=== PATIENT | female | born 1945 | race African-American/Black ===

== ENCOUNTER 2016-11-08 22:11 | Inpatient (IN) | payer MEDICARE, OTHER ==
[~2016-11-08] VITALS: Ht 162.6 cm; Wt 97.5 kg
[~2016-11-08 22:11] MED LIST: ALBUTEROL SULF8.5 GM INH; AMLODIPINE BESYL5 MG ORAL; ASPIR 8181 MG ORAL; BENADRYL50 MG ORAL; CATAPRES0.1 MG ORAL; CLONIDINE HCL0.1 MG ORAL; COLACE100 MG ORAL; DEPAKENE250 MG ORAL; DESYREL100 MG; DILAUDID2 MG ORAL; DIVALPROEX SOD500 MG ORAL; DUONEB 0.5-3(2.53 ML; ENALAPRIL MALEAT5 MG ORAL; FUROSEMIDE40 MG ORAL; GEODON40 MG ORAL; HEPARIN1000 UNIT/ SUBQ; HYDROCHLOROTHIA25 MG ORAL; HYDROCODON-ACE1 EA13; HYDROMORPHONE HC2 M1; IMODIUM2 MG ORAL; IPRAT-ALBUT 0.5-3 ML HHN; LASIX20 M1 ORAL; LIDODERM700 M1 TD; LIDODERM700 M1 TOPIC; LIPITOR20 MG ORAL; LOPERAMIDE2 MG PO; LORAZEPAM2 MG ORAL; METOCLOPRAMIDE H5 M1 ORAL; METOPROLOL TART25 MG ORAL; MULTIVITAMINS1 EAC2 ORAL; MYLANTA II30 ML ORAL; NICODERM 21MG/241 EA TD; NORCO 10/3251 EA ORAL; OMEPRAZOLE40 M1 ORAL; PAROXETINE HCL10 MG ORAL; PAROXETINE HCL20 MG; PAROXETINE HCL30 MG ORAL; POTASSIUM CHLO20 ME3 PO; PROTONIX40 MG ORAL; ROBITUSSIN DM5 ML ORAL; SYNTHROID75 MCG ORAL; TRAZODONE HCL100 MG ORAL; TRAZODONE HCL150 MG ORAL; TYLENOL650 MG/20. ORAL; VITAMIN B-12500 MCG ORAL; VITAMIN C500 M1 ORAL; WELLBUTRIN SR100 MG ORAL; ZOLPIDEM TARTRA10 MG; ambien; benadryl; clonidine; dilaudid; lasix; lidoderm; nicotine patch; norco; robaxin
[2016-11-08 22:20] VITALS: BP 130/80
[2016-11-08] MEDS ORDERED: Morphine Sulfate 4mg/ml Inj IVP ONE (22:30)
[2016-11-08] MEDS ORDERED: GUAIFENESIN-CO118 M1 ORAL (22:32)
[2016-11-08] MEDS ORDERED: VITAMIN B-1100 MG ORAL (22:32)
[2016-11-08] MEDS ORDERED: IPRATROPIU0.2 MG/1 M HHN (22:32)
[2016-11-08] MEDS ORDERED: AMLODIPINE BESY10 MG ORAL (22:32)
[2016-11-08] MEDS ORDERED: PRO-STAT LIQUID30 ML ORAL (22:32)
[2016-11-08] MEDS ORDERED: DEPAKOTE ER500 MG ORAL (22:32)
[2016-11-08] MEDS ORDERED: ZOLPIDEM TARTRA10 MG ORAL (22:32)
[2016-11-08] MEDS ORDERED: LORAZEPAM1 MG ORAL (22:32)
[2016-11-08] MEDS ORDERED: NITROGLYCERIN0.4 MG SL (22:32)
[2016-11-08] MEDS ORDERED: MILK OF MA400 MG/51 ORAL (22:32)
[2016-11-08] MEDS ORDERED: VITAMIN C500 M1 ORAL (22:32)
[2016-11-08] MEDS ORDERED: PAROXETINE HC12.5 MG ORAL (22:32)
[2016-11-08] MEDS ORDERED: ABILIFY2 MG ORAL (22:32)
[2016-11-08] MEDS ORDERED: VENTOLIN HFA18 GM INH (22:32)
[2016-11-08] MEDS ORDERED: FAMOTIDINE20 MG ORAL (22:32)
[2016-11-08] MEDS ORDERED: HYDRALAZINE HCL25 M1 ORAL (22:32)
[2016-11-08 23:00] VITALS: BP 133/76
[2016-11-09] VITALS (8 sets, daily range): BP systolic 94–160; BP diastolic 47–82
[2016-11-09 00:33] LABS: MEAN CORPUSCULAR HEMOGLOBIN 32.4 PG (27.0-31.0); MEAN CORPUSCULAR HGB CONC 33.1 G/DL (32.0-36.0); MEAN CORPUSCULAR VOLUME 98 FL (80-99); MEAN PLATELET VOLUME 10.7 FL (6.5-10.1); PLATELET COUNT 188 K/UL (150-450); RED BLOOD COUNT 4.58 M/UL (4.20-5.40); RED CELL DISTRIBUTION WIDTH 12.5 % (11.6-14.8); WHITE BLOOD COUNT 14.5 K/UL (4.8-10.8)
[2016-11-09 00:47] LABS: PROTHROMBIN TIME 10.2 SEC (9.30-11.50)
[2016-11-09 01:24] LABS: APPEARANCE,URINE SLIGHTLY CLOUDY; KETONES,URINE NEGATIVE (NEGATIVE); LEUKOCYTE ESTERASE ,URINE 3+ (NEGATIVE); NITRITE,URINE NEGATIVE (NEGATIVE); PH,URINE 7 (4.5-8.0); PROTEIN,URINE 3+ (NEGATIVE); UROBILINOGEN,URINE NORMAL MG/DL (0.0-1.0)
[2016-11-09 01:25] LABS: BACTERIA,URINE FEW /HPF; SQUAMOUS EPITHELIAL CELL,UR MODERATE /LPF (NONE/OCC); WBC,URINE TNTC /HPF (0 - 2)
[2016-11-09 01:30] LABS: ALANINE AMINOTRANSFERASE 6 U/L (3-33); ANION GAP 16 (5-15); ASPARTATE AMINO TRANSFERASE 14 U/L (5-40); CALCIUM 8.3 mg/dL (8.6-10.2); CARBON DIOXIDE 25 mEQ/L (20-30); CHLORIDE 100 mEQ/L (98-107); CREATININE 0.8 mg/dL (0.5-0.9); GLOMERULAR FILTRATION RATE > 60 mL/min (>60); POTASSIUM 3.3 mEQ/L (3.4-4.9); SODIUM 141 mEQ/L (135-145); TOTAL PROTEIN 6.4 g/dL (6.6-8.7); TROPONIN I < 0.30 ng/mL (<=0.30)
[2016-11-09 01:31] LABS: ALBUMIN/GLOBULIN RATIO 1.1 (1.0-2.7); HEMOLYSIS 53; LIPASE 10 U/L (< 60)
[2016-11-09] MEDS ORDERED: cefTRIAXone 1 GM in NS 55 ML IVPB ONE (01:45)
[2016-11-09] MEDS ORDERED: NS 1000ml 3,400 ML IVLG ONE (03:00)
--- NOTE | 2016-11-09 03:00 | Emergency Room Report ---
History of Present Illness General Chief Complaint: Abdominal Pain Source: Patient, Medical Record, EMS Present Illness HPI This is a 71-year-old female with multiple medical problem. She has a history of gastric bypass. She presents with chief complaint of abdominal pain. Onset today. No fever chills but no nausea no vomiting. Pain was 10 out of 10. Nothing made it better and nothing worse. Allergies: Coded Allergies: AMITRIPTYLINE (Verified Allergy, Unknown, 10/19/13) recorded from detention. pt does not remember the reation. CHLORPROMAZINE (Verified Allergy, Unknown, 10/19/13) recorded from detention. pt does not remember reaction. ERYTHROMYCIN BASE (Verified Allergy, Unknown, 10/19/13) recorded from detention. pt does not remember reaction. HALOPERIDOL (Verified Allergy, Unknown, 10/19/13) recorded from detention. pt does not remember reaction. QUETIAPINE (Verified Allergy, Unknown, 10/19/13) recorded from detention. pt does not remember reaction. Uncoded Allergies: PENICILIN (Allergy, Unknown, 11/08/16) Patient History Past Medical History: see triage record, old chart reviewed Past Surgical History: other Pertinent Family History: none Social History: Denies: smoking Now: No Immunizations: other Reviewed Nursing Documentation: PMH: Agreed, PSxH: Agreed Nursing Documentation-PMH Hx Cardiac Problems: Yes - HF, Osteoarthritism Hypothyroidusn Hx Hypertension: Yes - Angioneurotic edema, hyperlipidemia Hx Pacemaker: No Hx Asthma: Yes Hx COPD: Yes Hx Diabetes: No Hx Cancer: No Hx Gastrointestinal Problems: Yes - Gout, GERD History Of Psychiatric Problem: Yes - Schizophrenia, Bipolar, anxiety, insomnia Hx Cerebrovascular Accident: No Hx Encephalitis: Yes - encephalopathy Hx Seizures: No - ANEMIA, ENCEPHALOPATHY, OBESITY Review of Systems Eye: Denies: blurred vision, eye pain ENT: Denies: ear pain, nose congestion, throat swelling Respiratory: Denies: cough, shortness of breath Cardiovascular: Denies: chest pain, palpitations Gastrointestinal: Reports: abdominal pain, Denies: diarrhea, nausea, vomiting Musculoskeletal: Denies: back pain, joint pain Skin: Denies: rash Neurological: Denies: headache, numbness Endocrine: Denies: increased thirst, increased urine Hematologic/Lymphatic: Denies: easy bruising All Other Systems: negative except mentioned in HPI Physical Exam Vital Signs Date Time Temp Pulse Resp B/P Pulse Ox O2 Delivery O2 Flow Rate FiO2 11/08/16 22:11 102.9 130 16 126/82 98 Nasal Cannula 4.0 vitals with fever and tachycardia Sp02 EP Interpretation: reviewed, normal General Appearance: well appearing, no apparent distress, alert Head: normocephalic, atraumatic Eyes: bilateral eye EOMI, bilateral eye PERRL ENT: hearing grossly normal, normal pharynx Neck: full range of motion, supple, no meningismus Respiratory: chest non-tender, lungs clear, normal breath sounds Cardiovascular #1: regular rate, rhythm, no murmur Gastrointestinal: normal bowel sounds, non tender, no mass, no organomegaly, no bruit, non-distended Musculoskeletal: back normal, normal range of motion Neurologic: alert, oriented x3 Psychiatric: mood/affect normal Skin: warm/dry Medical Decision Making Diagnostic Impression: Primary Impression: Sepsis Qualified Codes: A41.9 - Sepsis, unspecified organism Additional Impressions: Pyelonephritis Abdominal pain of unknown etiology Morbid obesity with BMI of 40.0-44.9, adult ER Course Patient presents with fever and has UTI/pyelonephritis. Abdominal pain she'll no evidence of obstructive process. Patient given antibiotics. Blood pressure is stable and heart rate better after temperature broke. Admit for further workup. Laboratory Tests Test 11/08/16 22:50 11/09/16 01:05 White Blood Count 14.5 K/UL (4.8-10.8) H Red Blood Count 4.58 M/UL (4.20-5.40) Hemoglobin 14.8 G/DL (12.0-16.0) Hematocrit 44.8 % (37.0-47.0) Mean Corpuscular Volume 98 FL (80-99) Mean Corpuscular Hemoglobin 32.4 PG (27.0-31.0) H Mean Corpuscular Hemoglobin Concent 33.1 G/DL (32.0-36.0) Red Cell Distribution Width 12.5 % (11.6-14.8) Platelet Count 188 K/UL (150-450) Mean Platelet Volume 10.7 FL (6.5-10.1) H Neutrophils (%) (Auto) % (45.0-75.0) Lymphocytes (%) (Auto) % (20.0-45.0) Monocytes (%) (Auto) % (1.0-10.0) Eosinophils (%) (Auto) % (0.0-3.0) Basophils (%) (Auto) % (0.0-2.0) Prothrombin Time 10.2 SEC (9.30-11.50) Prothromb Time International Ratio 1.0 (0.9-1.1) Activated Partial Thromboplast Time 20 SEC (23-33) L Urine Color Yellow Urine Appearance Slightly cloudy Urine pH 7 (4.5-8.0) Urine Specific [place] 1.010 (1.005-1.035) Urine Protein 3+ (NEGATIVE) H Urine Glucose (UA) Negative (NEGATIVE) Urine Ketones Negative (NEGATIVE) Urine Occult Blood 4+ (NEGATIVE) H Urine Nitrite Negative (NEGATIVE) Urine Bilirubin Negative (NEGATIVE) Urine Urobilinogen Normal MG/DL (0.0-1.0) Urine Leukocyte Esterase 3+ (NEGATIVE) H Urine RBC 5-10 /HPF (0 - 2) H Urine WBC Tntc /HPF (0 - 2) H Urine Squamous Epithelial Cells Moderate /LPF (NONE/OCC) H Urine Bacteria Few /HPF (NONE) Sodium Level 141 mEQ/L (135-145) Potassium Level 3.3 mEQ/L (3.4-4.9) L Chloride Level 100 mEQ/L (98-107) Carbon Dioxide Level 25 mEQ/L (20-30) Anion Gap 16 (5-15) H Blood Urea Nitrogen 13 mg/dL (7-23) Creatinine 0.8 mg/dL (0.5-0.9) Estimat Glomerular Filtration Rate > 60 mL/min (>60) Glucose Level 110 mg/dL (74-106) H Calcium Level 8.3 mg/dL (8.6-10.2) L Total Bilirubin 0.3 mg/dL (0.0-1.2) Aspartate Amino Transf (AST/SGOT) 14 U/L (5-40) Alanine Aminotransferase (ALT/SGPT) 6 U/L (3-33) Alkaline Phosphatase 76 U/L (35-104) Troponin I < 0.30 ng/mL (<=0.30) Total Protein 6.4 g/dL (6.6-8.7) L Albumin 3.4 g/dL (3.5-5.2) L Globulin 3.0 g/dL Albumin/Globulin Ratio 1.1 (1.0-2.7) Lipase 10 U/L (< 60) Lab Results Impression labs unremarkable. EKG Diagnostic Results Rate: normal Rhythm: NSR ST Segments: no acute changes Rhythm Strip Diag. Results Rhythm Strip Time: 02:59 EP Interpretation: yes Rate: 71 Rhythm: NSR, no PVC's CT/MRI/US Diagnostic Results CT/MRI/US Diagnostic Results : Imaging Test Ordered: CT abdomen and pelvis Impression read by radiologist. Questionable pyelonephritis. No obstruction. Last Vital Signs Date Time Temp Pulse Resp B/P Pulse Ox O2 Delivery O2 Flow Rate FiO2 11/08/16 22:11 102.9 130 16 126/82 98 Nasal Cannula 4.0 Status: improved Disposition: ADMITTED INPATIENT Condition: Serious Referrals: PADMINI AMBROSIO (PCP) ALBERTO BRUCE M.D. Nov 09, 2016 03:00
[2016-11-09] MEDS ORDERED: IPRATROPIU0.2 MG/1 M HHN (06:21)
[2016-11-09] MEDS ORDERED: PHENAZOPYRIDIN200 MG ORAL (06:21)
[2016-11-09] MEDS ORDERED: NORCO 5-325 TA1 EACH ORAL (06:21)
--- NOTE | 2016-11-09 09:33 | Diagnostic Imaging Report ---
Indications: Abdominal pain Technique: Continuous helical CT imaging of the abdomen and pelvis was performed with automatic exposure control on a Siemens sensation [address] scanner. Axial, coronal, sagittal images reconstructed at 3 mm slice thickness. No oral or IV contrast was administered per requesting physician's order, despite no contraindications listed. CTDI volume(s): 20 mGy Total DLP: 886 mGy-cm Findings: Comparison: None Lack of oral and IV contrast limits evaluation. Mild stranding and haziness surrounds the left kidney. There is suggestion of mild fullness of the left renal collecting system and proximal ureter. There is suggestion of a 3 mm nodular focus of mildly increased attenuation within the distal aspect of the left ureter just proximal to the ureterovesical junction disease (3-105). No additional stone is demonstrated in either kidney or ureter, nor within the urinary bladder. Right renal collecting system and ureter are nondilated. No right perinephric or periureteral stranding. Gastrointestinal tract nondilated. Surgical clips adjacent stomach. No obvious mural thickening, adjacent stranding, associated extraluminal gas or fluid collections. Gallbladder mildly distended. Prominent arterial mural calcifications. Vascular patency indeterminate. Coarse nodular calcifications in the uterine myometrium. Remainder visualized abdominopelvic anatomy demonstrates no other obvious acute abnormality. Small irregular pleural-based linear densities in both lung bases. 2 older space narrowing with marginal osteophyte formation, vacuum phenomenon, discogenic sclerosis lumbar, lower thoracic spine. Facet sclerosis and hypertrophy lower lumbar spine. Impression: Left renal vein ureteral findings as described may represent small obstructing distal ureteral stone, sequelae of recently passed stone, and/or pyelonephritis. Not all of these findings were described in [facility] preliminary report, minor discrepancy Mild gallbladder distention, nonspecific. Correlate clinically. No other evidence of acute abdominopelvic disease, with limitation as described. Subtle but potentially significant abnormalities may be missed. Repeat CT scan with full oral and IV contrast preparation recommended for more complete evaluation, as clinically indicated Previous gastric bypass/reduction surgery Arteriosclerosis Degenerated uterine fibroids Minimal pulmonary bibasal subsegmental atelectasis Degenerative spondylosis
[2016-11-09] MEDS ORDERED: Norco 5mg/325mg tab ORAL PRN (10:15)
[2016-11-09] MEDS ORDERED: Milk of Magnesia 30ml Ud ORAL PRN (10:15)
[2016-11-09] MEDS ORDERED: Albuterol 90mcg Inhaler 8gm INH PRN (10:15)
[2016-11-09] MEDS ORDERED: Zolpidem 5mg tab ORAL PRN (10:15)
[2016-11-09] MEDS ORDERED: Ipratropium 0.02% Inh Soln 2.5ml UD HHN PRN (10:15)
[2016-11-09] MEDS ORDERED: HydrALAZINE 25mg tab ORAL PRN ×2 (10:15→17:00)
[2016-11-09] MEDS: Ipratropium 0.02% Inh Soln 2.5ml UD HHN SCH ×4 (11:00→23:29)
[2016-11-09] MEDS: Depakote ER 500mg tab ORAL SCH ×2 (11:09→20:59)
[2016-11-09] MEDS: Norco 5mg/325mg tab ORAL PRN (11:09)
--- NOTE | 2016-11-09 11:57 | General Progress Note ---
Assessment/Plan Problem List: (1) Osteoarthritis of multiple joints ICD Codes: M15.9 - Osteoarthritis of multiple joints SNOMED: 12137247 (2) chronic pain (3) Lumbar radiculopathy ICD Codes: M54.16 - Radiculopathy, lumbar region SNOMED: 023137817 (4) UTI (lower urinary tract infection) ICD Codes: N39.0 - UTI (lower urinary tract infection) SNOMED: 9235601 Status: progressing Assessment/Plan uti abx per id afebrile no wheezing reviewed chart and labs Subjective ROS Limited/Unobtainable: Yes Allergies: Coded Allergies: PENICILLINS (Unverified Allergy, Severe, 11/09/16) AMITRIPTYLINE (Verified Allergy, Unknown, 10/19/13) recorded from long term. pt does not remember the reation. CHLORPROMAZINE (Verified Allergy, Unknown, 10/19/13) recorded from long term. pt does not remember reaction. ERYTHROMYCIN BASE (Verified Allergy, Unknown, 10/19/13) recorded from long term. pt does not remember reaction. HALOPERIDOL (Verified Allergy, Unknown, 10/19/13) recorded from long term. pt does not remember reaction. QUETIAPINE (Verified Allergy, Unknown, 10/19/13) recorded from long term. pt does not remember reaction. Objective Last 24 Hour Vital Signs Date Time Temp Pulse Resp B/P Pulse Ox O2 Delivery O2 Flow Rate FiO2 11/09/16 11:45 98.1 93 18 160/82 97 Nasal Cannula 2.0 11/09/16 08:12 98.6 83 19 124/71 97 Nasal Cannula 2.0 83 11/09/16 04:20 85 19 94/54 96 Nasal Cannula 2.0 11/09/16 03:59 98.9 81 26 94/54 97 Room Air 11/09/16 03:01 98.6 11/09/16 03:00 81 26 96/63 97 Nasal Cannula 2.0 11/09/16 02:45 98.6 81 17 97/59 96 Nasal Cannula 2.0 11/09/16 02:00 87 19 95/63 96 Nasal Cannula 2.0 11/09/16 01:00 104 20 107/63 96 Nasal Cannula 2.0 11/08/16 23:00 129 25 133/76 98 Nasal Cannula 2.0 11/08/16 22:20 100.2 146 32 130/80 97 Nasal Cannula 2.0 11/08/16 22:11 102.9 130 16 126/82 98 Nasal Cannula 4.0 Intake and Output 11/08/16 11/09/16 19:00 07:00 Intake Total 0 ml Balance 0 ml Intake Oral 0 ml Laboratory Tests 11/08/16 22:50: White Blood Count 14.5H, Red Blood Count 4.58, Hemoglobin 14.8, Hematocrit 44.8 , Mean Corpuscular Volume 98, Mean Corpuscular Hemoglobin 32.4H, Mean Corpuscular Hemoglobin Concent 33.1, Red Cell Distribution Width 12.5, Platelet Count 188, Mean Platelet Volume 10.7H, Neutrophils (%) (Auto) , Lymphocytes (%) (Auto) , Monocytes (%) (Auto) , Eosinophils (%) (Auto) , Basophils (%) (Auto) , Prothrombin Time 10.2, Prothromb Time International Ratio 1.0, Activated Partial Thromboplast Time 20L, Lactic Acid Level 1.80 11/09/16 01:05: Urine Color Yellow, Urine Appearance Slightly cloudy, Urine pH 7, Urine Specific [place] 1.010, Urine Protein 3+H, Urine Glucose (UA) Negative, Urine Ketones Negative, Urine Occult Blood 4+H, Urine Nitrite Negative, Urine Bilirubin Negative, Urine Urobilinogen Normal, Urine Leukocyte Esterase 3+H, Urine RBC 5-10H, Urine WBC TntcH, Urine Squamous Epithelial Cells ModerateH, Urine Bacteria Few, Sodium Level 141, Potassium Level 3.3L, Chloride Level 100, Carbon Dioxide Level 25, Anion Gap 16H, Blood Urea Nitrogen 13, Creatinine 0.8, Estimat Glomerular Filtration Rate > 60, Glucose Level 110H, Calcium Level 8.3L , Total Bilirubin 0.3, Aspartate Amino Transf (AST/SGOT) 14, Alanine Aminotransferase (ALT/SGPT) 6, Alkaline Phosphatase 76, Troponin I < 0.30, Total Protein 6.4L, Albumin 3.4L, Globulin 3.0, Albumin/Globulin Ratio 1.1, Lipase 10 Height (Feet): 5 Height (Inches): 4.00 Weight (Pounds): 215 General Appearance: confused Neck: supple Cardiovascular: normal rate Leela Diaz MD Nov 09, 2016 11:57
--- NOTE | 2016-11-09 12:50 | Infectious Diseases Prog Note ---
Assessment/Plan Problems: (1) Pyelonephritis Assessment & Plan: due to left ureter obstruction, will start cefepime empirically pending urine and blood culture (2) Sepsis Assessment & Plan: due to the above, will send blood culture, and start cefepime empirically (3) Abdominal pain of unknown etiology Assessment & Plan: suspect due to passing stone and ureter obstruction, will order renal US Subjective Allergies: Coded Allergies: PENICILLINS (Unverified Allergy, Severe, 11/09/16) AMITRIPTYLINE (Verified Allergy, Unknown, 10/19/13) recorded from alf. pt does not remember the reation. CHLORPROMAZINE (Verified Allergy, Unknown, 10/19/13) recorded from alf. pt does not remember reaction. ERYTHROMYCIN BASE (Verified Allergy, Unknown, 10/19/13) recorded from alf. pt does not remember reaction. HALOPERIDOL (Verified Allergy, Unknown, 10/19/13) recorded from alf. pt does not remember reaction. QUETIAPINE (Verified Allergy, Unknown, 10/19/13) recorded from alf. pt does not remember reaction. Objective Vital Signs Last 24 Hour Vital Signs Date Time Temp Pulse Resp B/P Pulse Ox O2 Delivery O2 Flow Rate FiO2 11/09/16 11:45 98.1 93 18 160/82 97 Nasal Cannula 2.0 11/09/16 08:12 98.6 83 19 124/71 97 Nasal Cannula 2.0 83 11/09/16 04:20 85 19 94/54 96 Nasal Cannula 2.0 11/09/16 03:59 98.9 81 26 94/54 97 Room Air 11/09/16 03:01 98.6 11/09/16 03:00 81 26 96/63 97 Nasal Cannula 2.0 11/09/16 02:45 98.6 81 17 97/59 96 Nasal Cannula 2.0 11/09/16 02:00 87 19 95/63 96 Nasal Cannula 2.0 11/09/16 01:00 104 20 107/63 96 Nasal Cannula 2.0 11/08/16 23:00 129 25 133/76 98 Nasal Cannula 2.0 11/08/16 22:20 100.2 146 32 130/80 97 Nasal Cannula 2.0 11/08/16 22:11 102.9 130 16 126/82 98 Nasal Cannula 4.0 Height (Feet): 5 Height (Inches): 4.00 Weight (Pounds): 215 Laboratory Tests Test 11/08/16 22:50 11/09/16 01:05 White Blood Count 14.5 K/UL (4.8-10.8) H Red Blood Count 4.58 M/UL (4.20-5.40) Hemoglobin 14.8 G/DL (12.0-16.0) Hematocrit 44.8 % (37.0-47.0) Mean Corpuscular Volume 98 FL (80-99) Mean Corpuscular Hemoglobin 32.4 PG (27.0-31.0) H Mean Corpuscular Hemoglobin Concent 33.1 G/DL (32.0-36.0) Red Cell Distribution Width 12.5 % (11.6-14.8) Platelet Count 188 K/UL (150-450) Mean Platelet Volume 10.7 FL (6.5-10.1) H Neutrophils (%) (Auto) % (45.0-75.0) Lymphocytes (%) (Auto) % (20.0-45.0) Monocytes (%) (Auto) % (1.0-10.0) Eosinophils (%) (Auto) % (0.0-3.0) Basophils (%) (Auto) % (0.0-2.0) Prothrombin Time 10.2 SEC (9.30-11.50) Prothromb Time International Ratio 1.0 (0.9-1.1) Activated Partial Thromboplast Time 20 SEC (23-33) L Lactic Acid Level 1.80 mmol/L (0.66-2.22) Urine Color Yellow Urine Appearance Slightly cloudy Urine pH 7 (4.5-8.0) Urine Specific [place] 1.010 (1.005-1.035) Urine Protein 3+ (NEGATIVE) H Urine Glucose (UA) Negative (NEGATIVE) Urine Ketones Negative (NEGATIVE) Urine Occult Blood 4+ (NEGATIVE) H Urine Nitrite Negative (NEGATIVE) Urine Bilirubin Negative (NEGATIVE) Urine Urobilinogen Normal MG/DL (0.0-1.0) Urine Leukocyte Esterase 3+ (NEGATIVE) H Urine RBC 5-10 /HPF (0 - 2) H Urine WBC Tntc /HPF (0 - 2) H Urine Squamous Epithelial Cells Moderate /LPF (NONE/OCC) H Urine Bacteria Few /HPF (NONE) Sodium Level 141 mEQ/L (135-145) Potassium Level 3.3 mEQ/L (3.4-4.9) L Chloride Level 100 mEQ/L (98-107) Carbon Dioxide Level 25 mEQ/L (20-30) Anion Gap 16 (5-15) H Blood Urea Nitrogen 13 mg/dL (7-23) Creatinine 0.8 mg/dL (0.5-0.9) Estimat Glomerular Filtration Rate > 60 mL/min (>60) Glucose Level 110 mg/dL (74-106) H Calcium Level 8.3 mg/dL (8.6-10.2) L Total Bilirubin 0.3 mg/dL (0.0-1.2) Aspartate Amino Transf (AST/SGOT) 14 U/L (5-40) Alanine Aminotransferase (ALT/SGPT) 6 U/L (3-33) Alkaline Phosphatase 76 U/L (35-104) Troponin I < 0.30 ng/mL (<=0.30) Total Protein 6.4 g/dL (6.6-8.7) L Albumin 3.4 g/dL (3.5-5.2) L Globulin 3.0 g/dL Albumin/Globulin Ratio 1.1 (1.0-2.7) Lipase 10 U/L (< 60) Current Medications Medications (Trade) Dose Ordered Sig/Kushal Route PRN Reason Start Time Stop Time Status Last Admin Dose Admin Acetaminophen (Tylenol) 650 mg Q4H PRN ORAL Mild Pain/Temp > 100.5 11/09/16 10:15 12/09/16 10:14 Acetaminophen/ Hydrocodone Bitart ([place] 5/325) 1 tab Q6H PRN ORAL Moderate Pain (Pain Scale 4-6) 11/09/16 10:59 11/16/16 10:14 11/09/16 11:09 Albuterol Sulfate (Proventil MDI) 2 puff Q4H PRN INH Shortness of Breath 11/09/16 10:15 12/09/16 10:14 Amlodipine Besylate (Norvasc) 10 mg DAILY ORAL 11/09/16 12:00 12/09/16 11:59 Aripiprazole (Abilify) 2.5 mg DAILY ORAL 11/09/16 12:00 12/09/16 11:59 Ascorbic Acid (Vitamin C) 500 mg TWICE A DAY ORAL 11/09/16 18:00 12/09/16 17:59 Diphenhydramine HCl (Benadryl) 50 mg HSPRN PRN ORAL Itching/Pruritis 11/09/16 10:15 12/09/16 10:14 Divalproex Sodium (Depakote ER) 500 mg EVERY 12 HOURS ORAL 11/09/16 12:00 12/09/16 11:59 11/09/16 11:09 Furosemide (Lasix) 20 mg EVERY 12 HOURS ORAL 11/09/16 12:00 12/09/16 11:59 Guaifenesin/ Codeine Phosphate (Robitussin with codeine) 10 ml Q4HR PRN ORAL For Cough 11/09/16 10:15 12/09/16 10:14 Hydralazine HCl (Apresoline) 25 mg Q6HR PRN ORAL SBP>160 11/09/16 10:15 12/09/16 10:14 Ipratropium [place] (Atrovent) 500 mcg Q4H PRN HHN Shortness of Breath 11/09/16 10:15 11/14/16 10:14 Ipratropium [place] (Atrovent) 500 mcg Q4HRT HHN 11/09/16 11:00 11/14/16 10:59 Lorazepam (Ativan) 1 mg Q4HR PRN ORAL For Anxiety 11/09/16 10:15 11/16/16 10:14 Magnesium Hydroxide (Mom) 30 ml DAILYPRN PRN ORAL Constipation 11/09/16 10:15 12/09/16 10:14 Multivitamins (Multivitamins) 1 tab DAILY ORAL 11/10/16 09:00 12/10/16 08:59 Paroxetine HCl (Paxil CR) 12.5 mg DAILY ORAL 11/09/16 12:00 12/09/16 11:59 Phenazopyridine HCl (Pyridium) 200 mg THREE TIMES A DAY ORAL 11/09/16 13:00 12/09/16 12:59 Thiamine HCl (Vitamin B1) 100 mg TID ORAL 11/09/16 13:00 12/09/16 12:59 Zolpidem Tartrate (Ambien) 5 mg HSPRN PRN ORAL Insomnia 11/09/16 10:15 12/09/16 10:14 Angy Crane M.D. Nov 09, 2016 12:49
[2016-11-09] MEDS ORDERED: Thiamine 100mg tab ORAL SCH (13:00)
[2016-11-09] MEDS ORDERED: Phenazopyridine 200mg tab ORAL SCH (13:00)
[2016-11-09] MEDS: PAROXETINE 12.5 MG ORAL SCH (13:36)
--- NOTE | 2016-11-09 13:46 | Consultation ---
Consult Note Consult Note asked to eval at the request of Dr De Guzman Chief Complaint: Abdominal Pain This is a 71-year-old female with multiple medical problem. She has a history of gastric bypass. She presents with chief complaint of abdominal pain. Onset today. No fever chills but no nausea no vomiting. Pain was 10 out of 10. Nothing made it better and nothing worse. Coded Allergies: AMITRIPTYLINE (Verified Allergy, Unknown, 10/19/13) recorded from detention. pt does not remember the reation. CHLORPROMAZINE (Verified Allergy, Unknown, 10/19/13) recorded from detention. pt does not remember reaction. ERYTHROMYCIN BASE (Verified Allergy, Unknown, 10/19/13) recorded from detention. pt does not remember reaction. HALOPERIDOL (Verified Allergy, Unknown, 10/19/13) recorded from detention. pt does not remember reaction. QUETIAPINE (Verified Allergy, Unknown, 10/19/13) recorded from detention. pt does not remember reaction. Uncoded Allergies: PENICILIN (Allergy, Unknown, 11/08/16) Hx Cardiac Problems: Yes - HF, Osteoarthritism Hypothyroidusn Hx Hypertension: Yes - Angioneurotic edema, hyperlipidemia Hx Asthma: Yes Hx COPD: Yes Hx Gastrointestinal Problems: Yes - Gout, GERD History Of Psychiatric Problem: Yes - Schizophrenia, Bipolar, anxiety, insomnia Hx Encephalitis: Yes - encephalopathy Hx Seizures: No - ANEMIA, ENCEPHALOPATHY, OBESITY . Assessment/Plan status; HTN- HypoKalemia Obesity- UTI / Pyelo Psych Plan: Adjust BP meds- Stop Lasix- K supplements Monitor BP and renal parameters MICHAEL DE LA ROSA Nov 09, 2016 13:46
--- NOTE | 2016-11-09 14:19 | General Progress Note ---
Assessment/Plan Assessment/Plan (1) Degenerative cervical disc (2) Lumbar radiculopathy (3) Lumbar degenerative disc disease (4) chronic pain (5) Osteoarthritis of multiple joints Pt will be continued on [place] for moderate pain and will be started on Percocet 10/325mg PO 1 tab Q6H PRN severe pain Pt was d/w Dr. Caldwell and he concurred. Thank you for the courtesy of this consultation. Subjective Date patient seen: Nov 09, 2016 Time patient seen: 02:00 - pm Allergies: Coded Allergies: PENICILLINS (Unverified Allergy, Severe, 11/09/16) AMITRIPTYLINE (Verified Allergy, Unknown, 10/19/13) [facility]. pt does not remember the reation. CHLORPROMAZINE (Verified Allergy, Unknown, 10/19/13) recorded from [facility]iary. pt does not remember reaction. ERYTHROMYCIN BASE (Verified Allergy, Unknown, 10/19/13) recorded from [facility]iary. pt does not remember reaction. HALOPERIDOL (Verified Allergy, Unknown, 10/19/13) recorded from [facility]iary. pt does not remember reaction. QUETIAPINE (Verified Allergy, Unknown, 10/19/13) recorded from [facility]. pt does not remember reaction. Subjective Constitutional: Denies: no symptoms, chills, diaphoresis, fever, malaise, weakness, other HEENT: Denies: no symptoms, eye pain, blurred vision, tearing, double vision, ear pain, ear discharge, nose pain, nose congestion, throat pain, throat swelling, mouth pain, mouth swelling, other Cardiovascular: Denies: no symptoms, chest pain, edema, irregular heart rate, lightheadedness, palpitations, syncope, other Respiratory: Denies: no symptoms, cough, orthopnea, shortness of breath, SOB with excertion, SOB at rest, sputum, stridor, wheezing, other Gastrointestinal/Abdominal: Denies: no symptoms, abdomen distended, abdominal pain, black stools, tarry stools, blood in stool, constipated, diarrhea, difficulty swallowing, nausea, poor appetite, poor fluid intake, rectal bleeding , vomiting, other Genitourinary: Denies: no symptoms, burning, discharge, frequency, flank pain, hematuria, incontinence, pain, urgency, other Neurologic/Psychiatric: Reports: depressed, emotional problems Endocrine: Denies: no symptoms, excessive sweating, flushing, intolerance to cold, intolerance to heat, increased hunger, increased thirst, increased urine, unexplained weight gain, unexplained weight loss, other Hematologic/Lymphatic: Denies: no symptoms, anemia, easy bleeding, easy bruising, other Subjective Pt is known from prior admission returns due to UTI. She was started on [place] 5/ 325mg q6H with minimal pain relief. We were consulted so patient would have adequate pain control while here in the hospital. Objective Last 24 Hour Vital Signs Date Time Temp Pulse Resp B/P Pulse Ox O2 Delivery O2 Flow Rate FiO2 11/09/16 13:37 93 160/82 11/09/16 11:45 98.1 93 18 160/82 97 Nasal Cannula 2.0 11/09/16 08:12 98.6 83 19 124/71 97 Nasal Cannula 2.0 83 11/09/16 04:20 85 19 94/54 96 Nasal Cannula 2.0 11/09/16 03:59 98.9 81 26 94/54 97 Room Air 11/09/16 03:01 98.6 11/09/16 03:00 81 26 96/63 97 Nasal Cannula 2.0 11/09/16 02:45 98.6 81 17 97/59 96 Nasal Cannula 2.0 11/09/16 02:00 87 19 95/63 96 Nasal Cannula 2.0 11/09/16 01:00 104 20 107/63 96 Nasal Cannula 2.0 11/08/16 23:00 129 25 133/76 98 Nasal Cannula 2.0 11/08/16 22:20 100.2 146 32 130/80 97 Nasal Cannula 2.0 11/08/16 22:11 102.9 130 16 126/82 98 Nasal Cannula 4.0 Intake and Output 11/08/16 11/09/16 19:00 07:00 Intake Total 0 ml Balance 0 ml Intake Oral 0 ml Laboratory Tests 11/08/16 22:50: White Blood Count 14.5H, Red Blood Count 4.58, Hemoglobin 14.8, Hematocrit 44.8 , Mean Corpuscular Volume 98, Mean Corpuscular Hemoglobin 32.4H, Mean Corpuscular Hemoglobin Concent 33.1, Red Cell Distribution Width 12.5, Platelet Count 188, Mean Platelet Volume 10.7H, Neutrophils (%) (Auto) , Lymphocytes (%) (Auto) , Monocytes (%) (Auto) , Eosinophils (%) (Auto) , Basophils (%) (Auto) , Prothrombin Time 10.2, Prothromb Time International Ratio 1.0, Activated Partial Thromboplast Time 20L, Lactic Acid Level 1.80 11/09/16 01:05: Urine Color Yellow, Urine Appearance Slightly cloudy, Urine pH 7, Urine Specific [place] 1.010, Urine Protein 3+H, Urine Glucose (UA) Negative, Urine Ketones Negative, Urine Occult Blood 4+H, Urine Nitrite Negative, Urine Bilirubin Negative, Urine Urobilinogen Normal, Urine Leukocyte Esterase 3+H, Urine RBC 5-10H, Urine WBC TntcH, Urine Squamous Epithelial Cells ModerateH, Urine Bacteria Few, Sodium Level 141, Potassium Level 3.3L, Chloride Level 100, Carbon Dioxide Level 25, Anion Gap 16H, Blood Urea Nitrogen 13, Creatinine 0.8, Estimat Glomerular Filtration Rate > 60, Glucose Level 110H, Calcium Level 8.3L , Total Bilirubin 0.3, Aspartate Amino Transf (AST/SGOT) 14, Alanine Aminotransferase (ALT/SGPT) 6, Alkaline Phosphatase 76, Troponin I < 0.30, Total Protein 6.4L, Albumin 3.4L, Globulin 3.0, Albumin/Globulin Ratio 1.1, Lipase 10 Height (Feet): 5 Height (Inches): 4.00 Weight (Pounds): 215 Objective General Appearance: WD/WN EENT: PERRL/EOMI Neck: supple Cardiovascular: normal rate, regular rhythm Respiratory/Chest: decreased breath sounds Abdomen: non tender, soft Extremities: non-tender Edema: no edema noted Arm (L), no edema noted Arm (R), no edema noted Leg (L), no edema noted Leg (R), no edema noted Pedal (L), no edema noted Pedal (R), no edema noted Generalized 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
[2016-11-09] MEDS: Cefepime HCl 1 GM in D5W 55 ML IVPB SCH (15:29)
[2016-11-09] MEDS ORDERED: Morphine Sulfate 2mg/ml Inj IVP PRN ×2 (16:30→20:30)
--- NOTE | 2016-11-09 16:30 | Consultation ---
DATE OF CONSULTATION: INFECTIOUS DISEASES CONSULTATION CONSULTING PHYSICIAN: Angy Crane M.D. REQUESTING PHYSICIAN: Leela Diaz M.D. REASON FOR CONSULTATION: Pyelonephritis, sepsis, and recommendation for antibiotics therapy. HISTORY OF PRESENT ILLNESS: The patient is a 71-year-old female with past medical history of heart failure, hyperlipidemia, asthma, chronic obstructive pulmonary disease, and schizophrenia, who was sent to [facility] with a chief complaint of abdominal pain, which started on the day of admission and no report of nausea, vomiting, or fever. No chills. She had dysuria and possible hematuria as per her report. Her abdominal pain was significant, 10/10, deep, dull ache, and mainly localized in the left side. Nothing makes it better. It gets worse with movement and eating. The patient had CT scan in the emergency room, which showed left ureter dilatation, possibly recently passed stone, and possible pyelonephritis. White count was found to be elevated. Urinalysis showed evidence of infection suggestive of pyelonephritis too, so I was consulted by the primary provider for antibiotics treatment and further management due to multiple allergies to antibiotics. As of note, the patient is a poor historian and cannot provide any history. History was mainly obtained from the medical record. PAST MEDICAL HISTORY: Significant for heart failure, osteoarthritis, hypothyroidism, angioedema, hyperlipidemia, asthma, chronic obstructive pulmonary disease, gastroesophageal reflux disease, schizophrenia, bipolar, anemia, encephalopathy, and obesity. PAST SURGICAL HISTORY: Negative. MEDICATIONS: The patient received ceftriaxone in the emergency room. For the rest of her medications, please refer to MAR. ALLERGIES: She is allergic to erythromycin, penicillin, chlorpromazine, and haloperidol. SOCIAL HISTORY: She had no recent drugs, tobacco, or alcohol. Lives at home. FAMILY HISTORY: Unable to obtain. PHYSICAL EXAMINATION: VITAL SIGNS: Temperature 98.1 degrees, pulse 93, respirations 18, blood pressure 160/82, and saturation 97% on two liters nasal cannula. GENERAL: This is an elderly female, obese, lying in bed, awake, alert, but confused. Not in distress. HEENT: Normocephalic and atraumatic. Pupils reactive to light equally. Moist oral mucosa. No exudate. NECK: Supple. No lymphadenopathy. CARDIOVASCULAR: Regular rate and rhythm. No murmur or gallop. LUNGS: She had diminished breathing sounds at the bases. No wheezing or rhonchi. Normal breathing efforts. ABDOMEN: Soft, obese, and distended. Tender on the left side. No rebound. No organomegaly. EXTREMITIES: Trace edema. No cyanosis. SKIN: No rash or hives. LABORATORY DATA: Labs showed white count of 14.5, hemoglobin of 14.8, and platelet count of 188,000. BUN of 13 and creatinine of 0.8. Potassium of 3.3. Total protein of 6.4. Urine analysis showed +3 leukocyte esterase, WBC too numerous to count, and few bacteria. IMAGING: CT scan of the abdomen and pelvis without contrast showed left renal ureteral findings represent small obstructing distal ureteral stone, sequela of recently passed stone or pyelonephritis, and mild gallbladder distention. No other evidence of acute abdominal pelvic disease. ASSESSMENT AND RECOMMENDATIONS: 1. Acute pyelonephritis due to ureter obstruction. We will start the patient empirically on cefepime pending urine cultures results and blood culture. 2. Sepsis due to the above. We will send blood culture and continue cefepime empiric treatment. 3. Abdominal pain suspect due to passing ureter stone and ureter obstruction. I will order renal ultrasound for further evaluation. Continue pain management as per the primary team. 4. Congestive heart failure. Continue diuretics and cardiac medications as per primary. 5. Chronic obstructive pulmonary disease and asthma. Continue nebulizer treatment and oxygen as needed. Angy Crane M.D. DR: MCKAYLA JOB#: [id number] CC:
[2016-11-09] MEDS: Ascorbic Acid 500mg tab ORAL SCH (17:11)
--- NOTE | 2016-11-09 18:15 | Consultation ---
History of Present Illness General Date patient seen: Nov 09, 2016 Chief Complaint: Abdominal Pain Reason for Consultation: inpatient management Present Illness HPI 71-year-old female with history of gastric bypass , depression, HTN presented to ER with chief complaint of abdominal pain. Onset today. Pain was 10 out of 10. Nothing made it better and nothing worse. She had a temperature of 101 in ER and was admitted for further work up. Allergies: Coded Allergies: PENICILLINS (Unverified Allergy, Severe, 11/09/16) AMITRIPTYLINE (Verified Allergy, Unknown, 10/19/13) recorded from longterm. pt does not remember the reation. CHLORPROMAZINE (Verified Allergy, Unknown, 10/19/13) recorded from longterm. pt does not remember reaction. ERYTHROMYCIN BASE (Verified Allergy, Unknown, 10/19/13) recorded from longterm. pt does not remember reaction. HALOPERIDOL (Verified Allergy, Unknown, 10/19/13) recorded from longterm. pt does not remember reaction. QUETIAPINE (Verified Allergy, Unknown, 10/19/13) recorded from longterm. pt does not remember reaction. Medication History Scheduled Albuterol Sulfate (Ventolin Hfa), 2 PUFF INH Q4HR, (Reported) Amlodipine Besylate* (Amlodipine Besylate*), 10 MG ORAL DAILY, (Reported) Aripiprazole* (Abilify*), 2.5 MG ORAL DAILY, (Reported) Ascorbic Acid* (Vitamin C*), 500 MG ORAL BID, (Reported) Divalproex Sodium* (Depakote Er*), 500 MG ORAL EVERY 12 HOURS, (Reported) Famotidine (Famotidine), 20 MG ORAL TWICE A DAY, (Reported) Furosemide* (Lasix*), 20 MG ORAL BID, (Reported) Ipratropium [place] 0.5MG/2.5ML (Ipratropium [place] 0.5MG/2.5ML), 0.5 MG HHN Q4HR, (Reported) Multivitamins* (Multivitamins*), 1 TAB ORAL DAILY, (Reported) Paroxetine Hcl* (Paroxetine Hcl*), 40 MG ORAL DAILY, (Reported) Phenazopyridine Hcl* (Pyridium*), 200 MG ORAL THREE TIMES A DAY, (Reported) Thiamine Hcl* (Vitamin B-1*), 100 MG ORAL TID, (Reported) Scheduled PRN Acetaminophen (Acetaminophen), 650 MG ORAL Q4HR PRN for Mild Pain/Temp > 100.5, (Reported) Diphenhydramine HCl (Diphenhydramine HCl), 50 MG ORAL DAILY PRN for Itching, ( Reported) Guaifenesin/Codeine Phos* (Robitussin Ac*), 10 ML ORAL Q4H PRN for For Cough, ( Reported) Guaifenesin/Dextromethorphan (Guaifenesin Dm Syrup), 5 ML ORAL EVERY 6 HOURS PRN for For Cough, (Reported) Hydralazine Hcl* (Hydralazine Hcl*), 25 MG ORAL EVERY 6 HOURS PRN for For High Blood Pressure, (Reported) Hydrocodone Bit/Acetaminophen 5-325* ([place] 5-325*), 1 TAB ORAL Q6H PRN for For Pain, (Reported) Ipratropium [place] 0.5MG/2.5ML (Ipratropium [place] 0.5MG/2.5ML), 0.5 MG HHN Q4HR PRN for Shortness of Breath, (Reported) Lorazepam* (Lorazepam*), 1 MG ORAL Q4HR PRN for For Anxiety, (Reported) Magnesium Hydroxide* (Milk Of Magnesia*), 30 ML ORAL DAILY PRN for Constipation, (Reported) Zolpidem Tartrate* (Zolpidem Tartrate*), 10 MG ORAL BEDTIME PRN for Insomnia, ( Reported) Patient History Healthcare decision maker DEEPA DENNIS Resuscitation status Full Code Advanced Directive on File No Past Medical/Surgical History Past Medical/Surgical History: (1) CHF (congestive heart failure), NYHA class I (2) copd (3) Hypothyroidism Review of Systems All Other Systems: negative except mentioned in HPI Physical Exam General Appearance: WD/WN, no apparent distress Lines, tubes and drains: peripheral HEENT: normocephalic, atraumatic Neck: non-tender, normal alignment Respiratory/Chest: chest wall non-tender, lungs clear Cardiovascular/Chest: normal peripheral pulses, normal rate Abdomen: normal bowel sounds Genitourinary/Rectal: normal genital exam Extremities: normal range of motion Skin Exam: normal pigmentation 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 normal Last 24 Hour Vital Signs Date Time Temp Pulse Resp B/P Pulse Ox O2 Delivery O2 Flow Rate FiO2 11/09/16 17:14 96 Nasal Cannula 2.0 28 11/09/16 17:14 Nasal Cannula 2.0 28 11/09/16 15:28 97 20 98 Nasal Cannula 2.0 28 11/09/16 15:18 97 20 96 Nasal Cannula 2.0 28 11/09/16 13:37 93 160/82 11/09/16 11:45 98.1 93 18 160/82 97 Nasal Cannula 2.0 11/09/16 08:12 98.6 83 19 124/71 97 Nasal Cannula 2.0 83 11/09/16 04:20 85 19 94/54 96 Nasal Cannula 2.0 11/09/16 03:59 98.9 81 26 94/54 97 Room Air 11/09/16 03:01 98.6 11/09/16 03:00 81 26 96/63 97 Nasal Cannula 2.0 11/09/16 02:45 98.6 81 17 97/59 96 Nasal Cannula 2.0 11/09/16 02:00 87 19 95/63 96 Nasal Cannula 2.0 11/09/16 01:00 104 20 107/63 96 Nasal Cannula 2.0 11/08/16 23:00 129 25 133/76 98 Nasal Cannula 2.0 11/08/16 22:20 100.2 146 32 130/80 97 Nasal Cannula 2.0 11/08/16 22:11 102.9 130 16 126/82 98 Nasal Cannula 4.0 Intake and Output 11/08/16 11/09/16 19:00 07:00 Intake Total 0 ml Balance 0 ml Intake Oral 0 ml Laboratory Tests Test 11/08/16 22:50 11/09/16 01:05 White Blood Count 14.5 K/UL (4.8-10.8) H Red Blood Count 4.58 M/UL (4.20-5.40) Hemoglobin 14.8 G/DL (12.0-16.0) Hematocrit 44.8 % (37.0-47.0) Mean Corpuscular Volume 98 FL (80-99) Mean Corpuscular Hemoglobin 32.4 PG (27.0-31.0) H Mean Corpuscular Hemoglobin Concent 33.1 G/DL (32.0-36.0) Red Cell Distribution Width 12.5 % (11.6-14.8) Platelet Count 188 K/UL (150-450) Mean Platelet Volume 10.7 FL (6.5-10.1) H Neutrophils (%) (Auto) % (45.0-75.0) Lymphocytes (%) (Auto) % (20.0-45.0) Monocytes (%) (Auto) % (1.0-10.0) Eosinophils (%) (Auto) % (0.0-3.0) Basophils (%) (Auto) % (0.0-2.0) Prothrombin Time 10.2 SEC (9.30-11.50) Prothromb Time International Ratio 1.0 (0.9-1.1) Activated Partial Thromboplast Time 20 SEC (23-33) L Lactic Acid Level 1.80 mmol/L (0.66-2.22) Urine Color Yellow Urine Appearance Slightly cloudy Urine pH 7 (4.5-8.0) Urine Specific [place] 1.010 (1.005-1.035) Urine Protein 3+ (NEGATIVE) H Urine Glucose (UA) Negative (NEGATIVE) Urine Ketones Negative (NEGATIVE) Urine Occult Blood 4+ (NEGATIVE) H Urine Nitrite Negative (NEGATIVE) Urine Bilirubin Negative (NEGATIVE) Urine Urobilinogen Normal MG/DL (0.0-1.0) Urine Leukocyte Esterase 3+ (NEGATIVE) H Urine RBC 5-10 /HPF (0 - 2) H Urine WBC Tntc /HPF (0 - 2) H Urine Squamous Epithelial Cells Moderate /LPF (NONE/OCC) H Urine Bacteria Few /HPF (NONE) Sodium Level 141 mEQ/L (135-145) Potassium Level 3.3 mEQ/L (3.4-4.9) L Chloride Level 100 mEQ/L (98-107) Carbon Dioxide Level 25 mEQ/L (20-30) Anion Gap 16 (5-15) H Blood Urea Nitrogen 13 mg/dL (7-23) Creatinine 0.8 mg/dL (0.5-0.9) Estimat Glomerular Filtration Rate > 60 mL/min (>60) Glucose Level 110 mg/dL (74-106) H Calcium Level 8.3 mg/dL (8.6-10.2) L Total Bilirubin 0.3 mg/dL (0.0-1.2) Aspartate Amino Transf (AST/SGOT) 14 U/L (5-40) Alanine Aminotransferase (ALT/SGPT) 6 U/L (3-33) Alkaline Phosphatase 76 U/L (35-104) Troponin I < 0.30 ng/mL (<=0.30) Total Protein 6.4 g/dL (6.6-8.7) L Albumin 3.4 g/dL (3.5-5.2) L Globulin 3.0 g/dL Albumin/Globulin Ratio 1.1 (1.0-2.7) Lipase 10 U/L (< 60) Height (Feet): 5 Height (Inches): 4.00 Weight (Pounds): 215 Medications Current Medications Medications (Trade) Dose Ordered Sig/Kushal Route PRN Reason Start Time Stop Time Status Last Admin Dose Admin Acetaminophen (Tylenol) 650 mg Q4H PRN ORAL Mild Pain/Temp > 100.5 11/09/16 10:15 12/09/16 10:14 11/09/16 13:41 Acetaminophen/ Hydrocodone Bitart 1 tab 1 tab Q6H PRN ORAL Moderate Pain (Pain Scale 4-6) 11/09/16 10:59 11/16/16 10:14 11/09/16 11:09 Albuterol Sulfate (Proventil MDI) 2 puff Q4H PRN INH Shortness of Breath 11/09/16 10:15 12/09/16 10:14 Amlodipine Besylate (Norvasc) 5 mg BID ORAL 11/10/16 09:00 12/10/16 08:59 Aripiprazole (Abilify) 2.5 mg DAILY ORAL 11/09/16 12:00 12/09/16 11:59 Ascorbic Acid (Vitamin C) 500 mg TWICE A DAY ORAL 11/09/16 18:00 12/09/16 17:59 11/09/16 17:11 Cefepime HCl/ Dextrose (Maxipime/D5W) 55 ml @ 110 mls/hr Q12HR@0300,1500 IVPB 11/09/16 15:00 11/16/16 14:59 11/09/16 15:29 Diphenhydramine HCl (Benadryl) 50 mg HSPRN PRN ORAL Itching/Pruritis 11/09/16 10:15 12/09/16 10:14 Divalproex Sodium (Depakote ER) 500 mg EVERY 12 HOURS ORAL 11/09/16 12:00 12/09/16 11:59 11/09/16 11:09 Guaifenesin/ Codeine Phosphate (Robitussin with codeine) 10 ml Q4HR PRN ORAL For Cough 11/09/16 10:15 12/09/16 10:14 Hydralazine HCl (Apresoline) 25 mg Q4HR PRN ORAL SBP>160 11/09/16 17:00 12/09/16 16:59 Ipratropium [place] (Atrovent) 500 mcg Q4H PRN HHN Shortness of Breath 11/09/16 10:15 11/14/16 10:14 Ipratropium [place] (Atrovent) 500 mcg Q4HRT HHN 11/09/16 11:00 11/14/16 10:59 11/09/16 15:22 Lorazepam (Ativan) 1 mg Q4HR PRN ORAL For Anxiety 11/09/16 10:15 11/16/16 10:14 Magnesium Hydroxide (Mom) 30 ml DAILYPRN PRN ORAL Constipation 11/09/16 10:15 12/09/16 10:14 Multivitamins (Multivitamins) 1 tab DAILY ORAL 11/10/16 09:00 12/10/16 08:59 Oxycodone/ Acetaminophen (Percocet 10/325) 1 tab Q6H PRN ORAL severe pain 11/09/16 14:30 11/16/16 14:29 11/09/16 17:13 Paroxetine HCl (Paxil CR) 12.5 mg DAILY ORAL 11/09/16 12:00 12/09/16 11:59 11/09/16 13:36 Potassium Chloride (K-Dur) 40 meq Q6H ORAL 11/09/16 15:00 11/09/16 21:01 11/09/16 15:29 Thiamine HCl (Vitamin B1) 100 mg DAILY ORAL 11/10/16 09:00 12/10/16 08:59 Zolpidem Tartrate (Ambien) 5 mg HSPRN PRN ORAL Insomnia 11/09/16 10:15 12/09/16 10:14 Assessment/Plan Problem List: (1) Sepsis ICD Codes: A41.9 - Sepsis, unspecified organism SNOMED: 44810006, [id number] Qualifiers: Qualified Codes: A41.9 - Sepsis, unspecified organism (2) copd (3) CHF (congestive heart failure), NYHA class I ICD Codes: I50.9 - CHF (congestive heart failure), NYHA class I SNOMED: 74899044 (4) Hypothyroidism ICD Codes: E03.9 - Hypothyroidism SNOMED: 45255910 (5) chronic pain (6) Lumbar radiculopathy ICD Codes: M54.16 - Radiculopathy, lumbar region SNOMED: 546028956 Assessment/Plan euceda culture IV antibioitics check culutres check electrollytes pain control dvt prophylaxis CONOR WYLIE Nov 09, 2016 18:15
--- NOTE | 2016-11-09 19:52 | Consultation ---
Consult Note Consult Note NEUROLOGY CONSULTATION: Full note dictated #[id number] 71 y/o, RH, BF with PH of BAD, gastric bypass, gastric tumor, kidney infections with a brief period of HD, who lives in a NH. She was hospitalized for fever, chills, and AMS. She feels better today. ON EXAM: Globally diminished reflexes. IMPRESSION: Delirium due to possible pyelonephritis which as now resolved. REC: Continue aggressive Rx of pyelo. Observe Nai Michaels M.D., M.S.P.H. NAI MICHAELS Nov 09, 2016 19:52
--- NOTE | 2016-11-09 21:30 | Consultation ---
DATE OF CONSULTATION: 11/09/2016 NEUROLOGY CONSULTATION CONSULTING PHYSICIAN: Jon Michaels M.D. REFERRING PHYSICIAN: Leela Diaz M.D. HISTORY: Ms. 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 She was functioning relatively well until approximately a week ago when she started to feel quite ill. She was having pain in her flank and in addition, she was also having fevers and chills. It was felt that she had a urinary tract infection and she was given Pyridium. She, however, continued to feel quite ill and as a result of that, she was sent to the [facility] Emergency Room and has been admitted since then. When she came in, there was a significant alteration in her mental state and thus this consultation was requested by Dr. Leela Diaz. At this point in time, she feels much better. The mind has cleared up significantly and she feels generally better, but she continues to have fevers and chills. She denies any weakness on one side or the other, numbness on one side or the other, problems with speech, problems with language, problems with vision, but does state that when her fever goes up, she has headaches. PAST MEDICAL HISTORY: Significant for bipolar affective disorder, gastric bypass, gastric tumor removed surgically, kidney infections, and brief period of hemodialysis associated with kidney infection a few years ago. FAMILY HISTORY: Nothing significant as per the patient. PERSONAL HISTORY: Home: She lives in a long term. 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 Habits: She denies the use of alcohol or illicit drugs, but she has been smoking for numerous years and still continues to smoke about half a pack of cigarettes per day. PRESENT MEDICATIONS: Multivitamins, Norvasc, vitamin B1, ascorbic acid, hydralazine, cefepime, potassium chloride, Percocet, Paxil, Depakote 500 mg q.12 h., Norvasc, Abilify, Atrovent, Grapevine, Ambien, Proventil, Robitussin, milk of magnesia, lorazepam, Benadryl, and acetaminophen. PHYSICAL EXAMINATION: GENERAL: She is a well-developed, well-nourished, obese, black lady, lying in bed, in no acute distress. VITAL SIGNS: Pulse 91 per minute, blood pressure 113/47 mmHg, respirations 20 per minute, temperature 102.4 degrees Fahrenheit. HEAD: Normocephalic and atraumatic. NECK: No neck rigidity was observed. She did have mild grade 1/4 cervical paraspinal muscle and trapezius spasm. EENT: Examination is benign. NEUROLOGICAL EXAMINATION: MENTAL STATUS EXAMINATION: She was alert and awake. She was oriented to person, place, and time except for the exact date. She was able to recall 3/3 words immediately after 1 minute and after 3 minutes. She was able to remember presidents, Trump through Izquierdo Sr. with minimal hints. Her mathematical skills were fairly good. Her visuospatial function was preserved. SPEECH: She had no dysarthria. LANGUAGE: She had no aphasia. CRANIAL NERVE EXAMINATION: II: The visual mireles were intact on confrontation testing III, IV & : External ocular movements were full and the pupils 3 mm in diameter, equal, round, regular, and reactive to light. V: She had normal facial sensations and the temporales, masseters, and pterygoids function normally. VII: She had normal facial expressions and no facial asymmetry. VIII: She was able to hear well bilaterally and had no nystagmus. IX: The palate moved symmetrically on phonation. X: She had no hoarseness of voice. XI: The sternocleidomastoids and trapezii functioned normally. XII: The tongue was in the midline without any fasciculations or atrophy. MOTOR SYSTEM: The tone was normal in all four extremities. Examination of muscle mass revealed no focal wasting. Examination of power revealed grade 5/5 power in all muscle groups tested. SENSORY EXAMINATION: She had intact sensations to pinprick, light touch, and graphesthesia. COORDINATION: She performed well on [id number] testing. REFLEXES: Trace+ and bilaterally symmetrical at the biceps, triceps, brachioradialis, and knees and 0 at both ankles. The plantar responses were flexor bilaterally. STANCE: She had a minimally wide-based, but stable stance. GAIT: She walked with a minimally wide-based, but stable gait. DIAGNOSTIC IMPRESSION: 1. Ms. Susy Ezra is a 71-year-old, right-handed, black lady, who does have a past history of bipolar affective disorder, gastric bypass, gastric tumor, kidney infections, a brief period of hemodialysis numerous years ago, hypertension, chronic obstructive pulmonary disease, and gastroesophageal reflux disease who was hospitalized for fevers, chills, and altered mental state. She was evaluated in the [facility] emergency room and was discovered to have pyelonephritis. She has been treated for this with appropriate antibiotics and fluids, and has improved. When she came in, her mental state was quite altered, but it seems to have improved since then. 2. On neurological examination, at this time, she is mildly disoriented to the exact date, has mild G 1/4 cervical paraspinal muscle and trapezius spasm, has globally diminished reflexes, but the rest of the neurological examination is essentially benign. 3. Laboratory data revealed that her WBC count was elevated to 14,500 and her potassium was low at 3.3. She had an anion gap of 16. Her glucose was elevated to 110. Her albumin was down at 3.4. Her urinalysis reveals 3+ leukocyte esterase, 5-10 red blood cells per high-power field, too numerous to count white blood cells per high-power field, and a few urinary bacteria. 4. The patient's history and neurological examination are most compatible with a delirium due to possible pyelonephritis, which is now significantly better. RECOMMENDATIONS: 1. Agree with management thus far. 2. Would continue to treat the patient's pyelonephritis in an aggressive manner. 3. The patient will be worked up thoroughly for other treatable causes of altered mental state. 4. Depending on how the patient fares over the next day or so, further recommendations will be given. Thank you for entrusting me with the care of Ms. Munguia. I shall follow her with you. Jon Michaels M.D., M.S.P.H. DR: DEBORAH JOB#: [id number] ZENA
[2016-11-10] MEDS: Cefepime HCl 1 GM in D5W 55 ML IVPB SCH (02:45)
[2016-11-10] MEDS: Ipratropium 0.02% Inh Soln 2.5ml UD HHN SCH ×6 (03:53→23:00)
[2016-11-10 04:00] VITALS: BP 98/57
[2016-11-10 08:48] VITALS: BP 102/56
--- NOTE | 2016-11-10 09:07 | General Progress Note ---
Assessment/Plan Assessment/Plan (1) Degenerative cervical disc (2) Lumbar radiculopathy (3) Lumbar degenerative disc disease (4) chronic pain (5) Osteoarthritis of multiple joints Pt will be continued on [place] and Percocet Pt was d/w Dr. Caldwell and he concurred. Subjective Date patient seen: Nov 10, 2016 Time patient seen: 07:30 - am Allergies: Coded Allergies: PENICILLINS (Unverified Allergy, Severe, 11/09/16) AMITRIPTYLINE (Verified Allergy, Unknown, 10/19/13) recorded from assisted. pt does not remember the reation. CHLORPROMAZINE (Verified Allergy, Unknown, 10/19/13) recorded from assisted. pt does not remember reaction. ERYTHROMYCIN BASE (Verified Allergy, Unknown, 10/19/13) recorded from assisted. pt does not remember reaction. HALOPERIDOL (Verified Allergy, Unknown, 10/19/13) recorded from assisted. pt does not remember reaction. QUETIAPINE (Verified Allergy, Unknown, 10/19/13) recorded from assisted. pt does not remember reaction. Subjective Constitutional: Denies: no symptoms, chills, diaphoresis, fever, malaise, weakness, other HEENT: Denies: no symptoms, eye pain, blurred vision, tearing, double vision, ear pain, ear discharge, nose pain, nose congestion, throat pain, throat swelling, mouth pain, mouth swelling, other Cardiovascular: Denies: no symptoms, chest pain, edema, irregular heart rate, lightheadedness, palpitations, syncope, other Respiratory: Denies: no symptoms, cough, orthopnea, shortness of breath, SOB with excertion, SOB at rest, sputum, stridor, wheezing, other Gastrointestinal/Abdominal: Denies: no symptoms, abdomen distended, abdominal pain, black stools, tarry stools, blood in stool, constipated, diarrhea, difficulty swallowing, nausea, poor appetite, poor fluid intake, rectal bleeding , vomiting, other Genitourinary: Denies: no symptoms, burning, discharge, frequency, flank pain, hematuria, incontinence, pain, urgency, other Neurologic/Psychiatric: Reports: depressed, emotional problems Endocrine: Denies: no symptoms, excessive sweating, flushing, intolerance to cold, intolerance to heat, increased hunger, increased thirst, increased urine, unexplained weight gain, unexplained weight loss, other Hematologic/Lymphatic: Denies: no symptoms, anemia, easy bleeding, easy bruising, other Subjective Pt is comfortable and is in no signs of distress or pain. The Percocet and [place] has helped to reduce her pain. Objective Last 24 Hour Vital Signs Date Time Temp Pulse Resp B/P Pulse Ox O2 Delivery O2 Flow Rate FiO2 11/10/16 08:48 97.9 88 19 102/56 96 Room Air 11/10/16 07:50 91 18 100 Room Air 21 11/10/16 07:44 Room Air 21 11/10/16 07:44 91 18 97 Room Air 11/10/16 07:44 21 11/10/16 07:44 96 Room Air 21 11/10/16 06:37 99.1 11/10/16 04:00 99.1 98 18 98/57 99 Room Air 11/10/16 03:55 100 18 97 Nasal Cannula 3.0 32 11/10/16 03:52 32 11/10/16 03:45 102 20 94 Nasal Cannula 3.0 32 11/09/16 23:43 98 18 96 Nasal Cannula 3.0 32 11/09/16 23:33 100 20 95 Nasal Cannula 3.0 32 11/09/16 23:33 32 11/09/16 22:38 101.7 11/09/16 19:54 86 18 97 Nasal Cannula 3.0 32 11/09/16 19:47 94 Nasal Cannula 2.0 28 11/09/16 19:47 Nasal Cannula 2.0 28 11/09/16 19:47 28 11/09/16 19:44 88 20 94 Nasal Cannula 2.0 28 11/09/16 19:35 102.4 91 20 113/47 96 Room Air 11/09/16 17:14 96 Nasal Cannula 2.0 28 11/09/16 17:14 Nasal Cannula 2.0 28 11/09/16 15:28 97 20 98 Nasal Cannula 2.0 28 11/09/16 15:18 97 20 96 Nasal Cannula 2.0 28 11/09/16 13:37 93 160/82 11/09/16 11:45 98.1 93 18 160/82 97 Nasal Cannula 2.0 Intake and Output 11/09/16 11/10/16 19:00 07:00 Intake Total 295 ml Balance 295 ml Intake Oral 240 ml IV Total 55 ml # Voids 2 Laboratory Tests 11/09/16 21:00: Erythrocyte Sedimentation Rate 86H, Total Protein (PEP) [Pending], Albumin (PEP ) [Pending], Globulin (PEP) [Pending], Albumin/Globulin Ratio [Pending], Alpha-1 -Globulins [Pending], [id number] [Pending], Beta Globulins [Pending], Beta Gamma Globulin [Pending], PEP Abnormal Protein Bands [Pending], Protein Electrophoresis Interpret [Pending], Vitamin D 25-Hydroxy [Pending], 25-Hydroxy Vitamin D2 [Pending], 25-Hydroxy Vitamin D3 [Pending], Folate [Pending], Rapid Plasma Reagin [Pending] Height (Feet): 5 Height (Inches): 4.00 Weight (Pounds): 215 Objective General Appearance: WD/WN EENT: PERRL/EOMI Neck: supple Cardiovascular: normal rate, regular rhythm Respiratory/Chest: decreased breath sounds Abdomen: non tender, soft Extremities: non-tender Edema: no edema noted Arm (L), no edema noted Arm (R), no edema noted Leg (L), no edema noted Leg (R), no edema noted Pedal (L), no edema noted Pedal (R), no edema noted Generalized Neurologic: gold stamper II-XII grossly normal, alert, oriented x 3 SARAY MARS Nov 10, 2016 09:07
[2016-11-10] MEDS: Thiamine 100mg tab ORAL SCH (09:43)
[2016-11-10] MEDS: Ascorbic Acid 500mg tab ORAL SCH ×2 (09:44→17:01)
[2016-11-10] MEDS: Depakote ER 500mg tab ORAL SCH ×2 (09:44→19:57)
[2016-11-10] MEDS: PAROXETINE 12.5 MG ORAL SCH (09:44)
[2016-11-10 10:36] LABS: MEAN CORPUSCULAR HEMOGLOBIN 32.5 PG (27.0-31.0); MEAN CORPUSCULAR HGB CONC 32.4 G/DL (32.0-36.0); MEAN CORPUSCULAR VOLUME 100 FL (80-99); MEAN PLATELET VOLUME 8.8 FL (6.5-10.1); PLATELET COUNT 156 K/UL (150-450); RED BLOOD COUNT 3.64 M/UL (4.20-5.40); RED CELL DISTRIBUTION WIDTH 12.8 % (11.6-14.8); WHITE BLOOD COUNT 20.9 K/UL (4.8-10.8)
[2016-11-10] MEDS ORDERED: Tubing IV Secondary IV ONE (10:41)
[2016-11-10] MEDS ORDERED: NS 275ml ONE (10:41)
--- NOTE | 2016-11-10 11:00 | Diagnostic Imaging Report ---
Indication: Abnormal renal function tests Technique: Grayscale and duplex images of the kidneys, retroperitoneum, and bladder were obtained. Comparison:Reference made to CT abdomen pelvis 11/08/2016 Findings: Right kidney measures 12.5 cm in length. Left kidney measures 10.4 cm in length. Both kidneys demonstrate normal echogenicity. No hydronephrosis. Right kidney an 11 mm cyst in the renal sinus. Left kidney demonstrates a questionable 16 mm hypoechoic lesion in the lower interpolar region. However, no or splenic abnormality is seen on recent CT scan. Mild left renal collecting system fullness is demonstrated. Hyperechoic foci are seen in the left renal sinus. Suspect that these are artifactual, as no calculi are seen on CT scan. Normal inferior vena cava. Bladder is normal. Impression: Mild left renal collecting system fullness, also demonstrated on prior CT, nonspecific Apparent 16 mm masslike lesion in the left kidney. Suspect that this just represents a focal contour bulge, as no corresponding abnormality is seen on recent CT Hyperechoic foci within the left renal sinus, most likely artifactual given absence of renal sinus calculi on CT scan No evidence of right-sided hydronephrosis Small right renal cyst.
[2016-11-10 11:02] LABS: ALANINE AMINOTRANSFERASE 5 U/L (3-33); ALBUMIN/GLOBULIN RATIO 0.8 (1.0-2.7); ANION GAP 13 (5-15); ASPARTATE AMINO TRANSFERASE 12 U/L (5-40); CALCIUM 8.7 mg/dL (8.6-10.2); CARBON DIOXIDE 24 mEQ/L (20-30); CHLORIDE 99 mEQ/L (98-107); CHOLESTEROL 142 mg/dL (< 200); CHOLESTEROL/HDL RATIO 5.9 (3.3-4.4); CREATININE 1.2 mg/dL (0.5-0.9); CRP QUANT 31.4 mg/dL (< 0.5); GLOMERULAR FILTRATION RATE 53.9 mL/min (>60); HEMOLYSIS 4; LDL CHOLESTEROL (CALC.) 84 mg/dL (60-99); MAGNESIUM 1.7 mg/dL (1.7-2.5); PHOSPHORUS 2.1 mg/dL (2.5-4.8); POTASSIUM 3.7 mEQ/L (3.4-4.9); SODIUM 136 mEQ/L (135-145); TOTAL PROTEIN 6.2 g/dL (6.6-8.7); URIC ACID 5.6 mg/dL (3.0-7.5)
[2016-11-10 11:03] LABS: BAND NEUTROPHILS % (MANUAL) 3 % (0-8); LYMPHOCYTES % (MANUAL) 13 % (20-45); NEUTROPHILS % (MANUAL) 75 % (45-75); TOTAL CELLS COUNTED 100
[2016-11-10 11:04] LABS: BASOPHILS % (MANUAL) 0 % (0-2); EOSINOPHILS % (MANUAL) 0 % (0-3); PLATELET ESTIMATE ADEQUATE; PLATELET MORPHOLOGY NORMAL
[2016-11-10 11:35] VITALS: BP 109/58
[2016-11-10 11:37] LABS: HEMOGLOBIN A1C 5.5 % (< 6.0)
--- NOTE | 2016-11-10 13:23 | General Progress Note ---
Assessment/Plan Assessment/Plan status; HTN- bp now is running low HypoKalemia Obesity- UTI / Pyelo Psych Plan: Adjust BP meds- Stop Lasix- fluid challenge K supplements Monitor BP and renal parameters Subjective ROS Limited/Unobtainable: No Constitutional: Reports: malaise, weakness Allergies: Coded Allergies: PENICILLINS (Unverified Allergy, Severe, 11/09/16) AMITRIPTYLINE (Verified Allergy, Unknown, 10/19/13) recorded from [facility]. pt does not remember the reation. CHLORPROMAZINE (Verified Allergy, Unknown, 10/19/13) recorded from [facility]. pt does not remember reaction. ERYTHROMYCIN BASE (Verified Allergy, Unknown, 10/19/13) recorded from [facility] pt does not remember reaction. HALOPERIDOL (Verified Allergy, Unknown, 10/19/13) recorded from [facility]. pt does not remember reaction. QUETIAPINE (Verified Allergy, Unknown, 10/19/13) recorded from [facility]. pt does not remember reaction. Objective Last 24 Hour Vital Signs Date Time Temp Pulse Resp B/P Pulse Ox O2 Delivery O2 Flow Rate FiO2 11/10/16 12:31 98.0 11/10/16 11:35 98.0 97 20 109/58 97 Room Air 11/10/16 10:42 Nasal Cannula 2.0 11/10/16 10:42 87 16 98 Nasal Cannula 2.0 11/10/16 09:37 88 102/56 11/10/16 08:48 97.9 88 19 102/56 96 Room Air 11/10/16 07:50 91 18 100 Room Air 11/10/16 07:44 Room Air 11/10/16 07:44 91 18 97 Room Air 11/10/16 07:44 21 11/10/16 07:44 96 Room Air 11/10/16 04:00 99.1 98 18 98/57 99 Room Air 11/10/16 03:55 100 18 97 Nasal Cannula 3.0 11/10/16 03:52 32 11/10/16 03:45 102 20 94 Nasal Cannula 3.0 11/09/16 23:43 98 18 96 Nasal Cannula 3.0 32 11/09/16 23:33 100 20 95 Nasal Cannula 3.0 11/09/16 23:33 32 11/09/16 22:38 101.7 11/09/16 19:54 86 18 97 Nasal Cannula 3.0 32 11/09/16 19:47 94 Nasal Cannula 2.0 11/09/16 19:47 Nasal Cannula 2.0 28 11/09/16 19:47 28 11/09/16 19:44 88 20 94 Nasal Cannula 2.0 11/09/16 19:35 102.4 91 20 113/47 96 Room Air 11/09/16 17:14 96 Nasal Cannula 2.0 11/09/16 17:14 Nasal Cannula 2.0 11/09/16 15:28 97 20 98 Nasal Cannula 2.0 11/09/16 15:18 97 20 96 Nasal Cannula 2.0 11/09/16 13:37 93 160/82 Intake and Output 11/09/16 11/10/16 19:00 07:00 Intake Total 295 ml Balance 295 ml Intake Oral 240 ml IV Total 55 ml # Voids 2 Laboratory Tests 11/09/16 21:00: Erythrocyte Sedimentation Rate 86H, Total Protein (PEP) [Pending], Albumin (PEP ) [Pending], Globulin (PEP) [Pending], Albumin/Globulin Ratio [Pending], Alpha-1 -Globulins [Pending], [id number] [Pending], Beta Globulins [Pending], Beta Gamma Globulin [Pending], PEP Abnormal Protein Bands [Pending], Protein Electrophoresis Interpret [Pending], Vitamin D 25-Hydroxy [Pending], 25-Hydroxy Vitamin D2 [Pending], 25-Hydroxy Vitamin D3 [Pending], Folate [Pending], Rapid Plasma Reagin [Pending] 11/10/16 09:50: Albumin/Globulin Ratio 0.8L, White Blood Count 20.9H, Red Blood Count 3.64L, Hemoglobin 11.8L, Hematocrit 36.5L, Mean Corpuscular Volume 100H, Mean Corpuscular Hemoglobin 32.5H, Mean Corpuscular Hemoglobin Concent 32.4, Red Cell Distribution Width 12.8, Platelet Count 156, Mean Platelet Volume 8.8, Neutrophils (%) (Auto) , Lymphocytes (%) (Auto) , Monocytes (%) (Auto) , Eosinophils (%) (Auto) , Basophils (%) (Auto) , Differential Total Cells Counted 100, Neutrophils % (Manual) 75, Lymphocytes % (Manual) 13L, Monocytes % (Manual) 9, Eosinophils % (Manual) 0, Basophils % (Manual) 0, Band Neutrophils 3 , Platelet Estimate Adequate, Platelet Morphology Normal, Red Blood Cell Morphology Normal, Sodium Level 136, Potassium Level 3.7, Chloride Level 99, Carbon Dioxide Level 24, Anion Gap 13, Blood Urea Nitrogen 16, Creatinine 1.2H, Estimat Glomerular Filtration Rate 53.9, Glucose Level 124H, Hemoglobin A1c 5.5 , Uric Acid 5.6, Calcium Level 8.7, Phosphorus Level 2.1L, Magnesium Level 1.7, Total Bilirubin 0.2, Gamma Glutamyl Transpeptidase 24, Aspartate Amino Transf ( AST/SGOT) 12, Alanine Aminotransferase (ALT/SGPT) 5, Alkaline Phosphatase 92, Total Creatine Kinase 62, C-Reactive Protein, Quantitative 31.4H, Pro-B-Type Natriuretic Peptide 2300H, Total Protein 6.2L, Albumin 2.9L, Globulin 3.3, Triglycerides Level 169H, Cholesterol Level 142, LDL Cholesterol 84, HDL Cholesterol 24, Cholesterol/HDL Ratio 5.9H, Vitamin B12 Level 414, Thyroid Stimulating Hormone (TSH) 1.800 Height (Feet): 5 Height (Inches): 4.00 Weight (Pounds): 215 General Appearance: mild distress Cardiovascular: tachycardia Respiratory/Chest: decreased breath sounds Abdomen: distended MICHAEL DE LA ROSA Nov 10, 2016 13:23
--- NOTE | 2016-11-10 14:34 | Infectious Diseases Prog Note ---
Assessment/Plan Problems: (1) Pyelonephritis Assessment & Plan: due to left ureter obstruction, not improving on cefepime empirically , needs source control to remove the ureter obstruction with cystoscopy . recommend urologist consult [facility]. await urine and blood culture. will switch cefepime to ertapenem (2) Sepsis Assessment & Plan: due to the above, blood culture showed gram positive cocci in one set, most likely contaminant , on cefepime empirically, await final culture (3) Abdominal pain of unknown etiology Assessment & Plan: suspect due to stone and ureter obstruction, as suggested by renal US Subjective Constitutional: Reports: no symptoms HEENT: Reports: no symptoms Respiratory: Reports: no symptoms Cardiovascular: Reports: no symptoms Gastrointestinal/Abdominal: Reports: other - abdominal pain Genitourinary: Reports: no symptoms Neurologic: Reports: no symptoms Psychiatric: Reports: no symptoms Skin: Reports: no symptoms Allergies: Coded Allergies: PENICILLINS (Unverified Allergy, Severe, 11/09/16) AMITRIPTYLINE (Verified Allergy, Unknown, 10/19/13) recorded from group home. pt does not remember the reation. CHLORPROMAZINE (Verified Allergy, Unknown, 10/19/13) recorded from group home. pt does not remember reaction. ERYTHROMYCIN BASE (Verified Allergy, Unknown, 10/19/13) recorded from group home. pt does not remember reaction. HALOPERIDOL (Verified Allergy, Unknown, 10/19/13) recorded from group home. pt does not remember reaction. QUETIAPINE (Verified Allergy, Unknown, 10/19/13) recorded from group home. pt does not remember reaction. Objective Vital Signs Last 24 Hour Vital Signs Date Time Temp Pulse Resp B/P Pulse Ox O2 Delivery O2 Flow Rate FiO2 11/10/16 12:31 98.0 11/10/16 11:35 98.0 97 20 109/58 97 Room Air 11/10/16 10:42 Nasal Cannula 2.0 28 11/10/16 10:42 87 16 98 Nasal Cannula 2.0 11/10/16 09:37 88 102/56 11/10/16 08:48 97.9 88 19 102/56 96 Room Air 11/10/16 07:50 91 18 100 Room Air 11/10/16 07:44 Room Air 11/10/16 07:44 91 18 97 Room Air 11/10/16 07:44 21 11/10/16 07:44 96 Room Air 21 11/10/16 04:00 99.1 98 18 98/57 99 Room Air 11/10/16 03:55 100 18 97 Nasal Cannula 3.0 32 11/10/16 03:52 32 11/10/16 03:45 102 20 94 Nasal Cannula 3.0 32 11/09/16 23:43 98 18 96 Nasal Cannula 3.0 32 11/09/16 23:33 100 20 95 Nasal Cannula 3.0 32 11/09/16 23:33 32 11/09/16 22:38 101.7 11/09/16 19:54 86 18 97 Nasal Cannula 3.0 32 11/09/16 19:47 94 Nasal Cannula 2.0 28 11/09/16 19:47 Nasal Cannula 2.0 28 11/09/16 19:47 28 11/09/16 19:44 88 20 94 Nasal Cannula 2.0 28 11/09/16 19:35 102.4 91 20 113/47 96 Room Air 11/09/16 17:14 96 Nasal Cannula 2.0 28 11/09/16 17:14 Nasal Cannula 2.0 28 11/09/16 15:28 97 20 98 Nasal Cannula 2.0 28 11/09/16 15:18 97 20 96 Nasal Cannula 2.0 28 Height (Feet): 5 Height (Inches): 4.00 Weight (Pounds): 215 General Appearance: WD/WN, no acute distress HEENT: normocephalic, atraumatic, anicteric, mucous membranes moist Respiratory/Chest: chest wall non-tender, lungs clear, normal breath sounds, no respiratory distress, no accessory muscle use Cardiovascular: normal peripheral pulses, normal rate, regular rhythm, no gallop/murmur, no JVD Abdomen: normal bowel sounds, soft, non tender, no organomegaly, non distended , no mass Extremities: no cyanosis, no clubbing Skin: no rash, no lesions Microbiology Date/Time Source Procedure Growth Status 11/09/16 00:05 Blood Blood Culture - Preliminary Resulted 11/09/16 00:05 Blood Blood Culture - Preliminary NO GROWTH AFTER 24 HOURS Resulted 11/09/16 01:05 Urine,Clean Catch Urine Culture - Preliminary Gram Negative Bacillus 1 Resulted Laboratory Tests Test 11/09/16 21:00 11/10/16 09:50 Erythrocyte Sedimentation Rate 86 MM/HR (0-30) H Total Protein (PEP) Pending Albumin (PEP) Pending Globulin (PEP) Pending Albumin/Globulin Ratio Pending 0.8 (1.0-2.7) L [id number] Pending Rxgph-0-Jhlpyugga Pending Beta Globulins Pending Beta Gamma Globulin Pending PEP Abnormal Protein Bands Pending Protein Electrophoresis Interpret Pending Vitamin D 25-Hydroxy Pending 25-Hydroxy Vitamin D2 Pending 25-Hydroxy Vitamin D3 Pending Folate Pending Rapid Plasma Reagin Pending White Blood Count 20.9 K/UL (4.8-10.8) H Red Blood Count 3.64 M/UL (4.20-5.40) L Hemoglobin 11.8 G/DL (12.0-16.0) L Hematocrit 36.5 % (37.0-47.0) L Mean Corpuscular Volume 100 FL (80-99) H Mean Corpuscular Hemoglobin 32.5 PG (27.0-31.0) H Mean Corpuscular Hemoglobin Concent 32.4 G/DL (32.0-36.0) Red Cell Distribution Width 12.8 % (11.6-14.8) Platelet Count 156 K/UL (150-450) Mean Platelet Volume 8.8 FL (6.5-10.1) Neutrophils (%) (Auto) % (45.0-75.0) Lymphocytes (%) (Auto) % (20.0-45.0) Monocytes (%) (Auto) % (1.0-10.0) Eosinophils (%) (Auto) % (0.0-3.0) Basophils (%) (Auto) % (0.0-2.0) Differential Total Cells Counted 100 Neutrophils % (Manual) 75 % (45-75) Lymphocytes % (Manual) 13 % (20-45) L Monocytes % (Manual) 9 % (1-10) Eosinophils % (Manual) 0 % (0-3) Basophils % (Manual) 0 % (0-2) Band Neutrophils 3 % (0-8) Platelet Estimate Adequate Platelet Morphology Normal Red Blood Cell Morphology Normal Sodium Level 136 mEQ/L (135-145) Potassium Level 3.7 mEQ/L (3.4-4.9) Chloride Level 99 mEQ/L (98-107) Carbon Dioxide Level 24 mEQ/L (20-30) Anion Gap 13 (5-15) Blood Urea Nitrogen 16 mg/dL (7-23) Creatinine 1.2 mg/dL (0.5-0.9) H Estimat Glomerular Filtration Rate 53.9 mL/min (>60) Glucose Level 124 mg/dL (74-106) H Hemoglobin A1c 5.5 % (< 6.0) Uric Acid 5.6 mg/dL (3.0-7.5) Calcium Level 8.7 mg/dL (8.6-10.2) Phosphorus Level 2.1 mg/dL (2.5-4.8) L Magnesium Level 1.7 mg/dL (1.7-2.5) Total Bilirubin 0.2 mg/dL (0.0-1.2) Gamma Glutamyl Transpeptidase 24 U/L (5-36) Aspartate Amino Transf (AST/SGOT) 12 U/L (5-40) Alanine Aminotransferase (ALT/SGPT) 5 U/L (3-33) Alkaline Phosphatase 92 U/L (35-104) Total Creatine Kinase 62 U/L (26-140) C-Reactive Protein, Quantitative 31.4 mg/dL (< 0.5) H Pro-B-Type Natriuretic Peptide 2300 pg/mL (0-125) H Total Protein 6.2 g/dL (6.6-8.7) L Albumin 2.9 g/dL (3.5-5.2) L Globulin 3.3 g/dL Triglycerides Level 169 mg/dL (< 150) H Cholesterol Level 142 mg/dL (< 200) LDL Cholesterol 84 mg/dL (60-99) HDL Cholesterol 24 mg/dL (> 60) Cholesterol/HDL Ratio 5.9 (3.3-4.4) H Vitamin B12 Level 414 pg/mL (211-946) Thyroid Stimulating Hormone (TSH) 1.800 uIU/mL (0.300-4.500) Current Medications Medications (Trade) Dose Ordered Sig/Kushal Route PRN Reason Start Time Stop Time Status Last Admin Dose Admin Acetaminophen (Tylenol) 650 mg Q4H PRN ORAL Mild Pain/Temp > 100.5 11/09/16 10:15 12/09/16 10:14 11/10/16 14:21 Acetaminophen/ Hydrocodone Bitart 1 tab 1 tab Q6H PRN ORAL Moderate Pain (Pain Scale 4-6) 11/09/16 10:59 11/16/16 10:14 11/09/16 11:09 Albuterol Sulfate (Proventil MDI) 2 puff Q4H PRN INH Shortness of Breath 11/09/16 10:15 12/09/16 10:14 Amlodipine Besylate 2.5 mg 2.5 mg DAILY ORAL 11/11/16 09:00 12/11/16 08:59 Aripiprazole (Abilify) 2.5 mg DAILY ORAL 11/09/16 12:00 12/09/16 11:59 11/10/16 09:43 Ascorbic Acid (Vitamin C) 500 mg TWICE A DAY ORAL 11/09/16 18:00 12/09/16 17:59 11/10/16 09:44 Aspirin (ASA) 325 mg Q6HR PRN ORAL Temp >100.5 11/09/16 23:00 12/09/16 22:59 11/09/16 23:12 Cefepime HCl/ Dextrose (Maxipime/D5W) 55 ml @ 110 mls/hr Q12HR@0300,1500 IVPB 11/09/16 15:00 11/16/16 14:59 11/10/16 02:45 Diphenhydramine HCl (Benadryl) 50 mg HSPRN PRN ORAL Itching/Pruritis 11/09/16 10:15 12/09/16 10:14 Divalproex Sodium (Depakote ER) 500 mg EVERY 12 HOURS ORAL 11/09/16 12:00 12/09/16 11:59 11/10/16 09:44 Guaifenesin/ Codeine Phosphate (Robitussin with codeine) 10 ml Q4HR PRN ORAL For Cough 11/09/16 10:15 12/09/16 10:14 Hydralazine HCl (Apresoline) 25 mg Q4HR PRN ORAL SBP>160 11/09/16 17:00 12/09/16 16:59 Ipratropium [place] (Atrovent) 500 mcg Q4H PRN HHN Shortness of Breath 11/09/16 10:15 11/14/16 10:14 Ipratropium [place] (Atrovent) 500 mcg Q4HRT HHN 11/09/16 11:00 11/14/16 10:59 11/10/16 07:44 Lorazepam (Ativan) 1 mg Q4HR PRN ORAL For Anxiety 11/09/16 10:15 11/16/16 10:14 Magnesium Hydroxide (Mom) 30 ml DAILYPRN PRN ORAL Constipation 11/09/16 10:15 12/09/16 10:14 Multivitamins (Multivitamins) 1 tab DAILY ORAL 11/10/16 09:00 12/10/16 08:59 11/10/16 09:43 Oxycodone/ Acetaminophen (Percocet 10/325) 1 tab Q6H PRN ORAL severe pain 11/09/16 14:30 11/16/16 14:29 11/10/16 11:32 Paroxetine HCl (Paxil CR) 12.5 mg DAILY ORAL 11/09/16 12:00 12/09/16 11:59 11/10/16 09:44 Sodium Phosphate/ Sodium Chloride (NaPO4/Sodium Chloride) 285 ml @ 47.5 mls/hr ONCE ONCE IVPB 11/10/16 15:30 11/10/16 21:29 Thiamine HCl (Vitamin B1) 100 mg DAILY ORAL 11/10/16 09:00 12/10/16 08:59 11/10/16 09:43 Zolpidem Tartrate (Ambien) 5 mg HSPRN PRN ORAL Insomnia 11/09/16 10:15 12/09/16 10:14 11/09/16 21:00 Angy Crane M.D. Nov 10, 2016 14:34
--- NOTE | 2016-11-10 14:53 | Neurology Progress Note ---
Interim History Interim History Interim History Ms. Munguia feels well. The mind is clear. She has noticed no new neurologic symptoms. She is feeling that her cognitive function has returned to normal. She walked to the bathroom earlier. Review of Systems Neuro Review of Systems Benign. Objective Physical Exam Last Vital Signs Date Time Temp Pulse Resp B/P Pulse Ox O2 Delivery O2 Flow Rate FiO2 11/10/16 12:31 98.0 11/10/16 11:35 97 20 109/58 97 Room Air 11/10/16 10:42 2.0 28 Laboratory Tests Test 11/09/16 21:00 11/10/16 09:50 Erythrocyte Sedimentation Rate 86 MM/HR (0-30) H Total Protein (PEP) Pending Albumin (PEP) Pending Globulin (PEP) Pending Albumin/Globulin Ratio Pending 0.8 (1.0-2.7) L Rbzuh-1-Rprqipvcv Pending Zmtjg-2-Xlqwblfqa Pending Beta Globulins Pending Beta Gamma Globulin Pending PEP Abnormal Protein Bands Pending Protein Electrophoresis Interpret Pending Vitamin D 25-Hydroxy Pending 25-Hydroxy Vitamin D2 Pending 25-Hydroxy Vitamin D3 Pending Folate Pending Rapid Plasma Reagin Pending White Blood Count 20.9 K/UL (4.8-10.8) H Red Blood Count 3.64 M/UL (4.20-5.40) L Hemoglobin 11.8 G/DL (12.0-16.0) L Hematocrit 36.5 % (37.0-47.0) L Mean Corpuscular Volume 100 FL (80-99) H Mean Corpuscular Hemoglobin 32.5 PG (27.0-31.0) H Mean Corpuscular Hemoglobin Concent 32.4 G/DL (32.0-36.0) Red Cell Distribution Width 12.8 % (11.6-14.8) Platelet Count 156 K/UL (150-450) Mean Platelet Volume 8.8 FL (6.5-10.1) Neutrophils (%) (Auto) % (45.0-75.0) Lymphocytes (%) (Auto) % (20.0-45.0) Monocytes (%) (Auto) % (1.0-10.0) Eosinophils (%) (Auto) % (0.0-3.0) Basophils (%) (Auto) % (0.0-2.0) Differential Total Cells Counted 100 Neutrophils % (Manual) 75 % (45-75) Lymphocytes % (Manual) 13 % (20-45) L Monocytes % (Manual) 9 % (1-10) Eosinophils % (Manual) 0 % (0-3) Basophils % (Manual) 0 % (0-2) Band Neutrophils 3 % (0-8) Platelet Estimate Adequate Platelet Morphology Normal Red Blood Cell Morphology Normal Sodium Level 136 mEQ/L (135-145) Potassium Level 3.7 mEQ/L (3.4-4.9) Chloride Level 99 mEQ/L (98-107) Carbon Dioxide Level 24 mEQ/L (20-30) Anion Gap 13 (5-15) Blood Urea Nitrogen 16 mg/dL (7-23) Creatinine 1.2 mg/dL (0.5-0.9) H Estimat Glomerular Filtration Rate 53.9 mL/min (>60) Glucose Level 124 mg/dL (74-106) H Hemoglobin A1c 5.5 % (< 6.0) Uric Acid 5.6 mg/dL (3.0-7.5) Calcium Level 8.7 mg/dL (8.6-10.2) Phosphorus Level 2.1 mg/dL (2.5-4.8) L Magnesium Level 1.7 mg/dL (1.7-2.5) Total Bilirubin 0.2 mg/dL (0.0-1.2) Gamma Glutamyl Transpeptidase 24 U/L (5-36) Aspartate Amino Transf (AST/SGOT) 12 U/L (5-40) Alanine Aminotransferase (ALT/SGPT) 5 U/L (3-33) Alkaline Phosphatase 92 U/L (35-104) Total Creatine Kinase 62 U/L (26-140) C-Reactive Protein, Quantitative 31.4 mg/dL (< 0.5) H Pro-B-Type Natriuretic Peptide 2300 pg/mL (0-125) H Total Protein 6.2 g/dL (6.6-8.7) L Albumin 2.9 g/dL (3.5-5.2) L Globulin 3.3 g/dL Triglycerides Level 169 mg/dL (< 150) H Cholesterol Level 142 mg/dL (< 200) LDL Cholesterol 84 mg/dL (60-99) HDL Cholesterol 24 mg/dL (> 60) Cholesterol/HDL Ratio 5.9 (3.3-4.4) H Vitamin B12 Level 414 pg/mL (211-946) Thyroid Stimulating Hormone (TSH) 1.800 uIU/mL (0.300-4.500) Neurologic Exam Objective PHYSICAL EXAMINATION: GENERAL: She is a well-developed, well-nourished, obese, black lady, lying in bed, in no acute distress. HEAD: Normocephalic and atraumatic. NECK: No neck rigidity was observed. She did have mild grade 1/4 cervical paraspinal muscle and trapezius spasm. EENT: Examination is benign. NEUROLOGICAL EXAMINATION: MENTAL STATUS EXAMINATION: She was alert and awake. She was oriented to person, place, and time except for the exact date. She was able to recall 3/3 words immediately after 1 minute and after 3 minutes. She was able to remember presidents, Trump through Izquierdo Sr. Her mathematical skills were fairly good. Her visuospatial function was preserved. SPEECH: She had no dysarthria. LANGUAGE: She had no aphasia. CRANIAL NERVE EXAMINATION: II: The visual mireles were intact on confrontation testing III, IV & : External ocular movements were full and the pupils 3 mm in diameter, equal, round, regular, and reactive to light. V: She had normal facial sensations and the temporales, masseters, and pterygoids function normally. VII: She had normal facial expressions and no facial asymmetry. VIII: She was able to hear well bilaterally and had no nystagmus. IX: The palate moved symmetrically on phonation. X: She had no hoarseness of voice. XI: The sternocleidomastoids and trapezii functioned normally. XII: The tongue was in the midline without any fasciculations or atrophy. MOTOR SYSTEM: The tone was normal in all four extremities. Examination of muscle mass revealed no focal wasting. Examination of power revealed grade 5/5 power in all muscle groups tested. SENSORY EXAMINATION: She had intact sensations to pinprick, light touch, and graphesthesia. COORDINATION: She performed well on [id number]-nv-[id number] testing. REFLEXES: Trace+ and bilaterally symmetrical at the biceps, triceps, brachioradialis, and knees and 0 at both ankles. The plantar responses were flexor bilaterally. STANCE: She had a minimally wide-based, but stable stance. GAIT: She walked with a minimally wide-based, but stable gait. Impression/Recommendations Diagnostic Impression 1. Ms. Susy Munguia is a 71-year-old, right-handed, black lady, who does have a past history of bipolar affective disorder, gastric bypass, gastric tumor , kidney infections, a brief period of hemodialysis numerous years ago, hypertension, chronic obstructive pulmonary disease, and gastroesophageal reflux disease who was hospitalized for fevers, chills, and altered mental state. She was evaluated in the [facility] emergency room and was discovered to have pyelonephritis. She has been treated for this with appropriate antibiotics and fluids, and has improved. When she came in, her mental state was quite altered, but it seems to have improved since then. 2. She feels much better today. The mind has cleared up completely. She denies any new neurologic symptoms. 3. On neurological examination, at this time, she is mildly disoriented to the exact date, has mild G 1/4 cervical paraspinal muscle and trapezius spasm, has globally diminished reflexes, but the rest of the neurological examination is essentially benign. 4. Laboratory data on my initial evaluation revealed that her WBC count was elevated to 14,500 and her potassium was low at 3.3. She had an anion gap of 16. Her glucose was elevated to 110. Her albumin was down at 3.4. Her urinalysis reveals 3+ leukocyte esterase, 5-10 red blood cells per high-power field, too numerous to count white blood cells per high-power field, and a few urinary bacteria. 5. Further laboratory tests have revealed no treatable causes of altered mental state. 6. The patient's history and neurological examination are most compatible with a delirium due to possible pyelonephritis, which is now significantly better with treatment of the infection.. Recommendations 1. Continue present management. 2. Continue to treat the patient's pyelonephritis in an aggressive manner. 3. Await results of work up for other treatable causes of altered mental state. 4. Mobilize rapidly. Nai Michaels M.D., M.S.P.NAI LEIVA Nov 10, 2016 14:53
--- NOTE | 2016-11-10 15:00 | Pulmonology Progress Note ---
Assessment/Plan Problems: (1) Bacteremia (2) Sepsis (3) copd (4) CHF (congestive heart failure), NYHA class I (5) Hypothyroidism (6) Lumbar radiculopathy (7) chronic pain Assessment/Plan continue abx check cultures pt/ot dvt prophylaxis tolerating diet Subjective ROS Limited/Unobtainable: No Constitutional: Reports: no symptoms HEENT: Repors: no symptoms Allergies: Coded Allergies: PENICILLINS (Unverified Allergy, Severe, 11/09/16) AMITRIPTYLINE (Verified Allergy, Unknown, 10/19/13) recorded from skilled nursing. pt does not remember the reation. CHLORPROMAZINE (Verified Allergy, Unknown, 10/19/13) recorded from skilled nursing. pt does not remember reaction. ERYTHROMYCIN BASE (Verified Allergy, Unknown, 10/19/13) recorded from skilled nursing. pt does not remember reaction. HALOPERIDOL (Verified Allergy, Unknown, 10/19/13) recorded from skilled nursing. pt does not remember reaction. QUETIAPINE (Verified Allergy, Unknown, 10/19/13) recorded from skilled nursing. pt does not remember reaction. Objective Last 24 Hour Vital Signs Date Time Temp Pulse Resp B/P Pulse Ox O2 Delivery O2 Flow Rate FiO2 11/10/16 14:51 89 16 98 Nasal Cannula 2.0 11/10/16 14:44 11/10/16 14:44 86 16 98 Nasal Cannula 2.0 11/10/16 12:31 98.0 11/10/16 11:35 98.0 97 20 109/58 97 Room Air 11/10/16 10:42 Nasal Cannula 2.0 11/10/16 10:42 87 16 98 Nasal Cannula 2.0 11/10/16 09:37 88 102/56 11/10/16 08:48 97.9 88 19 102/56 96 Room Air 11/10/16 07:50 91 18 100 Room Air 11/10/16 07:44 Room Air 11/10/16 07:44 91 18 97 Room Air 11/10/16 07:44 11/10/16 07:44 96 Room Air 11/10/16 04:00 99.1 98 18 98/57 99 Room Air 11/10/16 03:55 100 18 97 Nasal Cannula 3.0 32 11/10/16 03:52 32 11/10/16 03:45 102 20 94 Nasal Cannula 3.0 32 11/09/16 23:43 98 18 96 Nasal Cannula 3.0 32 11/09/16 23:33 100 20 95 Nasal Cannula 3.0 32 11/09/16 23:33 32 11/09/16 22:38 101.7 11/09/16 19:54 86 18 97 Nasal Cannula 3.0 32 11/09/16 19:47 94 Nasal Cannula 2.0 28 11/09/16 19:47 Nasal Cannula 2.0 28 11/09/16 19:47 28 11/09/16 19:44 88 20 94 Nasal Cannula 2.0 28 11/09/16 19:35 102.4 91 20 113/47 96 Room Air 11/09/16 17:14 96 Nasal Cannula 2.0 28 11/09/16 17:14 Nasal Cannula 2.0 28 11/09/16 15:28 97 20 98 Nasal Cannula 2.0 28 11/09/16 15:18 97 20 96 Nasal Cannula 2.0 28 Intake and Output 11/09/16 11/10/16 19:00 07:00 Intake Total 295 ml Balance 295 ml Intake Oral 240 ml IV Total 55 ml # Voids 2 General Appearance: WD/WN HEENT: normocephalic, atraumatic Respiratory/Chest: chest wall non-tender, lungs clear Breasts: no masses Cardiovascular: normal peripheral pulses Abdomen: normal bowel sounds, soft, non tender Genitourinary: normal external genitalia Microbiology Date/Time Source Procedure Growth Status 11/09/16 00:05 Blood Blood Culture - Preliminary Resulted 11/09/16 00:05 Blood Blood Culture - Preliminary NO GROWTH AFTER 24 HOURS Resulted 11/09/16 01:05 Urine,Clean Catch Urine Culture - Preliminary Gram Negative Bacillus 1 Resulted Laboratory Tests 11/09/16 21:00: Erythrocyte Sedimentation Rate 86H, Total Protein (PEP) [Pending], Albumin (PEP ) [Pending], Globulin (PEP) [Pending], Albumin/Globulin Ratio [Pending], Alpha-1 -Globulins [Pending], [id number]-[id number] [Pending], Beta Globulins [Pending], Beta Gamma Globulin [Pending], PEP Abnormal Protein Bands [Pending], Protein Electrophoresis Interpret [Pending], Vitamin D 25-Hydroxy [Pending], 25-Hydroxy Vitamin D2 [Pending], 25-Hydroxy Vitamin D3 [Pending], Folate [Pending], Rapid Plasma Reagin [Pending] 11/10/16 09:50: Albumin/Globulin Ratio 0.8L, White Blood Count 20.9H, Red Blood Count 3.64L, Hemoglobin 11.8L, Hematocrit 36.5L, Mean Corpuscular Volume 100H, Mean Corpuscular Hemoglobin 32.5H, Mean Corpuscular Hemoglobin Concent 32.4, Red Cell Distribution Width 12.8, Platelet Count 156, Mean Platelet Volume 8.8, Neutrophils (%) (Auto) , Lymphocytes (%) (Auto) , Monocytes (%) (Auto) , Eosinophils (%) (Auto) , Basophils (%) (Auto) , Differential Total Cells Counted 100, Neutrophils % (Manual) 75, Lymphocytes % (Manual) 13L, Monocytes % (Manual) 9, Eosinophils % (Manual) 0, Basophils % (Manual) 0, Band Neutrophils 3 , Platelet Estimate Adequate, Platelet Morphology Normal, Red Blood Cell Morphology Normal, Sodium Level 136, Potassium Level 3.7, Chloride Level 99, Carbon Dioxide Level 24, Anion Gap 13, Blood Urea Nitrogen 16, Creatinine 1.2H, Estimat Glomerular Filtration Rate 53.9, Glucose Level 124H, Hemoglobin A1c 5.5 , Uric Acid 5.6, Calcium Level 8.7, Phosphorus Level 2.1L, Magnesium Level 1.7, Total Bilirubin 0.2, Gamma Glutamyl Transpeptidase 24, Aspartate Amino Transf ( AST/SGOT) 12, Alanine Aminotransferase (ALT/SGPT) 5, Alkaline Phosphatase 92, Total Creatine Kinase 62, C-Reactive Protein, Quantitative 31.4H, Pro-B-Type Natriuretic Peptide 2300H, Total Protein 6.2L, Albumin 2.9L, Globulin 3.3, Triglycerides Level 169H, Cholesterol Level 142, LDL Cholesterol 84, HDL Cholesterol 24, Cholesterol/HDL Ratio 5.9H, Vitamin B12 Level 414, Thyroid Stimulating Hormone (TSH) 1.800 Current Medications Medications (Trade) Dose Ordered Sig/Kushal Route PRN Reason Start Time Stop Time Status Last Admin Dose Admin Acetaminophen (Tylenol) 650 mg Q4H PRN ORAL Mild Pain/Temp > 100.5 11/09/16 10:15 12/09/16 10:14 11/10/16 14:21 Acetaminophen/ Hydrocodone Bitart ([place] 5/325) 1 tab Q6H PRN ORAL Moderate Pain (Pain Scale 4-6) 11/09/16 10:59 11/16/16 10:14 11/09/16 11:09 Albuterol Sulfate (Proventil MDI) 2 puff Q4H PRN INH Shortness of Breath 11/09/16 10:15 12/09/16 10:14 Amlodipine Besylate 2.5 mg 2.5 mg DAILY ORAL 11/11/16 09:00 12/11/16 08:59 Aripiprazole (Abilify) 2.5 mg DAILY ORAL 11/09/16 12:00 12/09/16 11:59 11/10/16 09:43 Ascorbic Acid (Vitamin C) 500 mg TWICE A DAY ORAL 11/09/16 18:00 12/09/16 17:59 11/10/16 09:44 Aspirin (ASA) 325 mg Q6HR PRN ORAL Temp >100.5 11/09/16 23:00 12/09/16 22:59 11/09/16 23:12 Diphenhydramine HCl (Benadryl) 50 mg HSPRN PRN ORAL Itching/Pruritis 11/09/16 10:15 12/09/16 10:14 Divalproex Sodium (Depakote ER) 500 mg EVERY 12 HOURS ORAL 11/09/16 12:00 12/09/16 11:59 11/10/16 09:44 Ertapenem/Sodium Chloride (INVanz/Sodium Chloride) 55 ml @ 110 mls/hr Q24H IVPB 11/10/16 16:00 11/15/16 15:59 UNV Guaifenesin/ Codeine Phosphate (Robitussin with codeine) 10 ml Q4HR PRN ORAL For Cough 11/09/16 10:15 12/09/16 10:14 Hydralazine HCl (Apresoline) 25 mg Q4HR PRN ORAL SBP>160 11/09/16 17:00 12/09/16 16:59 Ipratropium [place] (Atrovent) 500 mcg Q4H PRN HHN Shortness of Breath 11/09/16 10:15 11/14/16 10:14 Ipratropium [place] (Atrovent) 500 mcg Q4HRT HHN 11/09/16 11:00 11/14/16 10:59 11/10/16 14:44 Lorazepam (Ativan) 1 mg Q4HR PRN ORAL For Anxiety 11/09/16 10:15 11/16/16 10:14 Magnesium Hydroxide (Mom) 30 ml DAILYPRN PRN ORAL Constipation 11/09/16 10:15 12/09/16 10:14 Multivitamins (Multivitamins) 1 tab DAILY ORAL 11/10/16 09:00 12/10/16 08:59 11/10/16 09:43 Oxycodone/ Acetaminophen (Percocet 10/325) 1 tab Q6H PRN ORAL severe pain 11/09/16 14:30 11/16/16 14:29 11/10/16 11:32 Paroxetine HCl (Paxil CR) 12.5 mg DAILY ORAL 11/09/16 12:00 12/09/16 11:59 11/10/16 09:44 Sodium Phosphate 30 mm/Sodium Chloride 285 ml @ 47.5 mls/hr ONCE ONCE IVPB 11/10/16 15:30 11/10/16 21:29 Thiamine HCl (Vitamin B1) 100 mg DAILY ORAL 11/10/16 09:00 12/10/16 08:59 11/10/16 09:43 CONOR WYLIE Nov 10, 2016 15:00
[2016-11-10] MEDS ORDERED: Sodium Phosphate 30 MM in NS 275 ML IVPB ONE (15:30)
--- NOTE | 2016-11-10 15:40 | General Progress Note ---
Assessment/Plan Problem List: (1) Osteoarthritis of multiple joints ICD Codes: M15.9 - Osteoarthritis of multiple joints SNOMED: 25186002 (2) chronic pain (3) Lumbar radiculopathy ICD Codes: M54.16 - Radiculopathy, lumbar region SNOMED: 141866809 (4) UTI (lower urinary tract infection) ICD Codes: N39.0 - UTI (lower urinary tract infection) SNOMED: 5932647 Status: progressing Assessment/Plan uti abx per id afebrile no change consulted urologist dr milan for possible hydronephrosis reviewed chart and labs Subjective ROS Limited/Unobtainable: Yes Allergies: Coded Allergies: PENICILLINS (Unverified Allergy, Severe, 11/09/16) AMITRIPTYLINE (Verified Allergy, Unknown, 10/19/13) recorded from [facility]. pt does not remember the reation. CHLORPROMAZINE (Verified Allergy, Unknown, 10/19/13) recorded from [facility]. pt does not remember reaction. ERYTHROMYCIN BASE (Verified Allergy, Unknown, 10/19/13) recorded from [facility]. pt does not remember reaction. HALOPERIDOL (Verified Allergy, Unknown, 10/19/13) recorded from [facility]. pt does not remember reaction. QUETIAPINE (Verified Allergy, Unknown, 10/19/13) recorded from [facility]. pt does not remember reaction. Objective Last 24 Hour Vital Signs Date Time Temp Pulse Resp B/P Pulse Ox O2 Delivery O2 Flow Rate FiO2 11/10/16 14:51 89 16 98 Nasal Cannula 2.0 28 11/10/16 14:44 28 11/10/16 14:44 86 16 98 Nasal Cannula 2.0 11/10/16 12:31 98.0 11/10/16 11:35 98.0 97 20 109/58 97 Room Air 11/10/16 10:42 Nasal Cannula 2.0 11/10/16 10:42 87 16 98 Nasal Cannula 2.0 11/10/16 09:37 88 102/56 11/10/16 08:48 97.9 88 19 102/56 96 Room Air 11/10/16 07:50 91 18 100 Room Air 21 11/10/16 07:44 Room Air 21 11/10/16 07:44 91 18 97 Room Air 11/10/16 07:44 21 11/10/16 07:44 96 Room Air 21 11/10/16 04:00 99.1 98 18 98/57 99 Room Air 11/10/16 03:55 100 18 97 Nasal Cannula 3.0 32 11/10/16 03:52 32 11/10/16 03:45 102 20 94 Nasal Cannula 3.0 32 11/09/16 23:43 98 18 96 Nasal Cannula 3.0 32 11/09/16 23:33 100 20 95 Nasal Cannula 3.0 32 11/09/16 23:33 32 11/09/16 22:38 101.7 11/09/16 19:54 86 18 97 Nasal Cannula 3.0 32 11/09/16 19:47 94 Nasal Cannula 2.0 28 11/09/16 19:47 Nasal Cannula 2.0 28 11/09/16 19:47 28 11/09/16 19:44 88 20 94 Nasal Cannula 2.0 28 11/09/16 19:35 102.4 91 20 113/47 96 Room Air 11/09/16 17:14 96 Nasal Cannula 2.0 28 11/09/16 17:14 Nasal Cannula 2.0 28 Intake and Output 11/09/16 11/10/16 19:00 07:00 Intake Total 295 ml Balance 295 ml Intake Oral 240 ml IV Total 55 ml # Voids 2 Laboratory Tests 11/09/16 21:00: Erythrocyte Sedimentation Rate 86H, Total Protein (PEP) [Pending], Albumin (PEP ) [Pending], Globulin (PEP) [Pending], Albumin/Globulin Ratio [Pending], Alpha-1 -Globulins [Pending], Bwavu-1-Dgbcfetjn [Pending], Beta Globulins [Pending], Beta Gamma Globulin [Pending], PEP Abnormal Protein Bands [Pending], Protein Electrophoresis Interpret [Pending], Vitamin D 25-Hydroxy [Pending], 25-Hydroxy Vitamin D2 [Pending], 25-Hydroxy Vitamin D3 [Pending], Folate [Pending], Rapid Plasma Reagin [Pending] 11/10/16 09:50: Albumin/Globulin Ratio 0.8L, White Blood Count 20.9H, Red Blood Count 3.64L, Hemoglobin 11.8L, Hematocrit 36.5L, Mean Corpuscular Volume 100H, Mean Corpuscular Hemoglobin 32.5H, Mean Corpuscular Hemoglobin Concent 32.4, Red Cell Distribution Width 12.8, Platelet Count 156, Mean Platelet Volume 8.8, Neutrophils (%) (Auto) , Lymphocytes (%) (Auto) , Monocytes (%) (Auto) , Eosinophils (%) (Auto) , Basophils (%) (Auto) , Differential Total Cells Counted 100, Neutrophils % (Manual) 75, Lymphocytes % (Manual) 13L, Monocytes % (Manual) 9, Eosinophils % (Manual) 0, Basophils % (Manual) 0, Band Neutrophils 3 , Platelet Estimate Adequate, Platelet Morphology Normal, Red Blood Cell Morphology Normal, Sodium Level 136, Potassium Level 3.7, Chloride Level 99, Carbon Dioxide Level 24, Anion Gap 13, Blood Urea Nitrogen 16, Creatinine 1.2H, Estimat Glomerular Filtration Rate 53.9, Glucose Level 124H, Hemoglobin A1c 5.5 , Uric Acid 5.6, Calcium Level 8.7, Phosphorus Level 2.1L, Magnesium Level 1.7, Total Bilirubin 0.2, Gamma Glutamyl Transpeptidase 24, Aspartate Amino Transf ( AST/SGOT) 12, Alanine Aminotransferase (ALT/SGPT) 5, Alkaline Phosphatase 92, Total Creatine Kinase 62, C-Reactive Protein, Quantitative 31.4H, Pro-B-Type Natriuretic Peptide 2300H, Total Protein 6.2L, Albumin 2.9L, Globulin 3.3, Triglycerides Level 169H, Cholesterol Level 142, LDL Cholesterol 84, HDL Cholesterol 24, Cholesterol/HDL Ratio 5.9H, Vitamin B12 Level 414, Thyroid Stimulating Hormone (TSH) 1.800 Height (Feet): 5 Height (Inches): 4.00 Weight (Pounds): 215 Cardiovascular: normal rate Respiratory/Chest: lungs clear Abdomen: soft Leela Diaz MD Nov 10, 2016 15:40
--- NOTE | 2016-11-10 16:33 | History and Physical ---
History of Present Illness General Reason for Hospitalization: Abdominal Pain Present Illness HPI Date and time entered: 11/09/16 1815 History of Present Illness General Date patient seen: Nov 09, 2016 Chief Complaint: Abdominal Pain Reason for Consultation: inpatient management Present Illness HPI 71-year-old female with history of gastric bypass , depression, HTN presented to ER with chief complaint of abdominal pain. Onset today. Pain was 10 out of 10. Nothing made it better and nothing worse. She had a temperature of 101 in ER and was admitted for further work up. Allergies: Coded Allergies: PENICILLINS (Unverified Allergy, Severe, 11/09/16) AMITRIPTYLINE (Verified Allergy, Unknown, 10/19/13) recorded from custodial. pt does not remember the reation. CHLORPROMAZINE (Verified Allergy, Unknown, 10/19/13) recorded from custodial. pt does not remember reaction. ERYTHROMYCIN BASE (Verified Allergy, Unknown, 10/19/13) recorded from custodial. pt does not remember reaction. HALOPERIDOL (Verified Allergy, Unknown, 10/19/13) recorded from custodial. pt does not remember reaction. QUETIAPINE (Verified Allergy, Unknown, 10/19/13) recorded from custodial. pt does not remember reaction. Medication History Scheduled Albuterol Sulfate (Ventolin Hfa), 2 PUFF INH Q4HR, (Reported) Amlodipine Besylate* (Amlodipine Besylate*), 10 MG ORAL DAILY, (Reported) Aripiprazole* (Abilify*), 2.5 MG ORAL DAILY, (Reported) Ascorbic Acid* (Vitamin C*), 500 MG ORAL BID, (Reported) Divalproex Sodium* (Depakote Er*), 500 MG ORAL EVERY 12 HOURS, (Reported) Famotidine (Famotidine), 20 MG ORAL TWICE A DAY, (Reported) Furosemide* (Lasix*), 20 MG ORAL BID, (Reported) Ipratropium [place] 0.5MG/2.5ML (Ipratropium [place] 0.5MG/2.5ML), 0.5 MG HHN Q4HR, (Reported) Multivitamins* (Multivitamins*), 1 TAB ORAL DAILY, (Reported) Paroxetine Hcl* (Paroxetine Hcl*), 40 MG ORAL DAILY, (Reported) Phenazopyridine Hcl* (Pyridium*), 200 MG ORAL THREE TIMES A DAY, (Reported) Thiamine Hcl* (Vitamin B-1*), 100 MG ORAL TID, (Reported) Scheduled PRN Acetaminophen (Acetaminophen), 650 MG ORAL Q4HR PRN for Mild Pain/Temp > 100.5, (Reported) Diphenhydramine HCl (Diphenhydramine HCl), 50 MG ORAL DAILY PRN for Itching, ( Reported) Guaifenesin/Codeine Phos* (Robitussin Ac*), 10 ML ORAL Q4H PRN for For Cough, ( Reported) Guaifenesin/Dextromethorphan (Guaifenesin Dm Syrup), 5 ML ORAL EVERY 6 HOURS PRN for For Cough, (Reported) Hydralazine Hcl* (Hydralazine Hcl*), 25 MG ORAL EVERY 6 HOURS PRN for For High Blood Pressure, (Reported) Hydrocodone Bit/Acetaminophen 5-325* ([place] 5-325*), 1 TAB ORAL Q6H PRN for For Pain, (Reported) Ipratropium [place] 0.5MG/2.5ML (Ipratropium [place] 0.5MG/2.5ML), 0.5 MG HHN Q4HR PRN for Shortness of Breath, (Reported) Lorazepam* (Lorazepam*), 1 MG ORAL Q4HR PRN for For Anxiety, (Reported) Magnesium Hydroxide* (Milk Of Magnesia*), 30 ML ORAL DAILY PRN for Constipation, (Reported) Zolpidem Tartrate* (Zolpidem Tartrate*), 10 MG ORAL BEDTIME PRN for Insomnia, ( Reported) Patient History Healthcare decision maker DEEPA DENNIS Resuscitation status Full Code Advanced Directive on File No Past Medical/Surgical History Past Medical/Surgical History: (1) CHF (congestive heart failure), NYHA class I (2) copd (3) Hypothyroidism Review of Systems All Other Systems: negative except mentioned in HPI Physical Exam General Appearance: WD/WN, no apparent distress Lines, tubes and drains: peripheral HEENT: normocephalic, atraumatic Neck: non-tender, normal alignment Respiratory/Chest: chest wall non-tender, lungs clear Cardiovascular/Chest: normal peripheral pulses, normal rate Abdomen: normal bowel sounds Genitourinary/Rectal: normal genital exam Extremities: normal range of motion Skin Exam: normal pigmentation 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 grossly normal Last 24 Hour Vital Signs Date Time Temp Pulse Resp B/P Pulse Ox O2 Delivery O2 Flow Rate FiO2 11/09/16 17:14 96 Nasal Cannula 2.0 28 11/09/16 17:14 Nasal Cannula 2.0 28 11/09/16 15:28 97 20 98 Nasal Cannula 2.0 28 11/09/16 15:18 97 20 96 Nasal Cannula 2.0 28 11/09/16 13:37 93 160/82 11/09/16 11:45 98.1 93 18 160/82 97 Nasal Cannula 2.0 11/09/16 08:12 98.6 83 19 124/71 97 Nasal Cannula 2.0 83 11/09/16 04:20 85 19 94/54 96 Nasal Cannula 2.0 11/09/16 03:59 98.9 81 26 94/54 97 Room Air 11/09/16 03:01 98.6 11/09/16 03:00 81 26 96/63 97 Nasal Cannula 2.0 11/09/16 02:45 98.6 81 17 97/59 96 Nasal Cannula 2.0 11/09/16 02:00 87 19 95/63 96 Nasal Cannula 2.0 11/09/16 01:00 104 20 107/63 96 Nasal Cannula 2.0 11/08/16 23:00 129 25 133/76 98 Nasal Cannula 2.0 11/08/16 22:20 100.2 146 32 130/80 97 Nasal Cannula 2.0 11/08/16 22:11 102.9 130 16 126/82 98 Nasal Cannula 4.0 Intake and Output 11/08/16 11/09/16 19:00 07:00 Intake Total 0 ml Balance 0 ml Intake Oral 0 ml Laboratory Tests Test 11/08/16 22:50 11/09/16 01:05 White Blood Count 14.5 K/UL (4.8-10.8) H Red Blood Count 4.58 M/UL (4.20-5.40) Hemoglobin 14.8 G/DL (12.0-16.0) Hematocrit 44.8 % (37.0-47.0) Mean Corpuscular Volume 98 FL (80-99) Mean Corpuscular Hemoglobin 32.4 PG (27.0-31.0) H Mean Corpuscular Hemoglobin Concent 33.1 G/DL (32.0-36.0) Red Cell Distribution Width 12.5 % (11.6-14.8) Platelet Count 188 K/UL (150-450) Mean Platelet Volume 10.7 FL (6.5-10.1) H Neutrophils (%) (Auto) % (45.0-75.0) Lymphocytes (%) (Auto) % (20.0-45.0) Monocytes (%) (Auto) % (1.0-10.0) Eosinophils (%) (Auto) % (0.0-3.0) Basophils (%) (Auto) % (0.0-2.0) Prothrombin Time 10.2 SEC (9.30-11.50) Prothromb Time International Ratio 1.0 (0.9-1.1) Activated Partial Thromboplast Time 20 SEC (23-33) L Lactic Acid Level 1.80 mmol/L (0.66-2.22) Urine Color Yellow Urine Appearance Slightly cloudy Urine pH 7 (4.5-8.0) Urine Specific [place] 1.010 (1.005-1.035) Urine Protein 3+ (NEGATIVE) H Urine Glucose (UA) Negative (NEGATIVE) Urine Ketones Negative (NEGATIVE) Urine Occult Blood 4+ (NEGATIVE) H Urine Nitrite Negative (NEGATIVE) Urine Bilirubin Negative (NEGATIVE) Urine Urobilinogen Normal MG/DL (0.0-1.0) Urine Leukocyte Esterase 3+ (NEGATIVE) H Urine RBC 5-10 /HPF (0 - 2) H Urine WBC Tntc /HPF (0 - 2) H Urine Squamous Epithelial Cells Moderate /LPF (NONE/OCC) H Urine Bacteria Few /HPF (NONE) Sodium Level 141 mEQ/L (135-145) Potassium Level 3.3 mEQ/L (3.4-4.9) L Chloride Level 100 mEQ/L (98-107) Carbon Dioxide Level 25 mEQ/L (20-30) Anion Gap 16 (5-15) H Blood Urea Nitrogen 13 mg/dL (7-23) Creatinine 0.8 mg/dL (0.5-0.9) Estimat Glomerular Filtration Rate > 60 mL/min (>60) Glucose Level 110 mg/dL (74-106) H Calcium Level 8.3 mg/dL (8.6-10.2) L Total Bilirubin 0.3 mg/dL (0.0-1.2) Aspartate Amino Transf (AST/SGOT) 14 U/L (5-40) Alanine Aminotransferase (ALT/SGPT) 6 U/L (3-33) Alkaline Phosphatase 76 U/L (35-104) Troponin I < 0.30 ng/mL (<=0.30) Total Protein 6.4 g/dL (6.6-8.7) L Albumin 3.4 g/dL (3.5-5.2) L Globulin 3.0 g/dL Albumin/Globulin Ratio 1.1 (1.0-2.7) Lipase 10 U/L (< 60) Height (Feet): 5 Height (Inches): 4.00 Weight (Pounds): 215 Medications Current Medications Medications (Trade) Dose Ordered Sig/Kushal Route PRN Reason Start Time Stop Time Status Last Admin Dose Admin Acetaminophen (Tylenol) 650 mg Q4H PRN ORAL Mild Pain/Temp > 100.5 11/09/16 10:15 12/09/16 10:14 11/09/16 13:41 Acetaminophen/ Hydrocodone Bitart 1 tab 1 tab Q6H PRN ORAL Moderate Pain (Pain Scale 4-6) 11/09/16 10:59 11/16/16 10:14 11/09/16 11:09 Albuterol Sulfate (Proventil MDI) 2 puff Q4H PRN INH Shortness of Breath 11/09/16 10:15 12/09/16 10:14 Amlodipine Besylate (Norvasc) 5 mg BID ORAL 11/10/16 09:00 12/10/16 08:59 Aripiprazole (Abilify) 2.5 mg DAILY ORAL 11/09/16 12:00 12/09/16 11:59 Ascorbic Acid (Vitamin C) 500 mg TWICE A DAY ORAL 11/09/16 18:00 12/09/16 17:59 11/09/16 17:11 Cefepime HCl/ Dextrose (Maxipime/D5W) 55 ml @ 110 mls/hr Q12HR@0300,1500 IVPB 11/09/16 15:00 11/16/16 14:59 11/09/16 15:29 Diphenhydramine HCl (Benadryl) 50 mg HSPRN PRN ORAL Itching/Pruritis 11/09/16 10:15 12/09/16 10:14 Divalproex Sodium (Depakote ER) 500 mg EVERY 12 HOURS ORAL 11/09/16 12:00 12/09/16 11:59 11/09/16 11:09 Guaifenesin/ Codeine Phosphate (Robitussin with codeine) 10 ml Q4HR PRN ORAL For Cough 11/09/16 10:15 12/09/16 10:14 Hydralazine HCl (Apresoline) 25 mg Q4HR PRN ORAL SBP>160 11/09/16 17:00 12/09/16 16:59 Ipratropium [place] (Atrovent) 500 mcg Q4H PRN HHN Shortness of Breath 11/09/16 10:15 11/14/16 10:14 Ipratropium [place] (Atrovent) 500 mcg Q4HRT HHN 11/09/16 11:00 11/14/16 10:59 11/09/16 15:22 Lorazepam (Ativan) 1 mg Q4HR PRN ORAL For Anxiety 11/09/16 10:15 11/16/16 10:14 Magnesium Hydroxide (Mom) 30 ml DAILYPRN PRN ORAL Constipation 11/09/16 10:15 12/09/16 10:14 Multivitamins (Multivitamins) 1 tab DAILY ORAL 11/10/16 09:00 12/10/16 08:59 Oxycodone/ Acetaminophen (Percocet 10/325) 1 tab Q6H PRN ORAL severe pain 11/09/16 14:30 11/16/16 14:29 11/09/16 17:13 Paroxetine HCl (Paxil CR) 12.5 mg DAILY ORAL 11/09/16 12:00 12/09/16 11:59 11/09/16 13:36 Potassium Chloride (K-Dur) 40 meq Q6H ORAL 11/09/16 15:00 11/09/16 21:01 11/09/16 15:29 Thiamine HCl (Vitamin B1) 100 mg DAILY ORAL 11/10/16 09:00 12/10/16 08:59 Zolpidem Tartrate (Ambien) 5 mg HSPRN PRN ORAL Insomnia 11/09/16 10:15 12/09/16 10:14 Assessment/Plan Problem List: (1) Sepsis ICD Codes: A41.9 - Sepsis, unspecified organism SNOMED: 19097849, 870177468 Qualifiers: Qualified Codes: A41.9 - Sepsis, unspecified organism (2) copd (3) CHF (congestive heart failure), NYHA class I ICD Codes: I50.9 - CHF (congestive heart failure), NYHA class I SNOMED: 18021292 (4) Hypothyroidism ICD Codes: E03.9 - Hypothyroidism SNOMED: 96315584 (5) chronic pain (6) Lumbar radiculopathy ICD Codes: M54.16 - Radiculopathy, lumbar region SNOMED: 615846452 Assessment/Plan euceda culture IV antibioitics check culutres check electrollytes pain control dvt prophylaxis CONOR WYLIE Nov 09, 2016 18:15 <Electronically signed by CONOR WYILE M.D.> 11/09/16 1820 : Allergies: Coded Allergies: PENICILLINS (Unverified Allergy, Severe, 11/09/16) AMITRIPTYLINE (Verified Allergy, Unknown, 10/19/13) recorded from custodial. pt does not remember the reation. CHLORPROMAZINE (Verified Allergy, Unknown, 10/19/13) recorded from custodial. pt does not remember reaction. ERYTHROMYCIN BASE (Verified Allergy, Unknown, 10/19/13) recorded from custodial. pt does not remember reaction. HALOPERIDOL (Verified Allergy, Unknown, 10/19/13) recorded from custodial. pt does not remember reaction. QUETIAPINE (Verified Allergy, Unknown, 10/19/13) recorded from custodial. pt does not remember reaction. Medication History Scheduled Albuterol Sulfate (Ventolin Hfa), 2 PUFF INH Q4HR, (Reported) Amlodipine Besylate* (Amlodipine Besylate*), 10 MG ORAL DAILY, (Reported) Aripiprazole* (Abilify*), 2.5 MG ORAL DAILY, (Reported) Ascorbic Acid* (Vitamin C*), 500 MG ORAL BID, (Reported) Divalproex Sodium* (Depakote Er*), 500 MG ORAL EVERY 12 HOURS, (Reported) Famotidine (Famotidine), 20 MG ORAL TWICE A DAY, (Reported) Furosemide* (Lasix*), 20 MG ORAL BID, (Reported) Ipratropium [place] 0.5MG/2.5ML (Ipratropium [place] 0.5MG/2.5ML), 0.5 MG HHN Q4HR, (Reported) Multivitamins* (Multivitamins*), 1 TAB ORAL DAILY, (Reported) Paroxetine Hcl* (Paroxetine Hcl*), 40 MG ORAL DAILY, (Reported) Phenazopyridine Hcl* (Pyridium*), 200 MG ORAL THREE TIMES A DAY, (Reported) Thiamine Hcl* (Vitamin B-1*), 100 MG ORAL TID, (Reported) Scheduled PRN Acetaminophen (Acetaminophen), 650 MG ORAL Q4HR PRN for Mild Pain/Temp > 100.5, (Reported) Diphenhydramine HCl (Diphenhydramine HCl), 50 MG ORAL DAILY PRN for Itching, ( Reported) Guaifenesin/Codeine Phos* (Robitussin Ac*), 10 ML ORAL Q4H PRN for For Cough, ( Reported) Guaifenesin/Dextromethorphan (Guaifenesin Dm Syrup), 5 ML ORAL EVERY 6 HOURS PRN for For Cough, (Reported) Hydralazine Hcl* (Hydralazine Hcl*), 25 MG ORAL EVERY 6 HOURS PRN for For High Blood Pressure, (Reported) Hydrocodone Bit/Acetaminophen 5-325* ([place] 5-325*), 1 TAB ORAL Q6H PRN for For Pain, (Reported) Ipratropium [place] 0.5MG/2.5ML (Ipratropium [place] 0.5MG/2.5ML), 0.5 MG HHN Q4HR PRN for Shortness of Breath, (Reported) Lorazepam* (Lorazepam*), 1 MG ORAL Q4HR PRN for For Anxiety, (Reported) Magnesium Hydroxide* (Milk Of Magnesia*), 30 ML ORAL DAILY PRN for Constipation, (Reported) Zolpidem Tartrate* (Zolpidem Tartrate*), 10 MG ORAL BEDTIME PRN for Insomnia, ( Reported) Patient History Healthcare decision maker DEEPA DENNIS Resuscitation status Full Code Advanced Directive on File No Physical Exam Last 24 Hour Vital Signs Date Time Temp Pulse Resp B/P Pulse Ox O2 Delivery O2 Flow Rate FiO2 11/10/16 15:20 98.0 11/10/16 14:51 89 16 98 Nasal Cannula 2.0 28 11/10/16 14:44 28 11/10/16 14:44 86 16 98 Nasal Cannula 2.0 28 11/10/16 12:31 98.0 11/10/16 11:35 98.0 97 20 109/58 97 Room Air 11/10/16 10:42 Nasal Cannula 2.0 28 11/10/16 10:42 87 16 98 Nasal Cannula 2.0 28 11/10/16 09:37 88 102/56 11/10/16 08:48 97.9 88 19 102/56 96 Room Air 11/10/16 07:50 91 18 100 Room Air 21 11/10/16 07:44 Room Air 21 11/10/16 07:44 91 18 97 Room Air 11/10/16 07:44 21 11/10/16 07:44 96 Room Air 21 11/10/16 04:00 99.1 98 18 98/57 99 Room Air 11/10/16 03:55 100 18 97 Nasal Cannula 3.0 32 11/10/16 03:52 32 11/10/16 03:45 102 20 94 Nasal Cannula 3.0 32 11/09/16 23:43 98 18 96 Nasal Cannula 3.0 32 11/09/16 23:33 100 20 95 Nasal Cannula 3.0 32 11/09/16 23:33 32 11/09/16 19:54 86 18 97 Nasal Cannula 3.0 32 11/09/16 19:47 94 Nasal Cannula 2.0 28 11/09/16 19:47 Nasal Cannula 2.0 28 11/09/16 19:47 28 11/09/16 19:44 88 20 94 Nasal Cannula 2.0 28 11/09/16 19:35 102.4 91 20 113/47 96 Room Air 11/09/16 17:14 96 Nasal Cannula 2.0 28 11/09/16 17:14 Nasal Cannula 2.0 28 Intake and Output 11/09/16 11/10/16 19:00 07:00 Intake Total 295 ml Balance 295 ml Intake Oral 240 ml IV Total 55 ml # Voids 2 Laboratory Tests Test 11/09/16 21:00 11/10/16 09:50 Erythrocyte Sedimentation Rate 86 MM/HR (0-30) H Total Protein (PEP) Pending Albumin (PEP) Pending Globulin (PEP) Pending Albumin/Globulin Ratio Pending 0.8 (1.0-2.7) L [id number] Pending Pprah-[id number] Pending Beta Globulins Pending Beta Gamma Globulin Pending PEP Abnormal Protein Bands Pending Protein Electrophoresis Interpret Pending Vitamin D 25-Hydroxy Pending 25-Hydroxy Vitamin D2 Pending 25-Hydroxy Vitamin D3 Pending Folate Pending Rapid Plasma Reagin Pending White Blood Count 20.9 K/UL (4.8-10.8) H Red Blood Count 3.64 M/UL (4.20-5.40) L Hemoglobin 11.8 G/DL (12.0-16.0) L Hematocrit 36.5 % (37.0-47.0) L Mean Corpuscular Volume 100 FL (80-99) H Mean Corpuscular Hemoglobin 32.5 PG (27.0-31.0) H Mean Corpuscular Hemoglobin Concent 32.4 G/DL (32.0-36.0) Red Cell Distribution Width 12.8 % (11.6-14.8) Platelet Count 156 K/UL (150-450) Mean Platelet Volume 8.8 FL (6.5-10.1) Neutrophils (%) (Auto) % (45.0-75.0) Lymphocytes (%) (Auto) % (20.0-45.0) Monocytes (%) (Auto) % (1.0-10.0) Eosinophils (%) (Auto) % (0.0-3.0) Basophils (%) (Auto) % (0.0-2.0) Differential Total Cells Counted 100 Neutrophils % (Manual) 75 % (45-75) Lymphocytes % (Manual) 13 % (20-45) L Monocytes % (Manual) 9 % (1-10) Eosinophils % (Manual) 0 % (0-3) Basophils % (Manual) 0 % (0-2) Band Neutrophils 3 % (0-8) Platelet Estimate Adequate Platelet Morphology Normal Red Blood Cell Morphology Normal Sodium Level 136 mEQ/L (135-145) Potassium Level 3.7 mEQ/L (3.4-4.9) Chloride Level 99 mEQ/L (98-107) Carbon Dioxide Level 24 mEQ/L (20-30) Anion Gap 13 (5-15) Blood Urea Nitrogen 16 mg/dL (7-23) Creatinine 1.2 mg/dL (0.5-0.9) H Estimat Glomerular Filtration Rate 53.9 mL/min (>60) Glucose Level 124 mg/dL (74-106) H Hemoglobin A1c 5.5 % (< 6.0) Uric Acid 5.6 mg/dL (3.0-7.5) Calcium Level 8.7 mg/dL (8.6-10.2) Phosphorus Level 2.1 mg/dL (2.5-4.8) L Magnesium Level 1.7 mg/dL (1.7-2.5) Total Bilirubin 0.2 mg/dL (0.0-1.2) Gamma Glutamyl Transpeptidase 24 U/L (5-36) Aspartate Amino Transf (AST/SGOT) 12 U/L (5-40) Alanine Aminotransferase (ALT/SGPT) 5 U/L (3-33) Alkaline Phosphatase 92 U/L (35-104) Total Creatine Kinase 62 U/L (26-140) C-Reactive Protein, Quantitative 31.4 mg/dL (< 0.5) H Pro-B-Type Natriuretic Peptide 2300 pg/mL (0-125) H Total Protein 6.2 g/dL (6.6-8.7) L Albumin 2.9 g/dL (3.5-5.2) L Globulin 3.3 g/dL Triglycerides Level 169 mg/dL (< 150) H Cholesterol Level 142 mg/dL (< 200) LDL Cholesterol 84 mg/dL (60-99) HDL Cholesterol 24 mg/dL (> 60) Cholesterol/HDL Ratio 5.9 (3.3-4.4) H Vitamin B12 Level 414 pg/mL (211-946) Thyroid Stimulating Hormone (TSH) 1.800 uIU/mL (0.300-4.500) Height (Feet): 5 Height (Inches): 4.00 Weight (Pounds): 215 Medications Current Medications Medications (Trade) Dose Ordered Sig/Kushal Route PRN Reason Start Time Stop Time Status Last Admin Dose Admin Acetaminophen (Tylenol) 650 mg Q4H PRN ORAL Mild Pain/Temp > 100.5 11/09/16 10:15 12/09/16 10:14 11/10/16 14:21 Acetaminophen/ Hydrocodone Bitart ([place] 5/325) 1 tab Q6H PRN ORAL Moderate Pain (Pain Scale 4-6) 11/09/16 10:59 11/16/16 10:14 11/09/16 11:09 Albuterol Sulfate (Proventil MDI) 2 puff Q4H PRN INH Shortness of Breath 11/09/16 10:15 12/09/16 10:14 Amlodipine Besylate 2.5 mg 2.5 mg DAILY ORAL 11/11/16 09:00 12/11/16 08:59 Aripiprazole (Abilify) 2.5 mg DAILY ORAL 11/09/16 12:00 12/09/16 11:59 11/10/16 09:43 Ascorbic Acid (Vitamin C) 500 mg TWICE A DAY ORAL 11/09/16 18:00 12/09/16 17:59 11/10/16 09:44 Aspirin (ASA) 325 mg Q6HR PRN ORAL Temp >100.5 11/09/16 23:00 12/09/16 22:59 11/09/16 23:12 Diphenhydramine HCl (Benadryl) 50 mg HSPRN PRN ORAL Itching/Pruritis 11/09/16 10:15 12/09/16 10:14 Divalproex Sodium (Depakote ER) 500 mg EVERY 12 HOURS ORAL 11/09/16 12:00 12/09/16 11:59 11/10/16 09:44 Ertapenem/Sodium Chloride (INVanz/Sodium Chloride) 55 ml @ 110 mls/hr Q24H IVPB 11/10/16 16:00 11/15/16 15:59 UNV Guaifenesin/ Codeine Phosphate (Robitussin with codeine) 10 ml Q4HR PRN ORAL For Cough 11/09/16 10:15 12/09/16 10:14 Hydralazine HCl (Apresoline) 25 mg Q4HR PRN ORAL SBP>160 11/09/16 17:00 12/09/16 16:59 Ipratropium [place] (Atrovent) 500 mcg Q4H PRN HHN Shortness of Breath 11/09/16 10:15 11/14/16 10:14 Ipratropium [place] (Atrovent) 500 mcg Q4HRT HHN 11/09/16 11:00 11/14/16 10:59 11/10/16 14:44 Lorazepam (Ativan) 1 mg Q4HR PRN ORAL For Anxiety 11/09/16 10:15 11/16/16 10:14 Magnesium Hydroxide (Mom) 30 ml DAILYPRN PRN ORAL Constipation 11/09/16 10:15 12/09/16 10:14 Multivitamins (Multivitamins) 1 tab DAILY ORAL 11/10/16 09:00 12/10/16 08:59 11/10/16 09:43 Oxycodone/ Acetaminophen (Percocet 10/325) 1 tab Q6H PRN ORAL severe pain 11/09/16 14:30 11/16/16 14:29 11/10/16 11:32 Paroxetine HCl (Paxil CR) 12.5 mg DAILY ORAL 11/09/16 12:00 12/09/16 11:59 11/10/16 09:44 Sodium Phosphate 30 mm/Sodium Chloride 285 ml @ 47.5 mls/hr ONCE ONCE IVPB 11/10/16 15:30 11/10/16 21:29 11/10/16 16:00 Thiamine HCl (Vitamin B1) 100 mg DAILY ORAL 11/10/16 09:00 12/10/16 08:59 11/10/16 09:43 Assessment/Plan Problem List: (1) Bacteremia ICD Codes: R78.81 - Bacteremia SNOMED: 5621954 (2) Sepsis ICD Codes: A41.9 - Sepsis, unspecified organism SNOMED: 04401788, [id number] Qualifiers: Qualified Codes: A41.9 - Sepsis, unspecified organism (3) copd (4) CHF (congestive heart failure), NYHA class I ICD Codes: I50.9 - CHF (congestive heart failure), NYHA class I SNOMED: 02418541 (5) Hypothyroidism ICD Codes: E03.9 - Hypothyroidism SNOMED: 99507370 (6) Lumbar radiculopathy ICD Codes: M54.16 - Radiculopathy, lumbar region SNOMED: 992161334 (7) chronic pain Assessment/Plan euceda culture IV antibioitics check culutres check electrollytes pain control dvt prophylaxis CONOR WYLIE Nov 10, 2016 16:33
[2016-11-10 17:20] VITALS: BP 119/66
[2016-11-10] MEDS ORDERED: Ertapenem 1 GM in NS 55 ML IVPB SCH (18:00)
[2016-11-10] MEDS: guaiFENesin w/Codeine 5ml Liq ud ORAL PRN (19:57)
[2016-11-10 20:00] VITALS: BP 122/69
--- NOTE | 2016-11-10 20:15 | Consultation ---
DATE OF CONSULTATION: 11/10/2016 HISTORY OF PRESENT ILLNESS: This is a 71-year-old female patient. The patient has a history of UTIs, so she was brought to the hospital. In addition, she has a history of gastric bypass with abdominal pain, chills, and nausea. The patient is slightly confused, irritable, and anxious and . PAST MEDICAL HISTORY: History of edema and hyperlipidemia. ALLERGIES: The patient is allergic to amitriptyline, quetiapine, haloperidol. SUBSTANCE ABUSE HISTORY: The patient denies history of alcohol use, illicit drug abuse, and smoking cigarettes. PAST PSYCHIATRIC HISTORY: The patient history of anxiety and depression. SOCIAL HISTORY: The patient is a 71-year-old female. The patient is from . MENTAL STATUS EXAMINATION: The patient's is intact. Mood is anxious. Affect is irritable. Thought process is disorganized. The patient has had poor attention and concentration. Poor insight, judgment, and impulse control. This clinician assessed this patient. Provided this patient with supportive psychotherapy and reality orientation. The patient denies suicidal or homicidal thoughts of ideation. DIAGNOSES: [place] I Rule out bipolar disorder, mixed, severe with psychotic features. [place] II Deferred [place] III Per History and Physical. PLAN: Treatment with medication management and behavior management . Discussed with the family. Discussed the aftercare plan. Alida Mireles PsyD. : PRACHI JOB#: [id number] CC:
[2016-11-10] MEDS: LORazepam 1mg tab ORAL PRN (21:59)
[2016-11-10] MEDS: Zolpidem 5mg tab ORAL PRN (21:59)
[2016-11-10 23:53] VITALS: BP 128/74
[2016-11-11] MEDS: Ipratropium 0.02% Inh Soln 2.5ml UD HHN SCH ×4 (03:00→15:30)
[2016-11-11 03:44] VITALS: BP 118/67
[2016-11-11 07:41] LABS: MEAN CORPUSCULAR HEMOGLOBIN 32.4 PG (27.0-31.0); MEAN CORPUSCULAR HGB CONC 32.4 G/DL (32.0-36.0); MEAN CORPUSCULAR VOLUME 100 FL (80-99); MEAN PLATELET VOLUME 7.8 FL (6.5-10.1); PLATELET COUNT 177 K/UL (150-450); RED BLOOD COUNT 3.95 M/UL (4.20-5.40); RED CELL DISTRIBUTION WIDTH 12.9 % (11.6-14.8)
[2016-11-11 08:00] VITALS: BP 116/69
[2016-11-11 08:06] LABS: ALBUMIN/GLOBULIN RATIO 0.7 (1.0-2.7); CALCIUM 8.6 mg/dL (8.6-10.2); CREATININE 1.2 mg/dL (0.5-0.9); CRP QUANT 34.6 mg/dL (< 0.5); GLOMERULAR FILTRATION RATE 53.9 mL/min (>60); MAGNESIUM 1.9 mg/dL (1.7-2.5); PHOSPHORUS 4.9 mg/dL (2.5-4.8); POTASSIUM 3.8 mEQ/L (3.4-4.9); TOTAL PROTEIN 6.6 g/dL (6.6-8.7); URIC ACID 5.5 mg/dL (3.0-7.5)
[2016-11-11] MEDS: Thiamine 100mg tab ORAL SCH (08:16)
[2016-11-11] MEDS: Ascorbic Acid 500mg tab ORAL SCH ×2 (08:16→18:49)
[2016-11-11] MEDS: PAROXETINE 12.5 MG ORAL SCH (08:17)
[2016-11-11] MEDS: Depakote ER 500mg tab ORAL SCH ×2 (08:17→20:32)
--- NOTE | 2016-11-11 09:33 | General Progress Note ---
Assessment/Plan Status: stable Status Narrative WBCs remain high- Cr 1.2 stable Assessment/Plan status; HTN- bp now is running low HypoKalemia Obesity- UTI / Pyelo Psych Plan: Adjust BP meds- Stop Lasix- fluid challenge K supplements Monitor BP and renal parameters Subjective ROS Limited/Unobtainable: No Constitutional: Reports: malaise Allergies: Coded Allergies: PENICILLINS (Unverified Allergy, Severe, 11/09/16) AMITRIPTYLINE (Verified Allergy, Unknown, 10/19/13) [facility] from [facility]. pt does not remember the reation. CHLORPROMAZINE (Verified Allergy, Unknown, 10/19/13) recorded from prison. pt does not remember reaction. ERYTHROMYCIN BASE (Verified Allergy, Unknown, 10/19/13) recorded from prison. pt does not remember reaction. HALOPERIDOL (Verified Allergy, Unknown, 10/19/13) recorded from prison. pt does not remember reaction. QUETIAPINE (Verified Allergy, Unknown, 10/19/13) recorded from prison. pt does not remember reaction. Objective Last 24 Hour Vital Signs Date Time Temp Pulse Resp B/P Pulse Ox O2 Delivery O2 Flow Rate FiO2 11/11/16 08:17 117 116/69 11/11/16 08:00 97.1 117 18 116/69 92 Room Air 11/11/16 03:44 100.4 110 18 118/67 96 Room Air 11/11/16 03:29 Room Air 11/11/16 03:28 Room Air 11/11/16 01:21 99.5 11/10/16 23:53 102.2 91 19 128/74 97 Nasal Cannula 2.0 11/10/16 23:44 Room Air 11/10/16 23:42 11/10/16 23:42 82 16 92 Room Air 11/10/16 20:04 92 18 100 Room Air 11/10/16 20:02 28 11/10/16 20:02 84 16 93 Room Air 11/10/16 20:01 Room Air 21 11/10/16 20:00 98.6 92 22 122/69 96 Nasal Cannula 2.0 11/10/16 20:00 94 Room Air 21 11/10/16 18:04 97.4 11/10/16 17:20 97.4 97 20 119/66 95 Room Air 11/10/16 14:51 89 16 98 Nasal Cannula 2.0 28 11/10/16 14:44 28 11/10/16 14:44 86 16 98 Nasal Cannula 2.0 11/10/16 11:35 98.0 97 20 109/58 97 Room Air 11/10/16 10:42 Nasal Cannula 2.0 11/10/16 10:42 87 16 98 Nasal Cannula 2.0 11/10/16 09:37 88 102/56 Intake and Output 11/10/16 11/11/16 19:00 07:00 Intake Total 360 ml Balance 360 ml Intake Oral 360 ml # Voids 2 Laboratory Tests 11/10/16 09:50: White Blood Count 20.9H, Red Blood Count 3.64L, Hemoglobin 11.8L, Hematocrit 36.5L, Mean Corpuscular Volume 100H, Mean Corpuscular Hemoglobin 32.5H, Mean Corpuscular Hemoglobin Concent 32.4, Red Cell Distribution Width 12.8, Platelet Count 156, Mean Platelet Volume 8.8, Neutrophils (%) (Auto) , Lymphocytes (%) ( Auto) , Monocytes (%) (Auto) , Eosinophils (%) (Auto) , Basophils (%) (Auto) , Differential Total Cells Counted 100, Neutrophils % (Manual) 75, Lymphocytes % ( Manual) 13L, Monocytes % (Manual) 9, Eosinophils % (Manual) 0, Basophils % ( Manual) 0, Band Neutrophils 3, Platelet Estimate Adequate, Platelet Morphology Normal, Red Blood Cell Morphology Normal, Sodium Level 136, Potassium Level 3.7 , Chloride Level 99, Carbon Dioxide Level 24, Anion Gap 13, Blood Urea Nitrogen 16, Creatinine 1.2H, Estimat Glomerular Filtration Rate 53.9, Glucose Level 124H , Hemoglobin A1c 5.5, Uric Acid 5.6, Calcium Level 8.7, Phosphorus Level 2.1L, Magnesium Level 1.7, Total Bilirubin 0.2, Gamma Glutamyl Transpeptidase 24, Aspartate Amino Transf (AST/SGOT) 12, Alanine Aminotransferase (ALT/SGPT) 5, Alkaline Phosphatase 92, Total Creatine Kinase 62, C-Reactive Protein, Quantitative 31.4H, Pro-B-Type Natriuretic Peptide 2300H, Total Protein 6.2L, Albumin 2.9L, Globulin 3.3, Albumin/Globulin Ratio 0.8L, Triglycerides Level 169H, Cholesterol Level 142, LDL Cholesterol 84, HDL Cholesterol 24, Cholesterol /HDL Ratio 5.9H, Vitamin B12 Level 414, Thyroid Stimulating Hormone (TSH) 1.800 11/11/16 05:00: White Blood Count 20.0H, Red Blood Count 3.95L, Hemoglobin 12.8, Hematocrit 39.5 , Mean Corpuscular Volume 100H, Mean Corpuscular Hemoglobin 32.4H, Mean Corpuscular Hemoglobin Concent 32.4, Red Cell Distribution Width 12.9, Platelet Count 177, Mean Platelet Volume 7.8, Neutrophils (%) (Auto) , Lymphocytes (%) ( Auto) , Monocytes (%) (Auto) , Eosinophils (%) (Auto) , Basophils (%) (Auto) , Neutrophils % (Manual) [Pending], Lymphocytes % (Manual) [Pending], Platelet Estimate [Pending], Platelet Morphology [Pending], Sodium Level 137, Potassium Level 3.8, Chloride Level 98, Carbon Dioxide Level 21, Anion Gap 18H, Blood Urea Nitrogen 18, Creatinine 1.2H, Estimat Glomerular Filtration Rate 53.9, Glucose Level 80, Uric Acid 5.5, Calcium Level 8.6, Phosphorus Level 4.9H, Magnesium Level 1.9, Total Bilirubin 0.2, Aspartate Amino Transf (AST/SGOT) 16, Alanine Aminotransferase (ALT/SGPT) 8, Alkaline Phosphatase 118H, C-Reactive Protein, Quantitative 34.6H, Pro-B-Type Natriuretic Peptide 1471H, Total Protein 6.6, Albumin 2.9L, Globulin 3.7, Albumin/Globulin Ratio 0.7L Height (Feet): 5 Height (Inches): 4.00 Weight (Pounds): 215 General Appearance: no apparent distress Objective other PE not changed MICHAEL DE LA ROSA Nov 11, 2016 09:33
[2016-11-11 11:27] LABS: BAND NEUTROPHILS % (MANUAL) 0 % (0-8); BASOPHILS % (MANUAL) 0 % (0-2); EOSINOPHILS % (MANUAL) 0 % (0-3); LYMPHOCYTES % (MANUAL) 8 % (20-45); NEUTROPHILS % (MANUAL) 83 % (45-75); PLATELET ESTIMATE ADEQUATE; PLATELET MORPHOLOGY NORMAL; TOTAL CELLS COUNTED 100
[2016-11-11 12:00] VITALS: BP 127/65
--- NOTE | 2016-11-11 13:43 | General Progress Note ---
Assessment/Plan Problem List: (1) Osteoarthritis of multiple joints ICD Codes: M15.9 - Osteoarthritis of multiple joints SNOMED: 91726489 (2) chronic pain (3) Lumbar radiculopathy ICD Codes: M54.16 - Radiculopathy, lumbar region SNOMED: 386487145 (4) UTI (lower urinary tract infection) ICD Codes: N39.0 - UTI (lower urinary tract infection) SNOMED: 8347102 Status: progressing Assessment/Plan r/o hydro djd chrnoic pain djd uti abx per id no fever Subjective ROS Limited/Unobtainable: Yes Allergies: Coded Allergies: PENICILLINS (Unverified Allergy, Severe, 11/09/16) AMITRIPTYLINE (Verified Allergy, Unknown, 10/19/13) recorded from [facility]. pt does not remember the reation. CHLORPROMAZINE (Verified Allergy, Unknown, 10/19/13) recorded from [facility]. pt does not remember reaction. ERYTHROMYCIN BASE (Verified Allergy, Unknown, 10/19/13) recorded from [facility]. pt does not remember reaction. HALOPERIDOL (Verified Allergy, Unknown, 10/19/13) recorded from [facility]. pt does not remember reaction. QUETIAPINE (Verified Allergy, Unknown, 10/19/13) recorded from [facility]. pt does not remember reaction. Objective Last 24 Hour Vital Signs Date Time Temp Pulse Resp B/P Pulse Ox O2 Delivery O2 Flow Rate FiO2 11/11/16 12:00 97.5 104 18 127/65 94 Nasal Cannula 2.0 11/11/16 11:25 Room Air 21 11/11/16 11:25 Room Air 21 11/11/16 08:17 117 116/69 11/11/16 08:00 97.1 117 18 116/69 92 Room Air 11/11/16 07:35 Room Air 21 11/11/16 07:30 94 Room Air 21 11/11/16 07:30 Room Air 21 11/11/16 07:30 Room Air 21 11/11/16 03:44 100.4 110 18 118/67 96 Room Air 11/11/16 03:29 Room Air 11/11/16 03:28 Room Air 11/11/16 01:21 99.5 11/10/16 23:53 102.2 91 19 128/74 97 Nasal Cannula 2.0 11/10/16 23:44 Room Air 11/10/16 23:42 11/10/16 23:42 82 16 92 Room Air 11/10/16 20:04 92 18 100 Room Air 11/10/16 20:02 28 11/10/16 20:02 84 16 93 Room Air 11/10/16 20:01 Room Air 21 11/10/16 20:00 98.6 92 22 122/69 96 Nasal Cannula 2.0 11/10/16 20:00 94 Room Air 21 11/10/16 18:04 97.4 11/10/16 17:20 97.4 97 20 119/66 95 Room Air 11/10/16 14:51 89 16 98 Nasal Cannula 2.0 28 11/10/16 14:44 28 11/10/16 14:44 86 16 98 Nasal Cannula 2.0 28 Intake and Output 11/10/16 11/11/16 19:00 07:00 Intake Total 360 ml Balance 360 ml Intake Oral 360 ml # Voids 2 Laboratory Tests 11/11/16 05:00: White Blood Count 20.0H, Red Blood Count 3.95L, Hemoglobin 12.8, Hematocrit 39.5 , Mean Corpuscular Volume 100H, Mean Corpuscular Hemoglobin 32.4H, Mean Corpuscular Hemoglobin Concent 32.4, Red Cell Distribution Width 12.9, Platelet Count 177, Mean Platelet Volume 7.8, Neutrophils (%) (Auto) , Lymphocytes (%) ( Auto) , Monocytes (%) (Auto) , Eosinophils (%) (Auto) , Basophils (%) (Auto) , Differential Total Cells Counted 100, Neutrophils % (Manual) 83H, Lymphocytes % (Manual) 8L, Monocytes % (Manual) 9, Eosinophils % (Manual) 0, Basophils % ( Manual) 0, Band Neutrophils 0, Platelet Estimate Adequate, Platelet Morphology Normal, Red Blood Cell Morphology Normal, Sodium Level 137, Potassium Level 3.8 , Chloride Level 98, Carbon Dioxide Level 21, Anion Gap 18H, Blood Urea Nitrogen 18, Creatinine 1.2H, Estimat Glomerular Filtration Rate 53.9, Glucose Level 80, Uric Acid 5.5, Calcium Level 8.6, Phosphorus Level 4.9H, Magnesium Level 1.9, Total Bilirubin 0.2, Aspartate Amino Transf (AST/SGOT) 16, Alanine Aminotransferase (ALT/SGPT) 8, Alkaline Phosphatase 118H, C-Reactive Protein, Quantitative 34.6H, Pro-B-Type Natriuretic Peptide 1471H, Total Protein 6.6, Albumin 2.9L, Globulin 3.7, Albumin/Globulin Ratio 0.7L Height (Feet): 5 Height (Inches): 4.00 Weight (Pounds): 215 Cardiovascular: normal rate Abdomen: non tender Leela Diaz MD Nov 11, 2016 13:43
--- NOTE | 2016-11-11 13:43 | Neurology Progress Note ---
Interim History Interim History Interim History Ms. Munguia feels unwell. She has been more short of breath and is not getting her albuterol. Her headache is also bothering her more. The mind is clear. She has noticed no new neurologic symptoms. She is feeling that her cognitive function has returned to normal. She has walked to the bathroom a few times. Review of Systems Neuro Review of Systems Benign. Objective Physical Exam Last Vital Signs Date Time Temp Pulse Resp B/P Pulse Ox O2 Delivery O2 Flow Rate FiO2 11/11/16 12:00 97.5 104 18 127/65 94 Nasal Cannula 2.0 11/11/16 11:25 21 Laboratory Tests Test 11/11/16 05:00 White Blood Count 20.0 K/UL (4.8-10.8) H Red Blood Count 3.95 M/UL (4.20-5.40) L Hemoglobin 12.8 G/DL (12.0-16.0) Hematocrit 39.5 % (37.0-47.0) Mean Corpuscular Volume 100 FL (80-99) H Mean Corpuscular Hemoglobin 32.4 PG (27.0-31.0) H Mean Corpuscular Hemoglobin Concent 32.4 G/DL (32.0-36.0) Red Cell Distribution Width 12.9 % (11.6-14.8) Platelet Count 177 K/UL (150-450) Mean Platelet Volume 7.8 FL (6.5-10.1) Neutrophils (%) (Auto) % (45.0-75.0) Lymphocytes (%) (Auto) % (20.0-45.0) Monocytes (%) (Auto) % (1.0-10.0) Eosinophils (%) (Auto) % (0.0-3.0) Basophils (%) (Auto) % (0.0-2.0) Differential Total Cells Counted 100 Neutrophils % (Manual) 83 % (45-75) H Lymphocytes % (Manual) 8 % (20-45) L Monocytes % (Manual) 9 % (1-10) Eosinophils % (Manual) 0 % (0-3) Basophils % (Manual) 0 % (0-2) Band Neutrophils 0 % (0-8) Platelet Estimate Adequate Platelet Morphology Normal Red Blood Cell Morphology Normal Sodium Level 137 mEQ/L (135-145) Potassium Level 3.8 mEQ/L (3.4-4.9) Chloride Level 98 mEQ/L (98-107) Carbon Dioxide Level 21 mEQ/L (20-30) Anion Gap 18 (5-15) H Blood Urea Nitrogen 18 mg/dL (7-23) Creatinine 1.2 mg/dL (0.5-0.9) H Estimat Glomerular Filtration Rate 53.9 mL/min (>60) Glucose Level 80 mg/dL (74-106) Uric Acid 5.5 mg/dL (3.0-7.5) Calcium Level 8.6 mg/dL (8.6-10.2) Phosphorus Level 4.9 mg/dL (2.5-4.8) H Magnesium Level 1.9 mg/dL (1.7-2.5) Total Bilirubin 0.2 mg/dL (0.0-1.2) Aspartate Amino Transf (AST/SGOT) 16 U/L (5-40) Alanine Aminotransferase (ALT/SGPT) 8 U/L (3-33) Alkaline Phosphatase 118 U/L (35-104) H C-Reactive Protein, Quantitative 34.6 mg/dL (< 0.5) H Pro-B-Type Natriuretic Peptide 1471 pg/mL (0-125) H Total Protein 6.6 g/dL (6.6-8.7) Albumin 2.9 g/dL (3.5-5.2) L Globulin 3.7 g/dL Albumin/Globulin Ratio 0.7 (1.0-2.7) L Neurologic Exam Objective PHYSICAL EXAMINATION: GENERAL: She is a well-developed, well-nourished, obese, black lady, lying in bed, in no acute distress. HEAD: Normocephalic and atraumatic. NECK: No neck rigidity was observed. She did have mild grade 1/4 cervical paraspinal muscle and trapezius spasm. EENT: Examination is benign. NEUROLOGICAL EXAMINATION: MENTAL STATUS EXAMINATION: She was alert and awake. She was oriented to person, place, and time except for the exact date. She was able to recall 3/3 words immediately after 1 minute and after 3 minutes. She was able to remember presidents, Trump through Izquierdo Sr. Her mathematical skills were fairly good. Her visuospatial function was preserved. SPEECH: She had no dysarthria. LANGUAGE: She had no aphasia. CRANIAL NERVE EXAMINATION: II: The visual mireles were intact on confrontation testing III, IV & : External ocular movements were full and the pupils 3 mm in diameter, equal, round, regular, and reactive to light. V: She had normal facial sensations and the temporales, masseters, and pterygoids function normally. VII: She had normal facial expressions and no facial asymmetry. VIII: She was able to hear well bilaterally and had no nystagmus. IX: The palate moved symmetrically on phonation. X: She had no hoarseness of voice. XI: The sternocleidomastoids and trapezii functioned normally. XII: The tongue was in the midline without any fasciculations or atrophy. MOTOR SYSTEM: The tone was normal in all four extremities. Examination of muscle mass revealed no focal wasting. Examination of power revealed grade 5/5 power in all muscle groups tested. SENSORY EXAMINATION: She had intact sensations to pinprick, light touch, and graphesthesia. COORDINATION: She performed well on [id number] testing. REFLEXES: Trace+ and bilaterally symmetrical at the biceps, triceps, brachioradialis, and knees and 0 at both ankles. The plantar responses were flexor bilaterally. STANCE: She had a minimally wide-based, but stable stance. GAIT: She walked with a minimally wide-based, but stable gait. Impression/Recommendations Diagnostic Impression 1. Ms. Susy Munguia is a 71-year-old, right-handed, black lady, who does have a past history of bipolar affective disorder, gastric bypass, gastric tumor , kidney infections, a brief period of hemodialysis numerous years ago, hypertension, chronic obstructive pulmonary disease, and gastroesophageal reflux disease who was hospitalized for fevers, chills, and altered mental state. She was evaluated in the [facility] emergency room and was discovered to have pyelonephritis. She has been treated for this with appropriate antibiotics and fluids, and has improved. When she came in, her mental state was quite altered, but it seems to have improved since then. 2. She feels unwell due to respiratory problems.. The mind continues to be clear. She has a mild headache. She denies any new neurologic symptoms. 3. On neurological examination, at this time, she is mildly disoriented to the exact date, has mild G 1/4 cervical paraspinal muscle and trapezius spasm, has globally diminished reflexes, but the rest of the neurological examination is essentially benign. 4. Laboratory data on my initial evaluation revealed that her WBC count was elevated to 14,500 and her potassium was low at 3.3. She had an anion gap of 16. Her glucose was elevated to 110. Her albumin was down at 3.4. Her urinalysis reveals 3+ leukocyte esterase, 5-10 red blood cells per high-power field, too numerous to count white blood cells per high-power field, and a few urinary bacteria. 5. Further laboratory tests have revealed no treatable causes of altered mental state. 6. The patient's history and neurological examination are most compatible with a delirium due to possible pyelonephritis, which is now significantly better with treatment of the infection.. 7. Her headache are most probably muscle contraction headaches. Recommendations 1. Continue present management. 2. Continue to treat the patient's pyelonephritis in an aggressive manner. 3. Await results of work up for other treatable causes of altered mental state. 4. Mobilize rapidly. 5. Flexeril 10 mg q HS for headaches. Nai Maddox M.D., M.S.P.Iftikhar. NAI MADDOX Nov 11, 2016 13:43
[2016-11-11] MEDS: cefTRIAXone 2 GM in D5W 110 ML IVPB SCH (13:54)
[2016-11-11 16:00] VITALS: BP 132/77
--- NOTE | 2016-11-11 16:49 | Infectious Diseases Prog Note ---
Assessment/Plan Problems: (1) Pyelonephritis Assessment & Plan: due to E coli pansensitive, suspect left ureter obstruction , not improving on antibiotics empirically , needs source control to remove the ureter obstruction with cystoscopy . recommend urologist consult [facility]. await urine and blood culture. will switch ertapenem to ceftriaxon (2) Sepsis Assessment & Plan: due to the above, blood culture showed coag negative staph in one set, most likely contaminant , on ceftriaxon empirically (3) Abdominal pain of unknown etiology Assessment & Plan: suspect due to stone and ureter obstruction, as suggested by renal US (4) MRSA nasal colonization Assessment & Plan: will start bactroban to decolonize Subjective Constitutional: Reports: no symptoms HEENT: Reports: no symptoms Respiratory: Reports: no symptoms Breasts: Reports: no symptoms Cardiovascular: Reports: no symptoms Gastrointestinal/Abdominal: Reports: bloating, nausea, other - left side pain Genitourinary: Reports: dysuria Neurologic: Reports: no symptoms Psychiatric: Reports: no symptoms Skin: Reports: no symptoms Endocrine: Reports: no symptoms Allergies: Coded Allergies: PENICILLINS (Unverified Allergy, Severe, 11/09/16) AMITRIPTYLINE (Verified Allergy, Unknown, 10/19/13) recorded from shelter. pt does not remember the reation. CHLORPROMAZINE (Verified Allergy, Unknown, 10/19/13) recorded from shelter. pt does not remember reaction. ERYTHROMYCIN BASE (Verified Allergy, Unknown, 10/19/13) recorded from shelter. pt does not remember reaction. HALOPERIDOL (Verified Allergy, Unknown, 10/19/13) recorded from shelter. pt does not remember reaction. QUETIAPINE (Verified Allergy, Unknown, 10/19/13) recorded from shelter. pt does not remember reaction. Objective Vital Signs Last 24 Hour Vital Signs Date Time Temp Pulse Resp B/P Pulse Ox O2 Delivery O2 Flow Rate FiO2 11/11/16 15:30 Room Air 21 11/11/16 15:30 Room Air 21 11/11/16 12:00 97.5 104 18 127/65 94 Nasal Cannula 2.0 11/11/16 11:25 Room Air 21 11/11/16 11:25 Room Air 21 11/11/16 08:17 117 116/69 11/11/16 08:00 97.1 117 18 116/69 92 Room Air 11/11/16 07:35 Room Air 21 11/11/16 07:30 94 Room Air 21 11/11/16 07:30 Room Air 21 11/11/16 07:30 Room Air 21 11/11/16 03:44 100.4 110 18 118/67 96 Room Air 11/11/16 03:29 Room Air 11/11/16 03:28 Room Air 11/11/16 01:21 99.5 11/10/16 23:53 102.2 91 19 128/74 97 Nasal Cannula 2.0 11/10/16 23:44 Room Air 11/10/16 23:42 11/10/16 23:42 82 16 92 Room Air 11/10/16 20:04 92 18 100 Room Air 11/10/16 20:02 28 11/10/16 20:02 84 16 93 Room Air 11/10/16 20:01 Room Air 21 11/10/16 20:00 98.6 92 22 122/69 96 Nasal Cannula 2.0 11/10/16 20:00 94 Room Air 21 11/10/16 18:04 97.4 11/10/16 17:20 97.4 97 20 119/66 95 Room Air Height (Feet): 5 Height (Inches): 4.00 Weight (Pounds): 215 General Appearance: WD/WN, no acute distress HEENT: normocephalic, atraumatic, anicteric, mucous membranes moist, PERRL, EOMI, no JVD Respiratory/Chest: chest wall non-tender, lungs clear, normal breath sounds, no respiratory distress, no accessory muscle use Cardiovascular: normal peripheral pulses, normal rate, regular rhythm, regularly irregular, no gallop/murmur, no JVD Abdomen: normal bowel sounds, no organomegaly, non distended, no mass, no scars , hypoactive bowel sounds, distended, tender Extremities: no cyanosis, no clubbing Skin: no rash, no lesions Microbiology Date/Time Source Procedure Growth Status 11/09/16 00:05 Blood Blood Culture - Preliminary Staphylococcus Sp Coag Neg Resulted 11/09/16 00:05 Blood Blood Culture - Preliminary NO GROWTH AFTER 48 HOURS Resulted 11/08/16 22:30 Nasal Not Otherwise Specified MRSA Culture - Final Staphylococcus Aureus - Mrsa Complete 11/09/16 01:05 Urine,Clean Catch Urine Culture - Final Escherichia Coli Complete 11/08/16 22:30 Rectum VRE Culture - Final NO VANCOMYCIN RESISTANT ENTEROCOCCUS ... Complete Laboratory Tests Test 11/11/16 05:00 White Blood Count 20.0 K/UL (4.8-10.8) H Red Blood Count 3.95 M/UL (4.20-5.40) L Hemoglobin 12.8 G/DL (12.0-16.0) Hematocrit 39.5 % (37.0-47.0) Mean Corpuscular Volume 100 FL (80-99) H Mean Corpuscular Hemoglobin 32.4 PG (27.0-31.0) H Mean Corpuscular Hemoglobin Concent 32.4 G/DL (32.0-36.0) Red Cell Distribution Width 12.9 % (11.6-14.8) Platelet Count 177 K/UL (150-450) Mean Platelet Volume 7.8 FL (6.5-10.1) Neutrophils (%) (Auto) % (45.0-75.0) Lymphocytes (%) (Auto) % (20.0-45.0) Monocytes (%) (Auto) % (1.0-10.0) Eosinophils (%) (Auto) % (0.0-3.0) Basophils (%) (Auto) % (0.0-2.0) Differential Total Cells Counted 100 Neutrophils % (Manual) 83 % (45-75) H Lymphocytes % (Manual) 8 % (20-45) L Monocytes % (Manual) 9 % (1-10) Eosinophils % (Manual) 0 % (0-3) Basophils % (Manual) 0 % (0-2) Band Neutrophils 0 % (0-8) Platelet Estimate Adequate Platelet Morphology Normal Red Blood Cell Morphology Normal Sodium Level 137 mEQ/L (135-145) Potassium Level 3.8 mEQ/L (3.4-4.9) Chloride Level 98 mEQ/L (98-107) Carbon Dioxide Level 21 mEQ/L (20-30) Anion Gap 18 (5-15) H Blood Urea Nitrogen 18 mg/dL (7-23) Creatinine 1.2 mg/dL (0.5-0.9) H Estimat Glomerular Filtration Rate 53.9 mL/min (>60) Glucose Level 80 mg/dL (74-106) Uric Acid 5.5 mg/dL (3.0-7.5) Calcium Level 8.6 mg/dL (8.6-10.2) Phosphorus Level 4.9 mg/dL (2.5-4.8) H Magnesium Level 1.9 mg/dL (1.7-2.5) Total Bilirubin 0.2 mg/dL (0.0-1.2) Aspartate Amino Transf (AST/SGOT) 16 U/L (5-40) Alanine Aminotransferase (ALT/SGPT) 8 U/L (3-33) Alkaline Phosphatase 118 U/L (35-104) H C-Reactive Protein, Quantitative 34.6 mg/dL (< 0.5) H Pro-B-Type Natriuretic Peptide 1471 pg/mL (0-125) H Total Protein 6.6 g/dL (6.6-8.7) Albumin 2.9 g/dL (3.5-5.2) L Globulin 3.7 g/dL Albumin/Globulin Ratio 0.7 (1.0-2.7) L Current Medications Medications (Trade) Dose Ordered Sig/Kushal Route PRN Reason Start Time Stop Time Status Last Admin Dose Admin Acetaminophen (Tylenol) 650 mg Q4H PRN ORAL Mild Pain/Temp > 100.5 11/09/16 10:15 12/09/16 10:14 11/11/16 00:19 Acetaminophen/ Hydrocodone Bitart ([place] 5/325) 1 tab Q6H PRN ORAL Moderate Pain (Pain Scale 4-6) 11/09/16 10:59 11/16/16 10:14 11/09/16 11:09 Albuterol Sulfate (Proventil MDI) 2 puff Q4H PRN INH Shortness of Breath 11/09/16 10:15 12/09/16 10:14 Amlodipine Besylate (Norvasc) 2.5 mg DAILY ORAL 11/11/16 09:00 12/11/16 08:59 11/11/16 08:17 Aripiprazole (Abilify) 2.5 mg DAILY ORAL 11/09/16 12:00 12/09/16 11:59 11/10/16 09:43 Ascorbic Acid (Vitamin C) 500 mg TWICE A DAY ORAL 11/09/16 18:00 12/09/16 17:59 11/11/16 08:16 Aspirin (ASA) 325 mg Q6HR PRN ORAL Temp >100.5 11/09/16 23:00 12/09/16 22:59 11/09/16 23:12 Ceftriaxone Sodium/Dextrose (Rocephin/D5W) 110 ml @ 220 mls/hr Q24H IVPB 11/11/16 13:00 11/18/16 12:59 11/11/16 13:54 Cyclobenzaprine HCl (Flexeril) 10 mg BEDTIME ORAL 11/11/16 21:00 12/11/16 20:59 Dextrose 1,000 ml @ 100 mls/hr Q10H IV 11/11/16 09:30 11/11/16 19:29 11/11/16 10:00 Diphenhydramine HCl (Benadryl) 50 mg HSPRN PRN ORAL Itching/Pruritis 11/09/16 10:15 12/09/16 10:14 11/10/16 18:14 Divalproex Sodium (Depakote ER) 500 mg EVERY 12 HOURS ORAL 11/09/16 12:00 12/09/16 11:59 11/11/16 08:17 Guaifenesin/ Codeine Phosphate (Robitussin with codeine) 10 ml Q4HR PRN ORAL For Cough 11/09/16 10:15 12/09/16 10:14 11/10/16 19:57 Hydralazine HCl (Apresoline) 25 mg Q4HR PRN ORAL SBP>160 11/09/16 17:00 12/09/16 16:59 Ipratropium [place] (Atrovent) 500 mcg Q4H PRN HHN Shortness of Breath 11/09/16 10:15 11/14/16 10:14 Ipratropium [place] (Atrovent) 500 mcg Q4HRT HHN 11/09/16 11:00 11/14/16 10:59 11/10/16 19:59 Lorazepam (Ativan) 1 mg Q4HR PRN ORAL For Anxiety 11/09/16 10:15 11/16/16 10:14 11/10/16 21:59 Magnesium Hydroxide (Mom) 30 ml DAILYPRN PRN ORAL Constipation 11/09/16 10:15 12/09/16 10:14 Multivitamins (Multivitamins) 1 tab DAILY ORAL 11/10/16 09:00 12/10/16 08:59 11/11/16 08:17 Oxycodone/ Acetaminophen (Percocet 10/325) 1 tab Q6H PRN ORAL severe pain 11/09/16 14:30 11/16/16 14:29 11/11/16 14:20 Paroxetine HCl (Paxil CR) 12.5 mg DAILY ORAL 11/09/16 12:00 12/09/16 11:59 11/11/16 08:17 Thiamine HCl (Vitamin B1) 100 mg DAILY ORAL 11/10/16 09:00 12/10/16 08:59 11/11/16 08:16 Zolpidem Tartrate 5 mg 5 mg HSPRN PRN ORAL Insomnia 11/10/16 21:45 12/10/16 21:44 11/10/16 21:59 Angy Crane M.D. Nov 11, 2016 16:49
--- NOTE | 2016-11-11 18:38 | Pulmonology Progress Note ---
Assessment/Plan Problems: (1) Bacteremia (2) Sepsis (3) copd (4) CHF (congestive heart failure), NYHA class I (5) Hypothyroidism (6) Lumbar radiculopathy (7) chronic pain Assessment/Plan wbc still high continue abx check cultures pt/ot dvt prophylaxis tolerating diet Subjective ROS Limited/Unobtainable: No Constitutional: Reports: no symptoms HEENT: Repors: no symptoms Respiratory: Reports: no symptoms Allergies: Coded Allergies: PENICILLINS (Unverified Allergy, Severe, 11/09/16) AMITRIPTYLINE (Verified Allergy, Unknown, 10/19/13) [facility] pt does not remember the reation. CHLORPROMAZINE (Verified Allergy, Unknown, 10/19/13) recorded from [facility]. pt does not remember reaction. ERYTHROMYCIN BASE (Verified Allergy, Unknown, 10/19/13) recorded from [facility]. pt does not remember reaction. HALOPERIDOL (Verified Allergy, Unknown, 10/19/13) recorded from [facility]. pt does not remember reaction. QUETIAPINE (Verified Allergy, Unknown, 10/19/13) recorded from [facility]. pt does not remember reaction. Objective Last 24 Hour Vital Signs Date Time Temp Pulse Resp B/P Pulse Ox O2 Delivery O2 Flow Rate FiO2 11/11/16 16:00 97.1 110 20 132/77 98 Nasal Cannula 2.0 11/11/16 15:30 Room Air 21 11/11/16 15:30 Room Air 11/11/16 12:00 97.5 104 18 127/65 94 Nasal Cannula 2.0 11/11/16 11:25 Room Air 21 11/11/16 11:25 Room Air 21 11/11/16 08:17 117 116/69 11/11/16 08:00 97.1 117 18 116/69 92 Room Air 11/11/16 07:35 Room Air 21 11/11/16 07:30 94 Room Air 21 11/11/16 07:30 Room Air 21 11/11/16 07:30 Room Air 21 11/11/16 03:44 100.4 110 18 118/67 96 Room Air 11/11/16 03:29 Room Air 11/11/16 03:28 Room Air 11/11/16 01:21 99.5 11/10/16 23:53 102.2 91 19 128/74 97 Nasal Cannula 2.0 11/10/16 23:44 Room Air 11/10/16 23:42 11/10/16 23:42 82 16 92 Room Air 11/10/16 20:04 92 18 100 Room Air 11/10/16 20:02 28 11/10/16 20:02 84 16 93 Room Air 11/10/16 20:01 Room Air 21 11/10/16 20:00 98.6 92 22 122/69 96 Nasal Cannula 2.0 11/10/16 20:00 94 Room Air 21 Intake and Output 11/10/16 11/11/16 19:00 07:00 Intake Total 360 ml Balance 360 ml Intake Oral 360 ml # Voids 2 General Appearance: WD/WN, no acute distress HEENT: normocephalic, atraumatic Respiratory/Chest: chest wall non-tender, lungs clear Breasts: no masses Cardiovascular: normal peripheral pulses, normal rate Abdomen: normal bowel sounds, soft, non tender Genitourinary: normal external genitalia Extremities: no cyanosis Microbiology Date/Time Source Procedure Growth Status 11/09/16 00:05 Blood Blood Culture - Preliminary Staphylococcus Sp Coag Neg Resulted 11/09/16 00:05 Blood Blood Culture - Preliminary NO GROWTH AFTER 48 HOURS Resulted 11/08/16 22:30 Nasal Not Otherwise Specified MRSA Culture - Final Staphylococcus Aureus - Mrsa Complete 11/09/16 01:05 Urine,Clean Catch Urine Culture - Final Escherichia Coli Complete 11/08/16 22:30 Rectum VRE Culture - Final NO VANCOMYCIN RESISTANT ENTEROCOCCUS ... Complete Laboratory Tests 11/11/16 05:00: White Blood Count 20.0H, Red Blood Count 3.95L, Hemoglobin 12.8, Hematocrit 39.5 , Mean Corpuscular Volume 100H, Mean Corpuscular Hemoglobin 32.4H, Mean Corpuscular Hemoglobin Concent 32.4, Red Cell Distribution Width 12.9, Platelet Count 177, Mean Platelet Volume 7.8, Neutrophils (%) (Auto) , Lymphocytes (%) ( Auto) , Monocytes (%) (Auto) , Eosinophils (%) (Auto) , Basophils (%) (Auto) , Differential Total Cells Counted 100, Neutrophils % (Manual) 83H, Lymphocytes % (Manual) 8L, Monocytes % (Manual) 9, Eosinophils % (Manual) 0, Basophils % ( Manual) 0, Band Neutrophils 0, Platelet Estimate Adequate, Platelet Morphology Normal, Red Blood Cell Morphology Normal, Sodium Level 137, Potassium Level 3.8 , Chloride Level 98, Carbon Dioxide Level 21, Anion Gap 18H, Blood Urea Nitrogen 18, Creatinine 1.2H, Estimat Glomerular Filtration Rate 53.9, Glucose Level 80, Uric Acid 5.5, Calcium Level 8.6, Phosphorus Level 4.9H, Magnesium Level 1.9, Total Bilirubin 0.2, Aspartate Amino Transf (AST/SGOT) 16, Alanine Aminotransferase (ALT/SGPT) 8, Alkaline Phosphatase 118H, C-Reactive Protein, Quantitative 34.6H, Pro-B-Type Natriuretic Peptide 1471H, Total Protein 6.6, Albumin 2.9L, Globulin 3.7, Albumin/Globulin Ratio 0.7L Current Medications Medications (Trade) Dose Ordered Sig/Kushal Route PRN Reason Start Time Stop Time Status Last Admin Dose Admin Acetaminophen (Tylenol) 650 mg Q4H PRN ORAL Mild Pain/Temp > 100.5 11/09/16 10:15 12/09/16 10:14 11/11/16 00:19 Acetaminophen/ Hydrocodone Bitart ([place] 5/325) 1 tab Q6H PRN ORAL Moderate Pain (Pain Scale 4-6) 11/09/16 10:59 11/16/16 10:14 11/09/16 11:09 Albuterol Sulfate (Proventil MDI) 2 puff Q4H PRN INH Shortness of Breath 11/09/16 10:15 12/09/16 10:14 Amlodipine Besylate (Norvasc) 2.5 mg DAILY ORAL 11/11/16 09:00 12/11/16 08:59 11/11/16 08:17 Aripiprazole (Abilify) 2.5 mg DAILY ORAL 11/09/16 12:00 12/09/16 11:59 11/10/16 09:43 Ascorbic Acid (Vitamin C) 500 mg TWICE A DAY ORAL 11/09/16 18:00 12/09/16 17:59 11/11/16 08:16 Aspirin (ASA) 325 mg Q6HR PRN ORAL Temp >100.5 11/09/16 23:00 12/09/16 22:59 11/09/16 23:12 Ceftriaxone Sodium/Dextrose (Rocephin/D5W) 110 ml @ 220 mls/hr Q24H IVPB 11/11/16 13:00 11/18/16 12:59 11/11/16 13:54 Cyclobenzaprine HCl (Flexeril) 10 mg BEDTIME ORAL 11/11/16 21:00 12/11/16 20:59 Dextrose 1,000 ml @ 100 mls/hr Q10H IV 11/11/16 09:30 11/11/16 19:29 11/11/16 10:00 Diphenhydramine HCl (Benadryl) 50 mg HSPRN PRN ORAL Itching/Pruritis 11/09/16 10:15 12/09/16 10:14 11/10/16 18:14 Divalproex Sodium (Depakote ER) 500 mg EVERY 12 HOURS ORAL 11/09/16 12:00 12/09/16 11:59 11/11/16 08:17 Guaifenesin/ Codeine Phosphate (Robitussin with codeine) 10 ml Q4HR PRN ORAL For Cough 11/09/16 10:15 12/09/16 10:14 11/10/16 19:57 Hydralazine HCl (Apresoline) 25 mg Q4HR PRN ORAL SBP>160 11/09/16 17:00 12/09/16 16:59 Ipratropium [place] (Atrovent) 500 mcg Q4H PRN HHN Shortness of Breath 11/09/16 10:15 11/14/16 10:14 Ipratropium [place] (Atrovent) 500 mcg Q4HRT HHN 11/09/16 11:00 11/14/16 10:59 11/10/16 19:59 Lorazepam (Ativan) 1 mg Q4HR PRN ORAL For Anxiety 11/09/16 10:15 11/16/16 10:14 11/10/16 21:59 Magnesium Hydroxide (Mom) 30 ml DAILYPRN PRN ORAL Constipation 11/09/16 10:15 12/09/16 10:14 Multivitamins (Multivitamins) 1 tab DAILY ORAL 11/10/16 09:00 12/10/16 08:59 11/11/16 08:17 Mupirocin (Bactroban Oint) 1 applic THREE TIMES A DAY TOPIC 11/11/16 18:00 11/16/16 17:59 Oxycodone/ Acetaminophen (Percocet 10/325) 1 tab Q6H PRN ORAL severe pain 11/09/16 14:30 11/16/16 14:29 11/11/16 14:20 Paroxetine HCl (Paxil CR) 12.5 mg DAILY ORAL 11/09/16 12:00 12/09/16 11:59 11/11/16 08:17 Thiamine HCl (Vitamin B1) 100 mg DAILY ORAL 11/10/16 09:00 12/10/16 08:59 11/11/16 08:16 Zolpidem Tartrate 5 mg 5 mg HSPRN PRN ORAL Insomnia 11/10/16 21:45 12/10/16 21:44 11/10/16 21:59 CONOR WYLIE Nov 11, 2016 18:38
[2016-11-11 20:00] VITALS: BP 131/81
[2016-11-11] MEDS: Cyclobenzaprine 10mg Tab ORAL SCH (20:31)
[2016-11-11] MEDS: Zolpidem 5mg tab ORAL PRN (20:32)
[2016-11-11] MEDS: Albuterol ud Inhalation HHN SCH (23:33)
[2016-11-12] VITALS: BP 117/56
[2016-11-12] MEDS: Albuterol ud Inhalation HHN SCH ×6 (03:16→23:00)
[2016-11-12 03:51] VITALS: BP 118/85
[2016-11-12 07:41] VITALS: BP 112/49
--- NOTE | 2016-11-12 09:27 | General Progress Note ---
Assessment/Plan Assessment/Plan (1) Degenerative cervical disc (2) Lumbar radiculopathy (3) Lumbar degenerative disc disease (4) chronic pain (5) Osteoarthritis of multiple joints Pt will be continued on [place] and Percocet Pt was d/w Dr. Caldwell and he concurred. Subjective Date patient seen: Nov 12, 2016 Time patient seen: 07:30 - am Allergies: Coded Allergies: PENICILLINS (Unverified Allergy, Severe, 11/09/16) AMITRIPTYLINE (Verified Allergy, Unknown, 10/19/13) recorded from [facility]. pt does not remember the reation. CHLORPROMAZINE (Verified Allergy, Unknown, 10/19/13) recorded from [facility]. pt does not remember reaction. ERYTHROMYCIN BASE (Verified Allergy, Unknown, 10/19/13) recorded from [facility]. pt does not remember reaction. HALOPERIDOL (Verified Allergy, Unknown, 10/19/13) recorded from [facility]. pt does not remember reaction. QUETIAPINE (Verified Allergy, Unknown, 10/19/13) recorded from [facility]. pt does not remember reaction. Subjective Constitutional: Denies: no symptoms, chills, diaphoresis, fever, malaise, weakness, other HEENT: Denies: no symptoms, eye pain, blurred vision, tearing, double vision, ear pain, ear discharge, nose pain, nose congestion, throat pain, throat swelling, mouth pain, mouth swelling, other Cardiovascular: Denies: no symptoms, chest pain, edema, irregular heart rate, lightheadedness, palpitations, syncope, other Respiratory: Denies: no symptoms, cough, orthopnea, shortness of breath, SOB with excertion, SOB at rest, sputum, stridor, wheezing, other Gastrointestinal/Abdominal: Denies: no symptoms, abdomen distended, abdominal pain, black stools, tarry stools, blood in stool, constipated, diarrhea, difficulty swallowing, nausea, poor appetite, poor fluid intake, rectal bleeding , vomiting, other Genitourinary: Denies: no symptoms, burning, discharge, frequency, flank pain, hematuria, incontinence, pain, urgency, other Neurologic/Psychiatric: Reports: depressed, emotional problems Endocrine: Denies: no symptoms, excessive sweating, flushing, intolerance to cold, intolerance to heat, increased hunger, increased thirst, increased urine, unexplained weight gain, unexplained weight loss, other Hematologic/Lymphatic: Denies: no symptoms, anemia, easy bleeding, easy bruising, other Subjective Her pain is unchanged and is tolerated on the Percocet. she has no new complaints. Objective Last 24 Hour Vital Signs Date Time Temp Pulse Resp B/P Pulse Ox O2 Delivery O2 Flow Rate FiO2 11/12/16 07:41 97.5 89 19 112/49 93 Room Air 11/12/16 07:24 91 18 99 Room Air 11/12/16 07:14 28 11/12/16 07:14 Room Air 21 11/12/16 07:14 89 18 95 Nasal Cannula 2.0 28 11/12/16 07:14 88 Room Air 11/12/16 03:51 98.1 100 20 118/85 92 Nasal Cannula 2.0 11/12/16 03:22 90 16 99 Nasal Cannula 2.0 11/12/16 03:17 88 16 95 Nasal Cannula 2.0 11/12/16 03:17 28 11/12/16 00:00 97.7 91 18 117/56 91 Nasal Cannula 2.0 11/11/16 23:48 82 16 99 Nasal Cannula 2.0 11/11/16 23:34 28 11/11/16 23:34 94 16 98 Nasal Cannula 2.0 11/11/16 20:00 97.7 95 20 131/81 93 Room Air 11/11/16 19:51 Room Air 11/11/16 19:51 Room Air 11/11/16 19:51 Room Air 21 11/11/16 19:51 87 Room Air 21 11/11/16 16:00 97.1 110 20 132/77 98 Nasal Cannula 2.0 11/11/16 15:30 Room Air 21 11/11/16 15:30 Room Air 21 11/11/16 12:00 97.5 104 18 127/65 94 Nasal Cannula 2.0 11/11/16 11:25 Room Air 21 11/11/16 11:25 Room Air 21 Intake and Output 11/11/16 11/12/16 19:00 07:00 Intake Total 200 ml 360 ml Balance 200 ml 360 ml Intake Oral 200 ml 360 ml # Voids 3 3 Height (Feet): 5 Height (Inches): 4.00 Weight (Pounds): 215 Objective General Appearance: WD/WN EENT: PERRL/EOMI Neck: supple Cardiovascular: normal rate, regular rhythm Respiratory/Chest: decreased breath sounds Abdomen: non tender, soft Extremities: non-tender Edema: no edema noted Arm (L), no edema noted Arm (R), no edema noted Leg (L), no edema noted Leg (R), no edema noted Pedal (L), no edema noted Pedal (R), no edema noted Generalized Neurologic: pharmacy intake coordinator II-XII grossly normal, alert, oriented x 3 SARAY MARS Nov 12, 2016 09:27
[2016-11-12] MEDS: Depakote ER 500mg tab ORAL SCH ×2 (10:05→20:43)
[2016-11-12] MEDS: PAROXETINE 12.5 MG ORAL SCH (10:06)
[2016-11-12] MEDS: Ascorbic Acid 500mg tab ORAL SCH ×2 (10:06→18:08)
[2016-11-12] MEDS: Thiamine 100mg tab ORAL SCH (10:06)
--- NOTE | 2016-11-12 10:54 | General Progress Note ---
Assessment/Plan Status: unchanged Assessment/Plan status; HTN- bp now is running low HypoKalemia Obesity- UTI / Pyelo Psych Plan: no labs today Adjust BP meds- Stop Lasix- fluid challenge K supplements Monitor BP and renal parameters Subjective ROS Limited/Unobtainable: No Constitutional: Reports: malaise Allergies: Coded Allergies: PENICILLINS (Unverified Allergy, Severe, 11/09/16) AMITRIPTYLINE (Verified Allergy, Unknown, 10/19/13) recorded from [facility]. pt does not remember the reation. CHLORPROMAZINE (Verified Allergy, Unknown, 10/19/13) recorded from custod[facility]. pt does not remember reaction. ERYTHROMYCIN BASE (Verified Allergy, Unknown, 10/19/13) recorded from custodial. pt does not remember reaction. HALOPERIDOL (Verified Allergy, Unknown, 10/19/13) recorded from [facility]. pt does not remember reaction. QUETIAPINE (Verified Allergy, Unknown, 10/19/13) recorded from custod[facility]. pt does not remember reaction. Objective Last 24 Hour Vital Signs Date Time Temp Pulse Resp B/P Pulse Ox O2 Delivery O2 Flow Rate FiO2 11/12/16 09:00 89 112/49 11/12/16 07:41 97.5 89 19 112/49 93 Room Air 11/12/16 07:24 91 18 99 Room Air 11/12/16 07:14 28 11/12/16 07:14 Room Air 11/12/16 07:14 89 18 95 Nasal Cannula 2.0 11/12/16 07:14 88 Room Air 11/12/16 03:51 98.1 100 20 118/85 92 Nasal Cannula 2.0 11/12/16 03:22 90 16 99 Nasal Cannula 2.0 11/12/16 03:17 88 16 95 Nasal Cannula 2.0 11/12/16 03:17 28 11/12/16 00:00 97.7 91 18 117/56 91 Nasal Cannula 2.0 11/11/16 23:48 82 16 99 Nasal Cannula 2.0 11/11/16 23:34 28 11/11/16 23:34 94 16 98 Nasal Cannula 2.0 11/11/16 20:00 97.7 95 20 131/81 93 Room Air 11/11/16 19:51 Room Air 11/11/16 19:51 Room Air 11/11/16 19:51 Room Air 21 11/11/16 19:51 87 Room Air 21 11/11/16 16:00 97.1 110 20 132/77 98 Nasal Cannula 2.0 11/11/16 15:30 Room Air 21 11/11/16 15:30 Room Air 21 11/11/16 12:00 97.5 104 18 127/65 94 Nasal Cannula 2.0 11/11/16 11:25 Room Air 21 11/11/16 11:25 Room Air 21 Intake and Output 11/11/16 11/12/16 19:00 07:00 Intake Total 200 ml 360 ml Balance 200 ml 360 ml Intake Oral 200 ml 360 ml # Voids 3 3 Height (Feet): 5 Height (Inches): 4.00 Weight (Pounds): 215 General Appearance: no apparent distress Objective other PE not changed MICHAEL DE LA ROSA Nov 12, 2016 10:54
[2016-11-12 12:01] VITALS: BP 98/55
[2016-11-12] MEDS: LORazepam 1mg tab ORAL PRN (12:50)
[2016-11-12] MEDS: cefTRIAXone 2 GM in D5W 110 ML IVPB SCH (12:50)
--- NOTE | 2016-11-12 13:03 | Neurology Progress Note ---
Interim History Interim History Interim History Ms. Munguia feels better. The headache is better but not gone. She has been breating better. The mind is clear. She has noticed no new neurologic symptoms. She is feeling that her cognitive function has returned to normal. She has walked to the bathroom a few times. She has abdominal pain and feels she has a "mass" in the abdomen. . Review of Systems Neuro Review of Systems Benign. Objective Physical Exam Last Vital Signs Date Time Temp Pulse Resp B/P Pulse Ox O2 Delivery O2 Flow Rate FiO2 11/12/16 12:01 97.9 88 18 98/55 94 Room Air 11/12/16 10:43 28 11/12/16 10:43 2.0 Neurologic Exam Objective PHYSICAL EXAMINATION: GENERAL: She is a well-developed, well-nourished, obese, black lady, lying in bed, in no acute distress. HEAD: Normocephalic and atraumatic. NECK: No neck rigidity was observed. She did have mild grade Trace/4 cervical paraspinal muscle and trapezius spasm. EENT: Examination is benign. NEUROLOGICAL EXAMINATION: MENTAL STATUS EXAMINATION: She was alert and awake. She was oriented to person, place, and time except for the exact date. She was able to recall 3/3 words immediately after 1 minute and after 3 minutes. She was able to remember presidents, Trump through Izquierdo Sr. Her mathematical skills were fairly good. Her visuospatial function was preserved. SPEECH: She had no dysarthria. LANGUAGE: She had no aphasia. CRANIAL NERVE EXAMINATION: II: The visual mireles were intact on confrontation testing III, IV & : External ocular movements were full and the pupils 3 mm in diameter, equal, round, regular, and reactive to light. V: She had normal facial sensations and the temporales, masseters, and pterygoids function normally. VII: She had normal facial expressions and no facial asymmetry. VIII: She was able to hear well bilaterally and had no nystagmus. IX: The palate moved symmetrically on phonation. X: She had no hoarseness of voice. XI: The sternocleidomastoids and trapezii functioned normally. XII: The tongue was in the midline without any fasciculations or atrophy. MOTOR SYSTEM: The tone was normal in all four extremities. Examination of muscle mass revealed no focal wasting. Examination of power revealed grade 5/5 power in all muscle groups tested. SENSORY EXAMINATION: She had intact sensations to pinprick, light touch, and graphesthesia. COORDINATION: She performed well on [id number] testing. REFLEXES: Trace+ and bilaterally symmetrical at the biceps, triceps, brachioradialis, and knees and 0 at both ankles. The plantar responses were flexor bilaterally. STANCE & GAIT: Deferred. Impression/Recommendations Diagnostic Impression 1. Ms. Susy Munguia is a 71-year-old, right-handed, black lady, who does have a past history of bipolar affective disorder, gastric bypass, gastric tumor , kidney infections, a brief period of hemodialysis numerous years ago, hypertension, chronic obstructive pulmonary disease, and gastroesophageal reflux disease who was hospitalized for fevers, chills, and altered mental state. She was evaluated in the [facility] emergency room and was discovered to have pyelonephritis. She has been treated for this with appropriate antibiotics and fluids, and has improved. When she came in, her mental state was quite altered, but it seems to have improved since then. 2. She feels unwell due to abdominal pain. The mind continues to be clear. Her headache is better. She denies any new neurologic symptoms. 3. On neurological examination, at this time, she is mildly disoriented to the exact date, has minimal G Trace/4 cervical paraspinal muscle and trapezius spasm , has globally diminished reflexes, but the rest of the neurological examination is essentially benign. 4. Laboratory data on my initial evaluation revealed that her WBC count was elevated to 14,500 and her potassium was low at 3.3. She had an anion gap of 16. Her glucose was elevated to 110. Her albumin was down at 3.4. Her urinalysis reveals 3+ leukocyte esterase, 5-10 red blood cells per high-power field, too numerous to count white blood cells per high-power field, and a few urinary bacteria. 5. Further laboratory tests have revealed no treatable causes of altered mental state. 6. The patient's history and neurological examination are most compatible with a delirium due to possible pyelonephritis, which is now significantly better with treatment of the infection.. 7. Her headaches are most probably muscle contraction headaches - better today. Recommendations 1. Continue present management. 2. Continue to treat the patient's pyelonephritis in an aggressive manner. 3. Mobilize rapidly. 4. Continue Flexeril 10 mg q HS for headaches. Nai Maddox M.D., [email or web address]. NAI MADDOX Nov 12, 2016 13:03
[2016-11-12 16:08] VITALS: BP 139/79
--- NOTE | 2016-11-12 16:15 | Infectious Diseases Prog Note ---
Assessment/Plan Problems: (1) Pyelonephritis Assessment & Plan: due to E coli pansensitive, with left ureter obstruction, not improving on antibiotics alone , needs source control to remove the ureter obstruction with cystoscopy . recommend urologist consult [facility]. continue ceftriaxon for two weeks.D/W primary and consultants (2) Sepsis Assessment & Plan: due to the above, blood culture showed coag negative staph in one set, most likely contaminant , on ceftriaxon empirically (3) Abdominal pain of unknown etiology Assessment & Plan: suspect due to stone and ureter obstruction, as suggested by renal US (4) MRSA nasal colonization Assessment & Plan: will start bactroban to decolonize Subjective Constitutional: Reports: no symptoms HEENT: Reports: no symptoms Respiratory: Reports: no symptoms Breasts: Reports: no symptoms Cardiovascular: Reports: no symptoms Gastrointestinal/Abdominal: Reports: other - abdominal pain Genitourinary: Reports: no symptoms Neurologic: Reports: no symptoms Psychiatric: Reports: no symptoms Skin: Reports: no symptoms Endocrine: Reports: no symptoms Allergies: Coded Allergies: PENICILLINS (Unverified Allergy, Severe, 11/09/16) AMITRIPTYLINE (Verified Allergy, Unknown, 10/19/13) recorded from fdc. pt does not remember the reation. CHLORPROMAZINE (Verified Allergy, Unknown, 10/19/13) recorded from [facility]. pt does not remember reaction. ERYTHROMYCIN BASE (Verified Allergy, Unknown, 10/19/13) recorded from [facility]dc. pt does not remember reaction. HALOPERIDOL (Verified Allergy, Unknown, 10/19/13) recorded from [facility]dc. pt does not remember reaction. QUETIAPINE (Verified Allergy, Unknown, 10/19/13) recorded from [facility]. pt does not remember reaction. Objective Vital Signs Last 24 Hour Vital Signs Date Time Temp Pulse Resp B/P Pulse Ox O2 Delivery O2 Flow Rate FiO2 11/12/16 15:04 93 18 99 Room Air 11/12/16 14:54 92 18 96 Nasal Cannula 2.0 28 11/12/16 14:54 28 11/12/16 12:01 97.9 88 18 98/55 94 Room Air 11/12/16 10:53 92 18 99 Room Air 11/12/16 10:43 28 11/12/16 10:43 91 18 96 Nasal Cannula 2.0 28 11/12/16 09:00 89 112/49 11/12/16 07:41 97.5 89 19 112/49 93 Room Air 11/12/16 07:24 91 18 99 Room Air 11/12/16 07:14 28 11/12/16 07:14 Room Air 21 11/12/16 07:14 89 18 95 Nasal Cannula 2.0 28 11/12/16 07:14 88 Room Air 21 11/12/16 03:51 98.1 100 20 118/85 92 Nasal Cannula 2.0 11/12/16 03:22 90 16 99 Nasal Cannula 2.0 28 11/12/16 03:17 88 16 95 Nasal Cannula 2.0 28 11/12/16 03:17 28 11/12/16 00:00 97.7 91 18 117/56 91 Nasal Cannula 2.0 11/11/16 23:48 82 16 99 Nasal Cannula 2.0 11/11/16 23:34 28 11/11/16 23:34 94 16 98 Nasal Cannula 2.0 11/11/16 20:00 97.7 95 20 131/81 93 Room Air 11/11/16 19:51 Room Air 11/11/16 19:51 Room Air 11/11/16 19:51 Room Air 21 11/11/16 19:51 87 Room Air 21 Height (Feet): 5 Height (Inches): 4.00 Weight (Pounds): 215 General Appearance: WD/WN, no acute distress HEENT: normocephalic, atraumatic, anicteric, mucous membranes moist, PERRL Respiratory/Chest: chest wall non-tender, lungs clear, normal breath sounds, no respiratory distress, no accessory muscle use Cardiovascular: normal peripheral pulses, normal rate, regular rhythm, no gallop/murmur, no JVD Abdomen: normal bowel sounds, soft, non tender, no organomegaly, non distended , no mass, no scars Extremities: no cyanosis, no clubbing Skin: no rash, no lesions, no ulcers Lymphatic: no neck adenopathy, no groin adenopathy Musculoskeletal: normal muscle bulk, no effusion Current Medications Medications (Trade) Dose Ordered Sig/Kushal Route PRN Reason Start Time Stop Time Status Last Admin Dose Admin Acetaminophen (Tylenol) 650 mg Q4H PRN ORAL Mild Pain/Temp > 100.5 11/09/16 10:15 12/09/16 10:14 11/11/16 00:19 Acetaminophen/ Hydrocodone Bitart ([place] 5/325) 1 tab Q6H PRN ORAL Moderate Pain (Pain Scale 4-6) 11/09/16 10:59 11/16/16 10:14 11/09/16 11:09 Albuterol Sulfate (Proventil MDI) 2 puff Q4H PRN INH Shortness of Breath 11/09/16 10:15 12/09/16 10:14 Albuterol Sulfate (Proventil) 2.5 mg Q4HRT HHN 11/11/16 23:00 11/16/16 22:59 11/12/16 14:54 Amlodipine Besylate (Norvasc) 2.5 mg DAILY ORAL 11/11/16 09:00 12/11/16 08:59 11/11/16 08:17 Aripiprazole (Abilify) 2.5 mg DAILY ORAL 11/09/16 12:00 12/09/16 11:59 11/10/16 09:43 Ascorbic Acid (Vitamin C) 500 mg TWICE A DAY ORAL 11/09/16 18:00 12/09/16 17:59 11/12/16 10:06 Aspirin (ASA) 325 mg Q6HR PRN ORAL Temp >100.5 11/09/16 23:00 12/09/16 22:59 11/09/16 23:12 Ceftriaxone Sodium/Dextrose (Rocephin/D5W) 110 ml @ 220 mls/hr Q24H IVPB 11/11/16 13:00 11/18/16 12:59 11/12/16 12:50 Cyclobenzaprine HCl (Flexeril) 10 mg BEDTIME ORAL 11/11/16 21:00 12/11/16 20:59 11/11/16 20:31 Diphenhydramine HCl (Benadryl) 50 mg HSPRN PRN ORAL Itching/Pruritis 11/09/16 10:15 12/09/16 10:14 11/10/16 18:14 Divalproex Sodium (Depakote ER) 500 mg EVERY 12 HOURS ORAL 11/09/16 12:00 12/09/16 11:59 11/12/16 10:05 Guaifenesin/ Codeine Phosphate (Robitussin with codeine) 10 ml Q4HR PRN ORAL For Cough 11/09/16 10:15 12/09/16 10:14 11/10/16 19:57 Hydralazine HCl (Apresoline) 25 mg Q4HR PRN ORAL SBP>160 11/09/16 17:00 12/09/16 16:59 Ipratropium [place] (Atrovent) 500 mcg Q4H PRN HHN Shortness of Breath 11/09/16 10:15 11/14/16 10:14 Lorazepam (Ativan) 1 mg Q4HR PRN ORAL For Anxiety 11/09/16 10:15 11/16/16 10:14 11/12/16 12:50 Magnesium Hydroxide (Mom) 30 ml DAILYPRN PRN ORAL Constipation 11/09/16 10:15 12/09/16 10:14 Multivitamins (Multivitamins) 1 tab DAILY ORAL 11/10/16 09:00 12/10/16 08:59 11/12/16 10:06 Mupirocin (Bactroban Oint) 1 applic THREE TIMES A DAY TOPIC 11/11/16 18:00 11/16/16 17:59 11/12/16 12:50 Oxycodone/ Acetaminophen (Percocet 10/325) 1 tab Q6H PRN ORAL severe pain 11/09/16 14:30 11/16/16 14:29 11/12/16 16:06 Paroxetine HCl (Paxil CR) 12.5 mg DAILY ORAL 11/09/16 12:00 12/09/16 11:59 11/12/16 10:06 Polyethylene Glycol (Miralax) 17 gm BEDTIME ORAL 11/12/16 21:00 12/12/16 20:59 Sennosides (Senokot) 8.6 mg DAILY ORAL 11/12/16 15:00 12/12/16 14:59 Thiamine HCl (Vitamin B1) 100 mg DAILY ORAL 11/10/16 09:00 12/10/16 08:59 11/12/16 10:06 Zolpidem Tartrate 5 mg 5 mg HSPRN PRN ORAL Insomnia 11/10/16 21:45 12/10/16 21:44 11/11/16 20:32 Angy Crane M.D. Nov 12, 2016 16:15
[2016-11-12 20:05] VITALS: BP 113/76
[2016-11-12] MEDS: Zolpidem 5mg tab ORAL PRN (20:43)
[2016-11-12] MEDS: Cyclobenzaprine 10mg Tab ORAL SCH (20:43)
[2016-11-12] MEDS: Miralax 17gm pkt ORAL SCH ×2 (21:00→22:28)
--- NOTE | 2016-11-12 21:08 | General Progress Note ---
Assessment/Plan Problem List: (1) Osteoarthritis of multiple joints ICD Codes: M15.9 - Osteoarthritis of multiple joints SNOMED: 94275109 (2) chronic pain (3) Lumbar radiculopathy ICD Codes: M54.16 - Radiculopathy, lumbar region SNOMED: 590340569 (4) UTI (lower urinary tract infection) ICD Codes: N39.0 - UTI (lower urinary tract infection) SNOMED: 1983234 Status: progressing Assessment/Plan r/o hydro uti improving afebrile reviewed chart and labs Subjective ROS Limited/Unobtainable: Yes Allergies: Coded Allergies: PENICILLINS (Unverified Allergy, Severe, 11/09/16) AMITRIPTYLINE (Verified Allergy, Unknown, 10/19/13) recorded from [facility]dc. pt does not remember the reation. CHLORPROMAZINE (Verified Allergy, Unknown, 10/19/13) recorded from [facility]. pt does not remember reaction. ERYTHROMYCIN BASE (Verified Allergy, Unknown, 10/19/13) recorded from [facility]dc. pt does not remember reaction. HALOPERIDOL (Verified Allergy, Unknown, 10/19/13) recorded from [facility]. pt does not remember reaction. QUETIAPINE (Verified Allergy, Unknown, 10/19/13) recorded from [facility]. pt does not remember reaction. Objective Last 24 Hour Vital Signs Date Time Temp Pulse Resp B/P Pulse Ox O2 Delivery O2 Flow Rate FiO2 11/12/16 20:05 97.6 105 19 113/76 95 Room Air 11/12/16 19:05 90 16 99 Nasal Cannula 2.0 11/12/16 18:57 Room Air 11/12/16 18:57 96 Room Air 11/12/16 18:57 92 18 96 Nasal Cannula 2.0 11/12/16 16:08 97.7 85 19 139/79 94 Room Air 11/12/16 15:04 93 18 99 Room Air 11/12/16 14:54 92 18 96 Nasal Cannula 2.0 11/12/16 14:54 28 11/12/16 12:01 97.9 88 18 98/55 94 Room Air 11/12/16 10:53 92 18 99 Room Air 11/12/16 10:43 28 11/12/16 10:43 91 18 96 Nasal Cannula 2.0 28 6/25/17 09:00 89 112/49 11/12/16 07:41 97.5 89 19 112/49 93 Room Air 11/12/16 07:24 91 18 99 Room Air 11/12/16 07:14 28 11/12/16 07:14 Room Air 11/12/16 07:14 89 18 95 Nasal Cannula 2.0 28 11/12/16 07:14 88 Room Air 11/12/16 03:51 98.1 100 20 118/85 92 Nasal Cannula 2.0 11/12/16 03:22 90 16 99 Nasal Cannula 2.0 11/12/16 03:17 88 16 95 Nasal Cannula 2.0 11/12/16 03:17 28 11/12/16 00:00 97.7 91 18 117/56 91 Nasal Cannula 2.0 11/11/16 23:48 82 16 99 Nasal Cannula 2.0 11/11/16 23:34 28 11/11/16 23:34 94 16 98 Nasal Cannula 2.0 28 Intake and Output 11/11/16 11/12/16 19:00 07:00 Intake Total 200 ml 360 ml Balance 200 ml 360 ml Intake Oral 200 ml 360 ml # Voids 3 3 Height (Feet): 5 Height (Inches): 4.00 Weight (Pounds): 215 Cardiovascular: normal rate Respiratory/Chest: lungs clear Leela Diaz MD Nov 12, 2016 21:08
[2016-11-12] MEDS ORDERED: NS 275ml ONE (22:48)
[2016-11-13] VITALS (7 sets, daily range): BP systolic 105–150; BP diastolic 61–89
[2016-11-13] MEDS: Norco 5mg/325mg tab ORAL PRN ×2 (02:02→23:11)
[2016-11-13] MEDS: Albuterol ud Inhalation HHN SCH ×6 (03:00→23:19)
[2016-11-13 07:16] LABS: A/G RATIO 0.8 (0.7-1.7); ABNORMAL PROTEIN BAND 1 Not Observed g/dL (Not Observed); ALBUMIN 2.6 g/dL (2.9-4.4); ALPHA-1 GLOBULIN 0.4 g/dL (0.0-0.4); GAMMA GLOBULIN 0.9 g/dL (0.4-1.8); GLOBULIN, TOTAL 3.3 g/dL (2.2-3.9); TOTAL PROTEIN 5.9 g/dL (6.0-8.5)
[2016-11-13 09:15] LABS: VITAMIN D 25-OH TOTAL 21 ng/mL (.)
[2016-11-13 09:26] LABS: BASOPHILS % (AUTO) 1.6 % (0.0-2.0); EOSINOPHILS % (AUTO) 1.9 % (0.0-3.0); LYMPHOCYTES % (AUTO) 15.9 % (20.0-45.0); MEAN CORPUSCULAR HEMOGLOBIN 30.9 PG (27.0-31.0); MEAN CORPUSCULAR HGB CONC 31.2 G/DL (32.0-36.0); MEAN CORPUSCULAR VOLUME 99 FL (80-99); MONOCYTES % (AUTO) 17.8 % (1.0-10.0); NEUTROPHILS % (AUTO) 62.8 % (45.0-75.0); PLATELET COUNT 248 K/UL (150-450); RED BLOOD COUNT 3.68 M/UL (4.20-5.40); WHITE BLOOD COUNT 11.4 K/UL (4.8-10.8)
[2016-11-13] MEDS: Thiamine 100mg tab ORAL SCH (09:34)
[2016-11-13] MEDS: PAROXETINE 12.5 MG ORAL SCH (09:34)
[2016-11-13] MEDS: Depakote ER 500mg tab ORAL SCH ×2 (09:34→20:10)
[2016-11-13] MEDS: Ascorbic Acid 500mg tab ORAL SCH ×2 (09:35→18:50)
[2016-11-13 10:12] LABS: BAND NEUTROPHILS % (MANUAL) 0 % (0-8); BASOPHILS % (MANUAL) 0 % (0-2); EOSINOPHILS % (MANUAL) 1 % (0-3); LYMPHOCYTES % (MANUAL) 21 % (20-45); NEUTROPHILS % (MANUAL) 64 % (45-75); PLATELET ESTIMATE ADEQUATE; PLATELET MORPHOLOGY NORMAL; TOTAL CELLS COUNTED 100
[2016-11-13 10:13] LABS: HYPOCHROMASIA 1+; PATH BLOOD SMEAR/OMC SENT TO PATHOLOGIST
--- NOTE | 2016-11-13 11:36 | General Progress Note ---
Assessment/Plan Status: stable Assessment/Plan status; HTN- bp now is running low HypoKalemia Obesity- UTI / Pyelo Psych Plan: Adjust BP meds- Stop Lasix- fluid challenge K supplements Monitor BP and renal parameters Subjective ROS Limited/Unobtainable: No Constitutional: Reports: malaise Allergies: Coded Allergies: PENICILLINS (Unverified Allergy, Severe, 11/09/16) AMITRIPTYLINE (Verified Allergy, Unknown, 10/19/13) recorded from [facility]. pt does not remember the reation. CHLORPROMAZINE (Verified Allergy, Unknown, 10/19/13) recorded from [facility]. pt does not remember reaction. ERYTHROMYCIN BASE (Verified Allergy, Unknown, 10/19/13) recorded from [facility]. pt does not remember reaction. HALOPERIDOL (Verified Allergy, Unknown, 10/19/13) recorded from [facility]. pt does not remember reaction. QUETIAPINE (Verified Allergy, Unknown, 10/19/13) recorded from [facility]. pt does not remember reaction. Objective Last 24 Hour Vital Signs Date Time Temp Pulse Resp B/P Pulse Ox O2 Delivery O2 Flow Rate FiO2 11/13/16 11:25 81 18 96 Room Air 21 11/13/16 09:00 92 116/74 11/13/16 08:15 97.5 89 20 111/70 95 Room Air 11/13/16 07:37 90 18 99 Room Air 21 11/13/16 07:30 96 Room Air 21 11/13/16 07:30 86 18 95 Room Air 21 11/13/16 07:30 Room Air 11/13/16 07:00 97.7 11/13/16 03:55 97.7 100 20 115/66 96 Room Air 11/13/16 03:29 98.4 11/13/16 03:24 Nasal Cannula 11/13/16 03:24 Nasal Cannula 11/13/16 00:00 98.4 98 21 110/61 95 Room Air 11/12/16 23:18 95 16 99 Nasal Cannula 2.0 11/12/16 23:00 90 18 96 Nasal Cannula 2.0 11/12/16 21:42 97.6 11/12/16 20:05 97.6 105 19 113/76 95 Room Air 11/12/16 19:05 90 16 99 Nasal Cannula 2.0 11/12/16 18:57 Room Air 21 11/12/16 18:57 96 Room Air 21 11/12/16 18:57 92 18 96 Nasal Cannula 2.0 11/12/16 16:08 97.7 85 19 139/79 94 Room Air 11/12/16 15:04 93 18 99 Room Air 11/12/16 14:54 92 18 96 Nasal Cannula 2.0 28 11/12/16 14:54 28 11/12/16 12:01 97.9 88 18 98/55 94 Room Air Intake and Output 11/12/16 11/13/16 19:00 07:00 Intake Total 110 ml 360 ml Balance 110 ml 360 ml Intake Oral 360 ml IV Total 110 ml # Voids 3 Laboratory Tests 11/13/16 08:45: White Blood Count 11.4H, Red Blood Count 3.68L, Hemoglobin 11.4L, Hematocrit 36.4L, Mean Corpuscular Volume 99, Mean Corpuscular Hemoglobin 30.9, Mean Corpuscular Hemoglobin Concent 31.2L, Red Cell Distribution Width 13.0, Platelet Count 248, Mean Platelet Volume 8.0, Neutrophils (%) (Auto) 62.8, Lymphocytes (%) (Auto) 15.9L, Monocytes (%) (Auto) 17.8H, Eosinophils (%) (Auto ) 1.9, Basophils (%) (Auto) 1.6, Differential Total Cells Counted 100, Neutrophils % (Manual) 64, Lymphocytes % (Manual) 21, Monocytes % (Manual) 14H, Eosinophils % (Manual) 1, Basophils % (Manual) 0, Band Neutrophils 0, Platelet Estimate Adequate, Platelet Morphology Normal, Hypochromasia 1+ Height (Feet): 5 Height (Inches): 4.00 Weight (Pounds): 215 General Appearance: no apparent distress Objective other PE not changed MICHAEL DE LA ROSA Nov 13, 2016 11:36
--- NOTE | 2016-11-13 12:59 | Infectious Diseases Prog Note ---
Assessment/Plan Problems: (1) Pyelonephritis Assessment & Plan: due to E coli pansensitive, with possible left ureter obstruction, now improving on antibiotics , may needs source control to remove the ureter obstruction with cystoscopy . recommend urologist consult . continue ceftriaxon for two weeks. D/W primary and consultants (2) Sepsis Assessment & Plan: due to the above, blood culture showed coag negative staph in one set, most likely contaminant , on ceftriaxon empirically for E coli pyelonephritis (3) Abdominal pain of unknown etiology Assessment & Plan: suspect due to stone and ureter obstruction, as suggested by renal US (4) MRSA nasal colonization Assessment & Plan: on bactroban to decolonize Subjective Constitutional: Reports: no symptoms HEENT: Reports: no symptoms Respiratory: Reports: no symptoms Breasts: Reports: no symptoms Cardiovascular: Reports: no symptoms Gastrointestinal/Abdominal: Reports: bloating Genitourinary: Reports: dysuria, hematuria Neurologic: Reports: no symptoms Psychiatric: Reports: no symptoms Skin: Reports: no symptoms Endocrine: Reports: no symptoms Hematologic: Reports: no symptoms Allergies: Coded Allergies: PENICILLINS (Unverified Allergy, Severe, 11/09/16) AMITRIPTYLINE (Verified Allergy, Unknown, 10/19/13) recorded from [facility]. pt does not remember the reation. CHLORPROMAZINE (Verified Allergy, Unknown, 10/19/13) recorded from intermediate. pt does not remember reaction. ERYTHROMYCIN BASE (Verified Allergy, Unknown, 10/19/13) recorded from intermediate. pt does not remember reaction. HALOPERIDOL (Verified Allergy, Unknown, 10/19/13) recorded from intermediate. pt does not remember reaction. QUETIAPINE (Verified Allergy, Unknown, 10/19/13) recorded from intermediate. pt does not remember reaction. Objective Vital Signs Last 24 Hour Vital Signs Date Time Temp Pulse Resp B/P Pulse Ox O2 Delivery O2 Flow Rate FiO2 11/13/16 12:44 97.2 108 20 131/88 95 Room Air 11/13/16 11:34 88 18 99 Room Air 21 11/13/16 11:25 81 18 96 Room Air 21 11/13/16 09:00 92 116/74 11/13/16 08:15 97.5 89 20 111/70 95 Room Air 11/13/16 07:37 90 18 99 Room Air 21 11/13/16 07:30 96 Room Air 21 11/13/16 07:30 86 18 95 Room Air 21 11/13/16 07:30 Room Air 21 11/13/16 07:00 97.7 11/13/16 03:55 97.7 100 20 115/66 96 Room Air 11/13/16 03:29 98.4 11/13/16 03:24 Nasal Cannula 11/13/16 03:24 Nasal Cannula 11/13/16 00:00 98.4 98 21 110/61 95 Room Air 11/12/16 23:18 95 16 99 Nasal Cannula 2.0 28 11/12/16 23:00 90 18 96 Nasal Cannula 2.0 28 11/12/16 21:42 97.6 11/12/16 20:05 97.6 105 19 113/76 95 Room Air 11/12/16 19:05 90 16 99 Nasal Cannula 2.0 28 11/12/16 18:57 Room Air 11/12/16 18:57 96 Room Air 11/12/16 18:57 92 18 96 Nasal Cannula 2.0 11/12/16 16:08 97.7 85 19 139/79 94 Room Air 11/12/16 15:04 93 18 99 Room Air 11/12/16 14:54 92 18 96 Nasal Cannula 2.0 28 11/12/16 14:54 28 Height (Feet): 5 Height (Inches): 4.00 Weight (Pounds): 215 General Appearance: WD/WN, no acute distress HEENT: normocephalic, atraumatic, anicteric, mucous membranes moist, PERRL, EOMI, pharynx normal, supple, no JVD Respiratory/Chest: chest wall non-tender, lungs clear, normal breath sounds, no respiratory distress, no accessory muscle use Cardiovascular: normal peripheral pulses, normal rate, regular rhythm, no gallop/murmur, no JVD Abdomen: normal bowel sounds, soft, non tender, no organomegaly, non distended , no mass, no scars Extremities: no cyanosis, no clubbing Skin: no rash, no lesions, no ulcers Laboratory Tests Test 11/13/16 08:45 White Blood Count 11.4 K/UL (4.8-10.8) H Red Blood Count 3.68 M/UL (4.20-5.40) L Hemoglobin 11.4 G/DL (12.0-16.0) L Hematocrit 36.4 % (37.0-47.0) L Mean Corpuscular Volume 99 FL (80-99) Mean Corpuscular Hemoglobin 30.9 PG (27.0-31.0) Mean Corpuscular Hemoglobin Concent 31.2 G/DL (32.0-36.0) L Red Cell Distribution Width 13.0 % (11.6-14.8) Platelet Count 248 K/UL (150-450) Mean Platelet Volume 8.0 FL (6.5-10.1) Neutrophils (%) (Auto) 62.8 % (45.0-75.0) Lymphocytes (%) (Auto) 15.9 % (20.0-45.0) L Monocytes (%) (Auto) 17.8 % (1.0-10.0) H Eosinophils (%) (Auto) 1.9 % (0.0-3.0) Basophils (%) (Auto) 1.6 % (0.0-2.0) Differential Total Cells Counted 100 Neutrophils % (Manual) 64 % (45-75) Lymphocytes % (Manual) 21 % (20-45) Monocytes % (Manual) 14 % (1-10) H Eosinophils % (Manual) 1 % (0-3) Basophils % (Manual) 0 % (0-2) Band Neutrophils 0 % (0-8) Platelet Estimate Adequate Platelet Morphology Normal Hypochromasia 1+ Current Medications Medications (Trade) Dose Ordered Sig/Kushal Route PRN Reason Start Time Stop Time Status Last Admin Dose Admin Acetaminophen (Tylenol) 650 mg Q4H PRN ORAL Mild Pain/Temp > 100.5 11/09/16 10:15 12/09/16 10:14 11/11/16 00:19 Acetaminophen/ Hydrocodone Bitart ([place] 5/325) 1 tab Q6H PRN ORAL Moderate Pain (Pain Scale 4-6) 11/09/16 10:59 11/16/16 10:14 11/13/16 02:02 Albuterol Sulfate (Proventil MDI) 2 puff Q4H PRN INH Shortness of Breath 11/09/16 10:15 12/09/16 10:14 Albuterol Sulfate (Proventil) 2.5 mg Q4HRT HHN 11/11/16 23:00 11/16/16 22:59 11/13/16 11:25 Amlodipine Besylate (Norvasc) 2.5 mg DAILY ORAL 11/11/16 09:00 12/11/16 08:59 11/11/16 08:17 Aripiprazole (Abilify) 2.5 mg DAILY ORAL 11/09/16 12:00 12/09/16 11:59 11/10/16 09:43 Ascorbic Acid (Vitamin C) 500 mg TWICE A DAY ORAL 11/09/16 18:00 12/09/16 17:59 11/13/16 09:35 Aspirin (ASA) 325 mg Q6HR PRN ORAL Temp >100.5 11/09/16 23:00 12/09/16 22:59 11/09/16 23:12 Ceftriaxone Sodium/Dextrose (Rocephin/D5W) 110 ml @ 220 mls/hr Q24H IVPB 11/11/16 13:00 11/18/16 12:59 11/12/16 12:50 Cyclobenzaprine HCl (Flexeril) 10 mg BEDTIME ORAL 11/11/16 21:00 12/11/16 20:59 11/12/16 20:43 Diphenhydramine HCl (Benadryl) 50 mg HSPRN PRN ORAL Itching/Pruritis 11/09/16 10:15 12/09/16 10:14 11/10/16 18:14 Divalproex Sodium (Depakote ER) 500 mg EVERY 12 HOURS ORAL 11/09/16 12:00 12/09/16 11:59 11/13/16 09:34 Guaifenesin/ Codeine Phosphate (Robitussin with codeine) 10 ml Q4HR PRN ORAL For Cough 11/09/16 10:15 12/09/16 10:14 11/10/16 19:57 Hydralazine HCl (Apresoline) 25 mg Q4HR PRN ORAL SBP>160 11/09/16 17:00 12/09/16 16:59 Ipratropium [place] (Atrovent) 500 mcg Q4H PRN HHN Shortness of Breath 11/09/16 10:15 11/14/16 10:14 Lorazepam (Ativan) 1 mg Q4HR PRN ORAL For Anxiety 11/09/16 10:15 11/16/16 10:14 11/12/16 12:50 Magnesium Hydroxide (Mom) 30 ml DAILYPRN PRN ORAL Constipation 11/09/16 10:15 12/09/16 10:14 11/13/16 00:03 Multivitamins (Multivitamins) 1 tab DAILY ORAL 11/10/16 09:00 12/10/16 08:59 11/13/16 09:34 Mupirocin (Bactroban Oint) 1 applic THREE TIMES A DAY TOPIC 11/11/16 18:00 11/16/16 17:59 11/13/16 09:36 Oxycodone/ Acetaminophen (Percocet 10/325) 1 tab Q6H PRN ORAL severe pain 11/09/16 14:30 11/16/16 14:29 11/13/16 12:02 Paroxetine HCl (Paxil CR) 12.5 mg DAILY ORAL 11/09/16 12:00 12/09/16 11:59 11/13/16 09:34 Polyethylene Glycol (Miralax) 17 gm BEDTIME ORAL 11/12/16 21:00 12/12/16 20:59 11/12/16 22:28 Sennosides (Senokot) 8.6 mg BEDTIME ORAL 11/12/16 21:00 12/12/16 20:59 11/12/16 22:29 Thiamine HCl (Vitamin B1) 100 mg DAILY ORAL 11/10/16 09:00 12/10/16 08:59 11/13/16 09:34 Zolpidem Tartrate 5 mg 5 mg HSPRN PRN ORAL Insomnia 11/10/16 21:45 12/10/16 21:44 11/12/16 20:43 Angy Crane M.D. Nov 13, 2016 12:59
[2016-11-13] MEDS: cefTRIAXone 2 GM in D5W 110 ML IVPB SCH (14:00)
[2016-11-13] MEDS: LORazepam 1mg tab ORAL PRN ×2 (14:03→21:19)
--- NOTE | 2016-11-13 16:16 | General Progress Note ---
Assessment/Plan Problem List: (1) Osteoarthritis of multiple joints ICD Codes: M15.9 - Osteoarthritis of multiple joints SNOMED: 61720821 (2) chronic pain (3) Lumbar radiculopathy ICD Codes: M54.16 - Radiculopathy, lumbar region SNOMED: 571586418 (4) UTI (lower urinary tract infection) ICD Codes: N39.0 - UTI (lower urinary tract infection) SNOMED: 8241424 Status: progressing Assessment/Plan r/o hydro djd afebrile no change reviewed chart and labs Subjective ROS Limited/Unobtainable: Yes Constitutional: Reports: no symptoms Allergies: Coded Allergies: PENICILLINS (Unverified Allergy, Severe, 11/09/16) AMITRIPTYLINE (Verified Allergy, Unknown, 10/19/13) recorded from alf. pt does not remember the reation. CHLORPROMAZINE (Verified Allergy, Unknown, 10/19/13) recorded from alf. pt does not remember reaction. ERYTHROMYCIN BASE (Verified Allergy, Unknown, 10/19/13) recorded from alf. pt does not remember reaction. HALOPERIDOL (Verified Allergy, Unknown, 10/19/13) recorded from alf. pt does not remember reaction. QUETIAPINE (Verified Allergy, Unknown, 10/19/13) recorded from alf. pt does not remember reaction. Objective Last 24 Hour Vital Signs Date Time Temp Pulse Resp B/P Pulse Ox O2 Delivery O2 Flow Rate FiO2 11/13/16 15:50 97.2 91 20 150/89 94 Room Air 11/13/16 15:10 93 18 100 Room Air 11/13/16 15:03 96 18 97 Room Air 11/13/16 12:44 97.2 108 20 131/88 95 Room Air 11/13/16 11:34 88 18 99 Room Air 11/13/16 11:25 81 18 96 Room Air 11/13/16 09:00 92 116/74 11/13/16 08:15 97.5 89 20 111/70 95 Room Air 11/13/16 07:37 90 18 99 Room Air 11/13/16 07:30 96 Room Air 21 11/13/16 07:30 86 18 95 Room Air 21 11/13/16 07:30 Room Air 21 11/13/16 07:00 97.7 11/13/16 03:55 97.7 100 20 115/66 96 Room Air 11/13/16 03:29 98.4 11/13/16 03:24 Nasal Cannula 11/13/16 03:24 Nasal Cannula 11/13/16 00:00 98.4 98 21 110/61 95 Room Air 11/12/16 23:18 95 16 99 Nasal Cannula 2.0 28 11/12/16 23:00 90 18 96 Nasal Cannula 2.0 28 11/12/16 21:42 97.6 11/12/16 20:05 97.6 105 19 113/76 95 Room Air 11/12/16 19:05 90 16 99 Nasal Cannula 2.0 28 11/12/16 18:57 Room Air 21 11/12/16 18:57 96 Room Air 21 11/12/16 18:57 92 18 96 Nasal Cannula 2.0 28 Intake and Output 11/12/16 11/13/16 19:00 07:00 Intake Total 110 ml 360 ml Balance 110 ml 360 ml Intake Oral 360 ml IV Total 110 ml # Voids 3 Laboratory Tests 11/13/16 08:45: White Blood Count 11.4H, Red Blood Count 3.68L, Hemoglobin 11.4L, Hematocrit 36.4L, Mean Corpuscular Volume 99, Mean Corpuscular Hemoglobin 30.9, Mean Corpuscular Hemoglobin Concent 31.2L, Red Cell Distribution Width 13.0, Platelet Count 248, Mean Platelet Volume 8.0, Neutrophils (%) (Auto) 62.8, Lymphocytes (%) (Auto) 15.9L, Monocytes (%) (Auto) 17.8H, Eosinophils (%) (Auto ) 1.9, Basophils (%) (Auto) 1.6, Differential Total Cells Counted 100, Neutrophils % (Manual) 64, Lymphocytes % (Manual) 21, Monocytes % (Manual) 14H, Eosinophils % (Manual) 1, Basophils % (Manual) 0, Band Neutrophils 0, Platelet Estimate Adequate, Platelet Morphology Normal, Hypochromasia 1+ Height (Feet): 5 Height (Inches): 4.00 Weight (Pounds): 215 General Appearance: confused Cardiovascular: normal rate Respiratory/Chest: lungs clear Leela Diaz MD Nov 13, 2016 16:16
--- NOTE | 2016-11-13 17:41 | General Progress Note ---
Assessment/Plan Assessment/Plan (1) Degenerative cervical disc (2) Lumbar radiculopathy (3) Lumbar degenerative disc disease (4) chronic pain (5) Osteoarthritis of multiple joints Pt will be continued on [place] and Percocet Pt was d/w Dr. Caldwell and he concurred. Subjective Date patient seen: Nov 14, 2016 Time patient seen: 04:30 - pm Allergies: Coded Allergies: PENICILLINS (Unverified Allergy, Severe, 11/09/16) AMITRIPTYLINE (Verified Allergy, Unknown, 10/19/13) recorded from [facility]. pt does not remember the reation. CHLORPROMAZINE (Verified Allergy, Unknown, 10/19/13) recorded from prison. pt does not remember reaction. ERYTHROMYCIN BASE (Verified Allergy, Unknown, 10/19/13) recorded from prison. pt does not remember reaction. HALOPERIDOL (Verified Allergy, Unknown, 10/19/13) recorded from prison. pt does not remember reaction. QUETIAPINE (Verified Allergy, Unknown, 10/19/13) recorded from prison. pt does not remember reaction. Subjective Constitutional: Denies: no symptoms, chills, diaphoresis, fever, malaise, weakness, other HEENT: Denies: no symptoms, eye pain, blurred vision, tearing, double vision, ear pain, ear discharge, nose pain, nose congestion, throat pain, throat swelling, mouth pain, mouth swelling, other Cardiovascular: Denies: no symptoms, chest pain, edema, irregular heart rate, lightheadedness, palpitations, syncope, other Respiratory: Denies: no symptoms, cough, orthopnea, shortness of breath, SOB with excertion, SOB at rest, sputum, stridor, wheezing, other Gastrointestinal/Abdominal: Denies: no symptoms, abdomen distended, abdominal pain, black stools, tarry stools, blood in stool, constipated, diarrhea, difficulty swallowing, nausea, poor appetite, poor fluid intake, rectal bleeding , vomiting, other Genitourinary: Denies: no symptoms, burning, discharge, frequency, flank pain, hematuria, incontinence, pain, urgency, other Neurologic/Psychiatric: Reports: depressed, emotional problems Endocrine: Denies: no symptoms, excessive sweating, flushing, intolerance to cold, intolerance to heat, increased hunger, increased thirst, increased urine, unexplained weight gain, unexplained weight loss, other Hematologic/Lymphatic: Denies: no symptoms, anemia, easy bleeding, easy bruising, other Subjective Pain has per patient is tolerated on the Percocet and [place]. She has no new complaints. Objective Last 24 Hour Vital Signs Date Time Temp Pulse Resp B/P Pulse Ox O2 Delivery O2 Flow Rate FiO2 11/13/16 15:50 97.2 91 20 150/89 94 Room Air 11/13/16 15:10 93 18 100 Room Air 11/13/16 15:03 96 18 97 Room Air 11/13/16 12:44 97.2 108 20 131/88 95 Room Air 11/13/16 11:34 88 18 99 Room Air 11/13/16 11:25 81 18 96 Room Air 11/13/16 09:00 92 116/74 11/13/16 08:15 97.5 89 20 111/70 95 Room Air 11/13/16 07:37 90 18 99 Room Air 11/13/16 07:30 96 Room Air 11/13/16 07:30 86 18 95 Room Air 11/13/16 07:30 Room Air 11/13/16 07:00 97.7 11/13/16 03:55 97.7 100 20 115/66 96 Room Air 11/13/16 03:29 98.4 11/13/16 03:24 Nasal Cannula 11/13/16 03:24 Nasal Cannula 11/13/16 00:00 98.4 98 21 110/61 95 Room Air 11/12/16 23:18 95 16 99 Nasal Cannula 2.0 28 11/12/16 23:00 90 18 96 Nasal Cannula 2.0 28 11/12/16 21:42 97.6 11/12/16 20:05 97.6 105 19 113/76 95 Room Air 11/12/16 19:05 90 16 99 Nasal Cannula 2.0 28 11/12/16 18:57 Room Air 11/12/16 18:57 96 Room Air 11/12/16 18:57 92 18 96 Nasal Cannula 2.0 28 Intake and Output 11/12/16 11/13/16 19:00 07:00 Intake Total 110 ml 360 ml Balance 110 ml 360 ml Intake Oral 360 ml IV Total 110 ml # Voids 3 Laboratory Tests 6/26/17 08:45: White Blood Count 11.4H, Red Blood Count 3.68L, Hemoglobin 11.4L, Hematocrit 36.4L, Mean Corpuscular Volume 99, Mean Corpuscular Hemoglobin 30.9, Mean Corpuscular Hemoglobin Concent 31.2L, Red Cell Distribution Width 13.0, Platelet Count 248, Mean Platelet Volume 8.0, Neutrophils (%) (Auto) 62.8, Lymphocytes (%) (Auto) 15.9L, Monocytes (%) (Auto) 17.8H, Eosinophils (%) (Auto ) 1.9, Basophils (%) (Auto) 1.6, Differential Total Cells Counted 100, Neutrophils % (Manual) 64, Lymphocytes % (Manual) 21, Monocytes % (Manual) 14H, Eosinophils % (Manual) 1, Basophils % (Manual) 0, Band Neutrophils 0, Platelet Estimate Adequate, Platelet Morphology Normal, Hypochromasia 1+ Height (Feet): 5 Height (Inches): 4.00 Weight (Pounds): 215 Objective General Appearance: WD/WN EENT: PERRL/EOMI Neck: supple Cardiovascular: normal rate, regular rhythm Respiratory/Chest: decreased breath sounds Abdomen: non tender, soft Extremities: non-tender Edema: no edema noted Arm (L), no edema noted Arm (R), no edema noted Leg (L), no edema noted Leg (R), no edema noted Pedal (L), no edema noted Pedal (R), no edema noted Generalized 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
[2016-11-13] MEDS: Cyclobenzaprine 10mg Tab ORAL SCH (20:11)
[2016-11-13] MEDS: Zolpidem 5mg tab ORAL PRN (20:12)
[2016-11-13] MEDS: Miralax 17gm pkt ORAL SCH (20:24)
[2016-11-13] MEDS: guaiFENesin w/Codeine 5ml Liq ud ORAL PRN (21:20)
--- NOTE | 2016-11-13 22:36 | Neurology Progress Note ---
Interim History Interim History Interim History Ms. Munguia feels much better. The headache is almost gone. The neck discomfort is also almost gone. She has been breathing better. The mind is clear. She has noticed no new neurologic symptoms. She is feeling that her cognitive function has returned to normal. She has walked to the bathroom a few times. Review of Systems Neuro Review of Systems Benign. Objective Physical Exam Last Vital Signs Date Time Temp Pulse Resp B/P Pulse Ox O2 Delivery O2 Flow Rate FiO2 11/13/16 21:10 97.5 11/13/16 19:48 95 19 134/84 98 Room Air 11/13/16 19:40 21 11/12/16 23:18 2.0 Laboratory Tests Test 11/13/16 08:45 White Blood Count 11.4 K/UL (4.8-10.8) H Red Blood Count 3.68 M/UL (4.20-5.40) L Hemoglobin 11.4 G/DL (12.0-16.0) L Hematocrit 36.4 % (37.0-47.0) L Mean Corpuscular Volume 99 FL (80-99) Mean Corpuscular Hemoglobin 30.9 PG (27.0-31.0) Mean Corpuscular Hemoglobin Concent 31.2 G/DL (32.0-36.0) L Red Cell Distribution Width 13.0 % (11.6-14.8) Platelet Count 248 K/UL (150-450) Mean Platelet Volume 8.0 FL (6.5-10.1) Neutrophils (%) (Auto) 62.8 % (45.0-75.0) Lymphocytes (%) (Auto) 15.9 % (20.0-45.0) L Monocytes (%) (Auto) 17.8 % (1.0-10.0) H Eosinophils (%) (Auto) 1.9 % (0.0-3.0) Basophils (%) (Auto) 1.6 % (0.0-2.0) Differential Total Cells Counted 100 Neutrophils % (Manual) 64 % (45-75) Lymphocytes % (Manual) 21 % (20-45) Monocytes % (Manual) 14 % (1-10) H Eosinophils % (Manual) 1 % (0-3) Basophils % (Manual) 0 % (0-2) Band Neutrophils 0 % (0-8) Platelet Estimate Adequate Platelet Morphology Normal Hypochromasia 1+ Neurologic Exam Objective PHYSICAL EXAMINATION: GENERAL: She is a well-developed, well-nourished, obese, black lady, lying in bed, in no acute distress. HEAD: Normocephalic and atraumatic. NECK: No neck rigidity was observed. She did have mild grade Trace/4 cervical paraspinal muscle and trapezius spasm. EENT: Examination is benign. NEUROLOGICAL EXAMINATION: MENTAL STATUS EXAMINATION: She was alert and awake. She was oriented to person, place, and time. She was able to recall 3/3 words immediately after 1 minute and after 3 minutes. She was able to remember presidents, Trump through Izquierdo Sr. Her mathematical skills were fairly good. Her visuospatial function was preserved. SPEECH: She had no dysarthria. LANGUAGE: She had no aphasia. CRANIAL NERVE EXAMINATION: II: The visual mireles were intact on confrontation testing III, IV & : External ocular movements were full and the pupils 3 mm in diameter, equal, round, regular, and reactive to light. V: She had normal facial sensations and the temporales, masseters, and pterygoids function normally. VII: She had normal facial expressions and no facial asymmetry. VIII: She was able to hear well bilaterally and had no nystagmus. IX: The palate moved symmetrically on phonation. X: She had no hoarseness of voice. XI: The sternocleidomastoids and trapezii functioned normally. XII: The tongue was in the midline without any fasciculations or atrophy. MOTOR SYSTEM: The tone was normal in all four extremities. Examination of muscle mass revealed no focal wasting. Examination of power revealed grade 5/5 power in all muscle groups tested. SENSORY EXAMINATION: She had intact sensations to pinprick, light touch, and graphesthesia. COORDINATION: She performed well on [id number] testing. REFLEXES: Trace+ and bilaterally symmetrical at the biceps, triceps, brachioradialis, and knees and 0 at both ankles. The plantar responses were flexor bilaterally. STANCE & GAIT: Steady. Impression/Recommendations Diagnostic Impression 1. Ms. Susy Munguia is a 71-year-old, right-handed, black lady, who does have a past history of bipolar affective disorder, gastric bypass, gastric tumor , kidney infections, a brief period of hemodialysis numerous years ago, hypertension, chronic obstructive pulmonary disease, and gastroesophageal reflux disease who was hospitalized for fevers, chills, and altered mental state. She was evaluated in the [facility] emergency room and was discovered to have pyelonephritis. She has been treated for this with appropriate antibiotics and fluids, and has improved. When she came in, her mental state was quite altered, but it seems to have improved since then. 2. She feels much better The mind continues to be clear. Her headache is almost gone. She denies any new neurologic symptoms. 3. On neurological examination, at this time, she is mildly disoriented to the exact date, has minimal G Trace/4 cervical paraspinal muscle and trapezius spasm , has globally diminished reflexes, but the rest of the neurological examination is essentially benign. 4. Laboratory data on my initial evaluation revealed that her WBC count was elevated to 14,500 and her potassium was low at 3.3. She had an anion gap of 16. Her glucose was elevated to 110. Her albumin was down at 3.4. Her urinalysis reveals 3+ leukocyte esterase, 5-10 red blood cells per high-power field, too numerous to count white blood cells per high-power field, and a few urinary bacteria. 5. Further laboratory tests have revealed no treatable causes of altered mental state. 6. The patient's history and neurological examination are most compatible with a delirium due to possible pyelonephritis, which is now significantly better with treatment of the infection.. 7. Her headaches are most probably muscle contraction headaches - significantly better today. Recommendations 1. Continue present management. 2. Continue to treat the patient's pyelonephritis in an aggressive manner. 3. Mobilize rapidly. 4. Continue Flexeril 10 mg q HS for headaches. Nai Maddox M.D., M.S.P.Iftikhar. NAI MADDOX Nov 13, 2016 22:36
[2016-11-14] MEDS: Albuterol ud Inhalation HHN SCH ×6 (03:15→23:33)
--- NOTE | 2016-11-14 03:31 | Consultation ---
DATE OF CONSULTATION: 11/13/2016 HEMATOLOGY/ONCOLOGY CONSULTATION REQUESTING PHYSICIAN: Leela Diaz M.D. REASON FOR CONSULTATION: Evaluation of leukocytosis. IDENTIFICATION DATA: Dear Dr. Leela Diaz, The patient is a pleasant 71-year-old female with a past medical history significant for gastric bypass, depression, history of hypertension, acute symptoms of abdominal pain 10/10, nothing which could make it better or worse. She had fever in the ER and was admitted for further evaluation, has been seen by Pulmonary team, pain management, as well as Nephrology service. Hematology consulted given the patient's history and presentation of leukocytosis and macrocytosis as well. PAST MEDICAL HISTORY: CHF, , hypothyroidism. PRESENT MEDICATIONS: Albuterol, , Depakote, Lasix, Atrovent, multivitamins, paroxetine, Pyridium, and thiamine. SOCIAL HISTORY: No alcohol, tobacco, or illicit drug use. REVIEW OF SYSTEMS: Constitutional: No fever, chills, or night sweats. Skin: No rashes, lumps, or itching. HEENT: No headache, hearing, or vision changes. Breasts: No lumps, pain, or discharge. Pulmonary: No cough, sputum, or shortness of breath. Cardiovascular: No chest pain, tightness, or palpitations. Gastrointestinal: No nausea, vomiting, or diarrhea. Genitourinary: No dysuria, frequency, or urgency. Musculoskeletal: No joint swelling, muscle pain, or trauma. PHYSICAL EXAMINATION: GENERAL: The patient is in no acute distress. VITAL SIGNS: Temperature 97.2 degrees Fahrenheit, heart rate of 91, respiratory rate 12, and blood pressure 150/89. PULMONARY: Decreased breath sounds. CARDIOVASCULAR: Regular rhythm. No S3 or S4. ABDOMEN: Soft, nontender, nondistended. EXTREMITIES: There is 1+ edema. LABORATORY DATA: WBC 11,000, hemoglobin 11, hematocrit 36, and platelet count 248,000. BUN 18 and creatinine 1.2. INR of 1 and PT of 20. RPR nonreactive. IMAGING: Abdomen and pelvis CAT scan reviewed shows small obstructing distal ureteral stone. There is uterine fibroids. ASSESSMENT: 1. Anemia secondary to chronic disease, currently mild. Continue to closely monitor, has decreased from 14.8 to currently 11.4. 2. Leukocytosis likely secondary to underlying infection and urinary tract infection. 3. Monocytosis potentially secondary to underlying infection. 4. Coagulopathy potentially secondary to malnourishment. 5. Headache, being managed by Neurology service. 6. Degenerative cervical disc disease. 7. . Thank you Dr. Leela Diaz for this kind referral. Please do not hesitate to contact me for any further questions. Pa Rico M.D. DR: ABDI JOB#: [id number] CC:
[2016-11-14 04:00] VITALS: BP 128/88
[2016-11-14] MEDS: LORazepam 1mg tab ORAL PRN ×2 (06:49→22:13)
[2016-11-14 08:00] VITALS: BP 110/63
--- NOTE | 2016-11-14 08:46 | General Progress Note ---
Assessment/Plan Assessment/Plan (1) Degenerative cervical disc (2) Lumbar radiculopathy (3) Lumbar degenerative disc disease (4) chronic pain (5) Osteoarthritis of multiple joints Pt will be continued on [place] and Percocet Pt was d/w Dr. Caldwell and he concurred. Subjective Date patient seen: Nov 14, 2016 Time patient seen: 07:15 - am Allergies: Coded Allergies: PENICILLINS (Unverified Allergy, Severe, 11/09/16) AMITRIPTYLINE (Verified Allergy, Unknown, 10/19/13) recorded from group home. pt does not remember the reation. CHLORPROMAZINE (Verified Allergy, Unknown, 10/19/13) recorded from group home. pt does not remember reaction. ERYTHROMYCIN BASE (Verified Allergy, Unknown, 10/19/13) recorded from group home. pt does not remember reaction. HALOPERIDOL (Verified Allergy, Unknown, 10/19/13) recorded from group home. pt does not remember reaction. QUETIAPINE (Verified Allergy, Unknown, 10/19/13) recorded from group home. pt does not remember reaction. Subjective Constitutional: Denies: no symptoms, chills, diaphoresis, fever, malaise, weakness, other HEENT: Denies: no symptoms, eye pain, blurred vision, tearing, double vision, ear pain, ear discharge, nose pain, nose congestion, throat pain, throat swelling, mouth pain, mouth swelling, other Cardiovascular: Denies: no symptoms, chest pain, edema, irregular heart rate, lightheadedness, palpitations, syncope, other Respiratory: Denies: no symptoms, cough, orthopnea, shortness of breath, SOB with excertion, SOB at rest, sputum, stridor, wheezing, other Gastrointestinal/Abdominal: Denies: no symptoms, abdomen distended, abdominal pain, black stools, tarry stools, blood in stool, constipated, diarrhea, difficulty swallowing, nausea, poor appetite, poor fluid intake, rectal bleeding , vomiting, other Genitourinary: Denies: no symptoms, burning, discharge, frequency, flank pain, hematuria, incontinence, pain, urgency, other Neurologic/Psychiatric: Reports: depressed, emotional problems Endocrine: Denies: no symptoms, excessive sweating, flushing, intolerance to cold, intolerance to heat, increased hunger, increased thirst, increased urine, unexplained weight gain, unexplained weight loss, other Hematologic/Lymphatic: Denies: no symptoms, anemia, easy bleeding, easy bruising, other Subjective Her pain has been unchanged and is severe at times reduced on the [place] and Percocet at this time. Objective Last 24 Hour Vital Signs Date Time Temp Pulse Resp B/P Pulse Ox O2 Delivery O2 Flow Rate FiO2 11/14/16 08:00 97.7 93 18 110/63 96 Room Air 11/14/16 07:58 94 18 100 Room Air 11/14/16 07:50 94 18 96 Room Air 11/14/16 07:49 Room Air 11/14/16 07:48 96 Room Air 11/14/16 05:50 97.4 11/14/16 04:00 97.4 88 18 128/88 95 Room Air 11/14/16 03:17 84 18 100 Room Air 11/14/16 03:17 87 18 100 Room Air 11/14/16 00:10 97.6 11/13/16 23:53 97.6 89 18 105/72 93 Room Air 11/13/16 23:20 92 18 100 Room Air 11/13/16 23:20 93 18 98 Room Air 11/13/16 21:10 97.5 11/13/16 19:48 97.5 95 19 134/84 98 Room Air 11/13/16 19:40 99 18 100 Room Air 11/13/16 19:39 97 Room Air 11/13/16 19:39 104 18 97 Room Air 11/13/16 19:39 Room Air 11/13/16 15:50 97.2 91 20 150/89 94 Room Air 11/13/16 15:10 93 18 100 Room Air 11/13/16 15:03 96 18 97 Room Air 11/13/16 12:44 97.2 108 20 131/88 95 Room Air 11/13/16 11:34 88 18 99 Room Air 11/13/16 11:25 81 18 96 Room Air 11/13/16 09:00 92 116/74 Intake and Output 11/13/16 11/14/16 19:00 07:00 Intake Total 900 ml 300 ml Balance 900 ml 300 ml Intake Oral 900 ml 300 ml # Voids 1 2 Height (Feet): 5 Height (Inches): 4.00 Weight (Pounds): 215 Objective General Appearance: WD/WN EENT: PERRL/EOMI Neck: supple Cardiovascular: normal rate, regular rhythm Respiratory/Chest: decreased breath sounds Abdomen: non tender, soft Extremities: non-tender Edema: no edema noted Arm (L), no edema noted Arm (R), no edema noted Leg (L), no edema noted Leg (R), no edema noted Pedal (L), no edema noted Pedal (R), no edema noted Generalized 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
[2016-11-14] MEDS: Thiamine 100mg tab ORAL SCH (09:06)
[2016-11-14] MEDS: PAROXETINE 12.5 MG ORAL SCH (09:06)
[2016-11-14] MEDS: Depakote ER 500mg tab ORAL SCH ×2 (09:06→21:08)
--- NOTE | 2016-11-14 09:06 | General Progress Note ---
Assessment/Plan Status: stable Assessment/Plan status; HTN- bp now is running low HypoKalemia Obesity- UTI / Pyelo Psych Plan: no labs today Adjust BP meds- Stop Lasix- fluid challenge K supplements Monitor BP and renal parameters Subjective ROS Limited/Unobtainable: No Constitutional: Reports: malaise Allergies: Coded Allergies: PENICILLINS (Unverified Allergy, Severe, 11/09/16) AMITRIPTYLINE (Verified Allergy, Unknown, 10/19/13) recorded from [facility]. pt does not remember the reation. CHLORPROMAZINE (Verified Allergy, Unknown, 10/19/13) recorded from [facility]. pt does not remember reaction. ERYTHROMYCIN BASE (Verified Allergy, Unknown, 10/19/13) recorded from [facility]. pt does not remember reaction. HALOPERIDOL (Verified Allergy, Unknown, 10/19/13) recorded from [facility]. pt does not remember reaction. QUETIAPINE (Verified Allergy, Unknown, 10/19/13) recorded from [facility]. pt does not remember reaction. Objective Last 24 Hour Vital Signs Date Time Temp Pulse Resp B/P Pulse Ox O2 Delivery O2 Flow Rate FiO2 11/14/16 08:00 97.7 93 18 110/63 96 Room Air 11/14/16 07:58 94 18 100 Room Air 11/14/16 07:50 94 18 96 Room Air 11/14/16 07:49 Room Air 11/14/16 07:48 96 Room Air 11/14/16 05:50 97.4 11/14/16 04:00 97.4 88 18 128/88 95 Room Air 11/14/16 03:17 84 18 100 Room Air 11/14/16 03:17 87 18 100 Room Air 11/14/16 00:10 97.6 11/13/16 23:53 97.6 89 18 105/72 93 Room Air 11/13/16 23:20 92 18 100 Room Air 11/13/16 23:20 93 18 98 Room Air 11/13/16 21:10 97.5 11/13/16 19:48 97.5 95 19 134/84 98 Room Air 11/13/16 19:40 99 18 100 Room Air 11/13/16 19:39 97 Room Air 11/13/16 19:39 104 18 97 Room Air 21 11/13/16 19:39 Room Air 21 11/13/16 15:50 97.2 91 20 150/89 94 Room Air 11/13/16 15:10 93 18 100 Room Air 21 11/13/16 15:03 96 18 97 Room Air 21 11/13/16 12:44 97.2 108 20 131/88 95 Room Air 11/13/16 11:34 88 18 99 Room Air 21 11/13/16 11:25 81 18 96 Room Air 21 Intake and Output 11/13/16 11/14/16 19:00 07:00 Intake Total 900 ml 300 ml Balance 900 ml 300 ml Intake Oral 900 ml 300 ml # Voids 1 2 Height (Feet): 5 Height (Inches): 4.00 Weight (Pounds): 215 General Appearance: no apparent distress Objective other PE not changed MICHAEL DE LA ROSA Nov 14, 2016 09:06
[2016-11-14] MEDS: Ascorbic Acid 500mg tab ORAL SCH ×2 (09:07→18:04)
[2016-11-14 09:17] VITALS: BP 102/66
--- NOTE | 2016-11-14 10:50 | Consultation ---
History of Present Illness General Date patient seen: Nov 14, 2016 Time patient seen: 10:46 Chief Complaint: Abdominal Pain Reason for Consultation: inpatient management Present Illness HPI 71 yo female with a few weeks of abdominal pain and LUQ discomfort. Treated as outpatient with pyridium only apparently. Feeling better since admission. Bladder pain is better, no hematuria, no dysuria. Still having 5-6/10 LUQ pain. Denies hx of stones in self or family. Denies fever. Tolerating diet. Allergies: Coded Allergies: PENICILLINS (Unverified Allergy, Severe, 11/09/16) AMITRIPTYLINE (Verified Allergy, Unknown, 10/19/13) recorded from group home. pt does not remember the reation. CHLORPROMAZINE (Verified Allergy, Unknown, 10/19/13) recorded from group home. pt does not remember reaction. ERYTHROMYCIN BASE (Verified Allergy, Unknown, 10/19/13) recorded from group home. pt does not remember reaction. HALOPERIDOL (Verified Allergy, Unknown, 10/19/13) recorded from group home. pt does not remember reaction. QUETIAPINE (Verified Allergy, Unknown, 10/19/13) recorded from group home. pt does not remember reaction. Medication History Scheduled Albuterol Sulfate (Ventolin Hfa), 2 PUFF INH Q4HR, (Reported) Amlodipine Besylate* (Amlodipine Besylate*), 10 MG ORAL DAILY, (Reported) Aripiprazole* (Abilify*), 2.5 MG ORAL DAILY, (Reported) Ascorbic Acid* (Vitamin C*), 500 MG ORAL BID, (Reported) Divalproex Sodium* (Depakote Er*), 500 MG ORAL EVERY 12 HOURS, (Reported) Famotidine (Famotidine), 20 MG ORAL TWICE A DAY, (Reported) Furosemide* (Lasix*), 20 MG ORAL BID, (Reported) Ipratropium [place] 0.5MG/2.5ML (Ipratropium [place] 0.5MG/2.5ML), 0.5 MG HHN Q4HR, (Reported) Multivitamins* (Multivitamins*), 1 TAB ORAL DAILY, (Reported) Paroxetine Hcl* (Paroxetine Hcl*), 40 MG ORAL DAILY, (Reported) Phenazopyridine Hcl* (Pyridium*), 200 MG ORAL THREE TIMES A DAY, (Reported) Thiamine Hcl* (Vitamin B-1*), 100 MG ORAL TID, (Reported) Scheduled PRN Acetaminophen (Acetaminophen), 650 MG ORAL Q4HR PRN for Mild Pain/Temp > 100.5, (Reported) Diphenhydramine HCl (Diphenhydramine HCl), 50 MG ORAL DAILY PRN for Itching, ( Reported) Guaifenesin/Codeine Phos* (Robitussin Ac*), 10 ML ORAL Q4H PRN for For Cough, ( Reported) Guaifenesin/Dextromethorphan (Guaifenesin Dm Syrup), 5 ML ORAL EVERY 6 HOURS PRN for For Cough, (Reported) Hydralazine Hcl* (Hydralazine Hcl*), 25 MG ORAL EVERY 6 HOURS PRN for For High Blood Pressure, (Reported) Hydrocodone Bit/Acetaminophen 5-325* ([place] 5-325*), 1 TAB ORAL Q6H PRN for For Pain, (Reported) Ipratropium [place] 0.5MG/2.5ML (Ipratropium [place] 0.5MG/2.5ML), 0.5 MG HHN Q4HR PRN for Shortness of Breath, (Reported) Lorazepam* (Lorazepam*), 1 MG ORAL Q4HR PRN for For Anxiety, (Reported) Magnesium Hydroxide* (Milk Of Magnesia*), 30 ML ORAL DAILY PRN for Constipation, (Reported) Zolpidem Tartrate* (Zolpidem Tartrate*), 10 MG ORAL BEDTIME PRN for Insomnia, ( Reported) Patient History History Provided By: Patient, Medical Record Healthcare decision maker DEEPA DENNIS Resuscitation status Full Code Advanced Directive on File No Past Medical/Surgical History Past Medical/Surgical History: (1) CHF (congestive heart failure) (2) Degenerative cervical disc (3) Lumbar radiculopathy (4) Lumbar degenerative disc disease (5) Morbid obesity with BMI of 40.0-44.9, adult (6) chronic pain Review of Systems Constitutional: Denies: chills, fever, malaise, no symptoms, other, see HPI, sweats, weakness Eye: Denies: acuity changes, blurred vision, discharge, double vision, eye pain , no symptoms, nose congestion, nose pain, other, see HPI, tearing ENT: Denies: ear discharge, ear pain, hearing loss, mouth pain, nasal discharge , no symptoms, nose congestion, nose pain, other, see HPI, throat pain, throat swelling Respiratory: Denies: SOARES, cough, no symptoms, orthopnea, other, see HPI, shortness of breath, sputum, stridor, wheezing Cardiovascular: Denies: PND, chest pain, edema, no symptoms, other, palpitations, see HPI, syncope Gastrointestinal: Reports: abdominal pain Genitourinary: Denies: discharge, dysuria, frequency, hematuria, incontinence, no symptoms, other, pain, retention, see HPI, urgency, vag bleed/dc Musculoskeletal: Denies: back pain, gout, joint pain, joint swelling, muscle pain, muscle stiffness, no symptoms, other, see HPI Skin: Denies: change in color, change in hair/nails, dryness, lesions, no symptoms, other, rash, see HPI Psychiatric: Denies: HI, SI, anxiety, depressed feelings, emotional problems, hallucinations, no symptoms, other, prior hx, see HPI Neurological: Denies: dizziness, focal weakness, headache, no symptoms, numbness, other, paresthesia, see HPI, seizure, syncope, tingling, tremors Endocrine: Denies: excessive sweating, flushing, increased thirst, increased urine, intolerance to temperature, no symptoms, other, see HPI, unexplained weight loss Hematologic/Lymphatic: Denies: anemia, blood clots, diathesis, easy bleeding, easy bruising, no symptoms, other, see HPI, swollen glands Physical Exam General Appearance: no apparent distress, alert HEENT: normocephalic, atraumatic Respiratory/Chest: lungs clear Cardiovascular/Chest: normal rate, regular rhythm Abdomen: non tender, soft Last 24 Hour Vital Signs Date Time Temp Pulse Resp B/P Pulse Ox O2 Delivery O2 Flow Rate FiO2 11/14/16 09:17 91 102/66 11/14/16 09:00 91 102/66 11/14/16 08:00 97.7 93 18 110/63 96 Room Air 11/14/16 07:58 94 18 100 Room Air 21 11/14/16 07:50 94 18 96 Room Air 21 11/14/16 07:49 Room Air 21 11/14/16 07:48 96 Room Air 11/14/16 05:50 97.4 11/14/16 04:00 97.4 88 18 128/88 95 Room Air 11/14/16 03:17 84 18 100 Room Air 21 11/14/16 03:17 87 18 100 Room Air 11/14/16 00:10 97.6 11/13/16 23:53 97.6 89 18 105/72 93 Room Air 11/13/16 23:20 92 18 100 Room Air 21 11/13/16 23:20 93 18 98 Room Air 11/13/16 21:10 97.5 11/13/16 19:48 97.5 95 19 134/84 98 Room Air 11/13/16 19:40 99 18 100 Room Air 11/13/16 19:39 97 Room Air 21 11/13/16 19:39 104 18 97 Room Air 11/13/16 19:39 Room Air 11/13/16 15:50 97.2 91 20 150/89 94 Room Air 11/13/16 15:10 93 18 100 Room Air 11/13/16 15:03 96 18 97 Room Air 11/13/16 12:44 97.2 108 20 131/88 95 Room Air 11/13/16 11:34 88 18 99 Room Air 11/13/16 11:25 81 18 96 Room Air 21 Intake and Output 11/13/16 11/14/16 19:00 07:00 Intake Total 900 ml 300 ml Balance 900 ml 300 ml Intake Oral 900 ml 300 ml # Voids 1 2 Height (Feet): 5 Height (Inches): 4.00 Weight (Pounds): 215 Medications Current Medications Medications (Trade) Dose Ordered Sig/Kushal Route PRN Reason Start Time Stop Time Status Last Admin Dose Admin Acetaminophen (Tylenol) 650 mg Q4H PRN ORAL Mild Pain/Temp > 100.5 11/09/16 10:15 12/09/16 10:14 11/11/16 00:19 Acetaminophen/ Hydrocodone Bitart ([place] 5/325) 1 tab Q6H PRN ORAL Moderate Pain (Pain Scale 4-6) 11/09/16 10:59 11/16/16 10:14 11/13/16 23:11 Albuterol Sulfate (Proventil MDI) 2 puff Q4H PRN INH Shortness of Breath 11/09/16 10:15 12/09/16 10:14 Albuterol Sulfate (Proventil) 2.5 mg Q4HRT HHN 11/11/16 23:00 11/16/16 22:59 11/14/16 07:56 Amlodipine Besylate (Norvasc) 2.5 mg DAILY ORAL 11/11/16 09:00 12/11/16 08:59 11/11/16 08:17 Aripiprazole (Abilify) 2.5 mg DAILY ORAL 11/09/16 12:00 12/09/16 11:59 11/10/16 09:43 Ascorbic Acid (Vitamin C) 500 mg TWICE A DAY ORAL 11/09/16 18:00 12/09/16 17:59 11/14/16 09:07 Aspirin (ASA) 325 mg Q6HR PRN ORAL Temp >100.5 11/09/16 23:00 12/09/16 22:59 11/09/16 23:12 Ceftriaxone Sodium/Dextrose (Rocephin/D5W) 110 ml @ 220 mls/hr Q24H IVPB 11/11/16 13:00 11/18/16 12:59 11/13/16 14:00 Cyclobenzaprine HCl (Flexeril) 10 mg BEDTIME ORAL 11/11/16 21:00 12/11/16 20:59 11/13/16 20:11 Diphenhydramine HCl (Benadryl) 50 mg HSPRN PRN ORAL Itching/Pruritis 11/09/16 10:15 12/09/16 10:14 11/13/16 21:19 Divalproex Sodium (Depakote ER) 500 mg EVERY 12 HOURS ORAL 11/09/16 12:00 12/09/16 11:59 11/14/16 09:06 Guaifenesin/ Codeine Phosphate (Robitussin with codeine) 10 ml Q4HR PRN ORAL For Cough 11/09/16 10:15 12/09/16 10:14 11/13/16 21:20 Hydralazine HCl (Apresoline) 25 mg Q4HR PRN ORAL SBP>160 11/09/16 17:00 12/09/16 16:59 Lorazepam (Ativan) 1 mg Q4HR PRN ORAL For Anxiety 11/09/16 10:15 11/16/16 10:14 11/14/16 06:49 Magnesium Hydroxide (Mom) 30 ml DAILYPRN PRN ORAL Constipation 11/09/16 10:15 12/09/16 10:14 11/13/16 00:03 Multivitamins (Multivitamins) 1 tab DAILY ORAL 11/10/16 09:00 12/10/16 08:59 11/14/16 09:06 Mupirocin (Bactroban Oint) 1 applic THREE TIMES A DAY TOPIC 11/11/16 18:00 11/16/16 17:59 11/14/16 09:10 Oxycodone/ Acetaminophen (Percocet 10/325) 1 tab Q6H PRN ORAL severe pain 11/09/16 14:30 11/16/16 14:29 11/14/16 04:51 Paroxetine HCl (Paxil CR) 12.5 mg DAILY ORAL 11/09/16 12:00 12/09/16 11:59 11/14/16 09:06 Polyethylene Glycol (Miralax) 17 gm BEDTIME ORAL 11/12/16 21:00 12/12/16 20:59 11/12/16 22:28 Sennosides (Senokot) 8.6 mg BEDTIME ORAL 11/12/16 21:00 12/12/16 20:59 11/13/16 20:10 Thiamine HCl (Vitamin B1) 100 mg DAILY ORAL 11/10/16 09:00 12/10/16 08:59 11/14/16 09:06 Zolpidem Tartrate 5 mg 5 mg HSPRN PRN ORAL Insomnia 11/10/16 21:45 12/10/16 21:44 11/13/16 20:[address]: mild left hydro, no stone noted. US: questionable renal nodule, seems more likely normal renal architecture Urine culture positive Assessment/Plan Status: stable Assessment/Plan 71 yo female with left pyelonephritis. Reviewed imaging and hydro is mild. No obvious stone noted. Seems more likely a pylenophritis presentation rather than obstructed collecting system. Would not recommend ureteral stent or ureteroscopy unless patient decompensates or WBC rises or stops responding to abx. 1. recommend 14 total days of abx for likely left pyelonephritis 2. no intervention. Lee Mullins M.D. Nov 14, 2016 10:50
[2016-11-14 11:58] VITALS: BP 137/75
--- NOTE | 2016-11-14 12:57 | Infectious Diseases Prog Note ---
Assessment/Plan Problems: (1) Pyelonephritis Assessment & Plan: due to E coli , with possible left ureter obstruction, now improving on antibiotics , probably passed a stone .no intervention as per urology . continue ceftriaxon for two weeks. will transition to oral antibiotics once ready to go home (2) Sepsis Assessment & Plan: due to the above, blood culture showed coag negative staph in one set, most likely contaminant , on ceftriaxon empirically for E coli pyelonephritis (3) Abdominal pain of unknown etiology Assessment & Plan: suspect due to stone and ureter obstruction, as suggested by renal US (4) MRSA nasal colonization Assessment & Plan: on bactroban to decolonize Subjective Constitutional: Reports: no symptoms HEENT: Reports: no symptoms Respiratory: Reports: no symptoms Breasts: Reports: no symptoms Cardiovascular: Reports: no symptoms Gastrointestinal/Abdominal: Reports: bloating Genitourinary: Reports: dysuria Neurologic: Reports: no symptoms Psychiatric: Reports: no symptoms Skin: Reports: no symptoms Allergies: Coded Allergies: PENICILLINS (Unverified Allergy, Severe, 11/09/16) AMITRIPTYLINE (Verified Allergy, Unknown, 10/19/13) recorded from [facility]. pt does not remember the reation. CHLORPROMAZINE (Verified Allergy, Unknown, 10/19/13) recorded from [facility]. pt does not remember reaction. ERYTHROMYCIN BASE (Verified Allergy, Unknown, 10/19/13) recorded from [facility]. pt does not remember reaction. HALOPERIDOL (Verified Allergy, Unknown, 10/19/13) recorded from [facility]. pt does not remember reaction. QUETIAPINE (Verified Allergy, Unknown, 10/19/13) recorded from [facility]. pt does not remember reaction. Objective Vital Signs Last 24 Hour Vital Signs Date Time Temp Pulse Resp B/P Pulse Ox O2 Delivery O2 Flow Rate FiO2 11/14/16 11:58 97.2 87 19 137/75 98 Room Air 11/14/16 11:10 Room Air 11/14/16 11:10 Room Air 11/14/16 09:17 91 102/66 11/14/16 09:00 91 102/66 11/14/16 08:00 97.7 93 18 110/63 96 Room Air 11/14/16 07:58 94 18 100 Room Air 21 11/14/16 07:50 94 18 96 Room Air 21 11/14/16 07:49 Room Air 21 6/27/17 07:48 96 Room Air 11/14/16 05:50 97.4 11/14/16 04:00 97.4 88 18 128/88 95 Room Air 11/14/16 03:17 84 18 100 Room Air 21 11/14/16 03:17 87 18 100 Room Air 11/14/16 00:10 97.6 11/13/16 23:53 97.6 89 18 105/72 93 Room Air 11/13/16 23:20 92 18 100 Room Air 21 11/13/16 23:20 93 18 98 Room Air 11/13/16 21:10 97.5 11/13/16 19:48 97.5 95 19 134/84 98 Room Air 11/13/16 19:40 99 18 100 Room Air 11/13/16 19:39 97 Room Air 11/13/16 19:39 104 18 97 Room Air 11/13/16 19:39 Room Air 11/13/16 15:50 97.2 91 20 150/89 94 Room Air 11/13/16 15:10 93 18 100 Room Air 11/13/16 15:03 96 18 97 Room Air 21 Height (Feet): 5 Height (Inches): 4.00 Weight (Pounds): 215 General Appearance: WD/WN, no acute distress HEENT: normocephalic, atraumatic, anicteric, mucous membranes moist Respiratory/Chest: chest wall non-tender, lungs clear, normal breath sounds, no respiratory distress, no accessory muscle use Cardiovascular: normal peripheral pulses, normal rate, regular rhythm, no gallop/murmur, no JVD Abdomen: normal bowel sounds, soft, non tender, no organomegaly, non distended , no mass, no scars Extremities: no cyanosis, no clubbing Skin: no rash, no lesions Current Medications Medications (Trade) Dose Ordered Sig/Kushal Route PRN Reason Start Time Stop Time Status Last Admin Dose Admin Acetaminophen (Tylenol) 650 mg Q4H PRN ORAL Mild Pain/Temp > 100.5 11/09/16 10:15 12/09/16 10:14 11/11/16 00:19 Acetaminophen/ Hydrocodone Bitart ([place] 5/325) 1 tab Q6H PRN ORAL Moderate Pain (Pain Scale 4-6) 11/09/16 10:59 11/16/16 10:14 11/13/16 23:11 Albuterol Sulfate (Proventil MDI) 2 puff Q4H PRN INH Shortness of Breath 11/09/16 10:15 12/09/16 10:14 Albuterol Sulfate (Proventil) 2.5 mg Q4HRT HHN 11/11/16 23:00 11/16/16 22:59 11/14/16 07:56 Amlodipine Besylate (Norvasc) 2.5 mg DAILY ORAL 11/11/16 09:00 12/11/16 08:59 11/11/16 08:17 Aripiprazole (Abilify) 2.5 mg DAILY ORAL 11/09/16 12:00 12/09/16 11:59 11/10/16 09:43 Ascorbic Acid (Vitamin C) 500 mg TWICE A DAY ORAL 11/09/16 18:00 12/09/16 17:59 11/14/16 09:07 Aspirin (ASA) 325 mg Q6HR PRN ORAL Temp >100.5 11/09/16 23:00 12/09/16 22:59 11/09/16 23:12 Ceftriaxone Sodium/Dextrose (Rocephin/D5W) 110 ml @ 220 mls/hr Q24H IVPB 11/11/16 13:00 11/18/16 12:59 11/13/16 14:00 Cyclobenzaprine HCl (Flexeril) 10 mg BEDTIME ORAL 11/11/16 21:00 12/11/16 20:59 11/13/16 20:11 Diphenhydramine HCl (Benadryl) 50 mg HSPRN PRN ORAL Itching/Pruritis 11/09/16 10:15 12/09/16 10:14 11/13/16 21:19 Divalproex Sodium (Depakote ER) 500 mg EVERY 12 HOURS ORAL 11/09/16 12:00 12/09/16 11:59 11/14/16 09:06 Guaifenesin/ Codeine Phosphate (Robitussin with codeine) 10 ml Q4HR PRN ORAL For Cough 11/09/16 10:15 12/09/16 10:14 11/13/16 21:20 Hydralazine HCl (Apresoline) 25 mg Q4HR PRN ORAL SBP>160 11/09/16 17:00 12/09/16 16:59 Lorazepam (Ativan) 1 mg Q4HR PRN ORAL For Anxiety 11/09/16 10:15 11/16/16 10:14 11/14/16 06:49 Magnesium Hydroxide (Mom) 30 ml DAILYPRN PRN ORAL Constipation 11/09/16 10:15 12/09/16 10:14 11/13/16 00:03 Multivitamins (Multivitamins) 1 tab DAILY ORAL 11/10/16 09:00 12/10/16 08:59 11/14/16 09:06 Mupirocin (Bactroban Oint) 1 applic THREE TIMES A DAY TOPIC 11/11/16 18:00 11/16/16 17:59 11/14/16 09:10 Oxycodone/ Acetaminophen (Percocet 10/325) 1 tab Q6H PRN ORAL severe pain 11/09/16 14:30 11/16/16 14:29 11/14/16 11:17 Paroxetine HCl (Paxil CR) 12.5 mg DAILY ORAL 11/09/16 12:00 12/09/16 11:59 11/14/16 09:06 Polyethylene Glycol (Miralax) 17 gm BEDTIME ORAL 11/12/16 21:00 12/12/16 20:59 11/12/16 22:28 Sennosides (Senokot) 8.6 mg BEDTIME ORAL 11/12/16 21:00 12/12/16 20:59 11/13/16 20:10 Thiamine HCl (Vitamin B1) 100 mg DAILY ORAL 11/10/16 09:00 12/10/16 08:59 11/14/16 09:06 Zolpidem Tartrate 5 mg 5 mg HSPRN PRN ORAL Insomnia 11/10/16 21:45 12/10/16 21:44 11/13/16 20:12 Angy Crane M.D. Nov 14, 2016 12:57
[2016-11-14] MEDS: cefTRIAXone 2 GM in D5W 110 ML IVPB SCH (13:07)
[2016-11-14] MEDS: Norco 5mg/325mg tab ORAL PRN (14:10)
--- NOTE | 2016-11-14 14:44 | Diagnostic Imaging Report ---
APPROVED REPORT CPT Code: 85669 Present Symptoms Comments: Pain BILATERAL: Imaging reveals a patent deep venous system bilaterally. There is no evidence of thrombus within the femoral, popliteal or tibial segments. The greater saphenous veins are also within normal limits. Doppler indicates normal spontaneous flow within these segments.
--- NOTE | 2016-11-14 15:00 | General Progress Note ---
Assessment/Plan Problem List: (1) Osteoarthritis of multiple joints ICD Codes: M15.9 - Osteoarthritis of multiple joints SNOMED: 25082412 (2) chronic pain (3) Lumbar radiculopathy ICD Codes: M54.16 - Radiculopathy, lumbar region SNOMED: 424033179 (4) UTI (lower urinary tract infection) ICD Codes: N39.0 - UTI (lower urinary tract infection) SNOMED: 3672378 Status: progressing Assessment/Plan r/o hydro djd afebrile uti sepsis hd stable Subjective ROS Limited/Unobtainable: Yes Allergies: Coded Allergies: PENICILLINS (Unverified Allergy, Severe, 11/09/16) AMITRIPTYLINE (Verified Allergy, Unknown, 10/19/13) [facility] from [facility] pt does not remember the reation. CHLORPROMAZINE (Verified Allergy, Unknown, 10/19/13) recorded from senior living. pt does not remember reaction. ERYTHROMYCIN BASE (Verified Allergy, Unknown, 10/19/13) recorded from senior living. pt does not remember reaction. HALOPERIDOL (Verified Allergy, Unknown, 10/19/13) recorded from senior living. pt does not remember reaction. QUETIAPINE (Verified Allergy, Unknown, 10/19/13) recorded from senior living. pt does not remember reaction. Objective Last 24 Hour Vital Signs Date Time Temp Pulse Resp B/P Pulse Ox O2 Delivery O2 Flow Rate FiO2 11/14/16 14:50 92 18 Room Air 11/14/16 14:45 87 18 Room Air 11/14/16 11:58 97.2 87 19 137/75 98 Room Air 11/14/16 11:10 Room Air 11/14/16 11:10 Room Air 11/14/16 09:17 91 102/66 11/14/16 09:00 91 102/66 11/14/16 08:00 97.7 93 18 110/63 96 Room Air 11/14/16 07:58 94 18 100 Room Air 11/14/16 07:50 94 18 96 Room Air 11/14/16 07:49 Room Air 11/14/16 07:48 96 Room Air 11/14/16 05:50 97.4 11/14/16 04:00 97.4 88 18 128/88 95 Room Air 11/14/16 03:17 84 18 100 Room Air 21 11/14/16 03:17 87 18 100 Room Air 21 11/14/16 00:10 97.6 11/13/16 23:53 97.6 89 18 105/72 93 Room Air 11/13/16 23:20 92 18 100 Room Air 21 11/13/16 23:20 93 18 98 Room Air 21 11/13/16 21:10 97.5 11/13/16 19:48 97.5 95 19 134/84 98 Room Air 11/13/16 19:40 99 18 100 Room Air 21 11/13/16 19:39 97 Room Air 21 11/13/16 19:39 104 18 97 Room Air 21 11/13/16 19:39 Room Air 21 11/13/16 15:50 97.2 91 20 150/89 94 Room Air 11/13/16 15:10 93 18 100 Room Air 11/13/16 15:03 96 18 97 Room Air 21 Intake and Output 11/13/16 11/14/16 19:00 07:00 Intake Total 900 ml 300 ml Balance 900 ml 300 ml Intake Oral 900 ml 300 ml # Voids 1 2 Height (Feet): 5 Height (Inches): 4.00 Weight (Pounds): 215 Cardiovascular: normal rate Respiratory/Chest: lungs clear Leela Diaz MD Nov 14, 2016 15:00
--- NOTE | 2016-11-14 15:02 | General Progress Note ---
Assessment/Plan Assessment/Plan ASSESSMENT/RECS: 1. Anemia secondary to chronic disease, currently mild. Continue to closely monitor, has decreased from 14.8 to currently 11.4. --> consider w/u if drops further 2. Leukocytosis likely secondary to underlying infection and urinary tract infection. --> improved 3. Monocytosis potentially secondary to underlying infection. 4. Coagulopathy potentially secondary to malnourishment. 5. Headache, being managed by Neurology service. 6. Degenerative cervical disc disease. Subjective Constitutional: Reports: no symptoms HEENT: Reports: no symptoms Cardiovascular: Reports: no symptoms Respiratory: Reports: no symptoms Genitourinary: Reports: no symptoms Neurologic/Psychiatric: Reports: no symptoms Endocrine: Reports: no symptoms Hematologic/Lymphatic: Reports: anemia Allergies: Coded Allergies: PENICILLINS (Unverified Allergy, Severe, 11/09/16) AMITRIPTYLINE (Verified Allergy, Unknown, 10/19/13) recorded from [facility]. pt does not remember the reation. CHLORPROMAZINE (Verified Allergy, Unknown, 10/19/13) recorded from [facility]. pt does not remember reaction. ERYTHROMYCIN BASE (Verified Allergy, Unknown, 10/19/13) recorded from [facility]. pt does not remember reaction. HALOPERIDOL (Verified Allergy, Unknown, 10/19/13) recorded from [facility]. pt does not remember reaction. QUETIAPINE (Verified Allergy, Unknown, 10/19/13) recorded from [facility]. pt does not remember reaction. Subjective stable, no bleeding noted Objective Last 24 Hour Vital Signs Date Time Temp Pulse Resp B/P Pulse Ox O2 Delivery O2 Flow Rate FiO2 11/14/16 14:50 92 18 Room Air 11/14/16 14:45 87 18 Room Air 11/14/16 11:58 97.2 87 19 137/75 98 Room Air 11/14/16 11:10 Room Air 11/14/16 11:10 Room Air 11/14/16 09:17 91 102/66 11/14/16 09:00 91 102/11/14/16 08:00 97.7 93 18 110/63 96 Room Air 11/14/16 07:58 94 18 100 Room Air 11/14/16 07:50 94 18 96 Room Air 11/14/16 07:49 Room Air 11/14/16 07:48 96 Room Air 11/14/16 05:50 97.4 11/14/16 04:00 97.4 88 18 128/88 95 Room Air 11/14/16 03:17 84 18 100 Room Air 21 11/14/16 03:17 87 18 100 Room Air 21 11/14/16 00:10 97.6 11/13/16 23:53 97.6 89 18 105/72 93 Room Air 11/13/16 23:20 92 18 100 Room Air 21 11/13/16 23:20 93 18 98 Room Air 21 11/13/16 21:10 97.5 11/13/16 19:48 97.5 95 19 134/84 98 Room Air 11/13/16 19:40 99 18 100 Room Air 21 11/13/16 19:39 97 Room Air 21 11/13/16 19:39 104 18 97 Room Air 21 11/13/16 19:39 Room Air 21 11/13/16 15:50 97.2 91 20 150/89 94 Room Air 11/13/16 15:10 93 18 100 Room Air 21 11/13/16 15:03 96 18 97 Room Air 21 Intake and Output 11/13/16 11/14/16 19:00 07:00 Intake Total 900 ml 300 ml Balance 900 ml 300 ml Intake Oral 900 ml 300 ml # Voids 1 2 Height (Feet): 5 Height (Inches): 4.00 Weight (Pounds): 215 General Appearance: alert EENT: normal ENT inspection Neck: normal inspection Cardiovascular: normal rate Respiratory/Chest: normal breath sounds Abdomen: normal bowel sounds Genitourinary/Rectal: heme negative stool Extremities: non-tender Edema: no edema noted Leg (L), no edema noted Leg (R) Edema: mild edema Neurologic: alert Skin: normal pigmentation Pa Rico Nov 14, 2016 15:02
--- NOTE | 2016-11-14 15:23 | Pulmonology Progress Note ---
Assessment/Plan Problems: (1) Bacteremia (2) Sepsis (3) copd (4) CHF (congestive heart failure), NYHA class I (5) Hypothyroidism (6) Lumbar radiculopathy (7) chronic pain Assessment/Plan improving abx ss per ID check cultures pt/ot in process dvt prophylaxis tolerating diet Subjective ROS Limited/Unobtainable: No Interval Events: late note for 11/12/ No new complains Allergies: Coded Allergies: PENICILLINS (Unverified Allergy, Severe, 11/09/16) AMITRIPTYLINE (Verified Allergy, Unknown, 10/19/13) recorded from [facility]. pt does not remember the reation. CHLORPROMAZINE (Verified Allergy, Unknown, 10/19/13) recorded from [facility]. pt does not remember reaction. ERYTHROMYCIN BASE (Verified Allergy, Unknown, 10/19/13) recorded from [facility]. pt does not remember reaction. HALOPERIDOL (Verified Allergy, Unknown, 10/19/13) recorded from [facility]. pt does not remember reaction. QUETIAPINE (Verified Allergy, Unknown, 10/19/13) recorded from [facility]. pt does not remember reaction. Objective Last 24 Hour Vital Signs Date Time Temp Pulse Resp B/P Pulse Ox O2 Delivery O2 Flow Rate FiO2 11/14/16 14:50 92 18 Room Air 11/14/16 14:45 87 18 Room Air 11/14/16 11:58 97.2 87 19 137/75 98 Room Air 11/14/16 11:10 Room Air 11/14/16 11:10 Room Air 11/14/16 09:17 91 102/66 11/14/16 09:00 91 102/66 11/14/16 08:00 97.7 93 18 110/63 96 Room Air 11/14/16 07:58 94 18 100 Room Air 11/14/16 07:50 94 18 96 Room Air 21 11/14/16 07:49 Room Air 21 11/14/16 07:48 96 Room Air 11/14/16 05:50 97.4 11/14/16 04:00 97.4 88 18 128/88 95 Room Air 11/14/16 03:17 84 18 100 Room Air 21 11/14/16 03:17 87 18 100 Room Air 21 11/14/16 00:10 97.6 11/13/16 23:53 97.6 89 18 105/72 93 Room Air 11/13/16 23:20 92 18 100 Room Air 21 11/13/16 23:20 93 18 98 Room Air 21 11/13/16 21:10 97.5 11/13/16 19:48 97.5 95 19 134/84 98 Room Air 11/13/16 19:40 99 18 100 Room Air 11/13/16 19:39 97 Room Air 11/13/16 19:39 104 18 97 Room Air 11/13/16 19:39 Room Air 21 11/13/16 15:50 97.2 91 20 150/89 94 Room Air Intake and Output 11/13/16 11/14/16 19:00 07:00 Intake Total 900 ml 300 ml Balance 900 ml 300 ml Intake Oral 900 ml 300 ml # Voids 1 2 General Appearance: WD/WN HEENT: normocephalic, atraumatic Respiratory/Chest: chest wall non-tender, lungs clear Breasts: no masses Cardiovascular: normal peripheral pulses, normal rate Abdomen: normal bowel sounds, soft, non tender Genitourinary: normal external genitalia Extremities: no cyanosis, no clubbing Skin: no ulcers 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, no motor/sensory deficits Lymphatic: no neck adenopathy, no groin adenopathy Current Medications Medications (Trade) Dose Ordered Sig/Kushal Route PRN Reason Start Time Stop Time Status Last Admin Dose Admin Acetaminophen (Tylenol) 650 mg Q4H PRN ORAL Mild Pain/Temp > 100.5 11/09/16 10:15 12/09/16 10:14 11/11/16 00:19 Acetaminophen/ Hydrocodone Bitart ([place] 5/325) 1 tab Q6H PRN ORAL Moderate Pain (Pain Scale 4-6) 11/09/16 10:59 11/16/16 10:14 11/14/16 14:10 Albuterol Sulfate (Proventil MDI) 2 puff Q4H PRN INH Shortness of Breath 11/09/16 10:15 12/09/16 10:14 Albuterol Sulfate (Proventil) 2.5 mg Q4HRT HHN 11/11/16 23:00 11/16/16 22:59 11/14/16 14:45 Amlodipine Besylate (Norvasc) 2.5 mg DAILY ORAL 11/11/16 09:00 12/11/16 08:59 11/11/16 08:17 Aripiprazole (Abilify) 2.5 mg DAILY ORAL 11/09/16 12:00 12/09/16 11:59 11/10/16 09:43 Ascorbic Acid (Vitamin C) 500 mg TWICE A DAY ORAL 11/09/16 18:00 12/09/16 17:59 11/14/16 09:07 Aspirin (ASA) 325 mg Q6HR PRN ORAL Temp >100.5 11/09/16 23:00 12/09/16 22:59 11/09/16 23:12 Ceftriaxone Sodium/Dextrose (Rocephin/D5W) 110 ml @ 220 mls/hr Q24H IVPB 11/11/16 13:00 11/18/16 12:59 11/14/16 13:07 Cyclobenzaprine HCl (Flexeril) 10 mg BEDTIME ORAL 11/11/16 21:00 12/11/16 20:59 11/13/16 20:11 Diphenhydramine HCl (Benadryl) 50 mg HSPRN PRN ORAL Itching/Pruritis 11/09/16 10:15 12/09/16 10:14 11/13/16 21:19 Divalproex Sodium (Depakote ER) 500 mg EVERY 12 HOURS ORAL 11/09/16 12:00 12/09/16 11:59 11/14/16 09:06 Guaifenesin/ Codeine Phosphate (Robitussin with codeine) 10 ml Q4HR PRN ORAL For Cough 11/09/16 10:15 12/09/16 10:14 11/13/16 21:20 Hydralazine HCl (Apresoline) 25 mg Q4HR PRN ORAL SBP>160 11/09/16 17:00 12/09/16 16:59 Lorazepam (Ativan) 1 mg Q4HR PRN ORAL For Anxiety 11/09/16 10:15 11/16/16 10:14 11/14/16 06:49 Magnesium Hydroxide (Mom) 30 ml DAILYPRN PRN ORAL Constipation 11/09/16 10:15 12/09/16 10:14 11/13/16 00:03 Multivitamins (Multivitamins) 1 tab DAILY ORAL 11/10/16 09:00 12/10/16 08:59 11/14/16 09:06 Mupirocin (Bactroban Oint) 1 applic THREE TIMES A DAY TOPIC 11/11/16 18:00 11/16/16 17:59 11/14/16 13:13 Oxycodone/ Acetaminophen (Percocet 10/325) 1 tab Q6H PRN ORAL severe pain 11/09/16 14:30 11/16/16 14:29 11/14/16 11:17 Paroxetine HCl (Paxil CR) 12.5 mg DAILY ORAL 11/09/16 12:00 12/09/16 11:59 11/14/16 09:06 Polyethylene Glycol (Miralax) 17 gm BEDTIME ORAL 11/12/16 21:00 12/12/16 20:59 11/12/16 22:28 Sennosides (Senokot) 8.6 mg BEDTIME ORAL 11/12/16 21:00 12/12/16 20:59 11/13/16 20:10 Thiamine HCl (Vitamin B1) 100 mg DAILY ORAL 11/10/16 09:00 12/10/16 08:59 11/14/16 09:06 Zolpidem Tartrate 5 mg 5 mg HSPRN PRN ORAL Insomnia 11/10/16 21:45 12/10/16 21:44 11/13/16 20:12 CONOR WYLIE Nov 14, 2016 15:23
--- NOTE | 2016-11-14 15:25 | Pulmonology Progress Note ---
Assessment/Plan Problems: (1) Bacteremia (2) Sepsis (3) copd (4) CHF (congestive heart failure), NYHA class I (5) Hypothyroidism (6) Lumbar radiculopathy (7) chronic pain Assessment/Plan improving abx ss per ID, Rochephine q 24 hours check cultures pt/ot in process dvt prophylaxis tolerating diet Subjective ROS Limited/Unobtainable: No Interval Events: new complains Allergies: Coded Allergies: PENICILLINS (Unverified Allergy, Severe, 11/09/16) AMITRIPTYLINE (Verified Allergy, Unknown, 10/19/13) recorded from [facility]. pt does not remember the reation. CHLORPROMAZINE (Verified Allergy, Unknown, 10/19/13) recorded from senior care. pt does not remember reaction. ERYTHROMYCIN BASE (Verified Allergy, Unknown, 10/19/13) recorded from senior care. pt does not remember reaction. HALOPERIDOL (Verified Allergy, Unknown, 10/19/13) recorded from senior care. pt does not remember reaction. QUETIAPINE (Verified Allergy, Unknown, 10/19/13) recorded from senior care. pt does not remember reaction. Objective Last 24 Hour Vital Signs Date Time Temp Pulse Resp B/P Pulse Ox O2 Delivery O2 Flow Rate FiO2 11/14/16 14:50 92 18 Room Air 11/14/16 14:45 87 18 Room Air 11/14/16 11:58 97.2 87 19 137/75 98 Room Air 11/14/16 11:10 Room Air 11/14/16 11:10 Room Air 11/14/16 09:17 91 102/66 11/14/16 09:00 91 102/66 11/14/16 08:00 97.7 93 18 110/63 96 Room Air 11/14/16 07:58 94 18 100 Room Air 21 11/14/16 07:50 94 18 96 Room Air 11/14/16 07:49 Room Air 21 11/14/16 07:48 96 Room Air 11/14/16 05:50 97.4 11/14/16 04:00 97.4 88 18 128/88 95 Room Air 11/14/16 03:17 84 18 100 Room Air 11/14/16 03:17 87 18 100 Room Air 11/14/16 00:10 97.6 11/13/16 23:53 97.6 89 18 105/72 93 Room Air 11/13/16 23:20 92 18 100 Room Air 21 11/13/16 23:20 93 18 98 Room Air 21 11/13/16 21:10 97.5 11/13/16 19:48 97.5 95 19 134/84 98 Room Air 11/13/16 19:40 99 18 100 Room Air 11/13/16 19:39 97 Room Air 11/13/16 19:39 104 18 97 Room Air 21 11/13/16 19:39 Room Air 11/13/16 15:50 97.2 91 20 150/89 94 Room Air Intake and Output 11/13/16 11/14/16 19:00 07:00 Intake Total 900 ml 300 ml Balance 900 ml 300 ml Intake Oral 900 ml 300 ml # Voids 1 2 General Appearance: WD/WN HEENT: normocephalic, atraumatic Respiratory/Chest: chest wall non-tender, lungs clear Cardiovascular: normal peripheral pulses, normal rate, regular rhythm Abdomen: normal bowel sounds, soft, non tender Extremities: no cyanosis, no clubbing 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 Current Medications Medications (Trade) Dose Ordered Sig/Kushal Route PRN Reason Start Time Stop Time Status Last Admin Dose Admin Acetaminophen (Tylenol) 650 mg Q4H PRN ORAL Mild Pain/Temp > 100.5 11/09/16 10:15 12/09/16 10:14 11/11/16 00:19 Acetaminophen/ Hydrocodone Bitart ([place] 5/325) 1 tab Q6H PRN ORAL Moderate Pain (Pain Scale 4-6) 11/09/16 10:59 11/16/16 10:14 11/14/16 14:10 Albuterol Sulfate (Proventil MDI) 2 puff Q4H PRN INH Shortness of Breath 11/09/16 10:15 12/09/16 10:14 Albuterol Sulfate (Proventil) 2.5 mg Q4HRT HHN 11/11/16 23:00 11/16/16 22:59 11/14/16 14:45 Amlodipine Besylate (Norvasc) 2.5 mg DAILY ORAL 11/11/16 09:00 12/11/16 08:59 11/11/16 08:17 Aripiprazole (Abilify) 2.5 mg DAILY ORAL 11/09/16 12:00 12/09/16 11:59 11/10/16 09:43 Ascorbic Acid (Vitamin C) 500 mg TWICE A DAY ORAL 11/09/16 18:00 12/09/16 17:59 11/14/16 09:07 Aspirin (ASA) 325 mg Q6HR PRN ORAL Temp >100.5 11/09/16 23:00 12/09/16 22:59 11/09/16 23:12 Ceftriaxone Sodium/Dextrose (Rocephin/D5W) 110 ml @ 220 mls/hr Q24H IVPB 11/11/16 13:00 11/18/16 12:59 11/14/16 13:07 Cyclobenzaprine HCl (Flexeril) 10 mg BEDTIME ORAL 11/11/16 21:00 12/11/16 20:59 11/13/16 20:11 Diphenhydramine HCl (Benadryl) 50 mg HSPRN PRN ORAL Itching/Pruritis 11/09/16 10:15 12/09/16 10:14 11/13/16 21:19 Divalproex Sodium (Depakote ER) 500 mg EVERY 12 HOURS ORAL 11/09/16 12:00 12/09/16 11:59 11/14/16 09:06 Guaifenesin/ Codeine Phosphate (Robitussin with codeine) 10 ml Q4HR PRN ORAL For Cough 11/09/16 10:15 12/09/16 10:14 11/13/16 21:20 Hydralazine HCl (Apresoline) 25 mg Q4HR PRN ORAL SBP>160 11/09/16 17:00 12/09/16 16:59 Lorazepam (Ativan) 1 mg Q4HR PRN ORAL For Anxiety 11/09/16 10:15 11/16/16 10:14 11/14/16 06:49 Magnesium Hydroxide (Mom) 30 ml DAILYPRN PRN ORAL Constipation 11/09/16 10:15 12/09/16 10:14 11/13/16 00:03 Multivitamins (Multivitamins) 1 tab DAILY ORAL 11/10/16 09:00 12/10/16 08:59 11/14/16 09:06 Mupirocin (Bactroban Oint) 1 applic THREE TIMES A DAY TOPIC 11/11/16 18:00 11/16/16 17:59 11/14/16 13:13 Oxycodone/ Acetaminophen (Percocet 10/325) 1 tab Q6H PRN ORAL severe pain 11/09/16 14:30 11/16/16 14:29 11/14/16 11:17 Paroxetine HCl (Paxil CR) 12.5 mg DAILY ORAL 11/09/16 12:00 12/09/16 11:59 11/14/16 09:06 Polyethylene Glycol (Miralax) 17 gm BEDTIME ORAL 11/12/16 21:00 12/12/16 20:59 11/12/16 22:28 Sennosides (Senokot) 8.6 mg BEDTIME ORAL 11/12/16 21:00 12/12/16 20:59 11/13/16 20:10 Thiamine HCl (Vitamin B1) 100 mg DAILY ORAL 11/10/16 09:00 12/10/16 08:59 11/14/16 09:06 Zolpidem Tartrate 5 mg 5 mg HSPRN PRN ORAL Insomnia 11/10/16 21:45 12/10/16 21:44 11/13/16 20:12 CONOR WYLIE Nov 14, 2016 15:25
--- NOTE | 2016-11-14 15:28 | Pulmonology Progress Note ---
Assessment/Plan Problems: (1) Bacteremia (2) Sepsis (3) copd (4) CHF (congestive heart failure), NYHA class I (5) Hypothyroidism (6) Lumbar radiculopathy (7) chronic pain Assessment/Plan improving abx ss per ID, Rochephine q 24 hours check cultures pt/ot in process dvt prophylaxis tolerating diet dc planning cbc in am Subjective ROS Limited/Unobtainable: No Interval Events: still in pain, wants her pain meds to be increased Allergies: Coded Allergies: PENICILLINS (Unverified Allergy, Severe, 11/09/16) AMITRIPTYLINE (Verified Allergy, Unknown, 10/19/13) recorded from [facility]. pt does not remember the reation. CHLORPROMAZINE (Verified Allergy, Unknown, 10/19/13) recorded from [facility]. pt does not remember reaction. ERYTHROMYCIN BASE (Verified Allergy, Unknown, 10/19/13) recorded from [facility]. pt does not remember reaction. HALOPERIDOL (Verified Allergy, Unknown, 10/19/13) recorded from [facility]. pt does not remember reaction. QUETIAPINE (Verified Allergy, Unknown, 10/19/13) recorded from [facility]. pt does not remember reaction. Objective Last 24 Hour Vital Signs Date Time Temp Pulse Resp B/P Pulse Ox O2 Delivery O2 Flow Rate FiO2 11/14/16 14:50 92 18 Room Air 11/14/16 14:45 87 18 Room Air 11/14/16 11:58 97.2 87 19 137/75 98 Room Air 11/14/16 11:10 Room Air 11/14/16 11:10 Room Air 11/14/16 09:17 91 102/66 11/14/16 09:00 91 102/66 11/14/16 08:00 97.7 93 18 110/63 96 Room Air 11/14/16 07:58 94 18 100 Room Air 11/14/16 07:50 94 18 96 Room Air 11/14/16 07:49 Room Air 11/14/16 07:48 96 Room Air 11/14/16 05:50 97.4 11/14/16 04:00 97.4 88 18 128/88 95 Room Air 11/14/16 03:17 84 18 100 Room Air 21 11/14/16 03:17 87 18 100 Room Air 11/14/16 00:10 97.6 11/13/16 23:53 97.6 89 18 105/72 93 Room Air 11/13/16 23:20 92 18 100 Room Air 21 11/13/16 23:20 93 18 98 Room Air 21 11/13/16 21:10 97.5 11/13/16 19:48 97.5 95 19 134/84 98 Room Air 11/13/16 19:40 99 18 100 Room Air 11/13/16 19:39 97 Room Air 11/13/16 19:39 104 18 97 Room Air 21 11/13/16 19:39 Room Air 11/13/16 15:50 97.2 91 20 150/89 94 Room Air Intake and Output 11/13/16 11/14/16 19:00 07:00 Intake Total 900 ml 300 ml Balance 900 ml 300 ml Intake Oral 900 ml 300 ml # Voids 1 2 Objective General Appearance: WD/WN HEENT: normocephalic, atraumatic Respiratory/Chest: chest wall non-tender, lungs clear Breasts: no masses Cardiovascular: normal peripheral pulses, normal rate Abdomen: normal bowel sounds, soft, non tender Genitourinary: normal external genitalia Extremities: no cyanosis, no clubbing Skin: no ulcers 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5 mg Q4HRT HHN 11/11/16 23:00 11/16/16 22:59 11/14/16 14:45 Amlodipine Besylate (Norvasc) 2.5 mg DAILY ORAL 11/11/16 09:00 12/11/16 08:59 11/11/16 08:17 Aripiprazole (Abilify) 2.5 mg DAILY ORAL 11/09/16 12:00 12/09/16 11:59 11/10/16 09:43 Ascorbic Acid (Vitamin C) 500 mg TWICE A DAY ORAL 11/09/16 18:00 12/09/16 17:59 11/14/16 09:07 Aspirin (ASA) 325 mg Q6HR PRN ORAL Temp >100.5 11/09/16 23:00 12/09/16 22:59 11/09/16 23:12 Ceftriaxone Sodium/Dextrose (Rocephin/D5W) 110 ml @ 220 mls/hr Q24H IVPB 11/11/16 13:00 11/18/16 12:59 11/14/16 13:07 Cyclobenzaprine HCl (Flexeril) 10 mg BEDTIME ORAL 11/11/16 21:00 12/11/16 20:59 11/13/16 20:11 Diphenhydramine HCl (Benadryl) 50 mg HSPRN PRN ORAL Itching/Pruritis 11/09/16 10:15 12/09/16 10:14 11/13/16 21:19 Divalproex Sodium (Depakote ER) 500 mg EVERY 12 HOURS ORAL 11/09/16 12:00 12/09/16 11:59 11/14/16 09:06 Guaifenesin/ Codeine Phosphate (Robitussin with codeine) 10 ml Q4HR PRN ORAL For Cough 11/09/16 10:15 12/09/16 10:14 11/13/16 21:20 Hydralazine HCl (Apresoline) 25 mg Q4HR PRN ORAL SBP>160 11/09/16 17:00 12/09/16 16:59 Lorazepam (Ativan) 1 mg Q4HR PRN ORAL For Anxiety 11/09/16 10:15 11/16/16 10:14 11/14/16 06:49 Magnesium Hydroxide (Mom) 30 ml DAILYPRN PRN ORAL Constipation 11/09/16 10:15 12/09/16 10:14 11/13/16 00:03 Multivitamins (Multivitamins) 1 tab DAILY ORAL 11/10/16 09:00 12/10/16 08:59 11/14/16 09:06 Mupirocin (Bactroban Oint) 1 applic THREE TIMES A DAY TOPIC 11/11/16 18:00 11/16/16 17:59 11/14/16 13:13 Oxycodone/ Acetaminophen (Percocet 10/325) 1 tab Q6H PRN ORAL severe pain 11/09/16 14:30 11/16/16 14:29 11/14/16 11:17 Paroxetine HCl (Paxil CR) 12.5 mg DAILY ORAL 11/09/16 12:00 12/09/16 11:59 11/14/16 09:06 Polyethylene Glycol (Miralax) 17 gm BEDTIME ORAL 11/12/16 21:00 12/12/16 20:59 11/12/16 22:28 Sennosides (Senokot) 8.6 mg BEDTIME ORAL 11/12/16 21:00 12/12/16 20:59 11/13/16 20:10 Thiamine HCl (Vitamin B1) 100 mg DAILY ORAL 11/10/16 09:00 12/10/16 08:59 11/14/16 09:06 Zolpidem Tartrate 5 mg 5 mg HSPRN PRN ORAL Insomnia 11/10/16 21:45 12/10/16 21:44 11/13/16 20:12 CONOR WYLIE Nov 14, 2016 15:28
[2016-11-14 15:41] VITALS: BP 123/79
--- NOTE | 2016-11-14 19:55 | Neurology Progress Note ---
Interim History Interim History Interim History Ms. Munguia feels better generally. The headache is almost gone. The neck discomfort is also almost gone. She says she refused to take the Flexeril last night for no reason! She has been breathing better. The mind is clear. She has noticed no new neurologic symptoms. She is feeling that her cognitive function has returned to normal. She has walked to the bathroom a few times. Review of Systems Neuro Review of Systems Benign. Objective Physical Exam Last Vital Signs Date Time Temp Pulse Resp B/P Pulse Ox O2 Delivery O2 Flow Rate FiO2 11/14/16 19:43 82 18 100 Room Air 21 11/14/16 15:41 97.0 123/79 11/12/16 23:18 2.0 Neurologic Exam Objective PHYSICAL EXAMINATION: GENERAL: She is a well-developed, well-nourished, obese, black lady, lying in bed, in no acute distress. HEAD: Normocephalic and atraumatic. NECK: No neck rigidity was observed. She did have mild G Trace/4 cervical paraspinal muscle and trapezius spasm. EENT: Examination is benign. NEUROLOGICAL EXAMINATION: MENTAL STATUS EXAMINATION: She was alert and awake. She was oriented to person, place, and time. She was able to recall 3/3 words immediately after 1 minute and after 3 minutes. She was able to remember presidents, Trump through Izquierdo Sr. Her mathematical skills were fairly good. Her visuospatial function was preserved. SPEECH: She had no dysarthria. LANGUAGE: She had no aphasia. CRANIAL NERVE EXAMINATION: II: The visual mireles were intact on confrontation testing III, IV & : External ocular movements were full and the pupils 3 mm in diameter, equal, round, regular, and reactive to light. V: She had normal facial sensations and the temporales, masseters, and pterygoids function normally. VII: She had normal facial expressions and no facial asymmetry. VIII: She was able to hear well bilaterally and had no nystagmus. IX: The palate moved symmetrically on phonation. X: She had no hoarseness of voice. XI: The sternocleidomastoids and trapezii functioned normally. XII: The tongue was in the midline without any fasciculations or atrophy. MOTOR SYSTEM: The tone was normal in all four extremities. Examination of muscle mass revealed no focal wasting. Examination of power revealed grade 5/5 power in all muscle groups tested. SENSORY EXAMINATION: She had intact sensations to pinprick, light touch, and graphesthesia. COORDINATION: She performed well on [id number] testing. REFLEXES: Trace+ and bilaterally symmetrical at the biceps, triceps, brachioradialis, and knees and 0 at both ankles. The plantar responses were flexor bilaterally. STANCE & GAIT: Steady. Impression/Recommendations Diagnostic Impression 1. Ms. Susy Munguia is a 71-year-old, right-handed, black lady, who does have a past history of bipolar affective disorder, gastric bypass, gastric tumor , kidney infections, a brief period of hemodialysis numerous years ago, hypertension, chronic obstructive pulmonary disease, and gastroesophageal reflux disease who was hospitalized for fevers, chills, and altered mental state. She was evaluated in the [facility] emergency room and was discovered to have pyelonephritis. She has been treated for this with appropriate antibiotics and fluids, and has improved. When she came in, her mental state was quite altered, but it seems to have improved since then. 2. She feels much better The mind continues to be clear. Her headache is almost gone. She denies any new neurologic symptoms. 3. On neurological examination, at this time, she is mildly disoriented to the exact date, has minimal G Trace/4 cervical paraspinal muscle and trapezius spasm , has globally diminished reflexes, but the rest of the neurological examination is essentially benign. 4. Laboratory data on my initial evaluation revealed that her WBC count was elevated to 14,500 and her potassium was low at 3.3. She had an anion gap of 16. Her glucose was elevated to 110. Her albumin was down at 3.4. Her urinalysis reveals 3+ leukocyte esterase, 5-10 red blood cells per high-power field, too numerous to count white blood cells per high-power field, and a few urinary bacteria. 5. Further laboratory tests have revealed no treatable causes of altered mental state. 6. The patient's history and neurological examination are most compatible with a delirium due to possible pyelonephritis, which is now significantly better with treatment of the infection.. 7. Her headaches are most probably muscle contraction headaches - significantly better today. Recommendations 1. Continue present management. 2. Continue to treat the patient's pyelonephritis in an aggressive manner. 3. Mobilize rapidly. 4. Patient told to take Flexeril 10 mg q HS for at least 7 nights even though her headaches are much better.. Nai Maddox M.D., M.S.P.H. NAI MADDOX Nov 14, 2016 19:55
[2016-11-14 20:00] VITALS: BP 121/77
[2016-11-14] MEDS: Miralax 17gm pkt ORAL SCH (21:00)
[2016-11-14] MEDS: Cyclobenzaprine 10mg Tab ORAL SCH (21:03)
[2016-11-14] MEDS: Zolpidem 5mg tab ORAL PRN (21:05)
[2016-11-14] MEDS: Norco 10mg/325mg tab ORAL PRN (21:06)
[2016-11-15] VITALS: BP 113/70
[2016-11-15] MEDS: Albuterol ud Inhalation HHN SCH ×5 (03:57→19:14)
[2016-11-15 04:41] VITALS: BP 118/82
[2016-11-15 07:41] LABS: BASOPHILS % (AUTO) 3.2 % (0.0-2.0); EOSINOPHILS % (AUTO) 2.4 % (0.0-3.0); LYMPHOCYTES % (AUTO) 16.8 % (20.0-45.0); MEAN CORPUSCULAR HEMOGLOBIN 31.8 PG (27.0-31.0); MEAN CORPUSCULAR HGB CONC 31.8 G/DL (32.0-36.0); MEAN CORPUSCULAR VOLUME 100 FL (80-99); MEAN PLATELET VOLUME 7.4 FL (6.5-10.1); MONOCYTES % (AUTO) 19.2 % (1.0-10.0); NEUTROPHILS % (AUTO) 58.4 % (45.0-75.0); PLATELET COUNT 174 K/UL (150-450); RED BLOOD COUNT 3.28 M/UL (4.20-5.40); RED CELL DISTRIBUTION WIDTH 13.3 % (11.6-14.8); WHITE BLOOD COUNT 9.3 K/UL (4.8-10.8)
[2016-11-15 07:54] VITALS: BP 117/98
[2016-11-15] MEDS: Depakote ER 500mg tab ORAL SCH (08:00)
[2016-11-15] MEDS: PAROXETINE 12.5 MG ORAL SCH (08:00)
[2016-11-15] MEDS: Ascorbic Acid 500mg tab ORAL SCH ×2 (08:00→17:43)
[2016-11-15] MEDS: Thiamine 100mg tab ORAL SCH (08:01)
[2016-11-15 08:12] LABS: ALANINE AMINOTRANSFERASE 13 U/L (3-33); ALBUMIN/GLOBULIN RATIO 0.8 (1.0-2.7); ANION GAP 17 (5-15); ASPARTATE AMINO TRANSFERASE 15 U/L (5-40); CALCIUM 8.6 mg/dL (8.6-10.2); CARBON DIOXIDE 25 mEQ/L (20-30); CHLORIDE 101 mEQ/L (98-107); CREATININE 0.6 mg/dL (0.5-0.9); GLOMERULAR FILTRATION RATE > 60 mL/min (>60); HEMOLYSIS 19; MAGNESIUM 1.8 mg/dL (1.7-2.5); PHOSPHORUS 4.4 mg/dL (2.5-4.8); POTASSIUM 4.6 mEQ/L (3.4-4.9); SODIUM 143 mEQ/L (135-145); TOTAL PROTEIN 6.2 g/dL (6.6-8.7)
--- NOTE | 2016-11-15 08:39 | General Progress Note ---
Assessment/Plan Assessment/Plan (1) Degenerative cervical disc (2) Lumbar radiculopathy (3) Lumbar degenerative disc disease (4) chronic pain (5) Osteoarthritis of multiple joints Pt will be continued on [place] and Percocet Pt was d/w Dr. Caldwell and he concurred. Subjective Date patient seen: Nov 15, 2016 Time patient seen: 06:15 - am Allergies: Coded Allergies: PENICILLINS (Unverified Allergy, Severe, 11/09/16) AMITRIPTYLINE (Verified Allergy, Unknown, 10/19/13) recorded from [facility]. pt does not remember the reation. CHLORPROMAZINE (Verified Allergy, Unknown, 10/19/13) recorded from [facility]. pt does not remember reaction. ERYTHROMYCIN BASE (Verified Allergy, Unknown, 10/19/13) recorded from [facility]. pt does not remember reaction. HALOPERIDOL (Verified Allergy, Unknown, 10/19/13) recorded from [facility]. pt does not remember reaction. QUETIAPINE (Verified Allergy, Unknown, 10/19/13) recorded from [facility]. pt does not remember reaction. Subjective Constitutional: Denies: no symptoms, chills, diaphoresis, fever, malaise, weakness, other HEENT: Denies: no symptoms, eye pain, blurred vision, tearing, double vision, ear pain, ear discharge, nose pain, nose congestion, throat pain, throat swelling, mouth pain, mouth swelling, other Cardiovascular: Denies: no symptoms, chest pain, edema, irregular heart rate, lightheadedness, palpitations, syncope, other Respiratory: Denies: no symptoms, cough, orthopnea, shortness of breath, SOB with excertion, SOB at rest, sputum, stridor, wheezing, other Gastrointestinal/Abdominal: Denies: no symptoms, abdomen distended, abdominal pain, black stools, tarry stools, blood in stool, constipated, diarrhea, difficulty swallowing, nausea, poor appetite, poor fluid intake, rectal bleeding , vomiting, other Genitourinary: Denies: no symptoms, burning, discharge, frequency, flank pain, hematuria, incontinence, pain, urgency, other Neurologic/Psychiatric: Reports: depressed, emotional problems Endocrine: Denies: no symptoms, excessive sweating, flushing, intolerance to cold, intolerance to heat, increased hunger, increased thirst, increased urine, unexplained weight gain, unexplained weight loss, other Hematologic/Lymphatic: Denies: no symptoms, anemia, easy bleeding, easy bruising, other Subjective She is comfortable at this time, however last night pain was not tolerated and [place] was increased to 10 mg and now she is comfortable.. Objective Last 24 Hour Vital Signs Date Time Temp Pulse Resp B/P Pulse Ox O2 Delivery O2 Flow Rate FiO2 11/15/16 08:01 99 117/98 11/15/16 07:54 97.8 99 20 117/98 98 Room Air 11/15/16 07:48 95 16 Room Air 11/15/16 07:46 95 16 98 Room Air 11/15/16 07:45 98 11/15/16 04:41 97.8 96 20 118/82 94 Nasal Cannula 2.0 11/15/16 03:28 97.7 11/15/16 03:20 91 18 100 Room Air 11/15/16 03:10 85 18 97 Room Air 11/15/16 00:00 97.7 101 18 113/70 100 Room Air 11/14/16 23:41 87 18 100 Room Air 11/14/16 23:34 92 18 96 Room Air 11/14/16 22:05 97.0 11/14/16 22:05 97.0 11/14/16 20:00 98.1 84 18 121/77 96 Room Air 11/14/16 19:43 82 18 100 Room Air 11/14/16 19:36 86 18 97 Room Air 11/14/16 19:35 Room Air 11/14/16 19:35 97 Room Air 11/14/16 15:41 97.0 95 18 123/79 Room Air 11/14/16 14:50 92 18 Room Air 11/14/16 14:45 87 18 Room Air 11/14/16 11:58 97.2 87 19 137/75 98 Room Air 11/14/16 11:10 Room Air 11/14/16 11:10 Room Air 11/14/16 09:17 91 102/66 11/14/16 09:00 91 102/66 Intake and Output 11/14/16 11/15/16 19:00 07:00 Intake Total 360 ml 360 ml Balance 360 ml 360 ml Intake Oral 360 ml 360 ml # Voids 3 Laboratory Tests 11/15/16 05:25: White Blood Count 9.3, Red Blood Count 3.28L, Hemoglobin 10.4L, Hematocrit 32.8L , Mean Corpuscular Volume 100H, Mean Corpuscular Hemoglobin 31.8H, Mean Corpuscular Hemoglobin Concent 31.8L, Red Cell Distribution Width 13.3, Platelet Count 174, Mean Platelet Volume 7.4, Neutrophils (%) (Auto) 58.4, Lymphocytes (%) (Auto) 16.8L, Monocytes (%) (Auto) 19.2H, Eosinophils (%) (Auto ) 2.4, Basophils (%) (Auto) 3.2H, Sodium Level 143, Potassium Level 4.6, Chloride Level 101, Carbon Dioxide Level 25, Anion Gap 17H, Blood Urea Nitrogen 12, Creatinine 0.6, Estimat Glomerular Filtration Rate > 60, Glucose Level 73L, Calcium Level 8.6, Phosphorus Level 4.4, Magnesium Level 1.8, Total Bilirubin < 0.2, Aspartate Amino Transf (AST/SGOT) 15, Alanine Aminotransferase (ALT/SGPT) 13, Alkaline Phosphatase 77, Total Protein 6.2L, Albumin 2.9L, Globulin 3.3, Albumin/Globulin Ratio 0.8L Height (Feet): 5 Height (Inches): 4.00 Weight (Pounds): 215 Objective General Appearance: WD/WN EENT: PERRL/EOMI Neck: supple Cardiovascular: normal rate, regular rhythm Respiratory/Chest: decreased breath sounds Abdomen: non tender, soft Extremities: non-tender Edema: no edema noted Arm (L), no edema noted Arm (R), no edema noted Leg (L), no edema noted Leg (R), no edema noted Pedal (L), no edema noted Pedal (R), no edema noted Generalized Neurologic: crown buffer II-XII grossly normal, alert, oriented x 3 SARAY MARS Nov 15, 2016 08:39
[2016-11-15] MEDS: Norco 10mg/325mg tab ORAL PRN ×2 (10:19→16:49)
--- NOTE | 2016-11-15 11:08 | General Progress Note ---
Assessment/Plan Status: stable Assessment/Plan status; HTN- bp now is running low HypoKalemia Obesity- UTI / Pyelo Psych Plan: Adjust BP meds- Stop Lasix- fluid challenge K supplements Monitor BP and renal parameters Subjective ROS Limited/Unobtainable: No Constitutional: Reports: malaise Allergies: Coded Allergies: PENICILLINS (Unverified Allergy, Severe, 11/09/16) AMITRIPTYLINE (Verified Allergy, Unknown, 10/19/13) recorded from [facility]. pt does not remember the reation. CHLORPROMAZINE (Verified Allergy, Unknown, 10/19/13) recorded from [facility]. pt does not remember reaction. ERYTHROMYCIN BASE (Verified Allergy, Unknown, 10/19/13) recorded from [facility]. pt does not remember reaction. HALOPERIDOL (Verified Allergy, Unknown, 10/19/13) recorded from [facility]. pt does not remember reaction. QUETIAPINE (Verified Allergy, Unknown, 10/19/13) recorded from [facility]. pt does not remember reaction. Objective Last 24 Hour Vital Signs Date Time Temp Pulse Resp B/P Pulse Ox O2 Delivery O2 Flow Rate FiO2 11/15/16 08:59 97.8 11/15/16 08:01 99 117/98 11/15/16 07:54 97.8 99 20 117/98 98 Room Air 11/15/16 07:48 95 16 Room Air 11/15/16 07:46 95 16 98 Room Air 11/15/16 07:45 98 11/15/16 04:41 97.8 96 20 118/82 94 Nasal Cannula 2.0 11/15/16 03:20 91 18 100 Room Air 11/15/16 03:10 85 18 97 Room Air 11/15/16 00:00 97.7 101 18 113/70 100 Room Air 11/14/16 23:41 87 18 100 Room Air 11/14/16 23:34 92 18 96 Room Air 11/14/16 22:05 97.0 11/14/16 22:05 97.0 11/14/16 20:00 98.1 84 18 121/77 96 Room Air 11/14/16 19:43 82 18 100 Room Air 11/14/16 19:36 86 18 97 Room Air 11/14/16 19:35 Room Air 11/14/16 19:35 97 Room Air 21 11/14/16 15:41 97.0 95 18 123/79 Room Air 11/14/16 14:50 92 18 Room Air 21 11/14/16 14:45 87 18 Room Air 21 11/14/16 11:58 97.2 87 19 137/75 98 Room Air 11/14/16 11:10 Room Air 11/14/16 11:10 Room Air Intake and Output 11/14/16 11/15/16 19:00 07:00 Intake Total 360 ml 360 ml Balance 360 ml 360 ml Intake Oral 360 ml 360 ml # Voids 3 Laboratory Tests 11/15/16 05:25: White Blood Count 9.3, Red Blood Count 3.28L, Hemoglobin 10.4L, Hematocrit 32.8L , Mean Corpuscular Volume 100H, Mean Corpuscular Hemoglobin 31.8H, Mean Corpuscular Hemoglobin Concent 31.8L, Red Cell Distribution Width 13.3, Platelet Count 174, Mean Platelet Volume 7.4, Neutrophils (%) (Auto) 58.4, Lymphocytes (%) (Auto) 16.8L, Monocytes (%) (Auto) 19.2H, Eosinophils (%) (Auto ) 2.4, Basophils (%) (Auto) 3.2H, Sodium Level 143, Potassium Level 4.6, Chloride Level 101, Carbon Dioxide Level 25, Anion Gap 17H, Blood Urea Nitrogen 12, Creatinine 0.6, Estimat Glomerular Filtration Rate > 60, Glucose Level 73L, Calcium Level 8.6, Phosphorus Level 4.4, Magnesium Level 1.8, Total Bilirubin < 0.2, Aspartate Amino Transf (AST/SGOT) 15, Alanine Aminotransferase (ALT/SGPT) 13, Alkaline Phosphatase 77, Total Protein 6.2L, Albumin 2.9L, Globulin 3.3, Albumin/Globulin Ratio 0.8L Height (Feet): 5 Height (Inches): 4.00 Weight (Pounds): 215 General Appearance: no apparent distress Objective other PE not changed MICHAEL DE LA ROSA Nov 15, 2016 11:08
[2016-11-15 11:27] VITALS: BP 109/73
--- NOTE | 2016-11-15 11:48 | General Progress Note ---
Assessment/Plan Problem List: (1) UTI (lower urinary tract infection) ICD Codes: N39.0 - UTI (lower urinary tract infection) SNOMED: 3228595 (2) Sepsis ICD Codes: A41.9 - Sepsis, unspecified organism SNOMED: 68400803, 589264080 Qualifiers: Qualified Codes: A41.9 - Sepsis, unspecified organism (3) Abdominal pain of unknown etiology ICD Codes: R10.9 - Unspecified abdominal pain SNOMED: 171476963, 437197653 (4) Morbid obesity with BMI of 40.0-44.9, adult ICD Codes: E66.01 - Morbid (severe) obesity due to excess calories; Z68.41 - Body mass index (BMI) 40.0-44.9, adult SNOMED: 988313694, 716978200 (5) chronic pain (6) copd (7) CHF (congestive heart failure) ICD Codes: I50.9 - Heart failure, unspecified SNOMED: 87939922 Status: stable, progressing, tolerating diet Assessment/Plan ot pt diet abx cbc bmp am dc plan Subjective Constitutional: Reports: weakness Allergies: Coded Allergies: PENICILLINS (Unverified Allergy, Severe, 11/09/16) AMITRIPTYLINE (Verified Allergy, Unknown, 10/19/13) recorded from [facility]. pt does not remember the reation. CHLORPROMAZINE (Verified Allergy, Unknown, 10/19/13) recorded from [facility]. pt does not remember reaction. ERYTHROMYCIN BASE (Verified Allergy, Unknown, 10/19/13) recorded [facility] pt does not remember reaction. HALOPERIDOL (Verified Allergy, Unknown, 10/19/13) recorded from [facility] pt does not remember reaction. QUETIAPINE (Verified Allergy, Unknown, 10/19/13) recorded from [facility]. pt does not remember reaction. All Systems: reviewed and negative except above Subjective sleepy calm Objective Last 24 Hour Vital Signs Date Time Temp Pulse Resp B/P Pulse Ox O2 Delivery O2 Flow Rate FiO2 11/15/16 11:40 99 20 99 Room Air 21 11/15/16 11:27 98.0 83 20 109/73 96 Room Air 11/15/16 08:59 97.8 11/15/16 08:01 99 117/98 11/15/16 07:54 97.8 99 20 117/98 98 Room Air 11/15/16 07:48 95 16 Room Air 21 11/15/16 07:46 95 16 98 Room Air 21 11/15/16 07:45 98 11/15/16 04:41 97.8 96 20 118/82 94 Nasal Cannula 2.0 11/15/16 03:20 91 18 100 Room Air 21 11/15/16 03:10 85 18 97 Room Air 11/15/16 00:00 97.7 101 18 113/70 100 Room Air 11/14/16 23:41 87 18 100 Room Air 21 11/14/16 23:34 92 18 96 Room Air 21 11/14/16 22:05 97.0 11/14/16 22:05 97.0 11/14/16 20:00 98.1 84 18 121/77 96 Room Air 11/14/16 19:43 82 18 100 Room Air 11/14/16 19:36 86 18 97 Room Air 11/14/16 19:35 Room Air 11/14/16 19:35 97 Room Air 11/14/16 15:41 97.0 95 18 123/79 Room Air 11/14/16 14:50 92 18 Room Air 11/14/16 14:45 87 18 Room Air 11/14/16 11:58 97.2 87 19 137/75 98 Room Air Intake and Output 11/14/16 11/15/16 19:00 07:00 Intake Total 360 ml 360 ml Balance 360 ml 360 ml Intake Oral 360 ml 360 ml # Voids 3 Laboratory Tests 11/15/16 05:25: White Blood Count 9.3, Red Blood Count 3.28L, Hemoglobin 10.4L, Hematocrit 32.8L , Mean Corpuscular Volume 100H, Mean Corpuscular Hemoglobin 31.8H, Mean Corpuscular Hemoglobin Concent 31.8L, Red Cell Distribution Width 13.3, Platelet Count 174, Mean Platelet Volume 7.4, Neutrophils (%) (Auto) 58.4, Lymphocytes (%) (Auto) 16.8L, Monocytes (%) (Auto) 19.2H, Eosinophils (%) (Auto ) 2.4, Basophils (%) (Auto) 3.2H, Sodium Level 143, Potassium Level 4.6, Chloride Level 101, Carbon Dioxide Level 25, Anion Gap 17H, Blood Urea Nitrogen 12, Creatinine 0.6, Estimat Glomerular Filtration Rate > 60, Glucose Level 73L, Calcium Level 8.6, Phosphorus Level 4.4, Magnesium Level 1.8, Total Bilirubin < 0.2, Aspartate Amino Transf (AST/SGOT) 15, Alanine Aminotransferase (ALT/SGPT) 13, Alkaline Phosphatase 77, Total Protein 6.2L, Albumin 2.9L, Globulin 3.3, Albumin/Globulin Ratio 0.8L Height (Feet): 5 Height (Inches): 4.00 Weight (Pounds): 215 General Appearance: lethargic EENT: normal ENT inspection Neck: normal alignment Cardiovascular: normal peripheral pulses, normal rate, regular rhythm Respiratory/Chest: chest wall non-tender, lungs clear, normal breath sounds Abdomen: normal bowel sounds, non tender, soft Extremities: normal inspection Edema: no edema noted Arm (L), no edema noted Arm (R), no edema noted Leg (L), no edema noted Leg (R), no edema noted Pedal (L), no edema noted Pedal (R), no edema noted Generalized Neurologic: responsive, motor weakness Skin: normal pigmentation, warm/dry PADMINI AMBROSIO Nov 15, 2016 11:48
[2016-11-15] MEDS: LORazepam 1mg tab ORAL PRN (12:25)
[2016-11-15] MEDS: cefTRIAXone 2 GM in D5W 110 ML IVPB SCH ×2 (13:00→13:29)
--- NOTE | 2016-11-15 14:13 | Infectious Diseases Prog Note ---
Assessment/Plan Problems: (1) Pyelonephritis Assessment & Plan: due to E coli , with possible left ureter obstruction, now improving on antibiotics , probably passed a stone .no intervention as per urology . on ceftriaxon for two weeks. will transition to oral antibiotics once ready to go to SNF (2) Sepsis Assessment & Plan: due to the above, blood culture showed coag negative staph in one set, most likely contaminant , on ceftriaxon empirically for E coli pyelonephritis (3) Abdominal pain of unknown etiology Assessment & Plan: suspect due to stone and ureter obstruction, as suggested by renal US (4) MRSA nasal colonization Assessment & Plan: on bactroban to decolonize Subjective Constitutional: Reports: no symptoms HEENT: Reports: no symptoms Respiratory: Reports: no symptoms Breasts: Reports: no symptoms Cardiovascular: Reports: no symptoms Gastrointestinal/Abdominal: Reports: no symptoms Genitourinary: Reports: no symptoms Neurologic: Reports: no symptoms Psychiatric: Reports: no symptoms Skin: Reports: no symptoms Endocrine: Reports: no symptoms Hematologic: Reports: no symptoms Musculoskeletal: Reports: no symptoms Allergies: Coded Allergies: PENICILLINS (Unverified Allergy, Severe, 11/09/16) AMITRIPTYLINE (Verified Allergy, Unknown, 10/19/13) recorded from [facility]. pt does not remember the reation. CHLORPROMAZINE (Verified Allergy, Unknown, 10/19/13) recorded from [facility]. pt does not remember reaction. ERYTHROMYCIN BASE (Verified Allergy, Unknown, 10/19/13) recorded from [facility]. pt does not remember reaction. HALOPERIDOL (Verified Allergy, Unknown, 10/19/13) recorded from [facility]. pt does not remember reaction. QUETIAPINE (Verified Allergy, Unknown, 10/19/13) recorded from [facility]. pt does not remember reaction. Objective Vital Signs Last 24 Hour Vital Signs Date Time Temp Pulse Resp B/P Pulse Ox O2 Delivery O2 Flow Rate FiO2 11/15/16 11:48 99 16 100 Room Air 21 11/15/16 11:40 99 20 99 Room Air 21 11/15/16 11:27 98.0 83 20 109/73 96 Room Air 11/15/16 11:18 98.0 11/15/16 08:59 97.8 11/15/16 08:01 99 117/98 11/15/16 07:54 97.8 99 20 117/98 98 Room Air 11/15/16 07:48 95 16 Room Air 11/15/16 07:46 95 16 98 Room Air 11/15/16 07:45 98 11/15/16 04:41 97.8 96 20 118/82 94 Nasal Cannula 2.0 11/15/16 03:20 91 18 100 Room Air 21 11/15/16 03:10 85 18 97 Room Air 11/15/16 00:00 97.7 101 18 113/70 100 Room Air 11/14/16 23:41 87 18 100 Room Air 21 11/14/16 23:34 92 18 96 Room Air 21 11/14/16 22:05 97.0 11/14/16 20:00 98.1 84 18 121/77 96 Room Air 11/14/16 19:43 82 18 100 Room Air 11/14/16 19:36 86 18 97 Room Air 21 11/14/16 19:35 Room Air 11/14/16 19:35 97 Room Air 11/14/16 15:41 97.0 95 18 123/79 Room Air 11/14/16 14:50 92 18 Room Air 21 11/14/16 14:45 87 18 Room Air 21 Height (Feet): 5 Height (Inches): 4.00 Weight (Pounds): 215 General Appearance: WD/WN, no acute distress HEENT: normocephalic, atraumatic, anicteric, mucous membranes moist Respiratory/Chest: chest wall non-tender, lungs clear, normal breath sounds, no respiratory distress, no accessory muscle use Cardiovascular: normal peripheral pulses, normal rate, regular rhythm, no gallop/murmur, no JVD Abdomen: normal bowel sounds, soft, non tender, no organomegaly, non distended , no mass, no scars Extremities: no cyanosis, no clubbing Skin: no rash, no lesions Laboratory Tests Test 11/15/16 05:25 White Blood Count 9.3 K/UL (4.8-10.8) Red Blood Count 3.28 M/UL (4.20-5.40) L Hemoglobin 10.4 G/DL (12.0-16.0) L Hematocrit 32.8 % (37.0-47.0) L Mean Corpuscular Volume 100 FL (80-99) H Mean Corpuscular Hemoglobin 31.8 PG (27.0-31.0) H Mean Corpuscular Hemoglobin Concent 31.8 G/DL (32.0-36.0) L Red Cell Distribution Width 13.3 % (11.6-14.8) Platelet Count 174 K/UL (150-450) Mean Platelet Volume 7.4 FL (6.5-10.1) Neutrophils (%) (Auto) 58.4 % (45.0-75.0) Lymphocytes (%) (Auto) 16.8 % (20.0-45.0) L Monocytes (%) (Auto) 19.2 % (1.0-10.0) H Eosinophils (%) (Auto) 2.4 % (0.0-3.0) Basophils (%) (Auto) 3.2 % (0.0-2.0) H Sodium Level 143 mEQ/L (135-145) Potassium Level 4.6 mEQ/L (3.4-4.9) Chloride Level 101 mEQ/L (98-107) Carbon Dioxide Level 25 mEQ/L (20-30) Anion Gap 17 (5-15) H Blood Urea Nitrogen 12 mg/dL (7-23) Creatinine 0.6 mg/dL (0.5-0.9) Estimat Glomerular Filtration Rate > 60 mL/min (>60) Glucose Level 73 mg/dL (74-106) L Calcium Level 8.6 mg/dL (8.6-10.2) Phosphorus Level 4.4 mg/dL (2.5-4.8) Magnesium Level 1.8 mg/dL (1.7-2.5) Total Bilirubin < 0.2 mg/dL (0.0-1.2) Aspartate Amino Transf (AST/SGOT) 15 U/L (5-40) Alanine Aminotransferase (ALT/SGPT) 13 U/L (3-33) Alkaline Phosphatase 77 U/L (35-104) Total Protein 6.2 g/dL (6.6-8.7) L Albumin 2.9 g/dL (3.5-5.2) L Globulin 3.3 g/dL Albumin/Globulin Ratio 0.8 (1.0-2.7) L Current Medications Medications (Trade) Dose Ordered Sig/[place] Route PRN Reason Start Time Stop Time Status Last Admin Dose Admin Acetaminophen (Tylenol) 650 mg Q4H PRN ORAL Mild Pain/Temp > 100.5 11/09/16 10:15 12/09/16 10:14 11/11/16 00:19 Acetaminophen/ Hydrocodone Bitart ([place] 10/325) 1 ea Q6H PRN ORAL Moderate Pain (Pain Scale 4-6) 11/14/16 16:30 11/21/16 16:29 11/15/16 10:19 Albuterol Sulfate (Proventil MDI) 2 puff Q4H PRN INH Shortness of Breath 11/09/16 10:15 12/09/16 10:14 Albuterol Sulfate (Proventil) 2.5 mg Q4HRT HHN 11/11/16 23:00 11/16/16 22:59 11/15/16 11:43 Amlodipine Besylate (Norvasc) 2.5 mg DAILY ORAL 11/11/16 09:00 12/11/16 08:59 11/11/16 08:17 Ascorbic Acid (Vitamin C) 500 mg TWICE A DAY ORAL 11/09/16 18:00 12/09/16 17:59 11/15/16 08:00 Aspirin (ASA) 325 mg Q6HR PRN ORAL Temp >100.5 11/09/16 23:00 12/09/16 22:59 11/09/16 23:12 Ceftriaxone Sodium/Dextrose (Rocephin/D5W) 110 ml @ 220 mls/hr Q24H IVPB 11/11/16 13:00 11/18/16 12:59 11/15/16 13:29 Cyclobenzaprine HCl (Flexeril) 10 mg BEDTIME ORAL 11/11/16 21:00 12/11/16 20:59 11/14/16 21:03 Diphenhydramine HCl (Benadryl) 50 mg HSPRN PRN ORAL Itching/Pruritis 11/09/16 10:15 12/09/16 10:14 11/14/16 22:13 Divalproex Sodium (Depakote ER) 500 mg BEDTIME ORAL 11/15/16 21:00 12/15/16 20:59 UNV Escitalopram Oxalate (Lexapro) 10 mg DAILY ORAL 11/16/16 09:00 12/16/16 08:59 UNV Guaifenesin/ Codeine Phosphate (Robitussin with codeine) 10 ml Q4HR PRN ORAL For Cough 11/09/16 10:15 12/09/16 10:14 11/13/16 21:20 Hydralazine HCl (Apresoline) 25 mg Q4HR PRN ORAL SBP>160 11/09/16 17:00 12/09/16 16:59 Lorazepam (Ativan) 1 mg Q4HR PRN ORAL For Anxiety 11/09/16 10:15 11/16/16 10:14 11/15/16 12:25 Magnesium Hydroxide (Mom) 30 ml DAILYPRN PRN ORAL Constipation 11/09/16 10:15 12/09/16 10:14 11/13/16 00:03 Multivitamins (Multivitamins) 1 tab DAILY ORAL 11/10/16 09:00 12/10/16 08:59 11/15/16 08:00 Mupirocin (Bactroban Oint) 1 applic THREE TIMES A DAY TOPIC 11/11/16 18:00 11/16/16 17:59 11/15/16 13:29 Oxycodone/ Acetaminophen (Percocet 10/325) 1 tab Q6H PRN ORAL severe pain 11/09/16 14:30 11/16/16 14:29 11/15/16 13:30 Polyethylene Glycol (Miralax) 17 gm BEDTIME ORAL 11/12/16 21:00 12/12/16 20:59 11/12/16 22:28 Sennosides (Senokot) 8.6 mg BEDTIME ORAL 11/12/16 21:00 12/12/16 20:59 11/13/16 20:10 Thiamine HCl (Vitamin B1) 100 mg DAILY ORAL 11/10/16 09:00 12/10/16 08:59 11/15/16 08:01 Zolpidem Tartrate 5 mg 5 mg HSPRN PRN ORAL Insomnia 11/10/16 21:45 12/10/16 21:44 11/14/16 21:05 Angy Crane M.D. Nov 15, 2016 14:13
[2016-11-15 15:58] VITALS: BP 113/74
--- NOTE | 2016-11-15 16:46 | Neurology Progress Note ---
Interim History Interim History Interim History Ms. Munguia is very upset. She is upset that they are going to discharge her to the place she came from which she hates. The headache is controlled. The neck discomfort is also almost gone. She says she took the Flexeril last night. She has been breathing better. The mind is clear. She has noticed no new neurologic symptoms. She is feeling that her cognitive function has returned to normal. She has walked to the bathroom a few times. Review of Systems Neuro Review of Systems Benign. Objective Physical Exam Last Vital Signs Date Time Temp Pulse Resp B/P Pulse Ox O2 Delivery O2 Flow Rate FiO2 11/15/16 15:58 98.2 89 20 113/74 95 Room Air 11/15/16 14:55 21 11/15/16 04:41 2.0 Laboratory Tests Test 11/15/16 05:25 White Blood Count 9.3 K/UL (4.8-10.8) Red Blood Count 3.28 M/UL (4.20-5.40) L Hemoglobin 10.4 G/DL (12.0-16.0) L Hematocrit 32.8 % (37.0-47.0) L Mean Corpuscular Volume 100 FL (80-99) H Mean Corpuscular Hemoglobin 31.8 PG (27.0-31.0) H Mean Corpuscular Hemoglobin Concent 31.8 G/DL (32.0-36.0) L Red Cell Distribution Width 13.3 % (11.6-14.8) Platelet Count 174 K/UL (150-450) Mean Platelet Volume 7.4 FL (6.5-10.1) Neutrophils (%) (Auto) 58.4 % (45.0-75.0) Lymphocytes (%) (Auto) 16.8 % (20.0-45.0) L Monocytes (%) (Auto) 19.2 % (1.0-10.0) H Eosinophils (%) (Auto) 2.4 % (0.0-3.0) Basophils (%) (Auto) 3.2 % (0.0-2.0) H Sodium Level 143 mEQ/L (135-145) Potassium Level 4.6 mEQ/L (3.4-4.9) Chloride Level 101 mEQ/L (98-107) Carbon Dioxide Level 25 mEQ/L (20-30) Anion Gap 17 (5-15) H Blood Urea Nitrogen 12 mg/dL (7-23) Creatinine 0.6 mg/dL (0.5-0.9) Estimat Glomerular Filtration Rate > 60 mL/min (>60) Glucose Level 73 mg/dL (74-106) L Calcium Level 8.6 mg/dL (8.6-10.2) Phosphorus Level 4.4 mg/dL (2.5-4.8) Magnesium Level 1.8 mg/dL (1.7-2.5) Total Bilirubin < 0.2 mg/dL (0.0-1.2) Aspartate Amino Transf (AST/SGOT) 15 U/L (5-40) Alanine Aminotransferase (ALT/SGPT) 13 U/L (3-33) Alkaline Phosphatase 77 U/L (35-104) Total Protein 6.2 g/dL (6.6-8.7) L Albumin 2.9 g/dL (3.5-5.2) L Globulin 3.3 g/dL Albumin/Globulin Ratio 0.8 (1.0-2.7) L Neurologic Exam Objective PHYSICAL EXAMINATION: GENERAL: She is a well-developed, well-nourished, obese, black lady, lying in bed, upset that she is being "kicked out" of the hospital and Dr. Stark has not seen her yet.. HEAD: Normocephalic and atraumatic. NECK: No neck rigidity was observed. She did have mild G Trace/4 cervical paraspinal muscle and trapezius spasm. EENT: Examination is benign. NEUROLOGICAL EXAMINATION: MENTAL STATUS EXAMINATION: She was alert and awake. She was oriented to person, place, and time. She was able to recall 3/3 words immediately after 1 minute and after 3 minutes. She was able to remember presidents, Trump through Izquierdo Sr. Her mathematical skills were fairly good. Her visuospatial function was preserved. SPEECH: She had no dysarthria. LANGUAGE: She had no aphasia. CRANIAL NERVE EXAMINATION: II: The visual mireles were intact on confrontation testing III, IV & : External ocular movements were full and the pupils 3 mm in diameter, equal, round, regular, and reactive to light. V: She had normal facial sensations and the temporales, masseters, and pterygoids function normally. VII: She had normal facial expressions and no facial asymmetry. VIII: She was able to hear well bilaterally and had no nystagmus. IX: The palate moved symmetrically on phonation. X: She had no hoarseness of voice. XI: The sternocleidomastoids and trapezii functioned normally. XII: The tongue was in the midline without any fasciculations or atrophy. MOTOR SYSTEM: The tone was normal in all four extremities. Examination of muscle mass revealed no focal wasting. Examination of power revealed grade 5/5 power in all muscle groups tested. SENSORY EXAMINATION: She had intact sensations to pinprick, light touch, and graphesthesia. COORDINATION: She performed well on [id number] testing. REFLEXES: Trace+ and bilaterally symmetrical at the biceps, triceps, brachioradialis, and knees and 0 at both ankles. The plantar responses were flexor bilaterally. STANCE & GAIT: Refused. Impression/Recommendations Diagnostic Impression 1. Ms. Susy Munguia is a 71-year-old, right-handed, black lady, who does have a past history of bipolar affective disorder, gastric bypass, gastric tumor , kidney infections, a brief period of hemodialysis numerous years ago, hypertension, chronic obstructive pulmonary disease, and gastroesophageal reflux disease who was hospitalized for fevers, chills, and altered mental state. She was evaluated in the [facility] emergency room and was discovered to have pyelonephritis. She has been treated for this with appropriate antibiotics and fluids, and has improved. When she came in, her mental state was quite altered, but it seems to have improved since then. 2. She is upset that she is being discharged to a place that she does not like. The mind continues to be clear. Her headache is almost gone. She denies any new neurologic symptoms. 3. On neurological examination, at this time, she is mildly disoriented to the exact date, has minimal G Trace/4 cervical paraspinal muscle and trapezius spasm , has globally diminished reflexes, but the rest of the neurological examination is essentially benign. 4. Laboratory data on my initial evaluation revealed that her WBC count was elevated to 14,500 and her potassium was low at 3.3. She had an anion gap of 16. Her glucose was elevated to 110. Her albumin was down at 3.4. Her urinalysis reveals 3+ leukocyte esterase, 5-10 red blood cells per high-power field, too numerous to count white blood cells per high-power field, and a few urinary bacteria. 5. Further laboratory tests have revealed no treatable causes of altered mental state. 6. The patient's history and neurological examination are most compatible with a delirium due to possible pyelonephritis, which is now significantly better with treatment of the infection.. 7. Her headaches are most probably muscle contraction headaches - they have responded well to Flexeril. Recommendations 1. Continue present management. 2. Continue to treat the patient's pyelonephritis in an aggressive manner. 3. Mobilize rapidly. 4. Continue Flexeril 10 mg q HS for at least 7 nights even though her headaches are much better.. Nai Michaels M.D., M.S.P.NAI LEIVA Nov 15, 2016 16:46
--- NOTE | 2016-11-15 17:36 | General Progress Note ---
Assessment/Plan Assessment/Plan ASSESSMENT/RECS: 1. Anemia secondary to chronic disease, currently mild. Continue to closely monitor, has decreased from 14.8 to currently 10.4. --> consider w/u if drops further 2. Leukocytosis likely secondary to underlying infection and urinary tract infection. --> improved --> Peripheral smear has been reviewed 3. Monocytosis potentially secondary to underlying infection. 4. Coagulopathy potentially secondary to malnourishment. 5. Headache, being managed by Neurology service. 6. Degenerative cervical disc disease. Subjective Constitutional: Reports: no symptoms HEENT: Reports: no symptoms Cardiovascular: Reports: no symptoms Respiratory: Reports: no symptoms Gastrointestinal/Abdominal: Reports: no symptoms Genitourinary: Reports: no symptoms Neurologic/Psychiatric: Reports: no symptoms Endocrine: Reports: no symptoms Hematologic/Lymphatic: Reports: anemia Allergies: Coded Allergies: PENICILLINS (Unverified Allergy, Severe, 11/09/16) AMITRIPTYLINE (Verified Allergy, Unknown, 10/19/13) recorded from senior care. pt does not remember the reation. CHLORPROMAZINE (Verified Allergy, Unknown, 10/19/13) recorded from senior care. pt does not remember reaction. ERYTHROMYCIN BASE (Verified Allergy, Unknown, 10/19/13) recorded from senior care. pt does not remember reaction. HALOPERIDOL (Verified Allergy, Unknown, 10/19/13) recorded from senior care. pt does not remember reaction. QUETIAPINE (Verified Allergy, Unknown, 10/19/13) recorded from senior care. pt does not remember reaction. Subjective no fevers or chills, stable, no bleeding noted Objective Last 24 Hour Vital Signs Date Time Temp Pulse Resp B/P Pulse Ox O2 Delivery O2 Flow Rate FiO2 11/15/16 15:58 98.2 89 20 113/74 95 Room Air 11/15/16 14:55 98 16 Room Air 11/15/16 14:45 96 18 Room Air 21 11/15/16 14:29 98.0 11/15/16 11:48 99 16 100 Room Air 11/15/16 11:40 99 20 99 Room Air 11/15/16 11:27 98.0 83 20 109/73 96 Room Air 11/15/16 11:18 98.0 11/15/16 08:01 99 117/98 11/15/16 07:54 97.8 99 20 117/98 98 Room Air 11/15/16 07:48 95 16 Room Air 21 11/15/16 07:46 95 16 98 Room Air 21 11/15/16 07:45 98 11/15/16 04:41 97.8 96 20 118/82 94 Nasal Cannula 2.0 11/15/16 03:20 91 18 100 Room Air 21 11/15/16 03:10 85 18 97 Room Air 21 11/15/16 00:00 97.7 101 18 113/70 100 Room Air 11/14/16 23:41 87 18 100 Room Air 21 11/14/16 23:34 92 18 96 Room Air 21 11/14/16 22:05 97.0 11/14/16 20:00 98.1 84 18 121/77 96 Room Air 11/14/16 19:43 82 18 100 Room Air 21 11/14/16 19:36 86 18 97 Room Air 21 11/14/16 19:35 Room Air 21 11/14/16 19:35 97 Room Air 21 Intake and Output 11/14/16 11/15/16 19:00 07:00 Intake Total 360 ml 360 ml Balance 360 ml 360 ml Intake Oral 360 ml 360 ml # Voids 3 Laboratory Tests 11/15/16 05:25: White Blood Count 9.3, Red Blood Count 3.28L, Hemoglobin 10.4L, Hematocrit 32.8L , Mean Corpuscular Volume 100H, Mean Corpuscular Hemoglobin 31.8H, Mean Corpuscular Hemoglobin Concent 31.8L, Red Cell Distribution Width 13.3, Platelet Count 174, Mean Platelet Volume 7.4, Neutrophils (%) (Auto) 58.4, Lymphocytes (%) (Auto) 16.8L, Monocytes (%) (Auto) 19.2H, Eosinophils (%) (Auto ) 2.4, Basophils (%) (Auto) 3.2H, Sodium Level 143, Potassium Level 4.6, Chloride Level 101, Carbon Dioxide Level 25, Anion Gap 17H, Blood Urea Nitrogen 12, Creatinine 0.6, Estimat Glomerular Filtration Rate > 60, Glucose Level 73L, Calcium Level 8.6, Phosphorus Level 4.4, Magnesium Level 1.8, Total Bilirubin < 0.2, Aspartate Amino Transf (AST/SGOT) 15, Alanine Aminotransferase (ALT/SGPT) 13, Alkaline Phosphatase 77, Total Protein 6.2L, Albumin 2.9L, Globulin 3.3, Albumin/Globulin Ratio 0.8L Height (Feet): 5 Height (Inches): 4.00 Weight (Pounds): 215 General Appearance: alert EENT: normal ENT inspection Neck: normal alignment Cardiovascular: normal rate Respiratory/Chest: lungs clear Abdomen: normal bowel sounds Extremities: non-tender Edema: no edema noted Pedal (L), no edema noted Pedal (R) 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
--- NOTE | 2016-11-15 17:45 | Consultation ---
DATE OF CONSULTATION: HISTORY OF PRESENT ILLNESS: This is a 71-year-old female with a history of gastric bypass, depression, anxiety, and hypertension, who presented to the emergency room with abdominal pain. Psychiatry was consulted today as the patient has been experiencing more anxiety and the current medication regimen is ineffective. During the evaluation, the patient complains of constant anxiety. The patient is receiving Paxil 12.5 mg daily, which makes her more drowsy. She was also started on Abilify, which she has had adverse reaction to. PAST PSYCHIATRIC HISTORY: She has a history of depression and anxiety disorder. She has had the psychiatric hospitalizations in the past. PAST MEDICAL HISTORY: Obesity, gastric bypass, CHF, lumbar radiculopathy, bacteremia, hypothyroidism, urinary tract infection, and pyelonephritis. ALLERGIES: Includes amitriptyline, chlorpromazine, erythromycin, haloperidol, penicillin, and Seroquel. MENTAL STATUS EXAMINATION: The patient is alert and oriented x3. Mood is anxious. Affect is constricted. Congruent with mood. Thought process is concrete. Thought content, there is no suicidal or homicidal ideations. ASSESSMENT: 1. Anxiety disorder. 2. Major depressive disorder. PLAN: 1. We will discontinue the Paxil. 2. We will decrease the Depakote to 500 mg at bedtime. 3. We will discontinue the Abilify. 4. We will start the patient on Lexapro 10 mg in the morning. Jacobo Rolon M.D. DR: DINA JOB#: [id number] CC:
[2016-11-15] MEDS ORDERED: DuoNeb 0.5-3(2.5)mg/3ml neb ONE (19:09)
[2016-11-15 20:00] VITALS: BP 116/75
[2016-11-15] MEDS: Cyclobenzaprine 10mg Tab ORAL SCH (20:39)
[2016-11-15] MEDS: Zolpidem 5mg tab ORAL PRN (20:41)
[2016-11-15] MEDS: Miralax 17gm pkt ORAL SCH (20:43)
[2016-11-15] MEDS ORDERED: Depakote ER 500mg tab ORAL SCH (21:00)
[2016-11-16] VITALS: BP 120/81
[2016-11-16] MEDS: Norco 10mg/325mg tab ORAL PRN ×3 (00:24→13:22)
[2016-11-16] MEDS: Albuterol ud Inhalation HHN SCH ×5 (00:26→14:33)
[2016-11-16] MEDS: LORazepam 1mg tab ORAL PRN ×2 (02:40→07:45)
[2016-11-16 04:00] VITALS: BP 129/67
[2016-11-16 06:09] LABS: BASOPHILS % (AUTO) 1.6 % (0.0-2.0); LYMPHOCYTES % (AUTO) 33.5 % (20.0-45.0); MEAN CORPUSCULAR HEMOGLOBIN 31.1 PG (27.0-31.0); MEAN CORPUSCULAR HGB CONC 31.4 G/DL (32.0-36.0); MEAN CORPUSCULAR VOLUME 99 FL (80-99); MEAN PLATELET VOLUME 7.3 FL (6.5-10.1); MONOCYTES % (AUTO) 6.5 % (1.0-10.0); NEUTROPHILS % (AUTO) 55.4 % (45.0-75.0); PLATELET COUNT 272 K/UL (150-450); RED BLOOD COUNT 3.22 M/UL (4.20-5.40); RED CELL DISTRIBUTION WIDTH 12.9 % (11.6-14.8); WHITE BLOOD COUNT 8.5 K/UL (4.8-10.8)
[2016-11-16 06:31] LABS: ANION GAP 13 (5-15); CALCIUM 8.6 mg/dL (8.6-10.2); CARBON DIOXIDE 27 mEQ/L (20-30); CHLORIDE 100 mEQ/L (98-107); CREATININE 0.6 mg/dL (0.5-0.9); GLOMERULAR FILTRATION RATE > 60 mL/min (>60); HEMOLYSIS 2; POTASSIUM 4.3 mEQ/L (3.4-4.9); SODIUM 140 mEQ/L (135-145)
[2016-11-16] MEDS: Ascorbic Acid 500mg tab ORAL SCH (07:45)
[2016-11-16] MEDS: Thiamine 100mg tab ORAL SCH (07:45)
[2016-11-16 08:36] VITALS: BP 144/73
--- NOTE | 2016-11-16 08:45 | General Progress Note ---
Assessment/Plan Assessment/Plan (1) Degenerative cervical disc (2) Lumbar radiculopathy (3) Lumbar degenerative disc disease (4) chronic pain (5) Osteoarthritis of multiple joints Pt will be continued on [place] and Percocet Pt was d/w Dr. Caldwell and he concurred. Subjective Date patient seen: Nov 16, 2016 Time patient seen: 06:00 - am Allergies: Coded Allergies: PENICILLINS (Unverified Allergy, Severe, 11/09/16) AMITRIPTYLINE (Verified Allergy, Unknown, 10/19/13) [facility] from [facility]. pt does not remember the reation. CHLORPROMAZINE (Verified Allergy, Unknown, 10/19/13) recorded from prison. pt does not remember reaction. ERYTHROMYCIN BASE (Verified Allergy, Unknown, 10/19/13) recorded from prison. pt does not remember reaction. HALOPERIDOL (Verified Allergy, Unknown, 10/19/13) recorded from prison. pt does not remember reaction. QUETIAPINE (Verified Allergy, Unknown, 10/19/13) recorded from prison. pt does not remember reaction. Subjective Constitutional: Denies: no symptoms, chills, diaphoresis, fever, malaise, weakness, other HEENT: Denies: no symptoms, eye pain, blurred vision, tearing, double vision, ear pain, ear discharge, nose pain, nose congestion, throat pain, throat swelling, mouth pain, mouth swelling, other Cardiovascular: Denies: no symptoms, chest pain, edema, irregular heart rate, lightheadedness, palpitations, syncope, other Respiratory: Denies: no symptoms, cough, orthopnea, shortness of breath, SOB with excertion, SOB at rest, sputum, stridor, wheezing, other Gastrointestinal/Abdominal: Denies: no symptoms, abdomen distended, abdominal pain, black stools, tarry stools, blood in stool, constipated, diarrhea, difficulty swallowing, nausea, poor appetite, poor fluid intake, rectal bleeding , vomiting, other Genitourinary: Denies: no symptoms, burning, discharge, frequency, flank pain, hematuria, incontinence, pain, urgency, other Neurologic/Psychiatric: Reports: depressed, emotional problems Endocrine: Denies: no symptoms, excessive sweating, flushing, intolerance to cold, intolerance to heat, increased hunger, increased thirst, increased urine, unexplained weight gain, unexplained weight loss, other Hematologic/Lymphatic: Denies: no symptoms, anemia, easy bleeding, easy bruising, other Subjective She is sitting up in bed and in no signs of distress or pain. Pain has been stable on the medication. Objective Last 24 Hour Vital Signs Date Time Temp Pulse Resp B/P Pulse Ox O2 Delivery O2 Flow Rate FiO2 11/16/16 08:36 97.7 89 18 144/73 96 Room Air 11/16/16 07:48 91 144/73 11/16/16 04:00 98.4 87 20 129/67 94 Room Air 11/16/16 03:53 92 18 96 Room Air 11/16/16 03:36 90 20 94 Room Air 11/16/16 00:00 97.2 95 18 120/81 96 Room Air 11/15/16 23:45 94 20 95 Room Air 11/15/16 23:30 92 20 93 Room Air 11/15/16 20:00 98.1 79 20 116/75 97 Room Air 11/15/16 19:17 93 20 96 Room Air 11/15/16 19:14 91 20 94 Room Air 11/15/16 17:48 98.2 11/15/16 15:58 98.2 89 20 113/74 95 Room Air 11/15/16 14:55 98 16 Room Air 11/15/16 14:45 96 18 Room Air 11/15/16 14:29 98.0 11/15/16 11:48 99 16 100 Room Air 11/15/16 11:40 99 20 99 Room Air 11/15/16 11:27 98.0 83 20 109/73 96 Room Air Intake and Output 11/15/16 11/16/16 19:00 07:00 Intake Total 1010 ml 200 ml Balance 1010 ml 200 ml Intake Oral 1010 ml 200 ml # Voids 6 3 Laboratory Tests 11/16/16 05:20: White Blood Count 8.5, Red Blood Count 3.22L, Hemoglobin 10.0L, Hematocrit 31.9L , Mean Corpuscular Volume 99, Mean Corpuscular Hemoglobin 31.1H, Mean Corpuscular Hemoglobin Concent 31.4L, Red Cell Distribution Width 12.9, Platelet Count 272#, Mean Platelet Volume 7.3, Neutrophils (%) (Auto) 55.4, Lymphocytes (%) (Auto) 33.5, Monocytes (%) (Auto) 6.5, Eosinophils (%) (Auto) 3.0, Basophils (%) (Auto) 1.6, Sodium Level 140, Potassium Level 4.3, Chloride Level 100, Carbon Dioxide Level 27, Anion Gap 13, Blood Urea Nitrogen 11, Creatinine 0.6, Estimat Glomerular Filtration Rate > 60, Glucose Level 82, Calcium Level 8.6 Height (Feet): 5 Height (Inches): 4.00 Weight (Pounds): 215 Objective General Appearance: WD/WN EENT: PERRL/EOMI Neck: supple Cardiovascular: normal rate, regular rhythm Respiratory/Chest: decreased breath sounds Abdomen: non tender, soft Extremities: non-tender Edema: no edema noted Arm (L), no edema noted Arm (R), no edema noted Leg (L), no edema noted Leg (R), no edema noted Pedal (L), no edema noted Pedal (R), no edema noted 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
--- NOTE | 2016-11-16 09:21 | General Progress Note ---
Assessment/Plan Status: stable - from renal stand Assessment/Plan status; HTN- bp now is running low HypoKalemia Obesity- UTI / Pyelo Psych Plan: Adjust BP meds- Stop Lasix- fluid challenge K supplements Monitor BP and renal parameters DC planning? Subjective ROS Limited/Unobtainable: No Allergies: Coded Allergies: PENICILLINS (Unverified Allergy, Severe, 11/09/16) AMITRIPTYLINE (Verified Allergy, Unknown, 10/19/13) recorded from care home. pt does not remember the reation. CHLORPROMAZINE (Verified Allergy, Unknown, 10/19/13) recorded from care home. pt does not remember reaction. ERYTHROMYCIN BASE (Verified Allergy, Unknown, 10/19/13) recorded from care home. pt does not remember reaction. HALOPERIDOL (Verified Allergy, Unknown, 10/19/13) recorded from care home. pt does not remember reaction. QUETIAPINE (Verified Allergy, Unknown, 10/19/13) recorded from care home. pt does not remember reaction. Objective Last 24 Hour Vital Signs Date Time Temp Pulse Resp B/P Pulse Ox O2 Delivery O2 Flow Rate FiO2 11/16/16 08:36 97.7 89 18 144/73 96 Room Air 11/16/16 07:48 91 144/73 11/16/16 04:00 98.4 87 20 129/67 94 Room Air 11/16/16 03:53 92 18 96 Room Air 11/16/16 03:36 90 20 94 Room Air 11/16/16 00:00 97.2 95 18 120/81 96 Room Air 11/15/16 23:45 94 20 95 Room Air 11/15/16 23:30 92 20 93 Room Air 11/15/16 20:00 98.1 79 20 116/75 97 Room Air 11/15/16 19:17 93 20 96 Room Air 11/15/16 19:14 91 20 94 Room Air 11/15/16 17:48 98.2 11/15/16 15:58 98.2 89 20 113/74 95 Room Air 11/15/16 14:55 98 16 Room Air 11/15/16 14:45 96 18 Room Air 11/15/16 14:29 98.0 11/15/16 11:48 99 16 100 Room Air 11/15/16 11:40 99 20 99 Room Air 21 11/15/16 11:27 98.0 83 20 109/73 96 Room Air Intake and Output 11/15/16 11/16/16 19:00 07:00 Intake Total 1010 ml 200 ml Balance 1010 ml 200 ml Intake Oral 1010 ml 200 ml # Voids 6 3 Laboratory Tests 11/16/16 05:20: White Blood Count 8.5, Red Blood Count 3.22L, Hemoglobin 10.0L, Hematocrit 31.9L , Mean Corpuscular Volume 99, Mean Corpuscular Hemoglobin 31.1H, Mean Corpuscular Hemoglobin Concent 31.4L, Red Cell Distribution Width 12.9, Platelet Count 272#, Mean Platelet Volume 7.3, Neutrophils (%) (Auto) 55.4, Lymphocytes (%) (Auto) 33.5, Monocytes (%) (Auto) 6.5, Eosinophils (%) (Auto) 3.0, Basophils (%) (Auto) 1.6, Sodium Level 140, Potassium Level 4.3, Chloride Level 100, Carbon Dioxide Level 27, Anion Gap 13, Blood Urea Nitrogen 11, Creatinine 0.6, Estimat Glomerular Filtration Rate > 60, Glucose Level 82, Calcium Level 8.6 Height (Feet): 5 Height (Inches): 4.00 Weight (Pounds): 215 General Appearance: no apparent distress Objective other PE not changed MICHAEL DE LA ROAS Nov 16, 2016 09:21
[2016-11-16 12:31] VITALS: BP 150/70
--- NOTE | 2016-11-16 12:55 | Neurology Progress Note ---
Interim History Interim History Interim History Ms. Munguia feels better today Plans are to go to a SNF in [place]. The headache is controlled. The neck discomfort is also almost gone. She says she took the Flexeril last night. She has been breathing better. The mind is clear. She has noticed no new neurologic symptoms. She is feeling that her cognitive function has returned to normal. She has walked to the bathroom a few times. Review of Systems Neuro Review of Systems Ms. Munguia is very upset. Benign. Objective Physical Exam Last Vital Signs Date Time Temp Pulse Resp B/P Pulse Ox O2 Delivery O2 Flow Rate FiO2 11/16/16 12:31 97.7 86 18 150/70 95 Room Air 11/16/16 03:53 21 11/15/16 04:41 2.0 Laboratory Tests Test 11/16/16 05:20 White Blood Count 8.5 K/UL (4.8-10.8) Red Blood Count 3.22 M/UL (4.20-5.40) L Hemoglobin 10.0 G/DL (12.0-16.0) L Hematocrit 31.9 % (37.0-47.0) L Mean Corpuscular Volume 99 FL (80-99) Mean Corpuscular Hemoglobin 31.1 PG (27.0-31.0) H Mean Corpuscular Hemoglobin Concent 31.4 G/DL (32.0-36.0) L Red Cell Distribution Width 12.9 % (11.6-14.8) Platelet Count 272 K/UL (150-450) # Mean Platelet Volume 7.3 FL (6.5-10.1) Neutrophils (%) (Auto) 55.4 % (45.0-75.0) Lymphocytes (%) (Auto) 33.5 % (20.0-45.0) Monocytes (%) (Auto) 6.5 % (1.0-10.0) Eosinophils (%) (Auto) 3.0 % (0.0-3.0) Basophils (%) (Auto) 1.6 % (0.0-2.0) Sodium Level 140 mEQ/L (135-145) Potassium Level 4.3 mEQ/L (3.4-4.9) Chloride Level 100 mEQ/L (98-107) Carbon Dioxide Level 27 mEQ/L (20-30) Anion Gap 13 (5-15) Blood Urea Nitrogen 11 mg/dL (7-23) Creatinine 0.6 mg/dL (0.5-0.9) Estimat Glomerular Filtration Rate > 60 mL/min (>60) Glucose Level 82 mg/dL (74-106) Calcium Level 8.6 mg/dL (8.6-10.2) Neurologic Exam Objective PHYSICAL EXAMINATION: GENERAL: She is a well-developed, well-nourished, obese, black lady, lying in bed, enjoying her lunch. HEAD: Normocephalic and atraumatic. NECK: No neck rigidity was observed. She did have mild G Trace/4 cervical paraspinal muscle and trapezius spasm. EENT: Examination is benign. NEUROLOGICAL EXAMINATION: MENTAL STATUS EXAMINATION: She was alert and awake. She was oriented to person, place, and time. She was able to recall 3/3 words immediately after 1 minute and after 3 minutes. She was able to remember presidents, Trump through Izquierdo Sr. Her mathematical skills were fairly good. Her visuospatial function was preserved. SPEECH: She had no dysarthria. LANGUAGE: She had no aphasia. CRANIAL NERVE EXAMINATION: II: The visual mireles were intact on confrontation testing III, IV & : External ocular movements were full and the pupils 3 mm in diameter, equal, round, regular, and reactive to light. V: She had normal facial sensations and the temporales, masseters, and pterygoids function normally. VII: She had normal facial expressions and no facial asymmetry. VIII: She was able to hear well bilaterally and had no nystagmus. IX: The palate moved symmetrically on phonation. X: She had no hoarseness of voice. XI: The sternocleidomastoids and trapezii functioned normally. XII: The tongue was in the midline without any fasciculations or atrophy. MOTOR SYSTEM: The tone was normal in all four extremities. Examination of muscle mass revealed no focal wasting. Examination of power revealed grade 5/5 power in all muscle groups tested. SENSORY EXAMINATION: She had intact sensations to pinprick, light touch, and graphesthesia. COORDINATION: She performed well on [id number] testing. REFLEXES: Trace+ and bilaterally symmetrical at the biceps, triceps, brachioradialis, and knees and 0 at both ankles. The plantar responses were flexor bilaterally. STANCE & GAIT: Deferred. Impression/Recommendations Diagnostic Impression 1. Ms. Susy Munguia is a 71-year-old, right-handed, black lady, who does have a past history of bipolar affective disorder, gastric bypass, gastric tumor , kidney infections, a brief period of hemodialysis numerous years ago, hypertension, chronic obstructive pulmonary disease, and gastroesophageal reflux disease who was hospitalized for fevers, chills, and altered mental state. She was evaluated in the [facility] emergency room and was discovered to have pyelonephritis. She has been treated for this with appropriate antibiotics and fluids, and has improved. When she came in, her mental state was quite altered, but it seems to have improved since then. 2. She feels better today. The mind continues to be clear. Her headache is almost gone. She denies any new neurologic symptoms. 3. On neurological examination, at this time, she is mildly disoriented to the exact date, has minimal G Trace/4 cervical paraspinal muscle and trapezius spasm , has globally diminished reflexes, but the rest of the neurological examination is essentially benign. 4. Laboratory data on my initial evaluation revealed that her WBC count was elevated to 14,500 and her potassium was low at 3.3. She had an anion gap of 16. Her glucose was elevated to 110. Her albumin was down at 3.4. Her urinalysis reveals 3+ leukocyte esterase, 5-10 red blood cells per high-power field, too numerous to count white blood cells per high-power field, and a few urinary bacteria. 5. Further laboratory tests have revealed no treatable causes of altered mental state. 6. The patient's history and neurological examination are most compatible with a delirium due to possible pyelonephritis, which is now significantly better with treatment of the infection.. 7. Her headaches are most probably muscle contraction headaches - they have responded well to Flexeril. Recommendations 1. Continue present management. 2. Mobilize rapidly. 3. Continue Flexeril 10 mg q HS for at least 5 nights even though her headaches are much better.. Nai Michaels M.D., M.S.P.NAI LEIVA Nov 16, 2016 12:55
[2016-11-16] MEDS: cefTRIAXone 2 GM in D5W 110 ML IVPB SCH (12:56)
[2016-11-16] MEDS ORDERED: ALBUTEROL2.5 MG/3 M INH (14:36)
[2016-11-16] MEDS ORDERED: ALBUTEROL SULF8.5 GM INH (14:37)
[2016-11-16] MEDS ORDERED: NORVASC2.5 MG ORAL (14:38)
[2016-11-16] MEDS ORDERED: ASPIRIN325 MG ORAL (14:41)
[2016-11-16] MEDS ORDERED: CYCLOBENZAPRINE10 MG ORAL (14:42)
[2016-11-16] MEDS ORDERED: DIVALPROEX SOD500 M2 PO (14:43)
--- NOTE | 2016-11-16 14:44 | General Progress Note ---
Assessment/Plan Problem List: (1) UTI (lower urinary tract infection) ICD Codes: N39.0 - UTI (lower urinary tract infection) SNOMED: 6465905 (2) Sepsis ICD Codes: A41.9 - Sepsis, unspecified organism SNOMED: 50829626, 125096357 Qualifiers: Qualified Codes: A41.9 - Sepsis, unspecified organism (3) Abdominal pain of unknown etiology ICD Codes: R10.9 - Unspecified abdominal pain SNOMED: 106103752, 485869378 (4) Morbid obesity with BMI of 40.0-44.9, adult ICD Codes: E66.01 - Morbid (severe) obesity due to excess calories; Z68.41 - Body mass index (BMI) 40.0-44.9, adult SNOMED: 846314133, 633424786 (5) chronic pain (6) copd (7) CHF (congestive heart failure) ICD Codes: I50.9 - Heart failure, unspecified SNOMED: 91802861 Status: stable, progressing, tolerating diet Assessment/Plan ot pt diet abx dc pt to snf Subjective Constitutional: Reports: weakness Allergies: Coded Allergies: PENICILLINS (Unverified Allergy, Severe, 11/09/16) AMITRIPTYLINE (Verified Allergy, Unknown, 10/19/13) recorded from group home. pt does not remember the reation. CHLORPROMAZINE (Verified Allergy, Unknown, 10/19/13) recorded from group home. pt does not remember reaction. ERYTHROMYCIN BASE (Verified Allergy, Unknown, 10/19/13) recorded from group home. pt does not remember reaction. HALOPERIDOL (Verified Allergy, Unknown, 10/19/13) recorded from group home. pt does not remember reaction. QUETIAPINE (Verified Allergy, Unknown, 10/19/13) recorded from group home. pt does not remember reaction. All Systems: reviewed and negative except above Subjective sleepy calm Objective Last 24 Hour Vital Signs Date Time Temp Pulse Resp B/P Pulse Ox O2 Delivery O2 Flow Rate FiO2 11/16/16 14:30 89 20 100 Nasal Cannula 3.0 11/16/16 12:31 97.7 86 18 150/70 95 Room Air 11/16/16 10:37 85 16 98 Room Air 11/16/16 10:33 97.7 11/16/16 10:27 95 16 98 Room Air 11/16/16 08:44 97.7 11/16/16 08:36 97.7 89 18 144/73 96 Room Air 11/16/16 07:56 Room Air 11/16/16 07:54 Room Air 11/16/16 07:48 91 144/73 11/16/16 04:00 98.4 87 20 129/67 94 Room Air 11/16/16 03:53 92 18 96 Room Air 21 11/16/16 03:36 90 20 94 Room Air 21 11/16/16 00:00 97.2 95 18 120/81 96 Room Air 11/15/16 23:45 94 20 95 Room Air 21 11/15/16 23:30 92 20 93 Room Air 21 11/15/16 20:00 98.1 79 20 116/75 97 Room Air 11/15/16 19:17 93 20 96 Room Air 21 11/15/16 19:14 91 20 94 Room Air 21 11/15/16 15:58 98.2 89 20 113/74 95 Room Air 11/15/16 14:55 98 16 Room Air 21 11/15/16 14:45 96 18 Room Air 21 Intake and Output 11/15/16 11/16/16 19:00 07:00 Intake Total 1010 ml 200 ml Balance 1010 ml 200 ml Intake Oral 1010 ml 200 ml # Voids 6 3 Laboratory Tests 11/16/16 05:20: White Blood Count 8.5, Red Blood Count 3.22L, Hemoglobin 10.0L, Hematocrit 31.9L , Mean Corpuscular Volume 99, Mean Corpuscular Hemoglobin 31.1H, Mean Corpuscular Hemoglobin Concent 31.4L, Red Cell Distribution Width 12.9, Platelet Count 272#, Mean Platelet Volume 7.3, Neutrophils (%) (Auto) 55.4, Lymphocytes (%) (Auto) 33.5, Monocytes (%) (Auto) 6.5, Eosinophils (%) (Auto) 3.0, Basophils (%) (Auto) 1.6, Sodium Level 140, Potassium Level 4.3, Chloride Level 100, Carbon Dioxide Level 27, Anion Gap 13, Blood Urea Nitrogen 11, Creatinine 0.6, Estimat Glomerular Filtration Rate > 60, Glucose Level 82, Calcium Level 8.6 Height (Feet): 5 Height (Inches): 4.00 Weight (Pounds): 215 General Appearance: confused EENT: normal ENT inspection Neck: normal alignment Cardiovascular: normal peripheral pulses, normal rate, regular rhythm Respiratory/Chest: chest wall non-tender, lungs clear, normal breath sounds Abdomen: normal bowel sounds, non tender, soft Extremities: normal inspection Edema: no edema noted Arm (L), no edema noted Arm (R), no edema noted Leg (L), no edema noted Leg (R), no edema noted Pedal (L), no edema noted Pedal (R), no edema noted Generalized Neurologic: responsive, motor weakness Skin: normal pigmentation, warm/dry PADMINI AMBROSIO Nov 16, 2016 14:44
[2016-11-16] MEDS ORDERED: HYDRALAZINE HCL25 M1 ORAL (14:46)
[2016-11-16] MEDS ORDERED: NORCO 10-325 T1 EACH ORAL (14:47)
[2016-11-16] MEDS ORDERED: OXYCODONE-ACET1 EAC5 ORAL (14:49)
[2016-11-16] MEDS ORDERED: MIRALAX17 G2 ORAL (14:50)
[2016-11-16] MEDS ORDERED: SENNA-GEN8.6 M1 PO (14:51)
[2016-11-16] MEDS ORDERED: THIAMINE HCL100 MG ORAL (14:52)
[2016-11-16] MEDS ORDERED: AMBIEN5 MG ORAL (14:52)
[2016-11-16] MEDS ORDERED: LEVAQUIN500 MG ORAL (15:06)
[2016-11-16] MEDS ORDERED: NS 275ml ONE (15:19)
[2016-11-16] MEDS ORDERED: Tubing IV Secondary IV ONE (15:19)
--- NOTE | 2016-11-16 16:17 | Infectious Diseases Prog Note ---
Assessment/Plan Problems: (1) Pyelonephritis Assessment & Plan: due to E coli , with possible left ureter obstruction, now improving on antibiotics , probably passed a stone .no intervention as per urology . on ceftriaxon for two weeks. will transition to oral levaquin to finish her course of therapy at SNF (2) Abdominal pain of unknown etiology Assessment & Plan: resolved, suspect due to passing stone and ureter obstruction, as suggested by renal US, follow up with urology (3) MRSA nasal colonization Assessment & Plan: on bactroban to decolonize Subjective Constitutional: Denies: anorexia, chills, drenching sweats, fatigue, fever, no symptoms, other HEENT: Denies: congestion, coryza, dysphagia, hearing change, no symptoms, other, visual change Respiratory: Denies: dry cough, no symptoms, other, productive cough, shortness of breath Breasts: Denies: discharge, no symptoms, other, swelling, tenderness Cardiovascular: Denies: chest pain, dyspnea on exertion, no symptoms, other, palpitations Gastrointestinal/Abdominal: Denies: bloating, blood in stool, constipation, diarrhea, nausea, no symptoms, other, vomiting Genitourinary: Denies: dysuria, frequency, hematuria, last menstrual period, no symptoms, nocturia, other, vaginal bleed/discharge Neurologic: Denies: confusion, headache, no symptoms, numbness, other, weakness Psychiatric: Denies: anxiety, depression, no symptoms, other Skin: Denies: no symptoms, other, rash, ulcer Endocrine: Denies: feels cold, feels warm, no symptoms, other Allergies: Coded Allergies: PENICILLINS (Unverified Allergy, Severe, 11/09/16) AMITRIPTYLINE (Verified Allergy, Unknown, 10/19/13) recorded from group home. pt does not remember the reation. CHLORPROMAZINE (Verified Allergy, Unknown, 10/19/13) recorded from group home. pt does not remember reaction. ERYTHROMYCIN BASE (Verified Allergy, Unknown, 10/19/13) recorded from group home. pt does not remember reaction. HALOPERIDOL (Verified Allergy, Unknown, 10/19/13) recorded from group home. pt does not remember reaction. QUETIAPINE (Verified Allergy, Unknown, 10/19/13) recorded from group home. pt does not remember reaction. Objective Vital Signs Last 24 Hour Vital Signs Date Time Temp Pulse Resp B/P Pulse Ox O2 Delivery O2 Flow Rate FiO2 11/16/16 14:40 83 20 100 Nasal Cannula 11/16/16 14:30 89 20 100 Nasal Cannula 3.0 11/16/16 14:21 97.7 11/16/16 12:31 97.7 86 18 150/70 95 Room Air 11/16/16 10:37 85 16 98 Room Air 11/16/16 10:33 97.7 11/16/16 10:27 95 16 98 Room Air 11/16/16 08:36 97.7 89 18 144/73 96 Room Air 11/16/16 07:56 Room Air 11/16/16 07:54 Room Air 11/16/16 07:48 91 144/73 11/16/16 04:00 98.4 87 20 129/67 94 Room Air 11/16/16 03:53 92 18 96 Room Air 21 11/16/16 03:36 90 20 94 Room Air 21 11/16/16 00:00 97.2 95 18 120/81 96 Room Air 11/15/16 23:45 94 20 95 Room Air 21 11/15/16 23:30 92 20 93 Room Air 21 11/15/16 20:00 98.1 79 20 116/75 97 Room Air 11/15/16 19:17 93 20 96 Room Air 21 11/15/16 19:14 91 20 94 Room Air 21 Height (Feet): 5 Height (Inches): 4.00 Weight (Pounds): 215 General Appearance: WD/WN, no acute distress HEENT: normocephalic, atraumatic, anicteric, mucous membranes moist Respiratory/Chest: chest wall non-tender, lungs clear, normal breath sounds, no respiratory distress Cardiovascular: normal peripheral pulses, normal rate, regular rhythm, no gallop/murmur Abdomen: normal bowel sounds, soft, non tender, no organomegaly, non distended , no mass Extremities: no cyanosis, no clubbing Skin: no rash, no lesions, no ulcers Lymphatic: no neck adenopathy, no groin adenopathy Laboratory Tests Test 11/16/16 05:20 White Blood Count 8.5 K/UL (4.8-10.8) Red Blood Count 3.22 M/UL (4.20-5.40) L Hemoglobin 10.0 G/DL (12.0-16.0) L Hematocrit 31.9 % (37.0-47.0) L Mean Corpuscular Volume 99 FL (80-99) Mean Corpuscular Hemoglobin 31.1 PG (27.0-31.0) H Mean Corpuscular Hemoglobin Concent 31.4 G/DL (32.0-36.0) L Red Cell Distribution Width 12.9 % (11.6-14.8) Platelet Count 272 K/UL (150-450) # Mean Platelet Volume 7.3 FL (6.5-10.1) Neutrophils (%) (Auto) 55.4 % (45.0-75.0) Lymphocytes (%) (Auto) 33.5 % (20.0-45.0) Monocytes (%) (Auto) 6.5 % (1.0-10.0) Eosinophils (%) (Auto) 3.0 % (0.0-3.0) Basophils (%) (Auto) 1.6 % (0.0-2.0) Sodium Level 140 mEQ/L (135-145) Potassium Level 4.3 mEQ/L (3.4-4.9) Chloride Level 100 mEQ/L (98-107) Carbon Dioxide Level 27 mEQ/L (20-30) Anion Gap 13 (5-15) Blood Urea Nitrogen 11 mg/dL (7-23) Creatinine 0.6 mg/dL (0.5-0.9) Estimat Glomerular Filtration Rate > 60 mL/min (>60) Glucose Level 82 mg/dL (74-106) Calcium Level 8.6 mg/dL (8.6-10.2) Angy Crane M.D. Nov 16, 2016 16:17
--- NOTE | 2016-11-16 19:23 | Pulmonology Progress Note ---
Assessment/Plan Problems: (1) Bacteremia (2) Sepsis (3) copd (4) CHF (congestive heart failure), NYHA class I (5) Hypothyroidism (6) Lumbar radiculopathy (7) chronic pain Assessment/Plan improving abx ss per ID, Rochephine q 24 hours check cultures pt/ot in process dvt prophylaxis tolerating diet dc planning Subjective ROS Limited/Unobtainable: No Constitutional: Reports: no symptoms HEENT: Repors: no symptoms Respiratory: Reports: no symptoms Allergies: Coded Allergies: PENICILLINS (Unverified Allergy, Severe, 11/09/16) AMITRIPTYLINE (Verified Allergy, Unknown, 10/19/13) [facility]. CHLORPROMAZINE (Verified Allergy, Unknown, 10/19/13) [facility] pt does not remember reaction. ERYTHROMYCIN BASE (Verified Allergy, Unknown, 10/19/13) [facility] pt does not remember reaction. HALOPERIDOL (Verified Allergy, Unknown, 10/19/13) [facility] pt does not remember reaction. QUETIAPINE (Verified Allergy, Unknown, 10/19/13) [facility]. pt does not remember reaction. Objective Last 24 Hour Vital Signs Date Time Temp Pulse Resp B/P Pulse Ox O2 Delivery O2 Flow Rate FiO2 11/16/16 14:40 83 20 100 Nasal Cannula 11/16/16 14:30 89 20 100 Nasal Cannula 3.0 11/16/16 14:21 97.7 11/16/16 12:31 97.7 86 18 150/70 95 Room Air 11/16/16 10:37 85 16 98 Room Air 11/16/16 10:33 97.7 11/16/16 10:27 95 16 98 Room Air 11/16/16 08:36 97.7 89 18 144/73 96 Room Air 11/16/16 07:56 Room Air 11/16/16 07:54 Room Air 11/16/16 07:48 91 144/73 11/16/16 04:00 98.4 87 20 129/67 94 Room Air 11/16/16 03:53 92 18 96 Room Air 21 11/16/16 03:36 90 20 94 Room Air 21 11/16/16 00:00 97.2 95 18 120/81 96 Room Air 11/15/16 23:45 94 20 95 Room Air 21 11/15/16 23:30 92 20 93 Room Air 21 11/15/16 20:00 98.1 79 20 116/75 97 Room Air Intake and Output 11/15/16 11/16/16 19:00 07:00 Intake Total 1010 ml 200 ml Balance 1010 ml 200 ml Intake Oral 1010 ml 200 ml # Voids 6 3 Objective General Appearance: WD/WN HEENT: normocephalic, atraumatic Respiratory/Chest: chest wall non-tender, lungs clear Breasts: no masses Cardiovascular: normal peripheral pulses, normal rate Abdomen: normal bowel sounds, soft, non tender Genitourinary: normal external genitalia Extremities: no cyanosis, no clubbing Skin: no ulcers Neurologic/Psychiatric: commissary steward II-XII grossly normal, no motor/sensory deficits Lymphatic: no neck adenopathy, no groin adenopathy Laboratory Tests 11/16/16 05:20: White Blood Count 8.5, Red Blood Count 3.22L, Hemoglobin 10.0L, Hematocrit 31.9L , Mean Corpuscular Volume 99, Mean Corpuscular Hemoglobin 31.1H, Mean Corpuscular Hemoglobin Concent 31.4L, Red Cell Distribution Width 12.9, Platelet Count 272#, Mean Platelet Volume 7.3, Neutrophils (%) (Auto) 55.4, Lymphocytes (%) (Auto) 33.5, Monocytes (%) (Auto) 6.5, Eosinophils (%) (Auto) 3.0, Basophils (%) (Auto) 1.6, Sodium Level 140, Potassium Level 4.3, Chloride Level 100, Carbon Dioxide Level 27, Anion Gap 13, Blood Urea Nitrogen 11, Creatinine 0.6, Estimat Glomerular Filtration Rate > 60, Glucose Level 82, Calcium Level 8.6 CONOR WYLIE Nov 16, 2016 19:23
--- NOTE | 2016-11-16 20:27 | General Progress Note ---
Assessment/Plan Assessment/Plan ASSESSMENT/RECS: 1. Anemia secondary to chronic disease, currently mild. Continue to closely monitor, has decreased from 14.8 to currently 10.4. --> consider w/u if drops further 2. Leukocytosis likely secondary to underlying infection and urinary tract infection. --> improved --> Peripheral smear has been reviewed 3. Monocytosis potentially secondary to underlying infection. 4. Coagulopathy potentially secondary to malnourishment. 5. Headache, being managed by Neurology service. 6. Degenerative cervical disc disease. 7. Pyelonephritis. Treatment per ID service. Subjective Constitutional: Reports: no symptoms HEENT: Reports: no symptoms Cardiovascular: Reports: no symptoms Respiratory: Reports: no symptoms Gastrointestinal/Abdominal: Reports: no symptoms Genitourinary: Reports: no symptoms Neurologic/Psychiatric: Reports: no symptoms Endocrine: Reports: no symptoms Hematologic/Lymphatic: Reports: no symptoms Allergies: Coded Allergies: PENICILLINS (Unverified Allergy, Severe, 11/09/16) AMITRIPTYLINE (Verified Allergy, Unknown, 10/19/13) recorded from [facility] pt does not remember the reation. CHLORPROMAZINE (Verified Allergy, Unknown, 10/19/13) recorded from [facility]. pt does not remember reaction. ERYTHROMYCIN BASE (Verified Allergy, Unknown, 10/19/13) recorded from [facility]. pt does not remember reaction. HALOPERIDOL (Verified Allergy, Unknown, 10/19/13) recorded from [facility]. pt does not remember reaction. QUETIAPINE (Verified Allergy, Unknown, 10/19/13) recorded from [facility]. pt does not remember reaction. Subjective no fevers or chills, stable for discharge to snf Objective Last 24 Hour Vital Signs Date Time Temp Pulse Resp B/P Pulse Ox O2 Delivery O2 Flow Rate FiO2 11/16/16 14:40 83 20 100 Nasal Cannula 11/16/16 14:30 89 20 100 Nasal Cannula 3.0 11/16/16 14:21 97.7 11/16/16 12:31 97.7 86 18 150/70 95 Room Air 11/16/16 10:37 85 16 98 Room Air 11/16/16 10:33 97.7 11/16/16 10:27 95 16 98 Room Air 11/16/16 08:36 97.7 89 18 144/73 96 Room Air 11/16/16 07:56 Room Air 11/16/16 07:54 Room Air 11/16/16 07:48 91 144/73 11/16/16 04:00 98.4 87 20 129/67 94 Room Air 11/16/16 03:53 92 18 96 Room Air 21 11/16/16 03:36 90 20 94 Room Air 21 11/16/16 00:00 97.2 95 18 120/81 96 Room Air 11/15/16 23:45 94 20 95 Room Air 21 11/15/16 23:30 92 20 93 Room Air 21 Intake and Output 11/15/16 11/16/16 19:00 07:00 Intake Total 1010 ml 200 ml Balance 1010 ml 200 ml Intake Oral 1010 ml 200 ml # Voids 6 3 Laboratory Tests 11/16/16 05:20: White Blood Count 8.5, Red Blood Count 3.22L, Hemoglobin 10.0L, Hematocrit 31.9L , Mean Corpuscular Volume 99, Mean Corpuscular Hemoglobin 31.1H, Mean Corpuscular Hemoglobin Concent 31.4L, Red Cell Distribution Width 12.9, Platelet Count 272#, Mean Platelet Volume 7.3, Neutrophils (%) (Auto) 55.4, Lymphocytes (%) (Auto) 33.5, Monocytes (%) (Auto) 6.5, Eosinophils (%) (Auto) 3.0, Basophils (%) (Auto) 1.6, Sodium Level 140, Potassium Level 4.3, Chloride Level 100, Carbon Dioxide Level 27, Anion Gap 13, Blood Urea Nitrogen 11, Creatinine 0.6, Estimat Glomerular Filtration Rate > 60, Glucose Level 82, Calcium Level 8.6 Height (Feet): 5 Height (Inches): 4.00 Weight (Pounds): 215 General Appearance: no apparent distress EENT: normal ENT inspection Neck: normal alignment Cardiovascular: normal peripheral pulses Respiratory/Chest: chest wall non-tender Abdomen: non tender Extremities: normal range of motion Edema: no edema noted Pedal (L), no edema noted Pedal (R) Neurologic: counsel II-XII grossly normal Skin: warm/dry Pa Rico Nov 16, 2016 20:27
--- NOTE | 2016-11-17 10:04 | Discharge Summary ---
Discharge Summary Hospital Course Date of Admission Nov 09, 2016 at 02:08 Date of Discharge Nov 16, 2016 at 15:20 Admitting Diagnosis Urinary track infection, abd pain HPI Susy Munguia is a 71 year old female who was admitted on Nov 09, 2016 at 02:08 for Urinary Tract Infection,Abdominal Pain Hospital Course [id number] Discharge Discharge Disposition Patient was discharged to SNF/Subacute Facility(03) Discharge Diagnoses: Magy Mcdaniel NP Nov 17, 2016 10:04
--- NOTE | 2016-11-17 17:01 | Progress Note ---
DATE: 11/16/2016 SUBJECTIVE: The patient is doing well. No behavior issues. Continues to have some anxiety, tolerating Lexapro. MENTAL STATUS EXAMINATION: The patient is alert and oriented x3. Mood is anxious. Affect is constricted. Congruent with mood. Thought process is concrete. Thought content, no suicidal, homicidal ideation. Cognition is intact. ASSESSMENT: Anxiety disorder. PLAN: 1. The patient will be continued on Lexapro. 2. Continue as needed Ativan. 3. The patient was assessed on 11/16/[address]: Bienvenido JOB#: [id number] CC:
--- NOTE | 2016-11-17 19:14 | Cardiology Report ---
APPROVED REPORT EKG Measurement Heart [id number] Sinus tachycardia with occasional premature ventricular complexes Septal infarct, age undetermined Abnormal ECG
--- NOTE | 2016-11-17 23:02 | Discharge Summary 2 SIG ---
DATE OF ADMISSION: 11/09/2016 DATE OF DISCHARGE: 11/16/2016 CONSULTANTS: 1. Pa Rico M.D. 2. John Mercado M.D. 3. Angy Crane M.D. 4. Jon Michaels M.D. 5. Damian Caldwell M.D. 6. Valdez Pressley M.D. 7. Jacobo Rolon M.D. 8. Lee Mullins M.D. BRIEF HOSPITAL COURSE: The patient is a 71-year-old female with multiple medical problem and history of gastric bypass presented with abdominal pain of acute onset, which was 10/10. Evaluation at ED showed elevated WBC and was febrile at 102.9 degrees. Urine WBC showed too many to count. The patient was admitted to medical floor for urinary tract infection, sepsis and was started empirically on IV cefepime, pending urine and blood culture results. She also had alteration in her mental status and underwent neurologic evaluation. On neuro exam, she was mildly disoriented and had globally diminished reflexes, but the rest of neurologic examination was essentially benign. History and neurological examination was compatible with delirium due to pyelonephritis. She underwent ultrasound of the kidneys that showed left renal collecting system fullness and a mass-like lesion in the left kidney. No evidence of right-sided hydronephrosis. The abdominal and pelvic CT scan showed left renal small obstructing stone in the distal ureter with sequelae of a recently passed stone and/or pyelonephritis. She was given pain management and was seen by Dr. Mullins. She seemed to have more pyelonephritis presentation rather than obstructive collecting system and was recommended to continue antibiotics for two weeks. There was no further genitourinary intervention needed. Urine culture showed growth of E. coli. Blood culture showed coagulase-negative Staph in one set, most likely contaminant. The anemia was assessed to be secondary to chronic disease and is mild. Peripheral blood smear showed reactive leukocytosis with mild normocytic normochromic anemia with no specific pathologic changes seen. She underwent physical therapy and occupational therapy and has been tolerating diet well. She was diagnosed to have anxiety disorder and major depressive disorder. Paxil and Abilify was discontinued. Depakote was decreased to 500 mg at bedtime and was started on Lexapro 10 mg q.a.m. The patient was eventually discharged to [facility]. FINAL DIAGNOSES: 1. Acute pyelonephritis due to Escherichia coli. 2. Chronic pain. 3. Lumbar radiculopathy. 4. Hypothyroidism. 5. Chronic obstructive pulmonary disease. 6. Morbid obesity. 7. Congestive heart failure. 8. Hypokalemia. 9. Hypertension. 10. Anxiety disorder. 11. Major depressive disorder. 12. Anemia of chronic disease. 13. Headache. Rene Julio D.O. I have been assigned to dictate discharge summary on this account and I was not involved in the patient's management. Magy Mcdaniel N.P. DR: GILBERTO JOB#: [id number] CC: ZENA
== END 2016-11-16 15:20 | DRG 720 ==
LOC: EDBD 22:11 → EMR 22:24 → 4W 11-09 02:08 → EDBEDREQ 11-09 02:28 → 4W 11-09 16:53
DX: A41.9 Sepsis, unspecified organism (principal); D68.9 Coagulation defect, unspecified; I50.9 Heart failure, unspecified; N20.1 Calculus of ureter; N12 Tubulo-interstitial nephritis, not specified as acute or chronic; M19.90 Unspecified osteoarthritis, unspecified site; J44.9 Chronic obstructive pulmonary disease, unspecified; E03.9 Hypothyroidism, unspecified; F41.9 Anxiety disorder, unspecified; N10 Acute pyelonephritis; B96.20 Unspecified Escherichia coli [E. coli] as the cause of diseases classified elsewhere; Z88.1 Allergy status to other antibiotic agents; Z88.0 Allergy status to penicillin; Z88.8 Allergy status to other drugs, medicaments and biological substances; F32.9 Major depressive disorder, single episode, unspecified; D63.8 Anemia in other chronic diseases classified elsewhere; R51 Headache; F20.9 Schizophrenia, unspecified; F31.9 Bipolar disorder, unspecified; E66.01 Morbid (severe) obesity due to excess calories; Z68.41 Body mass index [BMI] 40.0-44.9, adult; M51.16 Intervertebral disc disorders with radiculopathy, lumbar region; E87.6 Hypokalemia; Z98.84 Bariatric surgery status; M15.9 Polyosteoarthritis, unspecified; Z22.322 Carrier or suspected carrier of Methicillin resistant Staphylococcus aureus; K21.9 Gastro-esophageal reflux disease without esophagitis; R41.0 Disorientation, unspecified
CPT/HCPCS: 36415; 74176; 76775; 80048; 80053; 80061; 81003; 82306; 82550; 82607; 82746; 82977; 83036; 83605; 83690; 83735; 83880; 84100; 84165; 84443; 84484; 84550; 85007; 85025; 85060; 85610; 85651; 85730; 86140; 86592; 87040; 87081; 87086; 87181; 93005; 93970; 94640; 94644; 94664; 94760; 97803; C9399; J2405; J7620; J8499

== ENCOUNTER 2016-11-25 20:28 | Inpatient (IN) | payer MEDICARE, OTHER ==
[~2016-11-25] VITALS: Ht 147.3 cm; Wt 95.3 kg
[~2016-11-25 20:28] MED LIST changes: +ABILIFY2 MG ORAL; +ALBUTEROL2.5 MG/3 M INH; +AMBIEN5 MG ORAL; +AMLODIPINE BESY10 MG ORAL; +ASPIRIN325 MG ORAL; +CYCLOBENZAPRINE10 MG ORAL; +DEPAKOTE ER500 MG ORAL; +DIVALPROEX SOD500 M2 PO; +FAMOTIDINE20 MG ORAL; +GUAIFENESIN-CO118 M1 ORAL; +HYDRALAZINE HCL25 M1 ORAL; +IPRATROPIU0.2 MG/1 M HHN; +LEVAQUIN500 MG ORAL; +LORAZEPAM1 MG ORAL; +MILK OF MA400 MG/51 ORAL; +MIRALAX17 G2 ORAL; +NITROGLYCERIN0.4 MG SL; +NORCO 10-325 T1 EACH ORAL; +NORCO 5-325 TA1 EACH ORAL; +NORVASC2.5 MG ORAL; +OXYCODONE-ACET1 EAC5 ORAL; +PAROXETINE HC12.5 MG ORAL; +PHENAZOPYRIDIN200 MG ORAL; +PRO-STAT LIQUID30 ML ORAL; +SENNA-GEN8.6 M1 PO; +THIAMINE HCL100 MG ORAL; +VENTOLIN HFA18 GM INH; +VITAMIN B-1100 MG ORAL; +ZOLPIDEM TARTRA10 MG ORAL
[2016-11-25 21:58] LABS: BASOPHILS % (AUTO) 1.4 % (0.0-2.0); EOSINOPHILS % (AUTO) 2.6 % (0.0-3.0); LYMPHOCYTES % (AUTO) 50.4 % (20.0-45.0); MEAN CORPUSCULAR HEMOGLOBIN 31.6 PG (27.0-31.0); MEAN CORPUSCULAR HGB CONC 32.2 G/DL (32.0-36.0); MEAN CORPUSCULAR VOLUME 98 FL (80-99); MEAN PLATELET VOLUME 6.4 FL (6.5-10.1); MONOCYTES % (AUTO) 4.3 % (1.0-10.0); NEUTROPHILS % (AUTO) 41.3 % (45.0-75.0); PLATELET COUNT 294 K/UL (150-450); RED BLOOD COUNT 3.57 M/UL (4.20-5.40); RED CELL DISTRIBUTION WIDTH 13.2 % (11.6-14.8); WHITE BLOOD COUNT 5.1 K/UL (4.8-10.8)
[2016-11-25 22:21] LABS: TROPONIN I < 0.30 ng/mL (<=0.30)
[2016-11-25 22:24] LABS: ALANINE AMINOTRANSFERASE 9 U/L (3-33); ANION GAP 11 (5-15); ASPARTATE AMINO TRANSFERASE 13 U/L (5-40); CALCIUM 9.3 mg/dL (8.6-10.2); CARBON DIOXIDE 29 mEQ/L (20-30); CHLORIDE 101 mEQ/L (98-107); CREATININE 0.7 mg/dL (0.5-0.9); GLOMERULAR FILTRATION RATE > 60 mL/min (>60); HEMOLYSIS 2; POTASSIUM 3.7 mEQ/L (3.4-4.9); SODIUM 141 mEQ/L (135-145); TOTAL PROTEIN 7.1 g/dL (6.6-8.7)
[2016-11-25 22:30] VITALS: BP 141/65
[2016-11-25] MEDS ORDERED: Morphine Sulfate 2mg/ml Inj IVP ONE (23:30)
[2016-11-26 00:15] VITALS: BP 115/65
[2016-11-26] MEDS ORDERED: Morphine Sulfate 2mg/ml Inj IVP ONE (01:30)
[2016-11-26 01:45] VITALS: BP 114/62
[2016-11-26 02:45] VITALS: BP 127/90
--- NOTE | 2016-11-26 06:30 | Emergency Room Report ---
History of Present Illness General Chief Complaint: Edema Source: Patient, Medical Record, EMS Present Illness HPI Patient is 71-year-old female who presented from half-way after increased difficulty with lower extremity swelling. Patient recently been hospitalized for congestive heart failure. The patient had previous workup which included lower extremity ultrasound. Patient stated that she had been having increased work of breathing. Patient prior history of psychiatric disease. She had been taking diuretics as well as other medications. She denied any fever. Allergies: Coded Allergies: PENICILLINS (Unverified Allergy, Severe, 11/09/16) AMITRIPTYLINE (Verified Allergy, Unknown, 10/19/13) recorded from half-way. pt does not remember the reation. CHLORPROMAZINE (Verified Allergy, Unknown, 10/19/13) recorded from half-way. pt does not remember reaction. ERYTHROMYCIN BASE (Verified Allergy, Unknown, 10/19/13) recorded from half-way. pt does not remember reaction. HALOPERIDOL (Verified Allergy, Unknown, 10/19/13) recorded from half-way. pt does not remember reaction. QUETIAPINE (Verified Allergy, Unknown, 10/19/13) recorded from half-way. pt does not remember reaction. Patient History Past Medical History: see triage record Reviewed Nursing Documentation: PMH: Agreed, PSxH: Agreed Nursing Documentation-PMH Past Medical History: No History, Except For Hx Cardiac Problems: Yes Hx Hypertension: Yes Hx Pacemaker: No Hx Asthma: Yes Hx COPD: Yes Hx Diabetes: No Hx Cancer: No Hx Gastrointestinal Problems: Yes - GASTRIC BYPASS 2006 Hx Neurological Problems: Yes - Dorsalgia Hx Cerebrovascular Accident: No Hx Encephalitis: Yes - encephalopathy Hx Seizures: Yes Review of Systems All Other Systems: negative except mentioned in HPI Physical Exam Vital Signs Date Time Temp Pulse Resp B/P Pulse Ox O2 Delivery O2 Flow Rate FiO2 11/25/16 20:22 98.2 86 18 130/85 97 Nasal Cannula 1.0 Sp02 EP Interpretation: reviewed, normal General Appearance: normal inspection, well appearing, no apparent distress, alert, GCS 15, obese Head: atraumatic ENT: normal ENT inspection, hearing grossly normal, normal voice Neck: normal inspection, full range of motion, supple, no bony tend Respiratory: normal inspection, lungs clear, normal breath sounds, no respiratory distress, no retraction, no wheezing Cardiovascular #1: regular rate, rhythm, edema - right greater than left Gastrointestinal: normal inspection, normal bowel sounds, non tender, soft, no guarding, no hernia Genitourinary: no CVA tenderness Musculoskeletal: normal inspection, back normal, normal range of motion Neurologic: normal inspection, alert, oriented x3, responsive, 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 Differential diagnosis included but was not limited to fracture, contusion, renal stone, vascular insufficiency, aortic aneurysm, cellulitis.Because of complexity of patient's case laboratory testing and imaging studies were ordered. Laboratory studies showed elevation of the patient's BNP. She was noted to have some edema to her lower extremities which appear to be somewhat asymmetric.The patient given IV diuretics. The patient stated that she did not feel safe to return to her facility. She was placed in observation in the hospital due to CHF historry. Dr. Rene Julio was contacted for inpatient observation. Labs Test 11/25/16 21:35 White Blood Count 5.1 K/UL (4.8-10.8) Red Blood Count 3.57 M/UL (4.20-5.40) Hemoglobin 11.3 G/DL (12.0-16.0) Hematocrit 35.0 % (37.0-47.0) Mean Corpuscular Volume 98 FL (80-99) Mean Corpuscular Hemoglobin 31.6 PG (27.0-31.0) Mean Corpuscular Hemoglobin Concent 32.2 G/DL (32.0-36.0) Red Cell Distribution Width 13.2 % (11.6-14.8) Platelet Count 294 K/UL (150-450) Mean Platelet Volume 6.4 FL (6.5-10.1) Neutrophils (%) (Auto) 41.3 % (45.0-75.0) Lymphocytes (%) (Auto) 50.4 % (20.0-45.0) Monocytes (%) (Auto) 4.3 % (1.0-10.0) Eosinophils (%) (Auto) 2.6 % (0.0-3.0) Basophils (%) (Auto) 1.4 % (0.0-2.0) D-Dimer 595 ng/mL (<500) Sodium Level 141 mEQ/L (135-145) Potassium Level 3.7 mEQ/L (3.4-4.9) Chloride Level 101 mEQ/L (98-107) Carbon Dioxide Level 29 mEQ/L (20-30) Anion Gap 11 (5-15) Blood Urea Nitrogen 10 mg/dL (7-23) Creatinine 0.7 mg/dL (0.5-0.9) Estimat Glomerular Filtration Rate > 60 mL/min (>60) Glucose Level 96 mg/dL (74-106) Calcium Level 9.3 mg/dL (8.6-10.2) Total Bilirubin < 0.2 mg/dL (0.0-1.2) Aspartate Amino Transf (AST/SGOT) 13 U/L (5-40) Alanine Aminotransferase (ALT/SGPT) 9 U/L (3-33) Alkaline Phosphatase 70 U/L (35-104) Troponin I < 0.30 ng/mL (<=0.30) Pro-B-Type Natriuretic Peptide 135 pg/mL (0-125) Total Protein 7.1 g/dL (6.6-8.7) Albumin 3.6 g/dL (3.5-5.2) Globulin 3.5 g/dL Albumin/Globulin Ratio 1.0 (1.0-2.7) Thyroid Stimulating Hormone (TSH) 2.210 uIU/mL (0.300-4.500) EKG Diagnostic Results Rate: normal - 82 Rhythm: NSR ST Segments: no acute changes Rhythm Strip Diag. Results EP Interpretation: yes Rhythm: NSR, no PVC's, no ectopy Chest X-Ray Diagnostic Results Chest X-Ray Diagnostic Results : Chest X-Ray Ordered: Yes # of Views/Limited/Complete: 1 View Indication: Chest Pain EP Interpretation: Yes Interpretation: no consolidation, no effusion, no pneumothorax, no acute cardiopulmonary disease Impression: No acute disease Last Vital Signs Date Time Temp Pulse Resp B/P Pulse Ox O2 Delivery O2 Flow Rate FiO2 11/26/16 03:43 98.2 11/26/16 02:26 71 18 114/62 97 Room Air 1.0 Status: improved Disposition: PLACE IN OBSERVATION Condition: Serious Referrals: NOT CHOSEN IPA/,REFERRING (PCP) Florentino Lynn Nov 26, 2016 06:30
[2016-11-26] MEDS ORDERED: Miralax 17gm pkt ORAL PRN (08:00)
[2016-11-26] MEDS ORDERED: HydrALAZINE 25mg tab ORAL PRN ×2 (08:00→16:00)
[2016-11-26] MEDS ORDERED: DuoNeb 0.5-3(2.5)mg/3ml neb HHN PRN ×2 (08:00→16:00)
--- NOTE | 2016-11-26 08:20 | Diagnostic Imaging Report ---
Indications: Shortness of breath Technique: Portable AP chest Findings: Comparison: 03/18/15 Image quality again degraded by patient's body habitus, limiting evaluation. Inspiratory effort has improved. Cardiac silhouette remains enlarged. Pulmonary vasculature remains within normal limits. Linear density persists in left midlung. Lungs and pleura remain otherwise clear. Aortic arch calcification and elongation, S-shaped scoliosis of thoracic spine, bilateral glenohumeral degenerative arthropathy on noted. IMPRESSION: Limited exam demonstrating no evidence of acute cardiopulmonary disease, unchanged Stable chronic changes as described
[2016-11-26] MEDS ORDERED: Phenazopyridine 200mg tab ORAL SCH (09:00)
[2016-11-26] MEDS ORDERED: Heparin 5000 units/ml inj SUBQ SCH (09:00)
[2016-11-26] MEDS ORDERED: PARoxetine 20mg tab ORAL SCH (09:00)
[2016-11-26] MEDS ORDERED: DIVALPROEX SOD500 MG PO (09:20)
[2016-11-26] MEDS ORDERED: Norco 10mg/325mg tab ORAL PRN ×2 (10:00→14:00)
--- NOTE | 2016-11-26 10:30 | History and Physical Report ---
DATE OF ADMISSION: 11/26/2016 TIME SEEN: 8 a.m. CONSULTANTS: 1. Jorge Lawson M.D. 2. Kael Peace M.D. 3. Forest Worthy M.D. 4. John Mercado M.D. 5. Damian Caldwell M.D. CHIEF COMPLAINT: Leg swelling, shortness of breath, edema, and exacerbation of CHF. BRIEF HISTORY: This is a 71-year-old male from [facility], who presents with above mentioned diagnosis, admitted to telemetry unit for further care. Currently, short of breath, sleepy, not talking much. PAST MEDICAL HISTORY: Encephalopathy, CHF, chronic pain, arthritis, COPD, and DJD. PAST SURGICAL HISTORY: Unknown. MEDICATIONS: Include Tylenol, morphine, Zofran, and Lasix. ALLERGIES: Amitriptyline, chlorpromazine, erythromycin, Haldol, penicillin, and quetiapine. SOCIAL HISTORY: No smoking. No alcohol. No intravenous drug abuse. FAMILY HISTORY: Noncontributory. REVIEW OF SYSTEMS: No chest pain or short of breath. No nausea, vomiting, or diarrhea. PHYSICAL EXAMINATION: GENERAL: Sleeping in bed, alert and oriented x3, in no acute distress. VITAL SIGNS: Showed temperature is 97 degrees, pulse 85, respirations 18, and blood pressure 127/90. CARDIOVASCULAR: No murmurs. LUNGS: Distant and clear. ABDOMEN: Positive bowel sounds. Soft, nontender, and nondistended. EXTREMITIES: No cyanosis or clubbing. 1+ edema. NEUROLOGIC: The patient moves all extremities, but slightly weak x4. LABORATORY DATA: Lab exam shows hemoglobin 11.3, otherwise CBC is normal. BNP is 135. Otherwise, CMP is normal. Troponin is less than 0.3. D-dimer is 595. ASSESSMENT: 1. Leg swelling, edema. 2. Encephalopathy. 3. Anemia. 4. Congestive heart failure exacerbation. 5. Chronic pain. 6. Arthritis. 7. Chronic obstructive pulmonary disease. 8. Degenerative joint disease. PLAN: 1. Continue premedications. 2. O2 and pulmonary treatment. 3. Troponin q.8. x3. 4. EKG. 5. Diuresis per Cardiology. 6. OT, PT, and dietary evaluation. 7. CBC and BMP in the morning. 8. Dr. Lawson, Dr. Peace, Dr. Worthy, Dr. Mercado, and Dr. Caldwell to consult. I will continue to follow this patient. Rene Julio D.O. DR: NATALIYA JOB#: [id number] CC:
--- NOTE | 2016-11-26 12:11 | General Progress Note ---
Assessment/Plan Assessment/Plan (1) Degenerative cervical disc (2) Lumbar radiculopathy (3) Lumbar degenerative disc disease (4) chronic pain (5) Osteoarthritis of multiple joints Pt will be continued on Antonito changed to Q4H PRN moderate pain and start Percocet 5/325mg PO 1 Tab Q6H PRN severe pain. Pt was d/w Dr. Caldwell and he concurred. Thank you for the courtesy of this consultation. Subjective Date patient seen: Nov 26, 2016 Time patient seen: 12:00 - pm Allergies: Coded Allergies: PENICILLINS (Unverified Allergy, Severe, 11/09/16) AMITRIPTYLINE (Verified Allergy, Unknown, 10/19/13) recorded from intermediate. pt does not remember the reation. CHLORPROMAZINE (Verified Allergy, Unknown, 10/19/13) recorded from intermediate. pt does not remember reaction. ERYTHROMYCIN BASE (Verified Allergy, Unknown, 10/19/13) recorded from intermediate. pt does not remember reaction. HALOPERIDOL (Verified Allergy, Unknown, 10/19/13) recorded from intermediate. pt does not remember reaction. QUETIAPINE (Verified Allergy, Unknown, 10/19/13) recorded from intermediate. pt does not remember reaction. Subjective Constitutional: Denies: no symptoms, chills, diaphoresis, fever, malaise, weakness, other HEENT: Denies: no symptoms, eye pain, blurred vision, tearing, double vision, ear pain, ear discharge, nose pain, nose congestion, throat pain, throat swelling, mouth pain, mouth swelling, other Cardiovascular: Denies: no symptoms, chest pain, edema, irregular heart rate, lightheadedness, palpitations, syncope, other Respiratory: Denies: no symptoms, cough, orthopnea, shortness of breath, SOB with excertion, SOB at rest, sputum, stridor, wheezing, other Gastrointestinal/Abdominal: Denies: no symptoms, abdomen distended, abdominal pain, black stools, tarry stools, blood in stool, constipated, diarrhea, difficulty swallowing, nausea, poor appetite, poor fluid intake, rectal bleeding , vomiting, other Genitourinary: Denies: no symptoms, burning, discharge, frequency, flank pain, hematuria, incontinence, pain, urgency, other Neurologic/Psychiatric: Reports: depressed, emotional problems Endocrine: Denies: no symptoms, excessive sweating, flushing, intolerance to cold, intolerance to heat, increased hunger, increased thirst, increased urine, unexplained weight gain, unexplained weight loss, other Hematologic/Lymphatic: Denies: no symptoms, anemia, easy bleeding, easy bruising, other Subjective Pt is a known patient from prior admission who returns due to CHF exacerbation under the care of Dr. Julio. At this time she on Antonito 10/325mg Q6H PRN with minimal pain relief. We were consulted for patient would have adequate pain control while her in the hospital. Objective Last 24 Hour Vital Signs Date Time Temp Pulse Resp B/P Pulse Ox O2 Delivery O2 Flow Rate FiO2 11/26/16 09:44 85 127/90 11/26/16 08:00 108 11/26/16 03:43 98.2 11/26/16 02:45 97.7 85 18 127/90 97 Nasal Cannula 2.0 11/26/16 02:26 98.2 71 18 114/62 97 Room Air 1.0 11/26/16 01:45 98.2 71 18 114/62 97 Room Air 11/26/16 00:15 98.2 78 18 115/65 97 Room Air 11/25/16 22:30 98.2 85 18 141/65 97 Room Air 11/25/16 22:30 86 17 Room Air 11/25/16 20:22 98.2 86 18 130/85 97 Nasal Cannula 1.0 Intake and Output 11/25/16 11/26/16 19:00 07:00 Intake Total 0 ml Balance 0 ml Intake Oral 0 ml # Voids 2 Laboratory Tests 11/25/16 21:35: White Blood Count 5.1, Red Blood Count 3.57L, Hemoglobin 11.3L, Hematocrit 35.0L , Mean Corpuscular Volume 98, Mean Corpuscular Hemoglobin 31.6H, Mean Corpuscular Hemoglobin Concent 32.2, Red Cell Distribution Width 13.2, Platelet Count 294, Mean Platelet Volume 6.4L, Neutrophils (%) (Auto) 41.3L, Lymphocytes (%) (Auto) 50.4H, Monocytes (%) (Auto) 4.3, Eosinophils (%) (Auto) 2.6, Basophils (%) (Auto) 1.4, D-Dimer 595H, Sodium Level 141, Potassium Level 3.7, Chloride Level 101, Carbon Dioxide Level 29, Anion Gap 11, Blood Urea Nitrogen 10, Creatinine 0.7, Estimat Glomerular Filtration Rate > 60, Glucose Level 96, Calcium Level 9.3, Total Bilirubin < 0.2, Aspartate Amino Transf (AST/SGOT) 13, Alanine Aminotransferase (ALT/SGPT) 9, Alkaline Phosphatase 70, Troponin I < 0.30, Pro-B-Type Natriuretic Peptide 135H, Total Protein 7.1, Albumin 3.6, Globulin 3.5, Albumin/Globulin Ratio 1.0, Thyroid Stimulating Hormone (TSH) 2.210 Height (Feet): 4 Height (Inches): 10.00 Weight (Pounds): 210 Objective General Appearance: WD/WN EENT: PERRL/EOMI Neck: supple Cardiovascular: normal rate, regular rhythm Respiratory/Chest: decreased breath sounds Abdomen: non tender, soft Extremities: non-tender Edema: severe edema note in b/l LE 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
--- NOTE | 2016-11-26 12:38 | Consultation ---
History of Present Illness General Date patient seen: Nov 26, 2016 Chief Complaint: Edema Referring physician: Dr. Julio Reason for Consultation: dyspnea Present Illness HPI 71-year-old female with multiple medical/ psychiatric problems ( real and imaginary) including pulmonary hypertension, obesity, emphysema who presented from care home after increased lower extremity swelling. Patient recently been hospitalized for congestive heart failure. Patient stated that she had been having increased work of breathing. She is admitted to telemetry to evaluate her dyspnea. Allergies: Coded Allergies: PENICILLINS (Unverified Allergy, Severe, 11/09/16) AMITRIPTYLINE (Verified Allergy, Unknown, 10/19/13) recorded from care home. pt does not remember the reation. CHLORPROMAZINE (Verified Allergy, Unknown, 10/19/13) recorded from care home. pt does not remember reaction. ERYTHROMYCIN BASE (Verified Allergy, Unknown, 10/19/13) recorded from care home. pt does not remember reaction. HALOPERIDOL (Verified Allergy, Unknown, 10/19/13) recorded from care home. pt does not remember reaction. QUETIAPINE (Verified Allergy, Unknown, 10/19/13) recorded from care home. pt does not remember reaction. Medication History Scheduled Albuterol Sulfate (Ventolin Hfa), 2 PUFF INH Q4HR, (Reported) Albuterol Sulfate* (Albuterol Sulfate Hhn*), 3 ML INH Q4H, (Reported) Amlodipine Besylate (Norvasc), 2.5 MG ORAL DAILY, (Reported) Aripiprazole* (Abilify*), 2.5 MG ORAL DAILY, (Reported) Ascorbic Acid* (Vitamin C*), 500 MG ORAL BID, (Reported) Cyclobenzaprine Hcl* (Flexeril*), 10 MG ORAL BEDTIME, (Reported) Divalproex Sodium (Divalproex Sodium Er), 500 MG PO BEDTIME, (Reported) Divalproex Sodium (Divalproex Sodium), 500 MG PO BEDTIME, (Reported) Famotidine (Famotidine), 20 MG ORAL TWICE A DAY, (Reported) Furosemide* (Lasix*), 20 MG ORAL BID, (Reported) Ipratropium Hedrick 0.5MG/2.5ML (Ipratropium Hedrick 0.5MG/2.5ML), 0.5 MG HHN Q4HR, (Reported) Levofloxacin* (Levaquin*), 500 MG ORAL DAILY, (Reported) Multivitamins* (Multivitamins*), 1 TAB ORAL DAILY, (Reported) Paroxetine Hcl* (Paroxetine Hcl*), 40 MG ORAL DAILY, (Reported) Phenazopyridine Hcl* (Pyridium*), 200 MG ORAL THREE TIMES A DAY, (Reported) Polyethylene Glycol 3350* (Miralax*), 17 GM ORAL BEDTIME, (Reported) Sennosides (Senna-Gen), 8.6 MG PO BEDTIME, (Reported) Thiamine Hcl (Vitamin B1*), 100 MG ORAL DAILY, (Reported) Scheduled PRN Acetaminophen (Acetaminophen), 650 MG ORAL Q4HR PRN for Mild Pain/Temp > 100.5, (Reported) Albuterol Sulfate* (Albuterol Sulfate Mdi*), 2 PUFF INH Q4H PRN for Shortness of Breath, (Reported) Aspirin* (Aspirin*), 325 MG ORAL Q6HR PRN for [place] prophylaxis, (Reported) Diphenhydramine HCl (Diphenhydramine HCl), 50 MG ORAL DAILY PRN for Itching, ( Reported) Guaifenesin/Codeine Phos* (Robitussin Ac*), 10 ML ORAL Q4H PRN for For Cough, ( Reported) Guaifenesin/Dextromethorphan (Guaifenesin Dm Syrup), 5 ML ORAL EVERY 6 HOURS PRN for For Cough, (Reported) Hydralazine Hcl* (Hydralazine Hcl*), 25 MG ORAL EVERY 4 HOURS PRN for SBP>160, ( Reported) Hydrocodone Bit/Acetaminophen 10-325* ([place]ley 10-325*), 1 TAB ORAL Q6H PRN for For Pain, (Reported) Ipratropium Hedrick 0.5MG/2.5ML (Ipratropium Hedrick 0.5MG/2.5ML), 0.5 MG HHN Q4HR PRN for Shortness of Breath, (Reported) Lorazepam* (Lorazepam*), 1 MG ORAL Q4HR PRN for For Anxiety, (Reported) Magnesium Hydroxide* (Milk Of Magnesia*), 30 ML ORAL DAILY PRN for Constipation, (Reported) Oxycodone Hcl/Acetaminophen 10-325* (Oxycodone-Acetaminophen 10-325*), 1 TAB ORAL Q6H PRN for Severe Pain (Pain Scale 7-10), (Reported) Zolpidem Tartrate* (Ambien*), 10 MG ORAL BEDTIME PRN for Insomnia, (Reported) Patient History Healthcare decision maker Resuscitation status Full Code Advanced Directive on File Past Medical/Surgical History Past Medical/Surgical History: (1) Hypothyroidism (2) copd (3) Lumbar radiculopathy (4) Osteoarthritis of multiple joints Review of Systems All Other Systems: negative except mentioned in HPI Physical Exam General Appearance: WD/WN Lines, tubes and drains: peripheral HEENT: normocephalic, atraumatic Neck: non-tender, normal alignment Respiratory/Chest: chest wall non-tender, lungs clear Cardiovascular/Chest: normal peripheral pulses, normal rate Abdomen: normal bowel sounds, non tender Genitourinary/Rectal: normal genital exam Extremities: normal range of motion Skin Exam: normal pigmentation Last 24 Hour Vital Signs Date Time Temp Pulse Resp B/P Pulse Ox O2 Delivery O2 Flow Rate FiO2 11/26/16 09:44 85 127/90 11/26/16 08:00 108 11/26/16 03:43 98.2 11/26/16 02:45 97.7 85 18 127/90 97 Nasal Cannula 2.0 11/26/16 02:26 98.2 71 18 114/62 97 Room Air 1.0 11/26/16 01:45 98.2 71 18 114/62 97 Room Air 11/26/16 00:15 98.2 78 18 115/65 97 Room Air 11/25/16 22:30 98.2 85 18 141/65 97 Room Air 11/25/16 22:30 86 17 Room Air 11/25/16 20:22 98.2 86 18 130/85 97 Nasal Cannula 1.0 Intake and Output 11/25/16 11/26/16 19:00 07:00 Intake Total 0 ml Balance 0 ml Intake Oral 0 ml # Voids 2 Laboratory Tests Test 11/25/16 21:35 White Blood Count 5.1 K/UL (4.8-10.8) Red Blood Count 3.57 M/UL (4.20-5.40) L Hemoglobin 11.3 G/DL (12.0-16.0) L Hematocrit 35.0 % (37.0-47.0) L Mean Corpuscular Volume 98 FL (80-99) Mean Corpuscular Hemoglobin 31.6 PG (27.0-31.0) H Mean Corpuscular Hemoglobin Concent 32.2 G/DL (32.0-36.0) Red Cell Distribution Width 13.2 % (11.6-14.8) Platelet Count 294 K/UL (150-450) Mean Platelet Volume 6.4 FL (6.5-10.1) L Neutrophils (%) (Auto) 41.3 % (45.0-75.0) L Lymphocytes (%) (Auto) 50.4 % (20.0-45.0) H Monocytes (%) (Auto) 4.3 % (1.0-10.0) Eosinophils (%) (Auto) 2.6 % (0.0-3.0) Basophils (%) (Auto) 1.4 % (0.0-2.0) D-Dimer 595 ng/mL (<500) H Sodium Level 141 mEQ/L (135-145) Potassium Level 3.7 mEQ/L (3.4-4.9) Chloride Level 101 mEQ/L (98-107) Carbon Dioxide Level 29 mEQ/L (20-30) Anion Gap 11 (5-15) Blood Urea Nitrogen 10 mg/dL (7-23) Creatinine 0.7 mg/dL (0.5-0.9) Estimat Glomerular Filtration Rate > 60 mL/min (>60) Glucose Level 96 mg/dL (74-106) Calcium Level 9.3 mg/dL (8.6-10.2) Total Bilirubin < 0.2 mg/dL (0.0-1.2) Aspartate Amino Transf (AST/SGOT) 13 U/L (5-40) Alanine Aminotransferase (ALT/SGPT) 9 U/L (3-33) Alkaline Phosphatase 70 U/L (35-104) Troponin I < 0.30 ng/mL (<=0.30) Pro-B-Type Natriuretic Peptide 135 pg/mL (0-125) H Total Protein 7.1 g/dL (6.6-8.7) Albumin 3.6 g/dL (3.5-5.2) Globulin 3.5 g/dL Albumin/Globulin Ratio 1.0 (1.0-2.7) Thyroid Stimulating Hormone (TSH) 2.210 uIU/mL (0.300-4.500) Height (Feet): 4 Height (Inches): 10.00 Weight (Pounds): 210 Medications Current Medications Medications (Trade) Dose Ordered Sig/Kushal Route PRN Reason Start Time Stop Time Status Last Admin Dose Admin Acetaminophen (Tylenol) 650 mg Q4H PRN ORAL Fever 11/26/16 08:00 12/26/16 07:59 Acetaminophen/ Hydrocodone Bitart ([place] 10/325) 1 ea Q4H PRN ORAL For moderate Pain 11/26/16 14:00 12/03/16 13:59 Albuterol/ Ipratropium (DuoNeb 0.5-3(2.5)mg/3ml) 3 ml Q4H PRN HHN Shortness of Breath 11/26/16 08:00 12/01/16 07:59 Amlodipine Besylate (Norvasc) 2.5 mg DAILY ORAL 11/26/16 09:00 12/26/16 08:59 11/26/16 09:44 Aripiprazole (Abilify) 2.5 mg DAILY ORAL 11/26/16 09:00 12/26/16 08:59 11/26/16 09:44 Dextrose (Dextrose 50%) STAT PRN IV Hypoglycemia 11/26/16 08:00 12/26/16 07:59 Divalproex Sodium (Depakote ER) 500 mg BEDTIME ORAL 11/26/16 21:00 12/26/16 20:59 Furosemide (Lasix) 40 mg EVERY 8 HOURS IV 11/26/16 14:00 12/26/16 13:59 Heparin Sodium (Porcine) (Heparin 5000 units/ml) 5,000 units EVERY 12 HOURS SUBQ 11/26/16 09:00 12/26/16 08:59 Hydralazine HCl (Apresoline) 25 mg Q4H PRN ORAL SBP>160 11/26/16 08:00 12/26/16 07:59 Ondansetron HCl (Zofran) 4 mg Q6H PRN IVP Nausea & Vomiting 11/26/16 08:00 12/26/16 07:59 11/26/16 10:05 Oxycodone/ Acetaminophen (Percocet 5-325) 1 tab Q6H PRN ORAL severe pain 11/26/16 13:00 12/03/16 12:59 Paroxetine HCl (Paxil) 40 mg DAILY ORAL 11/26/16 09:00 12/26/16 08:59 11/26/16 09:44 Polyethylene Glycol (Miralax) 17 gm DAILYPRN PRN ORAL Constipation 11/26/16 08:00 12/26/16 07:59 Temazepam (Restoril) 15 mg HSPRN PRN ORAL Insomnia 11/26/16 08:00 12/03/16 07:59 Assessment/Plan Problem List: (1) CHF (congestive heart failure) ICD Codes: I50.9 - CHF (congestive heart failure) SNOMED: 26850092 (2) copd (3) Lumbar degenerative disc disease ICD Codes: M51.36 - Lumbar degenerative disc disease SNOMED: 70426310 (4) Osteoarthritis of multiple joints ICD Codes: M15.9 - Osteoarthritis of multiple joints SNOMED: 97684683 Assessment/Plan diuretics f/u BNP Echo was done recently pain management dvt prophylaxis CONOR WYLIE Nov 26, 2016 12:38
[2016-11-26] MEDS ORDERED: Oxycodone/Acetaminophen 5-325 ORAL PRN (13:00)
[2016-11-26] MEDS ORDERED: LORazepam Inj 2mg/ml 1ml IV PRN (14:00)
[2016-11-26 15:48] VITALS: BP 119/92
--- NOTE | 2016-11-26 16:58 | Consultation ---
Consult Note Consult Note Cardiology for Dr. Lawson full consult dictated # [id number] 71 yo woman w/ hx of HTN, CHF, COPD and current tobacco use, also unclear hx of psychiatric disease, adm w/ 5-6 d hx of leg swelling and dyspnea. Pt rec d iv lasix and is currently w/o pulm congestion. NSVT noted on telemetry CXR w/o acute chf, BNP mildly increased. she is ruling out for mi ( neg trop x1) Rec: check EKG. check k, mg. continue current meds for htn and edema ECHO to evaluate lv systolic and diastolic fxn. Review old records - ? CAD, CHF hx, if obtainamble. Dr Lawson to follow SONAM MELO Nov 26, 2016 16:58
[2016-11-26] MEDS: Depakote ER 500mg tab ORAL SCH (20:52)
[2016-11-26] MEDS: Heparin 5000 units/ml inj SUBQ SCH (20:53)
[2016-11-26] MEDS ORDERED: Depakote ER 500mg tab ORAL SCH (21:00)
--- NOTE | 2016-11-26 23:15 | Consultation ---
DATE OF CONSULTATION: This is being done for coverage for Dr. Lawson. REQUESTING PHYSICIAN: Rene Julio D.O. REASON FOR CONSULT: Congestive heart failure. HISTORY OF PRESENT ILLNESS: History is obtained from the chart and limited history from the patient, who is sedated and a poor historian. The patient is a 71-year-old woman with a history of congestive heart failure and COPD who was brought from the convalescent facility with complaints of increasing shortness of breath and leg swelling over about five to six days prior to admission. She reports a history of coronary artery disease and remote history of coronary stent placement, but cannot give details of when or at what hospital this was done. She reports occasional substernal chest pain. In the emergency room, she was noted to have edema and an elevated BNP. She was admitted for an exacerbation of congestive heart failure. Cardiology evaluation was requested. PAST MEDICAL HISTORY: As noted above. MEDICATIONS: Amlodipine 2.5 mg daily, Abilify 2.5 mg daily, Lasix 40 mg IV daily, Paxil 40 mg daily, Depakote 500 mg at bedtime, subcutaneous heparin 5000 units q.12 h., Restoril 15 mg at bedtime p.r.n., Tylenol as needed, hydralazine as needed, and Zofran as needed. ALLERGIES: Per the chart. The patient is allergic to amitriptyline, chlorpromazine, erythromycin, Haldol, penicillins and Seroquel. SOCIAL HISTORY: The patient reports smoking about one-half pack per day. Denies alcohol or drug use. PHYSICAL EXAMINATION: GENERAL: The patient is an obese, sedated woman, in no acute distress. VITAL SIGNS: Blood pressure is 119/90, pulse 83 and regular, respirations 18, and afebrile. HEENT: Normocephalic and atraumatic. Pupils are equal, round, and reactive to light. Sclerae anicteric. Oral mucosa are moist. NECK: Supple. There is no jugular venous distention. Carotid pulses are 2+ with normal upstrokes bilaterally. LUNGS: Scattered rhonchi bilaterally. No rales or wheezes. HEART: Distant heart sounds. Regular S1 and S2 with no murmur or S3. ABDOMEN: Obese, soft, and nontender. Healed midline surgical scar (the patient reports previous gastric bypass and section). EXTREMITIES: Trace pedal edema bilaterally. LABORATORY AND DIAGNOSTIC DATA: Hemoglobin 11.3, white blood count 5100, and platelets 294,000. Sodium 141, potassium 3.7, BUN 10, and creatinine 0.7. Natriuretic peptide 135. Troponin less than 0.3. Chest x-ray shows cardiomegaly, normal pulmonary vasculature, and linear density in left mid lung. EKG is pending. Telemetry shows normal sinus rhythm, one episode of nonsustained ventricular tachycardia of eight beats duration and rate 115 beats per minute on 11/26/2016 at 2 p.m. ASSESSMENT AND RECOMMENDATIONS: The patient is a 71-year-old woman with a history of hypertension, congestive heart failure and chronic obstructive pulmonary disease, possibly also coronary artery disease who was admitted with leg edema and dyspnea. She received Lasix and currently does not appear with pulmonary vascular congestion. I would favor obtaining an echo to assess left ventricular systolic and diastolic function. She was also noted to have nonsustained ventricular tachycardia on telemetry and on 11/25/2016 had a potassium of 3.7. I would repeat the potassium and also check a magnesium level. We would continue her current medication including amlodipine for hypertension pending further assessment of her ventricular function. Further recommendations will be made following the results of the echo and laboratory testing. Dr. Lawson will continue to follow the patient starting 11/27/2016. Sary English M.D. DR: JENNIFER JOB#: [id number] CC: Rod Wasserman M.D.
[2016-11-27] MEDS: Oxycodone/Acetaminophen 5-325 ORAL PRN ×4 (00:07→21:46)
[2016-11-27] MEDS: LORazepam Inj 2mg/ml 1ml IV PRN ×3 (01:13→12:43)
[2016-11-27 04:00] VITALS: BP 148/94
[2016-11-27 08:00] VITALS: BP 135/71
--- NOTE | 2016-11-27 08:31 | General Progress Note ---
Assessment/Plan Assessment/Plan (1) Degenerative cervical disc (2) Lumbar radiculopathy (3) Lumbar degenerative disc disease (4) chronic pain (5) Osteoarthritis of multiple joints Pt will be continued on [place] and Percocet. Pt was d/w Dr. Caldwell and he concurred. Subjective Date patient seen: Nov 27, 2016 Time patient seen: 07:00 - am Allergies: Coded Allergies: PENICILLINS (Unverified Allergy, Severe, 11/09/16) AMITRIPTYLINE (Verified Allergy, Unknown, 10/19/13) recorded from senior living. pt does not remember the reation. CHLORPROMAZINE (Verified Allergy, Unknown, 10/19/13) recorded from senior living. pt does not remember reaction. ERYTHROMYCIN BASE (Verified Allergy, Unknown, 10/19/13) recorded from senior living. pt does not remember reaction. HALOPERIDOL (Verified Allergy, Unknown, 10/19/13) recorded from senior living. pt does not remember reaction. QUETIAPINE (Verified Allergy, Unknown, 10/19/13) recorded from senior living. pt does not remember reaction. Subjective Constitutional: Denies: no symptoms, chills, diaphoresis, fever, malaise, weakness, other HEENT: Denies: no symptoms, eye pain, blurred vision, tearing, double vision, ear pain, ear discharge, nose pain, nose congestion, throat pain, throat swelling, mouth pain, mouth swelling, other Cardiovascular: Denies: no symptoms, chest pain, edema, irregular heart rate, lightheadedness, palpitations, syncope, other Respiratory: Denies: no symptoms, cough, orthopnea, shortness of breath, SOB with excertion, SOB at rest, sputum, stridor, wheezing, other Gastrointestinal/Abdominal: Denies: no symptoms, abdomen distended, abdominal pain, black stools, tarry stools, blood in stool, constipated, diarrhea, difficulty swallowing, nausea, poor appetite, poor fluid intake, rectal bleeding , vomiting, other Genitourinary: Denies: no symptoms, burning, discharge, frequency, flank pain, hematuria, incontinence, pain, urgency, other Neurologic/Psychiatric: Reports: depressed, emotional problems Endocrine: Denies: no symptoms, excessive sweating, flushing, intolerance to cold, intolerance to heat, increased hunger, increased thirst, increased urine, unexplained weight gain, unexplained weight loss, other Hematologic/Lymphatic: Denies: no symptoms, anemia, easy bleeding, easy bruising, other Subjective Pt is seating up in chair and says that the pain has been stable on the medications. Objective Last 24 Hour Vital Signs Date Time Temp Pulse Resp B/P Pulse Ox O2 Delivery O2 Flow Rate FiO2 11/27/16 04:00 97.9 80 18 148/94 93 Room Air 11/26/16 15:48 97.8 83 20 119/92 98 Room Air 11/26/16 12:00 80 11/26/16 09:44 85 127/90 Intake and Output 11/26/16 11/27/16 19:00 07:00 Intake Total 560 ml 240 ml Balance 560 ml 240 ml Intake Oral 560 ml 240 ml # Voids 6 2 Height (Feet): 4 Height (Inches): 10.00 Weight (Pounds): 210 Objective General Appearance: WD/WN EENT: PERRL/EOMI Neck: supple Cardiovascular: normal rate, regular rhythm Respiratory/Chest: decreased breath sounds Abdomen: non tender, soft Extremities: non-tender Edema: edema noted in b/l LE 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
[2016-11-27] MEDS: PARoxetine 20mg tab ORAL SCH (08:41)
[2016-11-27] MEDS: Heparin 5000 units/ml inj SUBQ SCH ×2 (09:00→20:53)
[2016-11-27] MEDS: Norco 10mg/325mg tab ORAL PRN ×2 (10:34→17:50)
[2016-11-27] MEDS: Miralax 17gm pkt ORAL PRN (10:42)
--- NOTE | 2016-11-27 11:00 | Progress Note ---
DATE: 11/27/2016 SUBJECTIVE: The patient has congestive heart failure, confusion, and disorganized thought process. I am going to continue treatment with psychotropic medications. Stabilize her mood. PLAN: I am going to continue treatment with psychotropic medications to prevent any further decline in cognition. Chart was reviewed and discussed with staff. Seen and assessed at bedside. Forest Worthy M.D. DR: ADEOLA JOB#: [id number] CC:
--- NOTE | 2016-11-27 15:24 | General Progress Note ---
Assessment/Plan Problem List: (1) Leg pain, bilateral ICD Codes: M79.604 - Pain In Right Leg; M79.605 - Pain In Left Leg SNOMED: 01314507 (2) chronic pain (3) CHF (congestive heart failure), NYHA class I ICD Codes: I50.9 - CHF (congestive heart failure), NYHA class I SNOMED: 41851004 (4) Degenerative cervical disc ICD Codes: M50.90 - Degenerative cervical disc SNOMED: 62013128 (5) CHF (congestive heart failure) ICD Codes: I50.9 - Heart failure, unspecified SNOMED: 70862398 Status: stable, progressing, tolerating diet Assessment/Plan ot pt diet cbc bmp am psyc transfer Subjective Constitutional: Reports: weakness Allergies: Coded Allergies: PENICILLINS (Unverified Allergy, Severe, 11/09/16) AMITRIPTYLINE (Verified Allergy, Unknown, 10/19/13) recorded from [facility]. pt does not remember the reation. CHLORPROMAZINE (Verified Allergy, Unknown, 10/19/13) recorded from [facility]. pt does not remember reaction. ERYTHROMYCIN BASE (Verified Allergy, Unknown, 10/19/13) recorded from [facility]. pt does not remember reaction. HALOPERIDOL (Verified Allergy, Unknown, 10/19/13) recorded from [facility]. pt does not remember reaction. QUETIAPINE (Verified Allergy, Unknown, 10/19/13) recorded from [facility]. pt does not remember reaction. All Systems: reviewed and negative except above Subjective sl agitated Objective Last 24 Hour Vital Signs Date Time Temp Pulse Resp B/P Pulse Ox O2 Delivery O2 Flow Rate FiO2 11/27/16 10:29 101 18 Room Air 21 11/27/16 08:43 104 135/71 11/27/16 08:00 98.1 104 19 135/71 Room Air 104 11/27/16 04:00 97.9 80 18 148/94 93 Room Air 11/26/16 15:48 97.8 83 20 119/92 98 Room Air Intake and Output 11/26/16 11/27/16 19:00 07:00 Intake Total 560 ml 240 ml Balance 560 ml 240 ml Intake Oral 560 ml 240 ml # Voids 6 2 Height (Feet): 4 Height (Inches): 10.00 Weight (Pounds): 210 General Appearance: confused EENT: normal ENT inspection Neck: normal alignment Cardiovascular: normal peripheral pulses, normal rate, regular rhythm Respiratory/Chest: chest wall non-tender, lungs clear, normal breath sounds Abdomen: normal bowel sounds, non tender, soft Extremities: normal inspection Edema: 1+ Arm (L), 1+ Arm (R), 1+ Leg (L), 1+ Leg (R), 1+ Pedal (L), 1+ Pedal ( R), 1+ Generalized Edema: trace edema Neurologic: motor weakness Skin: normal pigmentation, warm/dry PADMINI AMBROSIO Nov 27, 2016 15:24
[2016-11-27 16:00] VITALS: BP 159/94
--- NOTE | 2016-11-27 16:12 | Pulmonology Progress Note ---
Assessment/Plan Problems: (1) CHF (congestive heart failure) (2) copd (3) Lumbar degenerative disc disease (4) Osteoarthritis of multiple joints Assessment/Plan pain management diuretics pt/ot dvt prophylaxis dc planning all notes reviewed labs reviewed. Subjective Interval Events: c/o usuall pain Constitutional: Reports: no symptoms HEENT: Repors: no symptoms Allergies: Coded Allergies: PENICILLINS (Unverified Allergy, Severe, 11/09/16) AMITRIPTYLINE (Verified Allergy, Unknown, 10/19/13) recorded from [facility]. pt does not remember the reation. CHLORPROMAZINE (Verified Allergy, Unknown, 10/19/13) recorded from [facility]. pt does not remember reaction. ERYTHROMYCIN BASE (Verified Allergy, Unknown, 10/19/13) recorded from [facility]. pt does not remember reaction. HALOPERIDOL (Verified Allergy, Unknown, 10/19/13) recorded from [facility]. pt does not remember reaction. QUETIAPINE (Verified Allergy, Unknown, 10/19/13) recorded from [facility]. pt does not remember reaction. Objective Last 24 Hour Vital Signs Date Time Temp Pulse Resp B/P Pulse Ox O2 Delivery O2 Flow Rate FiO2 11/27/16 16:00 97.3 84 19 159/94 94 Room Air 11/27/16 10:29 101 18 Room Air 21 11/27/16 08:43 104 135/71 11/27/16 08:00 98.1 104 19 135/71 Room Air 104 11/27/16 04:00 97.9 80 18 148/94 93 Room Air Intake and Output 11/26/16 11/27/16 19:00 07:00 Intake Total 560 ml 240 ml Balance 560 ml 240 ml Intake Oral 560 ml 240 ml # Voids 6 2 General Appearance: WD/WN HEENT: normocephalic, atraumatic Respiratory/Chest: chest wall non-tender, lungs clear Breasts: no masses Cardiovascular: normal peripheral pulses, regular rhythm Abdomen: normal bowel sounds, soft, non tender Genitourinary: normal external genitalia Extremities: no cyanosis 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 Current Medications Medications (Trade) Dose Ordered Sig/Kushal Route PRN Reason Start Time Stop Time Status Last Admin Dose Admin Acetaminophen (Tylenol) 650 mg Q4H PRN ORAL T>100.5 11/26/16 16:00 12/26/16 15:59 Acetaminophen/ Hydrocodone Bitart ([place] 10/325) 1 ea Q4H PRN ORAL Moderate Pain (Pain Scale 4-6) 11/26/16 16:00 12/03/16 15:59 11/27/16 10:34 Albuterol/ Ipratropium (DuoNeb 0.5-3(2.5)mg/3ml) 3 ml Q4H PRN HHN Shortness of Breath 11/26/16 16:00 12/01/16 15:59 Amlodipine Besylate (Norvasc) 2.5 mg DAILY ORAL 11/27/16 09:00 12/27/16 08:59 11/27/16 08:43 Aripiprazole (Abilify) 2.5 mg DAILY ORAL 11/27/16 09:00 12/27/16 08:59 Dextrose (Dextrose 50%) STAT PRN IV Hypoglycemia 11/26/16 17:00 12/26/16 16:59 Divalproex Sodium (Depakote ER) 500 mg BEDTIME ORAL 11/26/16 21:00 12/26/16 20:59 11/26/16 20:52 Furosemide (Lasix) 40 mg DAILY ORAL 11/28/16 09:00 12/28/16 08:59 Heparin Sodium (Porcine) (Heparin 5000 units/ml) 5,000 units EVERY 12 HOURS SUBQ 11/26/16 21:00 12/26/16 20:59 Hydralazine HCl (Apresoline) 25 mg Q4H PRN ORAL SBP>160 11/26/16 16:00 12/26/16 15:59 Lorazepam (Ativan) 1 mg Q4H PRN ORAL For Anxiety 11/27/16 14:30 12/04/16 14:29 Ondansetron HCl (Zofran) 4 mg Q6H PRN IVP Nausea & Vomiting 11/26/16 16:00 12/26/16 15:59 Oxycodone/ Acetaminophen (Percocet 5-325) 1 tab Q6H PRN ORAL Severe Pain (Pain Scale 7-10) 11/26/16 16:00 12/03/16 15:59 11/27/16 14:45 Paroxetine HCl (Paxil) 40 mg DAILY ORAL 11/27/16 09:00 12/27/16 08:59 7/10/17 08:41 Polyethylene Glycol (Miralax) 17 gm DAILYPRN PRN ORAL Constipation 11/26/16 16:00 12/26/16 15:59 11/27/16 10:42 Temazepam (Restoril) 15 mg HSPRN PRN ORAL Insomnia 11/26/16 21:00 12/03/16 20:59 11/27/16 00:06 CONOR WYLIE Nov 27, 2016 16:12
[2016-11-27] MEDS: LORazepam 1mg tab ORAL PRN ×2 (16:53→23:08)
--- NOTE | 2016-11-27 18:15 | Consultation ---
DATE OF CONSULTATION: 11/26/2016 HISTORY OF PRESENT ILLNESS: The patient is a 71-year-old. She has congestive heart failure. The patient also has a diagnosis of schizoaffective, bipolar type. So, she has had multiple psychiatric admissions. She has had confusion, disorganized thought process . So, she came in confused, disorganized, altered mental status, and shortness of breath. The patient also has congestive heart failure. She is confusion at the time of baseline. PAST MEDICAL HISTORY: Chronic pain, arthritis, and congestive heart failure. ALLERGIES: To Elavil, Thorazine, erythromycin, and Haldol. Social History: She lives in a residential. 01:03 . Financially supported by [employer] and Medicare. SUBSTANCE ABUSE HISTORY: Denies drug and alcohol use. PAST PSYCHIATRIST HISTORY: Schizoaffective disorder, bipolar type. Multiple psychiatric admissions. MENTAL STATUS EXAMINATION: This is a 71-year-old female with psychomotor agitation. Mood is irritable and agitated. Affect guarded and restricted. Thought process disorganized and logical. Denies any suicidal or homicidal thoughts. Insight and judgment is poor. DIAGNOSIS: Schizoaffective, bipolar type. Plan: Plan for this patient is to treat her with Paxil 40 mg a day, Abilify 2.5 mg a day, 01:30 500 mg nightly. Chart reviewed and discussed with staff. Seen and assessed at the bedside. Forest Worthy M.D. DR: ROMAN JOB#: [id number] CC:
[2016-11-27] MEDS: Depakote ER 500mg tab ORAL SCH (20:46)
[2016-11-28] MEDS: Norco 10mg/325mg tab ORAL PRN ×3 (01:51→22:02)
[2016-11-28] MEDS: Zolpidem 5mg tab ORAL PRN ×2 (02:57→20:03)
[2016-11-28 04:00] VITALS: BP 131/74
[2016-11-28 04:55] VITALS: BP 131/88
[2016-11-28 07:53] VITALS: BP 148/92
--- NOTE | 2016-11-28 08:46 | General Progress Note ---
Assessment/Plan Assessment/Plan (1) Degenerative cervical disc (2) Lumbar radiculopathy (3) Lumbar degenerative disc disease (4) chronic pain (5) Osteoarthritis of multiple joints Pt will be continued on [place] and Percocet. Pt was d/w Dr. Caldwell and he concurred. Subjective Date patient seen: Nov 28, 2016 Time patient seen: 07:15 - am Allergies: Coded Allergies: PENICILLINS (Unverified Allergy, Severe, 11/09/16) AMITRIPTYLINE (Verified Allergy, Unknown, 10/19/13) recorded from correction. pt does not remember the reation. CHLORPROMAZINE (Verified Allergy, Unknown, 10/19/13) recorded from correction. pt does not remember reaction. ERYTHROMYCIN BASE (Verified Allergy, Unknown, 10/19/13) recorded from correction. pt does not remember reaction. HALOPERIDOL (Verified Allergy, Unknown, 10/19/13) recorded from [facility]. pt does not remember reaction. QUETIAPINE (Verified Allergy, Unknown, 10/19/13) recorded from correction. pt does not remember reaction. Subjective Constitutional: Denies: no symptoms, chills, diaphoresis, fever, malaise, weakness, other HEENT: Denies: no symptoms, eye pain, blurred vision, tearing, double vision, ear pain, ear discharge, nose pain, nose congestion, throat pain, throat swelling, mouth pain, mouth swelling, other Cardiovascular: Denies: no symptoms, chest pain, edema, irregular heart rate, lightheadedness, palpitations, syncope, other Respiratory: Denies: no symptoms, cough, orthopnea, shortness of breath, SOB with excertion, SOB at rest, sputum, stridor, wheezing, other Gastrointestinal/Abdominal: Denies: no symptoms, abdomen distended, abdominal pain, black stools, tarry stools, blood in stool, constipated, diarrhea, difficulty swallowing, nausea, poor appetite, poor fluid intake, rectal bleeding , vomiting, other Genitourinary: Denies: no symptoms, burning, discharge, frequency, flank pain, hematuria, incontinence, pain, urgency, other Neurologic/Psychiatric: Reports: depressed, emotional problems Endocrine: Denies: no symptoms, excessive sweating, flushing, intolerance to cold, intolerance to heat, increased hunger, increased thirst, increased urine, unexplained weight gain, unexplained weight loss, other Hematologic/Lymphatic: Denies: no symptoms, anemia, easy bleeding, easy bruising, other Subjective Pain is stable and tolerated on the medications. She has no new complaints. Objective Last 24 Hour Vital Signs Date Time Temp Pulse Resp B/P Pulse Ox O2 Delivery O2 Flow Rate FiO2 11/28/16 07:53 97.9 72 18 148/92 95 Nasal Cannula 2.0 11/28/16 04:55 98.0 79 18 131/88 95 Room Air 11/28/16 04:00 98.0 88 18 131/74 95 Room Air 11/28/16 02:54 97.3 11/27/16 22:45 97.3 11/27/16 19:56 82 18 Room Air 21 11/27/16 16:00 97.3 84 19 159/94 94 Room Air 11/27/16 10:29 101 18 Room Air 21 Intake and Output 11/27/16 11/28/16 19:00 07:00 Intake Total 200 ml 290 ml Balance 200 ml 290 ml Intake Oral 200 ml 290 ml # Voids 1 2 # Bowel Movements 1 Height (Feet): 4 Height (Inches): 10.00 Weight (Pounds): 210 Objective General Appearance: WD/WN EENT: PERRL/EOMI Neck: supple Cardiovascular: normal rate, regular rhythm Respiratory/Chest: decreased breath sounds Abdomen: non tender, soft Extremities: non-tender Edema: edema noted in b/l LE 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
[2016-11-28] MEDS: Heparin 5000 units/ml inj SUBQ SCH ×2 (09:00→21:00)
[2016-11-28] MEDS: Furosemide 40mg tab ORAL SCH (10:07)
[2016-11-28] MEDS: PARoxetine 20mg tab ORAL SCH (10:08)
[2016-11-28] MEDS: Oxycodone/Acetaminophen 5-325 ORAL PRN ×2 (10:09→18:27)
[2016-11-28] MEDS: LORazepam 1mg tab ORAL PRN ×3 (11:54→20:03)
[2016-11-28 12:00] VITALS: BP 153/95
--- NOTE | 2016-11-28 13:25 | General Progress Note ---
Assessment/Plan Problem List: (1) Leg pain, bilateral ICD Codes: M79.604 - Pain In Right Leg; M79.605 - Pain In Left Leg SNOMED: 84414777 (2) chronic pain (3) CHF (congestive heart failure), NYHA class I ICD Codes: I50.9 - CHF (congestive heart failure), NYHA class I SNOMED: 87420175 (4) Degenerative cervical disc ICD Codes: M50.90 - Degenerative cervical disc SNOMED: 46391893 (5) CHF (congestive heart failure) ICD Codes: I50.9 - Heart failure, unspecified SNOMED: 01156448 Status: stable, progressing, tolerating diet Assessment/Plan ot pt diet cbc bmp am psyc transfer vs dc plan snf Subjective Constitutional: Reports: weakness Allergies: Coded Allergies: PENICILLINS (Unverified Allergy, Severe, 11/09/16) AMITRIPTYLINE (Verified Allergy, Unknown, 10/19/13) recorded from [facility]. pt does not remember the reation. CHLORPROMAZINE (Verified Allergy, Unknown, 10/19/13) recorded from [facility]. pt does not remember reaction. ERYTHROMYCIN BASE (Verified Allergy, Unknown, 10/19/13) recorded from [facility]f. pt does not remember reaction. HALOPERIDOL (Verified Allergy, Unknown, 10/19/13) recorded from snf. pt does not remember reaction. QUETIAPINE (Verified Allergy, Unknown, 10/19/13) recorded from [facility]. pt does not remember reaction. All Systems: reviewed and negative except above Subjective sl agitated Objective Last 24 Hour Vital Signs Date Time Temp Pulse Resp B/P Pulse Ox O2 Delivery O2 Flow Rate FiO2 11/28/16 12:00 97.7 83 18 153/95 92 Room Air 11/28/16 10:08 79 147/83 11/28/16 08:36 80 18 Room Air 21 11/28/16 07:53 97.9 72 18 148/92 95 Nasal Cannula 2.0 11/28/16 04:55 98.0 79 18 131/88 95 Room Air 11/28/16 04:00 98.0 88 18 131/74 95 Room Air 11/28/16 02:54 97.3 11/27/16 22:45 97.3 11/27/16 19:56 82 18 Room Air 21 11/27/16 16:00 97.3 84 19 159/94 94 Room Air Intake and Output 11/27/16 11/28/16 19:00 07:00 Intake Total 200 ml 290 ml Balance 200 ml 290 ml Intake Oral 200 ml 290 ml # Voids 1 2 # Bowel Movements 1 Height (Feet): 4 Height (Inches): 10.00 Weight (Pounds): 210 General Appearance: lethargic EENT: normal ENT inspection Neck: normal alignment Cardiovascular: normal peripheral pulses, normal rate, regular rhythm Respiratory/Chest: chest wall non-tender, lungs clear, normal breath sounds Abdomen: normal bowel sounds, non tender, soft Extremities: normal range of motion, non-tender, normal inspection Edema: no edema noted Arm (L), no edema noted Arm (R), no edema noted Leg (L), no edema noted Leg (R), no edema noted Pedal (L), no edema noted Pedal (R), no edema noted Generalized Neurologic: responsive, motor weakness Skin: normal pigmentation, warm/dry PADMINI AMBROSIO Nov 28, 2016 13:25
--- NOTE | 2016-11-28 15:34 | Pulmonology Progress Note ---
Assessment/Plan Problems: (1) CHF (congestive heart failure) (2) copd (3) Lumbar degenerative disc disease (4) Osteoarthritis of multiple joints Assessment/Plan pain management diuretics pt/ot dvt prophylaxis dc planning all notes reviewed labs reviewed. dc planning Subjective ROS Limited/Unobtainable: No Constitutional: Reports: no symptoms HEENT: Repors: no symptoms Respiratory: Reports: no symptoms Allergies: Coded Allergies: PENICILLINS (Unverified Allergy, Severe, 11/09/16) AMITRIPTYLINE (Verified Allergy, Unknown, 10/19/13) recorded from retirement. pt does not remember the reation. CHLORPROMAZINE (Verified Allergy, Unknown, 10/19/13) recorded from retirement. pt does not remember reaction. ERYTHROMYCIN BASE (Verified Allergy, Unknown, 10/19/13) recorded from retirement. pt does not remember reaction. HALOPERIDOL (Verified Allergy, Unknown, 10/19/13) recorded from retirement. pt does not remember reaction. QUETIAPINE (Verified Allergy, Unknown, 10/19/13) recorded from retirement. pt does not remember reaction. Objective Last 24 Hour Vital Signs Date Time Temp Pulse Resp B/P Pulse Ox O2 Delivery O2 Flow Rate FiO2 11/28/16 12:00 97.7 83 18 153/95 92 Room Air 11/28/16 10:08 79 147/83 11/28/16 08:36 80 18 Room Air 11/28/16 07:53 97.9 72 18 148/92 95 Nasal Cannula 2.0 11/28/16 04:55 98.0 79 18 131/88 95 Room Air 11/28/16 04:00 98.0 88 18 131/74 95 Room Air 11/28/16 02:54 97.3 11/27/16 22:45 97.3 11/27/16 19:56 82 18 Room Air 21 11/27/16 16:00 97.3 84 19 159/94 94 Room Air Intake and Output 11/27/16 11/28/16 19:00 07:00 Intake Total 200 ml 290 ml Balance 200 ml 290 ml Intake Oral 200 ml 290 ml # Voids 1 2 # Bowel Movements 1 General Appearance: WD/WN HEENT: atraumatic Respiratory/Chest: chest wall non-tender, lungs clear Breasts: no masses Cardiovascular: normal rate Abdomen: normal bowel sounds, soft, non tender 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 Current Medications Medications (Trade) Dose Ordered Sig/Kushal Route PRN Reason Start Time Stop Time Status Last Admin Dose Admin Acetaminophen (Tylenol) 650 mg Q4H PRN ORAL T>100.5 11/26/16 16:00 12/26/16 15:59 Acetaminophen/ Hydrocodone Bitart ([place] 10/325) 1 ea Q4H PRN ORAL Moderate Pain (Pain Scale 4-6) 11/26/16 16:00 12/03/16 15:59 11/28/16 14:39 Albuterol/ Ipratropium (DuoNeb 0.5-3(2.5)mg/3ml) 3 ml Q4H PRN HHN Shortness of Breath 11/26/16 16:00 12/01/16 15:59 Amlodipine Besylate (Norvasc) 2.5 mg DAILY ORAL 11/27/16 09:00 12/27/16 08:59 11/28/16 10:08 Aripiprazole (Abilify) 2.5 mg DAILY ORAL 11/27/16 09:00 12/27/16 08:59 Dextrose (Dextrose 50%) STAT PRN IV Hypoglycemia 11/26/16 17:00 12/26/16 16:59 Diphenhydramine HCl (Benadryl) 25 mg Q6H PRN ORAL Itching 11/27/16 22:45 12/27/16 22:44 Divalproex Sodium (Depakote ER) 500 mg BEDTIME ORAL 11/26/16 21:00 12/26/16 20:59 11/27/16 20:46 Furosemide (Lasix) 40 mg DAILY ORAL 11/28/16 09:00 12/28/16 08:59 11/28/16 10:07 Heparin Sodium (Porcine) (Heparin 5000 units/ml) 5,000 units EVERY 12 HOURS SUBQ 11/26/16 21:00 12/26/16 20:59 Hydralazine HCl (Apresoline) 25 mg Q4H PRN ORAL SBP>160 11/26/16 16:00 12/26/16 15:59 Lorazepam (Ativan) 1 mg Q4H PRN ORAL For Anxiety 11/27/16 14:30 12/04/16 14:29 11/28/16 11:54 Ondansetron HCl (Zofran) 4 mg Q6H PRN IVP Nausea & Vomiting 11/26/16 16:00 12/26/16 15:59 Oxycodone/ Acetaminophen (Percocet 5-325) 1 tab Q6H PRN ORAL Severe Pain (Pain Scale 7-10) 11/26/16 16:00 12/03/16 15:59 11/28/16 10:09 Paroxetine HCl (Paxil) 40 mg DAILY ORAL 11/27/16 09:00 12/27/16 08:59 11/28/16 10:08 Polyethylene Glycol (Miralax) 17 gm DAILYPRN PRN ORAL Constipation 11/26/16 16:00 12/26/16 15:59 11/27/16 10:42 Zolpidem Tartrate (Ambien) 5 mg HSPRN PRN ORAL Insomnia 11/27/16 22:45 12/27/16 22:44 11/28/16 02:57 CONOR WYLIE Nov 28, 2016 15:34
[2016-11-28 16:13] VITALS: BP 163/88
[2016-11-28] MEDS: Depakote ER 500mg tab ORAL SCH (20:03)
[2016-11-28 20:47] VITALS: BP 152/98
[2016-11-29 00:26] VITALS: BP 141/89
[2016-11-29] MEDS: Oxycodone/Acetaminophen 5-325 ORAL PRN ×3 (01:58→20:11)
[2016-11-29] MEDS: LORazepam 1mg tab ORAL PRN ×3 (04:00→17:41)
[2016-11-29] MEDS: Norco 10mg/325mg tab ORAL PRN ×2 (05:50→14:49)
[2016-11-29 07:05] LABS: ANION GAP 9 (5-15); CALCIUM 8.9 mg/dL (8.6-10.2); CARBON DIOXIDE 29 mEQ/L (20-30); CHLORIDE 103 mEQ/L (98-107); CREATININE 0.7 mg/dL (0.5-0.9); GLOMERULAR FILTRATION RATE > 60 mL/min (>60); HEMOLYSIS 4; POTASSIUM 4.1 mEQ/L (3.4-4.9); SODIUM 141 mEQ/L (135-145)
[2016-11-29 07:15] LABS: BASOPHILS % (AUTO) 1.7 % (0.0-2.0); EOSINOPHILS % (AUTO) 3.2 % (0.0-3.0); LYMPHOCYTES % (AUTO) 51.2 % (20.0-45.0); MEAN CORPUSCULAR HEMOGLOBIN 31.3 PG (27.0-31.0); MEAN CORPUSCULAR HGB CONC 31.6 G/DL (32.0-36.0); MEAN CORPUSCULAR VOLUME 99 FL (80-99); MEAN PLATELET VOLUME 7.9 FL (6.5-10.1); MONOCYTES % (AUTO) 7.3 % (1.0-10.0); NEUTROPHILS % (AUTO) 36.7 % (45.0-75.0); PLATELET COUNT 224 K/UL (150-450); RED BLOOD COUNT 3.56 M/UL (4.20-5.40); RED CELL DISTRIBUTION WIDTH 12.7 % (11.6-14.8); WHITE BLOOD COUNT 4.2 K/UL (4.8-10.8)
[2016-11-29 08:34] VITALS: BP 148/94
[2016-11-29] MEDS: Heparin 5000 units/ml inj SUBQ SCH ×2 (09:00→21:00)
--- NOTE | 2016-11-29 09:03 | General Progress Note ---
Assessment/Plan Assessment/Plan (1) Degenerative cervical disc (2) Lumbar radiculopathy (3) Lumbar degenerative disc disease (4) chronic pain (5) Osteoarthritis of multiple joints Pt will be continued on [place] and Percocet. Pt was d/w Dr. Caldwell and he concurred. Subjective Date patient seen: Nov 29, 2016 Time patient seen: 06:15 - am Allergies: Coded Allergies: PENICILLINS (Unverified Allergy, Severe, 11/09/16) AMITRIPTYLINE (Verified Allergy, Unknown, 10/19/13) recorded from care home. pt does not remember the reation. CHLORPROMAZINE (Verified Allergy, Unknown, 10/19/13) recorded from care home. pt does not remember reaction. ERYTHROMYCIN BASE (Verified Allergy, Unknown, 10/19/13) recorded from care home. pt does not remember reaction. HALOPERIDOL (Verified Allergy, Unknown, 10/19/13) recorded from care home. pt does not remember reaction. QUETIAPINE (Verified Allergy, Unknown, 10/19/13) recorded from care home. pt does not remember reaction. Subjective Constitutional: Denies: no symptoms, chills, diaphoresis, fever, malaise, weakness, other HEENT: Denies: no symptoms, eye pain, blurred vision, tearing, double vision, ear pain, ear discharge, nose pain, nose congestion, throat pain, throat swelling, mouth pain, mouth swelling, other Cardiovascular: Denies: no symptoms, chest pain, edema, irregular heart rate, lightheadedness, palpitations, syncope, other Respiratory: Denies: no symptoms, cough, orthopnea, shortness of breath, SOB with excertion, SOB at rest, sputum, stridor, wheezing, other Gastrointestinal/Abdominal: Denies: no symptoms, abdomen distended, abdominal pain, black stools, tarry stools, blood in stool, constipated, diarrhea, difficulty swallowing, nausea, poor appetite, poor fluid intake, rectal bleeding , vomiting, other Genitourinary: Denies: no symptoms, burning, discharge, frequency, flank pain, hematuria, incontinence, pain, urgency, other Neurologic/Psychiatric: Reports: depressed, emotional problems Endocrine: Denies: no symptoms, excessive sweating, flushing, intolerance to cold, intolerance to heat, increased hunger, increased thirst, increased urine, unexplained weight gain, unexplained weight loss, other Hematologic/Lymphatic: Denies: no symptoms, anemia, easy bleeding, easy bruising, other Subjective She continues to c/o body pain which worse with activities and tolerated on the Percocet and [place]. Objective Last 24 Hour Vital Signs Date Time Temp Pulse Resp B/P Pulse Ox O2 Delivery O2 Flow Rate FiO2 11/29/16 08:34 97.7 96 19 148/94 96 Room Air 11/29/16 00:26 96.8 63 17 141/89 98 Room Air 63 11/28/16 20:47 97.0 85 19 152/98 93 Room Air 85 11/28/16 19:30 88 20 Room Air 21 11/28/16 16:13 97.3 90 18 163/88 96 Room Air 11/28/16 12:00 97.7 83 18 153/95 92 Room Air 11/28/16 10:08 79 147/83 Intake and Output 11/28/16 11/29/16 19:00 07:00 Intake Total 960 ml 200 ml Balance 960 ml 200 ml Intake Oral 960 ml 200 ml # Voids 6 2 Laboratory Tests 11/29/16 05:50: White Blood Count 4.2L, Red Blood Count 3.56L, Hemoglobin 11.1L, Hematocrit 35.3L, Mean Corpuscular Volume 99, Mean Corpuscular Hemoglobin 31.3H, Mean Corpuscular Hemoglobin Concent 31.6L, Red Cell Distribution Width 12.7, Platelet Count 224, Mean Platelet Volume 7.9, Neutrophils (%) (Auto) 36.7L, Lymphocytes (%) (Auto) 51.2H, Monocytes (%) (Auto) 7.3, Eosinophils (%) (Auto) 3.2H, Basophils (%) (Auto) 1.7, Sodium Level 141, Potassium Level 4.1, Chloride Level 103, Carbon Dioxide Level 29, Anion Gap 9, Blood Urea Nitrogen 11, Creatinine 0.7, Estimat Glomerular Filtration Rate > 60, Glucose Level 83, Calcium Level 8.9 Height (Feet): 4 Height (Inches): 10.00 Weight (Pounds): 210 Objective General Appearance: WD/WN EENT: PERRL/EOMI Neck: supple Cardiovascular: normal rate, regular rhythm Respiratory/Chest: decreased breath sounds Abdomen: non tender, soft Extremities: non-tender Edema: edema noted in b/l LE 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
[2016-11-29] MEDS: Furosemide 40mg tab ORAL SCH (09:33)
[2016-11-29] MEDS: PARoxetine 20mg tab ORAL SCH (09:34)
[2016-11-29 09:37] VITALS: BP 142/91
[2016-11-29 12:00] VITALS: BP 135/93
--- NOTE | 2016-11-29 14:42 | General Progress Note ---
Assessment/Plan Problem List: (1) Leg pain, bilateral ICD Codes: M79.604 - Pain In Right Leg; M79.605 - Pain In Left Leg SNOMED: 80618487 (2) chronic pain (3) CHF (congestive heart failure), NYHA class I ICD Codes: I50.9 - CHF (congestive heart failure), NYHA class I SNOMED: 17789144 (4) Degenerative cervical disc ICD Codes: M50.90 - Degenerative cervical disc SNOMED: 88698145 (5) CHF (congestive heart failure) ICD Codes: I50.9 - Heart failure, unspecified SNOMED: 69626694 Status: stable, progressing, tolerating diet Assessment/Plan ot pt diet cbc bmp am psyc transfer vs dc plan snf Subjective Constitutional: Reports: weakness Allergies: Coded Allergies: PENICILLINS (Unverified Allergy, Severe, 11/09/16) AMITRIPTYLINE (Verified Allergy, Unknown, 10/19/13) recorded from [facility]. pt does not remember the reation. CHLORPROMAZINE (Verified Allergy, Unknown, 10/19/13) recorded from [facility]. pt does not remember reaction. ERYTHROMYCIN BASE (Verified Allergy, Unknown, 10/19/13) recorded from [facility]. pt does not remember reaction. HALOPERIDOL (Verified Allergy, Unknown, 10/19/13) recorded from [facility]. pt does not remember reaction. QUETIAPINE (Verified Allergy, Unknown, 10/19/13) recorded from [facility]. pt does not remember reaction. All Systems: reviewed and negative except above Subjective sl agitated Objective Last 24 Hour Vital Signs Date Time Temp Pulse Resp B/P Pulse Ox O2 Delivery O2 Flow Rate FiO2 11/29/16 12:00 98.2 88 18 135/93 95 Room Air 11/29/16 09:52 98 20 Room Air 11/29/16 09:37 93 142/91 11/29/16 09:33 93 142/91 11/29/16 08:34 97.7 96 19 148/94 96 Room Air 11/29/16 00:26 96.8 63 17 141/89 98 Room Air 63 11/28/16 20:47 97.0 85 19 152/98 93 Room Air 85 11/28/16 19:30 88 20 Room Air 21 11/28/16 16:13 97.3 90 18 163/88 96 Room Air Intake and Output 11/28/16 11/29/16 19:00 07:00 Intake Total 960 ml 200 ml Balance 960 ml 200 ml Intake Oral 960 ml 200 ml # Voids 6 2 Laboratory Tests 11/29/16 05:50: White Blood Count 4.2L, Red Blood Count 3.56L, Hemoglobin 11.1L, Hematocrit 35.3L, Mean Corpuscular Volume 99, Mean Corpuscular Hemoglobin 31.3H, Mean Corpuscular Hemoglobin Concent 31.6L, Red Cell Distribution Width 12.7, Platelet Count 224, Mean Platelet Volume 7.9, Neutrophils (%) (Auto) 36.7L, Lymphocytes (%) (Auto) 51.2H, Monocytes (%) (Auto) 7.3, Eosinophils (%) (Auto) 3.2H, Basophils (%) (Auto) 1.7, Sodium Level 141, Potassium Level 4.1, Chloride Level 103, Carbon Dioxide Level 29, Anion Gap 9, Blood Urea Nitrogen 11, Creatinine 0.7, Estimat Glomerular Filtration Rate > 60, Glucose Level 83, Calcium Level 8.9 Height (Feet): 4 Height (Inches): 10.00 Weight (Pounds): 210 General Appearance: lethargic EENT: normal ENT inspection Neck: normal alignment Cardiovascular: normal peripheral pulses, normal rate, regular rhythm Respiratory/Chest: chest wall non-tender, lungs clear, normal breath sounds Abdomen: normal bowel sounds, non tender, soft Extremities: normal inspection Edema: no edema noted Arm (L), no edema noted Arm (R), no edema noted Leg (L), no edema noted Leg (R), no edema noted Pedal (L), no edema noted Pedal (R), no edema noted Generalized Neurologic: responsive, motor weakness Skin: normal pigmentation, warm/dry PADMINI AMBROSIO Nov 29, 2016 14:42
--- NOTE | 2016-11-29 15:12 | Cardiology Report ---
APPROVED REPORT EKG Measurement Heart [id number] Sinus rhythm with premature atrial complexes Left axis deviation Abnormal ECG
--- NOTE | 2016-11-29 18:58 | Pulmonology Progress Note ---
Assessment/Plan Problems: (1) CHF (congestive heart failure) (2) copd (3) Lumbar degenerative disc disease (4) Osteoarthritis of multiple joints Assessment/Plan no new complains imoroving pain management diuretics pt/ot dvt prophylaxis dc planning all notes reviewed labs reviewed. Subjective ROS Limited/Unobtainable: No Interval Events: no new complains Allergies: Coded Allergies: PENICILLINS (Unverified Allergy, Severe, 11/09/16) AMITRIPTYLINE (Verified Allergy, Unknown, 10/19/13) [facility] pt does not remember the reation. CHLORPROMAZINE (Verified Allergy, Unknown, 10/19/13) recorded from [facility]. pt does not remember reaction. ERYTHROMYCIN BASE (Verified Allergy, Unknown, 10/19/13) recorded from [facility]. pt does not remember reaction. HALOPERIDOL (Verified Allergy, Unknown, 10/19/13) recorded from [facility]. pt does not remember reaction. QUETIAPINE (Verified Allergy, Unknown, 10/19/13) recorded from [facility]. pt does not remember reaction. Objective Last 24 Hour Vital Signs Date Time Temp Pulse Resp B/P Pulse Ox O2 Delivery O2 Flow Rate FiO2 11/29/16 18:43 88 18 Room Air 21 11/29/16 12:00 98.2 88 18 135/93 95 Room Air 11/29/16 09:52 98 20 Room Air 11/29/16 09:37 93 142/91 11/29/16 09:33 93 142/91 11/29/16 08:34 97.7 96 19 148/94 96 Room Air 11/29/16 00:26 96.8 63 17 141/89 98 Room Air 63 11/28/16 20:47 97.0 85 19 152/98 93 Room Air 85 11/28/16 19:30 88 20 Room Air 21 Intake and Output 11/28/16 11/29/16 19:00 07:00 Intake Total 960 ml 200 ml Balance 960 ml 200 ml Intake Oral 960 ml 200 ml # Voids 6 2 General Appearance: WD/WN HEENT: normocephalic, atraumatic Respiratory/Chest: chest wall non-tender, lungs clear Breasts: no masses Cardiovascular: normal peripheral pulses, normal rate Abdomen: normal bowel sounds, soft, non tender Extremities: no cyanosis, no clubbing 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, no motor/sensory deficits Laboratory Tests 11/29/16 05:50: White Blood Count 4.2L, Red Blood Count 3.56L, Hemoglobin 11.1L, Hematocrit 35.3L, Mean Corpuscular Volume 99, Mean Corpuscular Hemoglobin 31.3H, Mean Corpuscular Hemoglobin Concent 31.6L, Red Cell Distribution Width 12.7, Platelet Count 224, Mean Platelet Volume 7.9, Neutrophils (%) (Auto) 36.7L, Lymphocytes (%) (Auto) 51.2H, Monocytes (%) (Auto) 7.3, Eosinophils (%) (Auto) 3.2H, Basophils (%) (Auto) 1.7, Sodium Level 141, Potassium Level 4.1, Chloride Level 103, Carbon Dioxide Level 29, Anion Gap 9, Blood Urea Nitrogen 11, Creatinine 0.7, Estimat Glomerular Filtration Rate > 60, Glucose Level 83, Calcium Level 8.9 Current Medications Medications (Trade) Dose Ordered Sig/Kushal Route PRN Reason Start Time Stop Time Status Last Admin Dose Admin Acetaminophen (Tylenol) 650 mg Q4H PRN ORAL T>100.5 11/26/16 16:00 12/26/16 15:59 Acetaminophen/ Hydrocodone Bitart ([place] 10/325) 1 ea Q4H PRN ORAL Moderate Pain (Pain Scale 4-6) 11/26/16 16:00 12/03/16 15:59 11/29/16 14:49 Albuterol/ Ipratropium (DuoNeb 0.5-3(2.5)mg/3ml) 3 ml Q4H PRN HHN Shortness of Breath 11/26/16 16:00 12/01/16 15:59 Amlodipine Besylate (Norvasc) 2.5 mg DAILY ORAL 11/27/16 09:00 12/27/16 08:59 11/29/16 09:33 Aripiprazole (Abilify) 2.5 mg DAILY ORAL 11/27/16 09:00 12/27/16 08:59 Dextrose (Dextrose 50%) STAT PRN IV Hypoglycemia 11/26/16 17:00 12/26/16 16:59 Diphenhydramine HCl (Benadryl) 25 mg Q6H PRN ORAL Itching 11/27/16 22:45 12/27/16 22:44 Divalproex Sodium (Depakote ER) 500 mg BEDTIME ORAL 11/26/16 21:00 12/26/16 20:59 11/28/16 20:03 Furosemide (Lasix) 40 mg DAILY ORAL 11/28/16 09:00 12/28/16 08:59 11/29/16 09:33 Heparin Sodium (Porcine) (Heparin 5000 units/ml) 5,000 units EVERY 12 HOURS SUBQ 11/26/16 21:00 12/26/16 20:59 Hydralazine HCl (Apresoline) 25 mg Q4H PRN ORAL SBP>160 11/26/16 16:00 12/26/16 15:59 Lorazepam (Ativan) 1 mg Q4H PRN ORAL For Anxiety 11/27/16 14:30 12/04/16 14:29 11/29/16 17:41 Ondansetron HCl (Zofran) 4 mg Q6H PRN IVP Nausea & Vomiting 11/26/16 16:00 12/26/16 15:59 Oxycodone/ Acetaminophen (Percocet 5-325) 1 tab Q6H PRN ORAL Severe Pain (Pain Scale 7-10) 11/26/16 16:00 12/03/16 15:59 11/29/16 10:37 Paroxetine HCl (Paxil) 40 mg DAILY ORAL 11/27/16 09:00 12/27/16 08:59 11/29/16 09:34 Polyethylene Glycol (Miralax) 17 gm DAILYPRN PRN ORAL Constipation 11/26/16 16:00 12/26/16 15:59 11/27/16 10:42 Zolpidem Tartrate (Ambien) 5 mg HSPRN PRN ORAL Insomnia 11/27/16 22:45 12/27/16 22:44 11/28/16 20:03 CONOR WYLIE Nov 29, 2016 18:58
[2016-11-29 20:00] VITALS: BP 138/86
[2016-11-29] MEDS: Zolpidem 5mg tab ORAL PRN (20:11)
[2016-11-29] MEDS: Depakote ER 500mg tab ORAL SCH (20:12)
[2016-11-30] VITALS: BP 134/92
[2016-11-30] MEDS: Norco 10mg/325mg tab ORAL PRN ×5 (01:36→22:36)
[2016-11-30] MEDS: LORazepam 1mg tab ORAL PRN ×4 (01:37→20:33)
[2016-11-30] MEDS: Oxycodone/Acetaminophen 5-325 ORAL PRN ×4 (02:32→21:19)
[2016-11-30 04:00] VITALS: BP 140/88
[2016-11-30 08:00] VITALS: BP 134/86
[2016-11-30] MEDS: Furosemide 40mg tab ORAL SCH (08:44)
[2016-11-30] MEDS: PARoxetine 20mg tab ORAL SCH (08:45)
[2016-11-30] MEDS: Heparin 5000 units/ml inj SUBQ SCH ×2 (08:46→21:00)
--- NOTE | 2016-11-30 09:05 | General Progress Note ---
Assessment/Plan Assessment/Plan (1) Degenerative cervical disc (2) Lumbar radiculopathy (3) Lumbar degenerative disc disease (4) chronic pain (5) Osteoarthritis of multiple joints Pt will be continued on [place] and Percocet. Pt was d/w Dr. Caldwell and he concurred. Subjective Date patient seen: Nov 30, 2016 Time patient seen: 06:15 - am Allergies: Coded Allergies: PENICILLINS (Unverified Allergy, Severe, 11/09/16) AMITRIPTYLINE (Verified Allergy, Unknown, 10/19/13) recorded from alf. pt does not remember the reation. CHLORPROMAZINE (Verified Allergy, Unknown, 10/19/13) recorded from alf. pt does not remember reaction. ERYTHROMYCIN BASE (Verified Allergy, Unknown, 10/19/13) recorded from alf. pt does not remember reaction. HALOPERIDOL (Verified Allergy, Unknown, 10/19/13) recorded from alf. pt does not remember reaction. QUETIAPINE (Verified Allergy, Unknown, 10/19/13) recorded from alf. pt does not remember reaction. Subjective Constitutional: Denies: no symptoms, chills, diaphoresis, fever, malaise, weakness, other HEENT: Denies: no symptoms, eye pain, blurred vision, tearing, double vision, ear pain, ear discharge, nose pain, nose congestion, throat pain, throat swelling, mouth pain, mouth swelling, other Cardiovascular: Denies: no symptoms, chest pain, edema, irregular heart rate, lightheadedness, palpitations, syncope, other Respiratory: Denies: no symptoms, cough, orthopnea, shortness of breath, SOB with excertion, SOB at rest, sputum, stridor, wheezing, other Gastrointestinal/Abdominal: Denies: no symptoms, abdomen distended, abdominal pain, black stools, tarry stools, blood in stool, constipated, diarrhea, difficulty swallowing, nausea, poor appetite, poor fluid intake, rectal bleeding , vomiting, other Genitourinary: Denies: no symptoms, burning, discharge, frequency, flank pain, hematuria, incontinence, pain, urgency, other Neurologic/Psychiatric: Reports: depressed, emotional problems Endocrine: Denies: no symptoms, excessive sweating, flushing, intolerance to cold, intolerance to heat, increased hunger, increased thirst, increased urine, unexplained weight gain, unexplained weight loss, other Hematologic/Lymphatic: Denies: no symptoms, anemia, easy bleeding, easy bruising, other Subjective Pain has been stable on the medication of Percocet and [place] as needed rating it a 5/10 at this time. Objective Last 24 Hour Vital Signs Date Time Temp Pulse Resp B/P Pulse Ox O2 Delivery O2 Flow Rate FiO2 11/30/16 08:43 87 134/86 11/30/16 08:03 87 18 Room Air 21 11/30/16 08:00 97.7 82 20 134/86 93 Room Air 11/30/16 04:00 98.0 90 20 140/88 98 Room Air 11/30/16 00:00 97.9 88 18 134/92 96 Room Air 11/29/16 20:00 97.9 86 18 138/86 97 Room Air 11/29/16 18:43 88 18 Room Air 21 11/29/16 12:00 98.2 88 18 135/93 95 Room Air 11/29/16 09:52 98 20 Room Air 11/29/16 09:37 93 142/91 11/29/16 09:33 93 142/91 Intake and Output 11/29/16 11/30/16 19:00 07:00 Intake Total 360 ml Balance 360 ml Intake Oral 360 ml # Voids 3 Height (Feet): 4 Height (Inches): 10.00 Weight (Pounds): 210 Objective General Appearance: WD/WN EENT: PERRL/EOMI Neck: supple Cardiovascular: normal rate, regular rhythm Respiratory/Chest: decreased breath sounds Abdomen: non tender, soft Extremities: non-tender Edema: edema noted in b/l LE 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
--- NOTE | 2016-11-30 09:47 | Consultation ---
Consult Note Consult Note Ophthalmology Consultation Referring Physician: Rene Julio Reason for Consultation: blurred vision History of the present illness: The patient is a 71-year-old woman admitted to [facility] for management of congestive heart failure. She notes the 4 days ago her vision became increasingly blurred in both eyes. She also reports some floater in each eye recently. Last week she had a brief episode of flashes in both eyes, lasting seconds, followed by a headache. She notes a remotes history of migraine. She had an eye exam last month and was prescribed reading glasses and told she has cataracts. Past medical Hx: Encephalopathy CHF chronic pain arthritis COPD DJD Medications: Current Medications Medications (Trade) Dose Ordered Sig/Kushal Route PRN Reason Start Time Stop Time Status Last Admin Dose Admin Acetaminophen (Tylenol) 650 mg Q4H PRN ORAL T>100.5 11/26/16 16:00 12/26/16 15:59 Acetaminophen/ Hydrocodone Bitart ([place] 10/325) 1 ea Q4H PRN ORAL Moderate Pain (Pain Scale 4-6) 11/26/16 16:00 12/03/16 15:59 11/30/16 05:37 Albuterol/ Ipratropium (DuoNeb 0.5-3(2.5)mg/3ml) 3 ml Q4H PRN HHN Shortness of Breath 11/26/16 16:00 12/01/16 15:59 Amlodipine Besylate (Norvasc) 2.5 mg DAILY ORAL 11/27/16 09:00 12/27/16 08:59 11/30/16 08:43 Aripiprazole (Abilify) 2.5 mg DAILY ORAL 11/27/16 09:00 12/27/16 08:59 11/30/16 08:44 Dextrose (Dextrose 50%) STAT PRN IV Hypoglycemia 11/26/16 17:00 12/26/16 16:59 Diphenhydramine HCl (Benadryl) 25 mg Q6H PRN ORAL Itching 11/27/16 22:45 12/27/16 22:44 Divalproex Sodium (Depakote ER) 500 mg BEDTIME ORAL 11/26/16 21:00 12/26/16 20:59 11/29/16 20:12 Furosemide (Lasix) 40 mg DAILY ORAL 11/28/16 09:00 12/28/16 08:59 11/30/16 08:44 Heparin Sodium (Porcine) (Heparin 5000 units/ml) 5,000 units EVERY 12 HOURS SUBQ 11/26/16 21:00 12/26/16 20:59 11/30/16 08:46 Hydralazine HCl (Apresoline) 25 mg Q4H PRN ORAL SBP>160 11/26/16 16:00 12/26/16 15:59 Lorazepam (Ativan) 1 mg Q4H PRN ORAL For Anxiety 11/27/16 14:30 12/04/16 14:29 11/30/16 05:37 Ondansetron HCl (Zofran) 4 mg Q6H PRN IVP Nausea & Vomiting 11/26/16 16:00 12/26/16 15:59 Oxycodone/ Acetaminophen (Percocet 5-325) 1 tab Q6H PRN ORAL Severe Pain (Pain Scale 7-10) 11/26/16 16:00 12/03/16 15:59 11/30/16 08:44 Paroxetine HCl (Paxil) 40 mg DAILY ORAL 11/27/16 09:00 12/27/16 08:59 11/30/16 08:45 Polyethylene Glycol (Miralax) 17 gm DAILYPRN PRN ORAL Constipation 11/26/16 16:00 12/26/16 15:59 11/27/16 10:42 Zolpidem Tartrate (Ambien) 5 mg HSPRN PRN ORAL Insomnia 11/27/16 22:45 12/27/16 22:44 11/29/16 20:11 Allergies: amitriptyline chlorpromazine erythromycin base haloperidol penicllins quetiapine Family History: cataracts in her grandmother Social History: smokes a few cigarettes per day Review of Systems: General: no fever HEENT: see HPI Cardiac: CHF Respiratory: COPD GI: no nausea : no urinary complaints MS: no joint pains Derm: no rashes Psychiatric: no depression Neurologic: no numbness, no weakness Heme: no easy bruising Examination: Mini-mental status examination revealed the patient to be awake, alert and oriented to person, place and time with appropriate mood and affect. Visual Acuity at near with +2.75 trial lens OD: J1- = ~20/25- OS: J1 = ~20/25 Intraocular pressure by Schiotz: OD: 15 mmHg OS: 15 mmHg Pupils: equal, round and reactive to light, without afferent pupillary defect in either eye Extra-ocular motility: full OU Confrontational visual mireles: full to finger counting OU Anterior Segments: External: normal lids and orbits OU Conjunctivae: white and quiet OU Cornea: Clear OU Anterior Chambers: Deep and Quiet OU Irides: Round and flat OU Lenses: 1+ nuclear sclerosis OU Dilated Fundus Examination (phenylephrine 2.5%, tropicamide 1%): Vitreous: Clear OU Optic Nerves: Sharp OU Vessels: Normal course and caliber OU Maculae: Flat OU Periphery: normal OU . Assessment/Plan . Impression: 1. Cataract, OU 2. Refractive error with presbyopia, OU 3. Possible migraine, resolved. 4. Tobacco use 5. Congestive heart failure Assessment and Plan: Ms. Munguia is a 71-year-old woman in the hospital for management of congestive heart failure who has noted recent blurring of her vision. She reports having an eye exam last month and was told she has cataracts and was prescribed reading glasses. She may also need distance correction. She does have cataracts which may also be contributing to her visual decline. This can be followed up on an outpatient basis. Regarding the episode of flashes last week, there was no acute retinal pathology noted on bedside dilated examination. This may represent a migraine. This should also be followed up on with her health care coordinator as an outpatient. I reviewed retinal detachment precautions with the patient. If she notices worsening of her symptoms, increased flashes or floaters she should contact her eye doctor. Smoking cessation was also advised. Thank you very much for this consultation Christoph Barron M.D. [phone] CHRISTOPH BARRON Nov 30, 2016 09:47
[2016-11-30 11:58] VITALS: BP 122/90
--- NOTE | 2016-11-30 15:18 | General Progress Note ---
Assessment/Plan Problem List: (1) Leg pain, bilateral ICD Codes: M79.604 - Pain In Right Leg; M79.605 - Pain In Left Leg SNOMED: 92170262 (2) chronic pain (3) CHF (congestive heart failure), NYHA class I ICD Codes: I50.9 - CHF (congestive heart failure), NYHA class I SNOMED: 13784124 (4) Degenerative cervical disc ICD Codes: M50.90 - Degenerative cervical disc SNOMED: 95828235 (5) CHF (congestive heart failure) ICD Codes: I50.9 - Heart failure, unspecified SNOMED: 61276337 Status: stable, progressing, tolerating diet Assessment/Plan ot pt diet cbc bmp am psyc transfer vs dc plan snf Subjective Constitutional: Reports: weakness Allergies: Coded Allergies: PENICILLINS (Unverified Allergy, Severe, 11/09/16) AMITRIPTYLINE (Verified Allergy, Unknown, 10/19/13) recorded from longterm. pt does not remember the reation. CHLORPROMAZINE (Verified Allergy, Unknown, 10/19/13) recorded from longterm. pt does not remember reaction. ERYTHROMYCIN BASE (Verified Allergy, Unknown, 10/19/13) recorded from longterm. pt does not remember reaction. HALOPERIDOL (Verified Allergy, Unknown, 10/19/13) recorded from longterm. pt does not remember reaction. QUETIAPINE (Verified Allergy, Unknown, 10/19/13) recorded from longterm. pt does not remember reaction. All Systems: reviewed and negative except above Subjective sl agitated Objective Last 24 Hour Vital Signs Date Time Temp Pulse Resp B/P Pulse Ox O2 Delivery O2 Flow Rate FiO2 11/30/16 13:00 97.7 11/30/16 11:58 97.7 78 20 122/90 100 Room Air 11/30/16 09:43 97.7 11/30/16 08:43 87 134/86 11/30/16 08:03 87 18 Room Air 21 11/30/16 08:00 97.7 82 20 134/86 93 Room Air 11/30/16 04:00 98.0 90 20 140/88 98 Room Air 11/30/16 00:00 97.9 88 18 134/92 96 Room Air 11/29/16 20:00 97.9 86 18 138/86 97 Room Air 11/29/16 18:43 88 18 Room Air 21 Intake and Output 11/29/16 11/30/16 19:00 07:00 Intake Total 360 ml Balance 360 ml Intake Oral 360 ml # Voids 3 Height (Feet): 4 Height (Inches): 10.00 Weight (Pounds): 210 General Appearance: lethargic EENT: normal ENT inspection Neck: normal alignment Cardiovascular: normal peripheral pulses, normal rate, regular rhythm Respiratory/Chest: chest wall non-tender, lungs clear, normal breath sounds Abdomen: normal bowel sounds, non tender, soft Extremities: normal inspection Edema: 1+ Arm (L), 1+ Arm (R), 1+ Leg (L), 1+ Leg (R), 1+ Pedal (L), 1+ Pedal ( R), 1+ Generalized Edema: trace edema Neurologic: responsive, motor weakness Skin: normal pigmentation, warm/dry PADMINI AMBROSIO Nov 30, 2016 15:18
[2016-11-30 16:00] VITALS: BP 159/92
--- NOTE | 2016-11-30 18:49 | Pulmonology Progress Note ---
Assessment/Plan Problems: (1) CHF (congestive heart failure) (2) copd (3) Lumbar degenerative disc disease (4) Osteoarthritis of multiple joints Assessment/Plan dc planning in progress no new complains improving pain management diuretics pt/ot dvt prophylaxis dc planning all notes reviewed labs reviewed. Subjective ROS Limited/Unobtainable: No Constitutional: Reports: no symptoms HEENT: Repors: no symptoms Respiratory: Reports: no symptoms Allergies: Coded Allergies: PENICILLINS (Unverified Allergy, Severe, 11/09/16) AMITRIPTYLINE (Verified Allergy, Unknown, 10/19/13) recorded from custodial. pt does not remember the reation. CHLORPROMAZINE (Verified Allergy, Unknown, 10/19/13) recorded from custodial. pt does not remember reaction. ERYTHROMYCIN BASE (Verified Allergy, Unknown, 10/19/13) recorded from custodial. pt does not remember reaction. HALOPERIDOL (Verified Allergy, Unknown, 10/19/13) recorded from custodial. pt does not remember reaction. QUETIAPINE (Verified Allergy, Unknown, 10/19/13) recorded from custodial. pt does not remember reaction. Objective Last 24 Hour Vital Signs Date Time Temp Pulse Resp B/P Pulse Ox O2 Delivery O2 Flow Rate FiO2 11/30/16 16:00 97.7 91 22 159/92 95 Room Air 11/30/16 15:55 97.7 11/30/16 13:00 97.7 11/30/16 11:58 97.7 78 20 122/90 100 Room Air 11/30/16 08:43 87 134/86 11/30/16 08:03 87 18 Room Air 21 11/30/16 08:00 97.7 82 20 134/86 93 Room Air 11/30/16 04:00 98.0 90 20 140/88 98 Room Air 11/30/16 00:00 97.9 88 18 134/92 96 Room Air 11/29/16 20:00 97.9 86 18 138/86 97 Room Air Intake and Output 11/29/16 11/30/16 19:00 07:00 Intake Total 360 ml Balance 360 ml Intake Oral 360 ml # Voids 3 General Appearance: WD/WN, no acute distress HEENT: normocephalic Respiratory/Chest: chest wall non-tender, lungs clear Breasts: no masses Cardiovascular: normal rate Skin: no rash 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 Current Medications Medications (Trade) Dose Ordered Sig/Kushal Route PRN Reason Start Time Stop Time Status Last Admin Dose Admin Acetaminophen (Tylenol) 650 mg Q4H PRN ORAL T>100.5 11/26/16 16:00 12/26/16 15:59 Acetaminophen/ Hydrocodone Bitart ([place] 10/325) 1 ea Q4H PRN ORAL Moderate Pain (Pain Scale 4-6) 11/26/16 16:00 12/03/16 15:59 11/30/16 17:53 Albuterol/ Ipratropium (DuoNeb 0.5-3(2.5)mg/3ml) 3 ml Q4H PRN HHN Shortness of Breath 11/26/16 16:00 12/01/16 15:59 Amlodipine Besylate (Norvasc) 2.5 mg DAILY ORAL 11/27/16 09:00 12/27/16 08:59 11/30/16 08:43 Aripiprazole (Abilify) 2.5 mg DAILY ORAL 11/27/16 09:00 12/27/16 08:59 11/30/16 08:44 Dextrose (Dextrose 50%) STAT PRN IV Hypoglycemia 11/26/16 17:00 12/26/16 16:59 Diphenhydramine HCl (Benadryl) 25 mg Q6H PRN ORAL Itching 11/27/16 22:45 12/27/16 22:44 Divalproex Sodium (Depakote ER) 500 mg BEDTIME ORAL 11/26/16 21:00 12/26/16 20:59 11/29/16 20:12 Furosemide (Lasix) 40 mg DAILY ORAL 11/28/16 09:00 12/28/16 08:59 11/30/16 08:44 Heparin Sodium (Porcine) (Heparin 5000 units/ml) 5,000 units EVERY 12 HOURS SUBQ 11/26/16 21:00 12/26/16 20:59 11/30/16 08:46 Hydralazine HCl (Apresoline) 25 mg Q4H PRN ORAL SBP>160 11/26/16 16:00 12/26/16 15:59 Lorazepam (Ativan) 1 mg Q4H PRN ORAL For Anxiety 11/27/16 14:30 12/04/16 14:29 11/30/16 10:22 Ondansetron HCl (Zofran) 4 mg Q6H PRN IVP Nausea & Vomiting 11/26/16 16:00 12/26/16 15:59 Oxycodone/ Acetaminophen (Percocet 5-325) 1 tab Q6H PRN ORAL Severe Pain (Pain Scale 7-10) 11/26/16 16:00 12/03/16 15:59 11/30/16 14:56 Paroxetine HCl (Paxil) 40 mg DAILY ORAL 11/27/16 09:00 12/27/16 08:59 11/30/16 08:45 Polyethylene Glycol (Miralax) 17 gm DAILYPRN PRN ORAL Constipation 11/26/16 16:00 12/26/16 15:59 11/27/16 10:42 Zolpidem Tartrate (Ambien) 5 mg HSPRN PRN ORAL Insomnia 11/27/16 22:45 12/27/16 22:44 11/29/16 20:11 CONOR WYLIE Nov 30, 2016 18:49
[2016-11-30 20:00] VITALS: BP 131/88
[2016-11-30] MEDS: Zolpidem 5mg tab ORAL PRN (20:33)
[2016-11-30] MEDS: Depakote ER 500mg tab ORAL SCH (20:33)
[2016-12-01] VITALS: BP 158/102
[2016-12-01] MEDS: Norco 10mg/325mg tab ORAL PRN ×4 (03:22→21:06)
[2016-12-01 04:00] VITALS: BP 150/88
[2016-12-01 06:17] LABS: BASOPHILS % (AUTO) 2.2 % (0.0-2.0); EOSINOPHILS % (AUTO) 5.6 % (0.0-3.0); LYMPHOCYTES % (AUTO) 51.6 % (20.0-45.0); MEAN CORPUSCULAR HEMOGLOBIN 31.8 PG (27.0-31.0); MEAN CORPUSCULAR HGB CONC 31.9 G/DL (32.0-36.0); MEAN CORPUSCULAR VOLUME 100 FL (80-99); MEAN PLATELET VOLUME 7.5 FL (6.5-10.1); MONOCYTES % (AUTO) 9.2 % (1.0-10.0); NEUTROPHILS % (AUTO) 31.4 % (45.0-75.0); PLATELET COUNT 213 K/UL (150-450); RED BLOOD COUNT 3.78 M/UL (4.20-5.40); RED CELL DISTRIBUTION WIDTH 13.1 % (11.6-14.8); WHITE BLOOD COUNT 3.6 K/UL (4.8-10.8)
[2016-12-01] MEDS: Oxycodone/Acetaminophen 5-325 ORAL PRN ×3 (06:27→18:32)
[2016-12-01 06:54] LABS: ANION GAP 11 (5-15); CALCIUM 9.2 mg/dL (8.6-10.2); CARBON DIOXIDE 30 mEQ/L (20-30); CHLORIDE 102 mEQ/L (98-107); CREATININE 0.6 mg/dL (0.5-0.9); GLOMERULAR FILTRATION RATE > 60 mL/min (>60); HEMOLYSIS 5; SODIUM 143 mEQ/L (135-145)
[2016-12-01 08:00] VITALS: BP 140/80
--- NOTE | 2016-12-01 08:20 | Pulmonology Progress Note ---
Assessment/Plan Assessment/Plan ASSESSMENT peripheral leg edema CHF COPD HTN R knee edema and pain lumbar DDD lumbar radiculopathy OA cervical DDD morbid obesity seizure disorder schizophrenia major depression PLAN OF CARE MS floor O2 HHN prn CXR no acute cardiopulmonary disease no evidence of COPD exacerbation diuretics, monitor I/O renal parameters, lytes, edema improved significantly cardio follows ECHO with pEF 55% and RVSP of 29 BP management with CCB and optimize as needed DVT prophylaxis Venous Duplex BLE X ray R knee PT/OT pain management seizure precautions, continue Depakote, continue Paxil consider psych eval as per PMD discretion dc planning case discussed and evaluated by supervising physician Subjective Allergies: Coded Allergies: PENICILLINS (Unverified Allergy, Severe, 11/09/16) AMITRIPTYLINE (Verified Allergy, Unknown, 10/19/13) recorded from long term. pt does not remember the reation. CHLORPROMAZINE (Verified Allergy, Unknown, 10/19/13) recorded from long term. pt does not remember reaction. ERYTHROMYCIN BASE (Verified Allergy, Unknown, 10/19/13) recorded from long term. pt does not remember reaction. HALOPERIDOL (Verified Allergy, Unknown, 10/19/13) recorded from long term. pt does not remember reaction. QUETIAPINE (Verified Allergy, Unknown, 10/19/13) recorded from long term. pt does not remember reaction. Subjective pulse oximetry stable on RA no signs of respiratory distress denies chest pain, SOB leg edema decreased reports R knee edema and pain Objective o Last 24 Hour Vital Signs Date Time Temp Pulse Resp B/P Pulse Ox O2 Delivery O2 Flow Rate FiO2 12/01/16 07:26 98.2 12/01/16 04:21 98.2 12/01/16 04:00 97.6 76 18 150/88 95 Nasal Cannula 2.0 12/01/16 00:00 98.2 74 18 158/102 93 Nasal Cannula 2.0 11/30/16 20:00 97.3 89 18 131/88 95 Room Air 11/30/16 18:51 90 20 Room Air 21 11/30/16 16:00 97.7 91 22 159/92 95 Room Air 11/30/16 11:58 97.7 78 20 122/90 100 Room Air 11/30/16 08:43 87 134/86 Intake and Output 11/30/16 12/01/16 19:00 07:00 Intake Total 360 ml 300 ml Output Total 3 ml Balance 360 ml 297 ml Intake Oral 360 ml 300 ml Output Urine Total 3 ml # Voids 7 # Bowel Movements 1 General Appearance: no acute distress, other - A/A/O x 3 morbidly obese AA female in NAD HEENT: normocephalic, atraumatic, anicteric, mucous membranes moist, no JVD Respiratory/Chest: lungs clear, no respiratory distress, no accessory muscle use Cardiovascular: normal peripheral pulses, normal rate, regular rhythm - distnat heart sounds Abdomen: normal bowel sounds, soft, non tender - pbese Genitourinary: normal external genitalia Extremities: other - trace pedal edema Neurologic/Psychiatric: alert, oriented x 3, responsive Musculoskeletal: normal muscle bulk, other - R knee edema, no tenderness, Laboratory Tests 12/01/16 04:54: White Blood Count 3.6L, Red Blood Count 3.78L, Hemoglobin 12.0, Hematocrit 37.6 , Mean Corpuscular Volume 100H, Mean Corpuscular Hemoglobin 31.8H, Mean Corpuscular Hemoglobin Concent 31.9L, Red Cell Distribution Width 13.1, Platelet Count 213, Mean Platelet Volume 7.5, Neutrophils (%) (Auto) 31.4L, Lymphocytes (%) (Auto) 51.6H, Monocytes (%) (Auto) 9.2, Eosinophils (%) (Auto) 5.6H, Basophils (%) (Auto) 2.2H, Sodium Level 143, Potassium Level 4.0, Chloride Level 102, Carbon Dioxide Level 30, Anion Gap 11, Blood Urea Nitrogen 11, Creatinine 0.6, Estimat Glomerular Filtration Rate > 60, Glucose Level 84, Calcium Level 9.2 Current Medications Medications (Trade) Dose Ordered Sig/Kushal Route PRN Reason Start Time Stop Time Status Last Admin Dose Admin Acetaminophen (Tylenol) 650 mg Q4H PRN ORAL T>100.5 11/26/16 16:00 12/26/16 15:59 Acetaminophen/ Hydrocodone Bitart ([place] 10/325) 1 ea Q4H PRN ORAL Moderate Pain (Pain Scale 4-6) 11/26/16 16:00 12/03/16 15:59 12/01/16 03:22 Albuterol/ Ipratropium (DuoNeb 0.5-3(2.5)mg/3ml) 3 ml Q4H PRN HHN Shortness of Breath 11/26/16 16:00 12/01/16 15:59 Amlodipine Besylate (Norvasc) 2.5 mg DAILY ORAL 11/27/16 09:00 12/27/16 08:59 11/30/16 08:43 Aripiprazole (Abilify) 2.5 mg DAILY ORAL 11/27/16 09:00 12/27/16 08:59 11/30/16 08:44 Dextrose (Dextrose 50%) STAT PRN IV Hypoglycemia 11/26/16 17:00 12/26/16 16:59 Diphenhydramine HCl (Benadryl) 25 mg Q6H PRN ORAL Itching 11/27/16 22:45 12/27/16 22:44 Divalproex Sodium (Depakote ER) 500 mg BEDTIME ORAL 11/26/16 21:00 12/26/16 20:59 11/30/16 20:33 Furosemide (Lasix) 40 mg DAILY ORAL 11/28/16 09:00 12/28/16 08:59 11/30/16 08:44 Heparin Sodium (Porcine) (Heparin 5000 units/ml) 5,000 units EVERY 12 HOURS SUBQ 11/26/16 21:00 12/26/16 20:59 11/30/16 08:46 Hydralazine HCl (Apresoline) 25 mg Q4H PRN ORAL SBP>160 11/26/16 16:00 12/26/16 15:59 Lorazepam (Ativan) 1 mg Q4H PRN ORAL For Anxiety 11/27/16 14:30 12/04/16 14:29 11/30/16 20:33 Ondansetron HCl (Zofran) 4 mg Q6H PRN IVP Nausea & Vomiting 11/26/16 16:00 12/26/16 15:59 Oxycodone/ Acetaminophen (Percocet 5-325) 1 tab Q6H PRN ORAL Severe Pain (Pain Scale 7-10) 11/26/16 16:00 12/03/16 15:59 12/01/16 06:27 Paroxetine HCl (Paxil) 40 mg DAILY ORAL 11/27/16 09:00 12/27/16 08:59 11/30/16 08:45 Polyethylene Glycol (Miralax) 17 gm DAILYPRN PRN ORAL Constipation 11/26/16 16:00 12/26/16 15:59 11/27/16 10:42 Zolpidem Tartrate (Ambien) 5 mg HSPRN PRN ORAL Insomnia 11/27/16 22:45 12/27/16 22:44 11/30/16 20:33 [facility]Sarah NP Dec 01, 2016 08:20
[2016-12-01] MEDS: Furosemide 40mg tab ORAL SCH (08:34)
[2016-12-01] MEDS: PARoxetine 20mg tab ORAL SCH (08:37)
[2016-12-01] MEDS: Heparin 5000 units/ml inj SUBQ SCH ×2 (08:41→21:00)
--- NOTE | 2016-12-01 08:53 | General Progress Note ---
Assessment/Plan Assessment/Plan (1) Degenerative cervical disc (2) Lumbar radiculopathy (3) Lumbar degenerative disc disease (4) chronic pain (5) Osteoarthritis of multiple joints Pt will be continued on George and Percocet. Pt was d/w Dr. Caldwell and he concurred. Subjective Date patient seen: Dec 01, 2016 Time patient seen: 06:15 - am Allergies: Coded Allergies: PENICILLINS (Unverified Allergy, Severe, 11/09/16) AMITRIPTYLINE (Verified Allergy, Unknown, 10/19/13) recorded from snf. pt does not remember the reation. CHLORPROMAZINE (Verified Allergy, Unknown, 10/19/13) recorded from snf. pt does not remember reaction. ERYTHROMYCIN BASE (Verified Allergy, Unknown, 10/19/13) recorded from snf. pt does not remember reaction. HALOPERIDOL (Verified Allergy, Unknown, 10/19/13) recorded from snf. pt does not remember reaction. QUETIAPINE (Verified Allergy, Unknown, 10/19/13) recorded from snf. pt does not remember reaction. Subjective Constitutional: Denies: no symptoms, chills, diaphoresis, fever, malaise, weakness, other HEENT: Denies: no symptoms, eye pain, blurred vision, tearing, double vision, ear pain, ear discharge, nose pain, nose congestion, throat pain, throat swelling, mouth pain, mouth swelling, other Cardiovascular: Denies: no symptoms, chest pain, edema, irregular heart rate, lightheadedness, palpitations, syncope, other Respiratory: Denies: no symptoms, cough, orthopnea, shortness of breath, SOB with excertion, SOB at rest, sputum, stridor, wheezing, other Gastrointestinal/Abdominal: Denies: no symptoms, abdomen distended, abdominal pain, black stools, tarry stools, blood in stool, constipated, diarrhea, difficulty swallowing, nausea, poor appetite, poor fluid intake, rectal bleeding , vomiting, other Genitourinary: Denies: no symptoms, burning, discharge, frequency, flank pain, hematuria, incontinence, pain, urgency, other Neurologic/Psychiatric: Reports: depressed, emotional problems Endocrine: Denies: no symptoms, excessive sweating, flushing, intolerance to cold, intolerance to heat, increased hunger, increased thirst, increased urine, unexplained weight gain, unexplained weight loss, other Hematologic/Lymphatic: Denies: no symptoms, anemia, easy bleeding, easy bruising, other Subjective The pain has been stable on the medications. She says that the pain is an 8/10 reduced to a 5/10 on the George and Percocet. Objective Last 24 Hour Vital Signs Date Time Temp Pulse Resp B/P Pulse Ox O2 Delivery O2 Flow Rate FiO2 12/01/16 08:36 79 140/80 12/01/16 07:26 98.2 12/01/16 04:21 98.2 12/01/16 04:00 97.6 76 18 150/88 95 Nasal Cannula 2.0 12/01/16 00:00 98.2 74 18 158/102 93 Nasal Cannula 2.0 11/30/16 20:00 97.3 89 18 131/88 95 Room Air 11/30/16 18:51 90 20 Room Air 21 11/30/16 16:00 97.7 91 22 159/92 95 Room Air 11/30/16 11:58 97.7 78 20 122/90 100 Room Air Intake and Output 11/30/16 12/01/16 19:00 07:00 Intake Total 360 ml 300 ml Output Total 3 ml Balance 360 ml 297 ml Intake Oral 360 ml 300 ml Output Urine Total 3 ml # Voids 7 # Bowel Movements 1 Laboratory Tests 12/01/16 04:54: White Blood Count 3.6L, Red Blood Count 3.78L, Hemoglobin 12.0, Hematocrit 37.6 , Mean Corpuscular Volume 100H, Mean Corpuscular Hemoglobin 31.8H, Mean Corpuscular Hemoglobin Concent 31.9L, Red Cell Distribution Width 13.1, Platelet Count 213, Mean Platelet Volume 7.5, Neutrophils (%) (Auto) 31.4L, Lymphocytes (%) (Auto) 51.6H, Monocytes (%) (Auto) 9.2, Eosinophils (%) (Auto) 5.6H, Basophils (%) (Auto) 2.2H, Sodium Level 143, Potassium Level 4.0, Chloride Level 102, Carbon Dioxide Level 30, Anion Gap 11, Blood Urea Nitrogen 11, Creatinine 0.6, Estimat Glomerular Filtration Rate > 60, Glucose Level 84, Calcium Level 9.2 Height (Feet): 4 Height (Inches): 10.00 Weight (Pounds): 210 Objective General Appearance: WD/WN EENT: PERRL/EOMI Neck: supple Cardiovascular: normal rate, regular rhythm Respiratory/Chest: decreased breath sounds Abdomen: non tender, soft Extremities: non-tender Edema: edema noted in b/l LE Neurologic: client support representative II-XII grossly normal, alert, oriented x 3 SARAY MARS Dec 01, 2016 08:53
[2016-12-01] MEDS ORDERED: DuoNeb 0.5-3(2.5)mg/3ml neb HHN PRN (11:30)
[2016-12-01 12:00] VITALS: BP 153/93
--- NOTE | 2016-12-01 13:15 | General Progress Note ---
Assessment/Plan Problem List: (1) Leg pain, bilateral ICD Codes: M79.604 - Pain In Right Leg; M79.605 - Pain In Left Leg SNOMED: 63199318 (2) chronic pain (3) CHF (congestive heart failure), NYHA class I ICD Codes: I50.9 - CHF (congestive heart failure), NYHA class I SNOMED: 29890870 (4) Degenerative cervical disc ICD Codes: M50.90 - Degenerative cervical disc SNOMED: 32310460 (5) CHF (congestive heart failure) ICD Codes: I50.9 - Heart failure, unspecified SNOMED: 93693923 Status: stable, progressing, tolerating diet Assessment/Plan ot pt diet cbc bmp am psyc transfer vs dc plan snf Subjective Constitutional: Reports: weakness Allergies: Coded Allergies: PENICILLINS (Unverified Allergy, Severe, 11/09/16) AMITRIPTYLINE (Verified Allergy, Unknown, 10/19/13) recorded from [facility]. pt does not remember the reation. CHLORPROMAZINE (Verified Allergy, Unknown, 10/19/13) recorded from [facility]. pt does not remember reaction. ERYTHROMYCIN BASE (Verified Allergy, Unknown, 10/19/13) recorded from [facility]. pt does not remember reaction. HALOPERIDOL (Verified Allergy, Unknown, 10/19/13) recorded from [facility]. pt does not remember reaction. QUETIAPINE (Verified Allergy, Unknown, 10/19/13) recorded from [facility]. pt does not remember reaction. All Systems: reviewed and negative except above Subjective calm in wc in room Objective Last 24 Hour Vital Signs Date Time Temp Pulse Resp B/P Pulse Ox O2 Delivery O2 Flow Rate FiO2 12/01/16 12:00 96.6 71 19 153/93 96 Room Air 12/01/16 08:36 79 140/80 12/01/16 08:00 97.2 79 18 140/80 94 Room Air 12/01/16 07:26 98.2 12/01/16 07:22 86 18 Room Air 21 12/01/16 04:21 98.2 12/01/16 04:00 97.6 76 18 150/88 95 Nasal Cannula 2.0 12/01/16 00:00 98.2 74 18 158/102 93 Nasal Cannula 2.0 11/30/16 20:00 97.3 89 18 131/88 95 Room Air 11/30/16 18:51 90 20 Room Air 21 11/30/16 16:00 97.7 91 22 159/92 95 Room Air Intake and Output 11/30/16 12/01/16 19:00 07:00 Intake Total 360 ml 300 ml Output Total 3 ml Balance 360 ml 297 ml Intake Oral 360 ml 300 ml Output Urine Total 3 ml # Voids 7 # Bowel Movements 1 Laboratory Tests 12/01/16 04:54: White Blood Count 3.6L, Red Blood Count 3.78L, Hemoglobin 12.0, Hematocrit 37.6 , Mean Corpuscular Volume 100H, Mean Corpuscular Hemoglobin 31.8H, Mean Corpuscular Hemoglobin Concent 31.9L, Red Cell Distribution Width 13.1, Platelet Count 213, Mean Platelet Volume 7.5, Neutrophils (%) (Auto) 31.4L, Lymphocytes (%) (Auto) 51.6H, Monocytes (%) (Auto) 9.2, Eosinophils (%) (Auto) 5.6H, Basophils (%) (Auto) 2.2H, Sodium Level 143, Potassium Level 4.0, Chloride Level 102, Carbon Dioxide Level 30, Anion Gap 11, Blood Urea Nitrogen 11, Creatinine 0.6, Estimat Glomerular Filtration Rate > 60, Glucose Level 84, Calcium Level 9.2 Height (Feet): 4 Height (Inches): 10.00 Weight (Pounds): 210 General Appearance: lethargic EENT: normal ENT inspection Neck: normal alignment Cardiovascular: normal peripheral pulses, normal rate, regular rhythm Respiratory/Chest: chest wall non-tender, lungs clear, normal breath sounds Abdomen: normal bowel sounds, non tender, soft Extremities: normal inspection Edema: no edema noted Arm (L), no edema noted Arm (R), no edema noted Leg (L), no edema noted Leg (R), no edema noted Pedal (L), no edema noted Pedal (R), no edema noted Generalized Neurologic: responsive, motor weakness Skin: normal pigmentation, warm/dry PADMINI AMBROSIO Dec 01, 2016 13:15
[2016-12-01] MEDS: LORazepam 1mg tab ORAL PRN ×2 (14:59→20:06)
[2016-12-01 16:00] VITALS: BP 160/79
[2016-12-01] MEDS ORDERED: 1/2 NS 1000ml IV ONE (17:01)
[2016-12-01] MEDS: Miralax 17gm pkt ORAL PRN (17:31)
[2016-12-01 21:00] VITALS: BP 159/88
[2016-12-01] MEDS: Depakote ER 500mg tab ORAL SCH (21:05)
[2016-12-01] MEDS: Zolpidem 5mg tab ORAL PRN (21:06)
[2016-12-02] MEDS: Oxycodone/Acetaminophen 5-325 ORAL PRN ×4 (00:59→21:56)
[2016-12-02] MEDS: Norco 10mg/325mg tab ORAL PRN ×4 (06:56→20:22)
[2016-12-02 08:00] VITALS: BP 156/97
[2016-12-02] MEDS: PARoxetine 20mg tab ORAL SCH (08:30)
[2016-12-02] MEDS: Heparin 5000 units/ml inj SUBQ SCH ×2 (08:32→21:00)
[2016-12-02] MEDS: Furosemide 40mg tab ORAL SCH (08:37)
--- NOTE | 2016-12-02 08:59 | General Progress Note ---
Assessment/Plan Problem List: (1) Leg pain, bilateral ICD Codes: M79.604 - Pain In Right Leg; M79.605 - Pain In Left Leg SNOMED: 21168398 (2) chronic pain (3) CHF (congestive heart failure), NYHA class I ICD Codes: I50.9 - CHF (congestive heart failure), NYHA class I SNOMED: 62340523 (4) Degenerative cervical disc ICD Codes: M50.90 - Degenerative cervical disc SNOMED: 51427502 (5) CHF (congestive heart failure) ICD Codes: I50.9 - Heart failure, unspecified SNOMED: 30948760 Status: stable, progressing, tolerating diet Assessment/Plan ot pt diet cbc bmp am psyc transfer vs dc plan snf Subjective Constitutional: Reports: weakness Allergies: Coded Allergies: PENICILLINS (Unverified Allergy, Severe, 11/09/16) AMITRIPTYLINE (Verified Allergy, Unknown, 10/19/13) recorded from group home. pt does not remember the reation. CHLORPROMAZINE (Verified Allergy, Unknown, 10/19/13) recorded from group home. pt does not remember reaction. ERYTHROMYCIN BASE (Verified Allergy, Unknown, 10/19/13) recorded from group home. pt does not remember reaction. HALOPERIDOL (Verified Allergy, Unknown, 10/19/13) recorded from group home. pt does not remember reaction. QUETIAPINE (Verified Allergy, Unknown, 10/19/13) recorded from group home. pt does not remember reaction. All Systems: reviewed and negative except above Subjective o2 nc sleepy in bed Objective Last 24 Hour Vital Signs Date Time Temp Pulse Resp B/P Pulse Ox O2 Delivery O2 Flow Rate FiO2 12/02/16 08:37 75 156/97 12/02/16 08:00 97.9 75 17 156/97 94 Room Air 12/02/16 01:58 97.0 12/01/16 22:05 97.0 12/01/16 21:00 97.9 73 21 159/88 95 Room Air 12/01/16 19:25 79 18 Room Air 12/01/16 17:31 160/79 12/01/16 16:00 97.0 71 20 160/79 95 Room Air 12/01/16 12:00 96.6 71 19 153/93 96 Room Air 12/01/16 09:38 96.6 Intake and Output 12/01/16 12/02/16 19:00 07:00 Intake Total 1140 ml 540 ml Balance 1140 ml 540 ml Intake Oral 1140 ml 540 ml # Voids 5 4 Height (Feet): 4 Height (Inches): 10.00 Weight (Pounds): 210 General Appearance: lethargic EENT: normal ENT inspection Neck: normal alignment Cardiovascular: normal peripheral pulses, normal rate, regular rhythm Respiratory/Chest: chest wall non-tender, lungs clear, normal breath sounds Abdomen: normal bowel sounds, non tender, soft Extremities: normal inspection Edema: no edema noted Arm (L), no edema noted Arm (R), no edema noted Leg (L), no edema noted Leg (R), no edema noted Pedal (L), no edema noted Pedal (R), no edema noted Generalized Neurologic: responsive, motor weakness Skin: normal pigmentation, warm/dry PADMINI AMBROSIO Dec 02, 2016 08:59
[2016-12-02] MEDS: LORazepam 1mg tab ORAL PRN ×3 (10:23→23:58)
[2016-12-02 12:00] VITALS: BP 133/71
--- NOTE | 2016-12-02 13:39 | Pulmonology Progress Note ---
Assessment/Plan Assessment/Plan ASSESSMENT peripheral leg edema CHF COPD HTN R knee edema and pain lumbar DDD lumbar radiculopathy OA cervical DDD morbid obesity seizure disorder schizophrenia major depression PLAN OF CARE MS floor O2 HHN prn CXR no acute cardiopulmonary disease no evidence of COPD exacerbation diuretics, monitor I/O renal parameters, lytes, edema improved significantly cardio follows ECHO with pEF 55% and RVSP of 29 BP management with CCB and optimize as needed DVT prophylaxis Venous Duplex BLE X ray R knee PT/OT pain management seizure precautions, continue Depakote, continue Paxil consider psych eval as per PMD discretion and optimization of psych meds dc planning case discussed and evaluated by supervising physician Subjective Allergies: Coded Allergies: PENICILLINS (Unverified Allergy, Severe, 11/09/16) AMITRIPTYLINE (Verified Allergy, Unknown, 10/19/13) recorded from shelter. pt does not remember the reation. CHLORPROMAZINE (Verified Allergy, Unknown, 10/19/13) recorded from shelter. pt does not remember reaction. ERYTHROMYCIN BASE (Verified Allergy, Unknown, 10/19/13) recorded from shelter. pt does not remember reaction. HALOPERIDOL (Verified Allergy, Unknown, 10/19/13) recorded from shelter. pt does not remember reaction. QUETIAPINE (Verified Allergy, Unknown, 10/19/13) recorded from shelter. pt does not remember reaction. Subjective pulse oximetry stable on RA no signs of respiratory distress denies chest pain, SOB leg edema decreased reports R knee edema and pain reports feeling paranoid and anxious Objective Last 24 Hour Vital Signs Date Time Temp Pulse Resp B/P Pulse Ox O2 Delivery O2 Flow Rate FiO2 12/02/16 12:00 97.7 75 19 133/71 94 Room Air 12/02/16 08:37 75 156/97 12/02/16 08:00 97.9 75 17 156/97 94 Room Air 12/02/16 01:58 97.0 12/01/16 22:05 97.0 12/01/16 21:00 97.9 73 21 159/88 95 Room Air 12/01/16 19:25 79 18 Room Air 12/01/16 17:31 160/79 12/01/16 16:00 97.0 71 20 160/79 95 Room Air Intake and Output 12/01/16 12/02/16 19:00 07:00 Intake Total 1140 ml 540 ml Balance 1140 ml 540 ml Intake Oral 1140 ml 540 ml # Voids 5 4 Objective General Appearance: no acute distress, A/A/O x 3 morbidly obese AA female in NAD HEENT: normocephalic, atraumatic, anicteric, mucous membranes moist, no JVD Respiratory/Chest: lungs clear, no respiratory distress, no accessory muscle use Cardiovascular: normal peripheral pulses, normal rate, regular rhythm - distnat heart sounds Abdomen: normal bowel sounds, soft, non tender - pbese Genitourinary: normal external genitalia Extremities: other - trace pedal edema Neurologic/Psychiatric: alert, oriented x 3, responsive Musculoskeletal: normal muscle bulk, other - R knee edema, no tenderness, Current Medications Medications (Trade) Dose Ordered Sig/Kushal Route PRN Reason Start Time Stop Time Status Last Admin Dose Admin Acetaminophen (Tylenol) 650 mg Q4H PRN ORAL T>100.5 11/26/16 16:00 12/26/16 15:59 Acetaminophen/ Hydrocodone Bitart (Mckean 10/325) 1 ea Q4H PRN ORAL Moderate Pain (Pain Scale 4-6) 12/01/16 12:38 12/08/16 12:37 12/02/16 11:11 Albuterol/ Ipratropium (DuoNeb 0.5-3(2.5)mg/3ml) 3 ml Q4H PRN HHN Shortness of Breath 12/01/16 11:30 12/06/16 11:29 Amlodipine Besylate (Norvasc) 2.5 mg DAILY ORAL 11/27/16 09:00 12/27/16 08:59 12/02/16 08:37 Aripiprazole (Abilify) 2.5 mg DAILY ORAL 11/27/16 09:00 12/27/16 08:59 11/30/16 08:44 Dextrose (Dextrose 50%) STAT PRN IV Hypoglycemia 11/26/16 17:00 12/26/16 16:59 Diphenhydramine HCl (Benadryl) 25 mg Q6H PRN ORAL Itching 11/27/16 22:45 12/27/16 22:44 Divalproex Sodium (Depakote ER) 500 mg BEDTIME ORAL 11/26/16 21:00 12/26/16 20:59 12/01/16 21:05 Furosemide (Lasix) 40 mg DAILY ORAL 11/28/16 09:00 12/28/16 08:59 12/01/16 08:34 Heparin Sodium (Porcine) (Heparin 5000 units/ml) 5,000 units EVERY 12 HOURS SUBQ 11/26/16 21:00 12/26/16 20:59 11/30/16 08:46 Hydralazine HCl (Apresoline) 25 mg Q4H PRN ORAL SBP>160 11/26/16 16:00 12/26/16 15:59 12/01/16 17:31 Lorazepam (Ativan) 1 mg Q4H PRN ORAL For Anxiety 11/27/16 14:30 12/04/16 14:29 12/02/16 10:23 Ondansetron HCl (Zofran) 4 mg Q6H PRN IVP Nausea & Vomiting 11/26/16 16:00 12/26/16 15:59 Oxycodone/ Acetaminophen (Percocet 5-325) 1 tab Q6H PRN ORAL Severe Pain (Pain Scale 7-10) 12/01/16 12:27 12/08/16 12:26 12/02/16 08:29 Paroxetine HCl (Paxil) 40 mg DAILY ORAL 11/27/16 09:00 12/27/16 08:59 12/02/16 08:30 Polyethylene Glycol (Miralax) 17 gm DAILYPRN PRN ORAL Constipation 11/26/16 16:00 12/26/16 15:59 11/27/16 10:42 Zolpidem Tartrate (Ambien) 5 mg HSPRN PRN ORAL Insomnia 11/27/16 22:45 12/27/16 22:44 12/01/16 21:06 [facility]Northern [facility] HospitalSarah Manley NP Dec 02, 2016 13:39
[2016-12-02 16:21] VITALS: BP 133/80
[2016-12-02] MEDS: Zolpidem 5mg tab ORAL PRN (20:22)
[2016-12-02 20:45] VITALS: BP 134/80
[2016-12-02] MEDS: Depakote ER 500mg tab ORAL SCH (21:51)
[2016-12-03 00:38] VITALS: BP_SYST 120; BP_SYST 145; BP_DIAS 75; BP_DIAS 91
[2016-12-03] MEDS: Norco 10mg/325mg tab ORAL PRN ×3 (01:13→16:27)
[2016-12-03 04:00] VITALS: BP 145/81
[2016-12-03] MEDS: Oxycodone/Acetaminophen 5-325 ORAL PRN ×3 (06:49→20:28)
--- NOTE | 2016-12-03 08:13 | General Progress Note ---
Assessment/Plan Problem List: (1) Leg pain, bilateral ICD Codes: M79.604 - Pain In Right Leg; M79.605 - Pain In Left Leg SNOMED: 47040955 (2) chronic pain (3) CHF (congestive heart failure), NYHA class I ICD Codes: I50.9 - CHF (congestive heart failure), NYHA class I SNOMED: 80136528 (4) Degenerative cervical disc ICD Codes: M50.90 - Degenerative cervical disc SNOMED: 31503195 (5) CHF (congestive heart failure) ICD Codes: I50.9 - Heart failure, unspecified SNOMED: 40671679 Status: stable, progressing, tolerating diet Assessment/Plan ot pt diet cbc bmp am psyc transfer vs dc plan snf Subjective Constitutional: Reports: weakness Allergies: Coded Allergies: PENICILLINS (Unverified Allergy, Severe, 11/09/16) AMITRIPTYLINE (Verified Allergy, Unknown, 10/19/13) [facility] pt does not [facility] the reation. CHLORPROMAZINE (Verified Allergy, Unknown, 10/19/13) [facility]. pt does not remember reaction. ERYTHROMYCIN BASE (Verified Allergy, Unknown, 10/19/13) [facility] from [facility]. pt does not remember reaction. HALOPERIDOL (Verified Allergy, Unknown, 10/19/13) [facility] from [facility]. pt does not remember reaction. QUETIAPINE (Verified Allergy, Unknown, 10/19/13) [facility] from [facility]. pt does not remember reaction. All Systems: reviewed and negative except above Subjective o2 nc sleepy in bed Objective Last 24 Hour Vital Signs Date Time Temp Pulse Resp B/P Pulse Ox O2 Delivery O2 Flow Rate FiO2 12/03/16 04:00 98.6 82 20 145/81 95 Room Air 12/03/16 02:12 97.9 12/03/16 00:38 97.9 78 19 145/91 98 Room Air 12/02/16 22:55 97.7 12/02/16 20:45 97.7 101 20 134/80 98 Room Air 12/02/16 19:16 74 16 Room Air 12/02/16 16:21 97.9 69 20 133/80 98 Room Air 12/02/16 12:00 97.7 75 19 133/71 94 Room Air 12/02/16 08:37 75 156/97 Intake and Output 12/02/16 12/03/16 19:00 07:00 Intake Total 720 ml 1020 ml Balance 720 ml 1020 ml Intake Oral 720 ml 1020 ml # Voids 2 3 # Bowel Movements 1 Height (Feet): 4 Height (Inches): 10.00 Weight (Pounds): 210 General Appearance: lethargic EENT: normal ENT inspection Neck: normal alignment Cardiovascular: normal peripheral pulses, normal rate, regular rhythm Respiratory/Chest: chest wall non-tender, lungs clear, normal breath sounds Abdomen: normal bowel sounds, non tender, soft Extremities: normal range of motion Edema: 1+ Arm (L), 1+ Arm (R), 1+ Leg (L), 1+ Leg (R), 1+ Pedal (L), 1+ Pedal ( R), 1+ Generalized Edema: trace edema Neurologic: motor weakness Skin: normal pigmentation, warm/dry PADMINI AMBROSIO Dec 03, 2016 08:13
[2016-12-03 08:33] VITALS: BP 143/82
[2016-12-03] MEDS: Furosemide 40mg tab ORAL SCH (09:00)
[2016-12-03] MEDS: Heparin 5000 units/ml inj SUBQ SCH ×2 (09:00→20:34)
[2016-12-03] MEDS: PARoxetine 20mg tab ORAL SCH (10:12)
--- NOTE | 2016-12-03 10:15 | Pulmonology Progress Note ---
Assessment/Plan Assessment/Plan ASSESSMENT peripheral leg edema CHF COPD HTN R knee edema and pain lumbar DDD lumbar radiculopathy OA cervical DDD morbid obesity seizure disorder schizophrenia major depression PLAN OF CARE MS floor O2 HHN prn CXR no acute cardiopulmonary disease no evidence of COPD exacerbation diuretics, monitor I/O renal parameters, lytes, edema improved significantly cardio follows ECHO with pEF 55% and RVSP of 29 BP management with CCB and optimize as needed DVT prophylaxis Venous Duplex BLE X ray R knee PT/OT pain management seizure precautions, continue Depakote, continue Paxil consider psych eval as per PMD discretion and optimization of psych meds dc planning per PMD case discussed and evaluated by supervising physician Subjective Allergies: Coded Allergies: PENICILLINS (Unverified Allergy, Severe, 11/09/16) AMITRIPTYLINE (Verified Allergy, Unknown, 10/19/13) recorded from [facility]. pt does not remember the reation. CHLORPROMAZINE (Verified Allergy, Unknown, 10/19/13) recorded from [facility]. pt does not remember reaction. ERYTHROMYCIN BASE (Verified Allergy, Unknown, 10/19/13) recorded from [facility]. pt does not remember reaction. HALOPERIDOL (Verified Allergy, Unknown, 10/19/13) recorded from [facility]. pt does not remember reaction. QUETIAPINE (Verified Allergy, Unknown, 10/19/13) recorded from [facility]. pt does not remember reaction. Subjective pulse oximetry stable on RA no signs of respiratory distress denies chest pain, SOB leg edema decreased reports feeling anxious Objective Last 24 Hour Vital Signs Date Time Temp Pulse Resp B/P Pulse Ox O2 Delivery O2 Flow Rate FiO2 12/03/16 08:33 97.9 80 20 143/82 99 Room Air 12/03/16 08:10 84 16 Room Air 12/03/16 08:00 97.9 12/03/16 04:00 98.6 82 20 145/81 95 Room Air 12/03/16 02:12 97.9 12/03/16 00:38 97.9 78 19 145/91 98 Room Air 12/02/16 20:45 97.7 101 20 134/80 98 Room Air 12/02/16 19:16 74 16 Room Air 12/02/16 16:21 97.9 69 20 133/80 98 Room Air 12/02/16 12:00 97.7 75 19 133/71 94 Room Air Intake and Output 12/02/16 12/03/16 19:00 07:00 Intake Total 720 ml 1020 ml Balance 720 ml 1020 ml Intake Oral 720 ml 1020 ml # Voids 2 3 # Bowel Movements 1 Objective General Appearance: no acute distress, A/A/O x 3 morbidly obese AA female in NAD HEENT: normocephalic, atraumatic, anicteric, mucous membranes moist, no JVD Respiratory/Chest: lungs clear, no respiratory distress, no accessory muscle use Cardiovascular: normal peripheral pulses, normal rate, regular rhythm - distnat heart sounds Abdomen: normal bowel sounds, soft, non tender - pbese Genitourinary: normal external genitalia Extremities: other - trace pedal edema Neurologic/Psychiatric: alert, oriented x 3, responsive Musculoskeletal: normal muscle bulk, other - R knee edema, no tenderness, Current Medications Medications (Trade) Dose Ordered Sig/Kushal Route PRN Reason Start Time Stop Time Status Last Admin Dose Admin Acetaminophen (Tylenol) 650 mg Q4H PRN ORAL T>100.5 11/26/16 16:00 12/26/16 15:59 Acetaminophen/ Hydrocodone Bitart ([place]ovan 10/325) 1 ea Q4H PRN ORAL Moderate Pain (Pain Scale 4-6) 12/01/16 12:38 12/08/16 12:37 12/03/16 01:13 Albuterol/ Ipratropium (DuoNeb 0.5-3(2.5)mg/3ml) 3 ml Q4H PRN HHN Shortness of Breath 12/01/16 11:30 12/06/16 11:29 Amlodipine Besylate (Norvasc) 2.5 mg DAILY ORAL 11/27/16 09:00 12/27/16 08:59 12/02/16 08:37 Aripiprazole (Abilify) 2.5 mg DAILY ORAL 11/27/16 09:00 12/27/16 08:59 11/30/16 08:44 Dextrose (Dextrose 50%) STAT PRN IV Hypoglycemia 11/26/16 17:00 12/26/16 16:59 Diphenhydramine HCl (Benadryl) 25 mg Q6H PRN ORAL Itching 11/27/16 22:45 12/27/16 22:44 12/02/16 23:58 Divalproex Sodium (Depakote ER) 500 mg BEDTIME ORAL 11/26/16 21:00 12/26/16 20:59 12/02/16 21:51 Furosemide (Lasix) 40 mg DAILY ORAL 11/28/16 09:00 12/28/16 08:59 12/01/16 08:34 Heparin Sodium (Porcine) (Heparin 5000 units/ml) 5,000 units EVERY 12 HOURS SUBQ 11/26/16 21:00 12/26/16 20:59 11/30/16 08:46 Hydralazine HCl (Apresoline) 25 mg Q4H PRN ORAL SBP>160 11/26/16 16:00 12/26/16 15:59 12/01/16 17:31 Lorazepam (Ativan) 1 mg Q4H PRN ORAL For Anxiety 11/27/16 14:30 12/04/16 14:29 12/02/16 23:58 Ondansetron HCl (Zofran) 4 mg Q6H PRN IVP Nausea & Vomiting 11/26/16 16:00 12/26/16 15:59 Oxycodone/ Acetaminophen (Percocet 5-325) 1 tab Q6H PRN ORAL Severe Pain (Pain Scale 7-10) 12/01/16 12:27 12/08/16 12:26 12/03/16 06:49 Paroxetine HCl (Paxil) 40 mg DAILY ORAL 11/27/16 09:00 12/27/16 08:59 12/02/16 08:30 Polyethylene Glycol (Miralax) 17 gm DAILYPRN PRN ORAL Constipation 11/26/16 16:00 12/26/16 15:59 11/27/16 10:42 Zolpidem Tartrate (Ambien) 5 mg HSPRN PRN ORAL Insomnia 11/27/16 22:45 12/27/16 22:44 12/02/16 20:22 Sarah Newton NP ([facility]) Dec 03, 2016 10:14
[2016-12-03 12:25] VITALS: BP 127/78
--- NOTE | 2016-12-03 13:32 | General Progress Note ---
Assessment/Plan Assessment/Plan (1) Degenerative cervical disc (2) Lumbar radiculopathy (3) Lumbar degenerative disc disease (4) chronic pain (5) Osteoarthritis of multiple joints Pt will be continued on [place] and Percocet. Pt was d/w Dr. Caldwell and he concurred. Subjective Date patient seen: Dec 03, 2016 Time patient seen: 12:15 - am Allergies: Coded Allergies: PENICILLINS (Unverified Allergy, Severe, 11/09/16) AMITRIPTYLINE (Verified Allergy, Unknown, 10/19/13) recorded from senior care. pt does not remember the reation. CHLORPROMAZINE (Verified Allergy, Unknown, 10/19/13) recorded from senior care. pt does not remember reaction. ERYTHROMYCIN BASE (Verified Allergy, Unknown, 10/19/13) recorded from senior care. pt does not remember reaction. HALOPERIDOL (Verified Allergy, Unknown, 10/19/13) recorded from senior care. pt does not remember reaction. QUETIAPINE (Verified Allergy, Unknown, 10/19/13) recorded from senior care. pt does not remember reaction. Subjective Constitutional: Denies: no symptoms, chills, diaphoresis, fever, malaise, weakness, other HEENT: Denies: no symptoms, eye pain, blurred vision, tearing, double vision, ear pain, ear discharge, nose pain, nose congestion, throat pain, throat swelling, mouth pain, mouth swelling, other Cardiovascular: Denies: no symptoms, chest pain, edema, irregular heart rate, lightheadedness, palpitations, syncope, other Respiratory: Denies: no symptoms, cough, orthopnea, shortness of breath, SOB with excertion, SOB at rest, sputum, stridor, wheezing, other Gastrointestinal/Abdominal: Denies: no symptoms, abdomen distended, abdominal pain, black stools, tarry stools, blood in stool, constipated, diarrhea, difficulty swallowing, nausea, poor appetite, poor fluid intake, rectal bleeding , vomiting, other Genitourinary: Denies: no symptoms, burning, discharge, frequency, flank pain, hematuria, incontinence, pain, urgency, other Neurologic/Psychiatric: Reports: depressed, emotional problems Endocrine: Denies: no symptoms, excessive sweating, flushing, intolerance to cold, intolerance to heat, increased hunger, increased thirst, increased urine, unexplained weight gain, unexplained weight loss, other Hematologic/Lymphatic: Denies: no symptoms, anemia, easy bleeding, easy bruising, other Subjective The pain has been stable on the medications. She has been tolerating the pain on the [place] and Percocet as needed. Objective Last 24 Hour Vital Signs Date Time Temp Pulse Resp B/P Pulse Ox O2 Delivery O2 Flow Rate FiO2 12/03/16 10:12 90 152/86 12/03/16 08:33 97.9 80 20 143/82 99 Room Air 12/03/16 08:10 84 16 Room Air 12/03/16 08:00 97.9 12/03/16 04:00 98.6 82 20 145/81 95 Room Air 12/03/16 02:12 97.9 12/03/16 00:38 97.9 78 19 145/91 98 Room Air 12/02/16 20:45 97.7 101 20 134/80 98 Room Air 12/02/16 19:16 74 16 Room Air 12/02/16 16:21 97.9 69 20 133/80 98 Room Air Intake and Output 12/02/16 12/03/16 19:00 07:00 Intake Total 720 ml 1020 ml Balance 720 ml 1020 ml Intake Oral 720 ml 1020 ml # Voids 2 3 # Bowel Movements 1 Height (Feet): 4 Height (Inches): 10.00 Weight (Pounds): 210 Objective General Appearance: WD/WN EENT: PERRL/EOMI Neck: supple Cardiovascular: normal rate, regular rhythm Respiratory/Chest: decreased breath sounds Abdomen: non tender, soft Extremities: non-tender Edema: edema noted in b/l LE 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
[2016-12-03 16:26] VITALS: BP 142/92
[2016-12-03 20:00] VITALS: BP 139/85
[2016-12-03] MEDS: LORazepam 1mg tab ORAL PRN (20:29)
[2016-12-03] MEDS: Depakote ER 500mg tab ORAL SCH (20:31)
[2016-12-03] MEDS: Zolpidem 5mg tab ORAL PRN (22:32)
[2016-12-04] VITALS: BP 124/87
[2016-12-04] MEDS: Norco 10mg/325mg tab ORAL PRN ×4 (00:30→19:54)
[2016-12-04] MEDS: LORazepam 1mg tab ORAL PRN ×3 (03:38→19:54)
[2016-12-04] MEDS: Oxycodone/Acetaminophen 5-325 ORAL PRN ×4 (03:38→23:17)
[2016-12-04 04:00] VITALS: BP 143/82
[2016-12-04 08:00] VITALS: BP 134/87
[2016-12-04 08:14] LABS: ANION GAP 11 (5-15); CALCIUM 8.8 mg/dL (8.6-10.2); CARBON DIOXIDE 28 mEQ/L (20-30); CHLORIDE 99 mEQ/L (98-107); CREATININE 0.8 mg/dL (0.5-0.9); GLOMERULAR FILTRATION RATE > 60 mL/min (>60); HEMOLYSIS 23; SODIUM 138 mEQ/L (135-145)
--- NOTE | 2016-12-04 08:32 | General Progress Note ---
Assessment/Plan Assessment/Plan (1) Degenerative cervical disc (2) Lumbar radiculopathy (3) Lumbar degenerative disc disease (4) chronic pain (5) Osteoarthritis of multiple joints Pt will be continued on [place] and Percocet. Pt was d/w Dr. Caldwell and he concurred. Subjective Date patient seen: Dec 04, 2016 Time patient seen: 06:15 - AM Allergies: Coded Allergies: PENICILLINS (Unverified Allergy, Severe, 11/09/16) AMITRIPTYLINE (Verified Allergy, Unknown, 10/19/13) recorded from long-term. pt does not remember the reation. CHLORPROMAZINE (Verified Allergy, Unknown, 10/19/13) recorded from long-term. pt does not remember reaction. ERYTHROMYCIN BASE (Verified Allergy, Unknown, 10/19/13) recorded from long-term. pt does not remember reaction. HALOPERIDOL (Verified Allergy, Unknown, 10/19/13) recorded from long-term. pt does not remember reaction. QUETIAPINE (Verified Allergy, Unknown, 10/19/13) recorded from long-term. pt does not remember reaction. Subjective Constitutional: Denies: no symptoms, chills, diaphoresis, fever, malaise, weakness, other HEENT: Denies: no symptoms, eye pain, blurred vision, tearing, double vision, ear pain, ear discharge, nose pain, nose congestion, throat pain, throat swelling, mouth pain, mouth swelling, other Cardiovascular: Denies: no symptoms, chest pain, edema, irregular heart rate, lightheadedness, palpitations, syncope, other Respiratory: Denies: no symptoms, cough, orthopnea, shortness of breath, SOB with excertion, SOB at rest, sputum, stridor, wheezing, other Gastrointestinal/Abdominal: Denies: no symptoms, abdomen distended, abdominal pain, black stools, tarry stools, blood in stool, constipated, diarrhea, difficulty swallowing, nausea, poor appetite, poor fluid intake, rectal bleeding , vomiting, other Genitourinary: Denies: no symptoms, burning, discharge, frequency, flank pain, hematuria, incontinence, pain, urgency, other Neurologic/Psychiatric: Reports: depressed, emotional problems Endocrine: Denies: no symptoms, excessive sweating, flushing, intolerance to cold, intolerance to heat, increased hunger, increased thirst, increased urine, unexplained weight gain, unexplained weight loss, other Hematologic/Lymphatic: Denies: no symptoms, anemia, easy bleeding, easy bruising, other Subjective She continues to c/o generalized body pain which has been tolerated well on the [place] and Percocet. Objective Last 24 Hour Vital Signs Date Time Temp Pulse Resp B/P Pulse Ox O2 Delivery O2 Flow Rate FiO2 12/04/16 08:00 97.0 67 20 134/87 94 Room Air 12/04/16 04:37 97.1 12/04/16 04:00 97.1 82 20 143/82 96 Room Air 12/04/16 01:29 97.2 12/04/16 00:00 97.9 89 20 124/87 96 Room Air 12/03/16 20:00 97.6 87 20 139/85 96 Room Air 12/03/16 19:30 78 20 Room Air 21 12/03/16 16:26 97.2 71 20 142/92 97 Room Air 12/03/16 12:25 98.1 81 20 127/78 96 Room Air 12/03/16 10:12 90 152/86 12/03/16 08:33 97.9 80 20 143/82 99 Room Air Intake and Output 12/03/16 12/04/16 19:00 07:00 Intake Total 960 ml 900 ml Balance 960 ml 900 ml Intake Oral 960 ml 900 ml # Voids 2 3 Laboratory Tests 12/04/16 06:45: Sodium Level 138, Potassium Level 4.0, Chloride Level 99, Carbon Dioxide Level 28, Anion Gap 11, Blood Urea Nitrogen 16, Creatinine 0.8, Estimat Glomerular Filtration Rate > 60, Glucose Level 113H, Calcium Level 8.8 Height (Feet): 4 Height (Inches): 10.00 Weight (Pounds): 210 Objective General Appearance: WD/WN EENT: PERRL/EOMI Neck: supple Cardiovascular: normal rate, regular rhythm Respiratory/Chest: decreased breath sounds Abdomen: non tender, soft Extremities: non-tender Edema: edema noted in b/l LE 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
--- NOTE | 2016-12-04 08:38 | Diagnostic Imaging Report ---
Indication: PAIN Technique: 3 views of the right knee Comparison: 10/18/2013 Findings:There is severe deformity of the right knee, with lateral subluxation marked narrowing of the joint space, chronic appearing destructive changes of the medial tibial plateau, and the following are the medial and lateral tibial plateaus and lateral femoral condyle. There is extensive degenerative change of the patellofemoral joint compartment, as well. No suprapatellar effusion. There is suggestion of multiple intra-articular loose bodies, although this is difficult to say for sure dense multiple superimposed osteophytes could have the same appearance. Degree of deformity and joint space narrowing has progressed somewhat since prior study of 10/18/2013 Impression:Extensive chronic appearing abnormality of the right knee, as described. Suspect findings represent combination of chronic posttraumatic changes and secondary degenerative arthropathy. This has progressed slightly since prior study of 10/18/2013.
[2016-12-04] MEDS: Furosemide 40mg tab ORAL SCH (08:59)
[2016-12-04] MEDS: Heparin 5000 units/ml inj SUBQ SCH ×2 (09:00→19:57)
[2016-12-04] MEDS: PARoxetine 20mg tab ORAL SCH (09:00)
[2016-12-04 12:00] VITALS: BP 149/95
--- NOTE | 2016-12-04 13:43 | General Progress Note ---
Assessment/Plan Problem List: (1) Leg pain, bilateral ICD Codes: M79.604 - Pain In Right Leg; M79.605 - Pain In Left Leg SNOMED: 84790868 (2) chronic pain (3) CHF (congestive heart failure), NYHA class I ICD Codes: I50.9 - CHF (congestive heart failure), NYHA class I SNOMED: 13887735 (4) Degenerative cervical disc ICD Codes: M50.90 - Degenerative cervical disc SNOMED: 68930976 (5) CHF (congestive heart failure) ICD Codes: I50.9 - Heart failure, unspecified SNOMED: 49196336 Status: stable, progressing, tolerating diet Assessment/Plan ot pt diet psyc transfer vs dc plan snf Subjective Constitutional: Reports: weakness Allergies: Coded Allergies: PENICILLINS (Unverified Allergy, Severe, 11/09/16) AMITRIPTYLINE (Verified Allergy, Unknown, 10/19/13) [facility] from [facility]. pt does not remember the reation. CHLORPROMAZINE (Verified Allergy, Unknown, 10/19/13) recorded from [facility]. pt does not remember reaction. ERYTHROMYCIN BASE (Verified Allergy, Unknown, 10/19/13) recorded from [facility]. pt does not remember reaction. HALOPERIDOL (Verified Allergy, Unknown, 10/19/13) recorded from [facility]. pt does not remember reaction. QUETIAPINE (Verified Allergy, Unknown, 10/19/13) recorded from [facility]. pt does not remember reaction. All Systems: reviewed and negative except above Subjective o2 nc sleepy in bed Objective Last 24 Hour Vital Signs Date Time Temp Pulse Resp B/P Pulse Ox O2 Delivery O2 Flow Rate FiO2 12/04/16 12:00 96.7 85 18 149/95 99 Room Air 12/04/16 11:05 97.0 12/04/16 08:59 67 134/87 12/04/16 08:00 97.0 67 20 134/87 94 Room Air 12/04/16 07:58 97.0 12/04/16 07:42 73 20 Room Air 21 12/04/16 04:00 97.1 82 20 143/82 96 Room Air 12/04/16 00:00 97.9 89 20 124/87 96 Room Air 12/03/16 20:00 97.6 87 20 139/85 96 Room Air 12/03/16 19:30 78 20 Room Air 21 12/03/16 16:26 97.2 71 20 142/92 97 Room Air Intake and Output 12/03/16 12/04/16 19:00 07:00 Intake Total 960 ml 900 ml Balance 960 ml 900 ml Intake Oral 960 ml 900 ml # Voids 2 3 Laboratory Tests 12/04/16 06:45: Sodium Level 138, Potassium Level 4.0, Chloride Level 99, Carbon Dioxide Level 28, Anion Gap 11, Blood Urea Nitrogen 16, Creatinine 0.8, Estimat Glomerular Filtration Rate > 60, Glucose Level 113H, Calcium Level 8.8 Height (Feet): 4 Height (Inches): 10.00 Weight (Pounds): 210 General Appearance: lethargic EENT: normal ENT inspection Neck: normal alignment Cardiovascular: normal peripheral pulses, normal rate, regular rhythm Respiratory/Chest: chest wall non-tender, lungs clear, normal breath sounds Extremities: normal inspection Edema: no edema noted Arm (L), no edema noted Arm (R), no edema noted Leg (L), no edema noted Leg (R), no edema noted Pedal (L), no edema noted Pedal (R), no edema noted Generalized Neurologic: responsive, motor weakness Skin: normal pigmentation, warm/dry PADMINI AMBROSIO Dec 04, 2016 13:43
[2016-12-04 16:13] VITALS: BP 148/88
--- NOTE | 2016-12-04 18:47 | Pulmonology Progress Note ---
Assessment/Plan Problems: (1) CHF (congestive heart failure) (2) copd (3) Lumbar degenerative disc disease (4) Osteoarthritis of multiple joints Assessment/Plan no new complains pain management diuretics pt/ot dvt prophylaxis dc planning all notes reviewed labs reviewed. Subjective ROS Limited/Unobtainable: No Constitutional: Reports: no symptoms HEENT: Repors: no symptoms Respiratory: Reports: no symptoms Allergies: Coded Allergies: PENICILLINS (Unverified Allergy, Severe, 11/09/16) AMITRIPTYLINE (Verified Allergy, Unknown, 10/19/13) [facility] pt does not remember the reation. CHLORPROMAZINE (Verified Allergy, Unknown, 10/19/13) recorded [facility]. pt does not remember reaction. ERYTHROMYCIN BASE (Verified Allergy, Unknown, 10/19/13) recorded [facility] pt does not remember reaction. HALOPERIDOL (Verified Allergy, Unknown, 10/19/13) [facility] pt does not remember reaction. QUETIAPINE (Verified Allergy, Unknown, 10/19/13) [facility] pt does not remember reaction. Objective Last 24 Hour Vital Signs Date Time Temp Pulse Resp B/P Pulse Ox O2 Delivery O2 Flow Rate FiO2 12/04/16 18:32 96.7 12/04/16 16:13 96.7 87 18 148/88 95 Room Air 12/04/16 15:20 96.7 12/04/16 12:00 96.7 85 18 149/95 99 Room Air 12/04/16 08:59 67 134/87 12/04/16 08:00 97.0 67 20 134/87 94 Room Air 12/04/16 07:42 73 20 Room Air 21 12/04/16 04:00 97.1 82 20 143/82 96 Room Air 12/04/16 00:00 97.9 89 20 124/87 96 Room Air 12/03/16 20:00 97.6 87 20 139/85 96 Room Air 12/03/16 19:30 78 20 Room Air 21 Intake and Output 12/03/16 12/04/16 19:00 07:00 Intake Total 960 ml 900 ml Balance 960 ml 900 ml Intake Oral 960 ml 900 ml # Voids 2 3 General Appearance: WD/WN, no acute distress HEENT: normocephalic, atraumatic Respiratory/Chest: chest wall non-tender, lungs clear Breasts: no masses Cardiovascular: normal peripheral pulses Abdomen: normal bowel sounds, soft, non tender Genitourinary: normal external genitalia Extremities: no cyanosis Laboratory Tests 12/04/16 06:45: Sodium Level 138, Potassium Level 4.0, Chloride Level 99, Carbon Dioxide Level 28, Anion Gap 11, Blood Urea Nitrogen 16, Creatinine 0.8, Estimat Glomerular Filtration Rate > 60, Glucose Level 113H, Calcium Level 8.8 Current Medications Medications (Trade) Dose Ordered Sig/Kushal Route PRN Reason Start Time Stop Time Status Last Admin Dose Admin Acetaminophen (Tylenol) 650 mg Q4H PRN ORAL T>100.5 11/26/16 16:00 12/26/16 15:59 Acetaminophen/ Hydrocodone Bitart (Emily 10/325) 1 ea Q4H PRN ORAL Moderate Pain (Pain Scale 4-6) 12/01/16 12:38 12/08/16 12:37 12/04/16 14:21 Albuterol/ Ipratropium (DuoNeb 0.5-3(2.5)mg/3ml) 3 ml Q4H PRN HHN Shortness of Breath 12/01/16 11:30 12/06/16 11:29 Amlodipine Besylate (Norvasc) 2.5 mg DAILY ORAL 11/27/16 09:00 12/27/16 08:59 12/04/16 08:59 Aripiprazole (Abilify) 2.5 mg DAILY ORAL 11/27/16 09:00 12/27/16 08:59 11/30/16 08:44 Dextrose (Dextrose 50%) STAT PRN IV Hypoglycemia 11/26/16 17:00 12/26/16 16:59 Diphenhydramine HCl (Benadryl) 25 mg Q6H PRN ORAL Itching 11/27/16 22:45 12/27/16 22:44 12/04/16 08:58 Divalproex Sodium (Depakote ER) 500 mg BEDTIME ORAL 11/26/16 21:00 12/26/16 20:59 12/03/16 20:31 Furosemide (Lasix) 40 mg DAILY ORAL 11/28/16 09:00 12/28/16 08:59 12/04/16 08:59 Heparin Sodium (Porcine) (Heparin 5000 units/ml) 5,000 units EVERY 12 HOURS SUBQ 11/26/16 21:00 12/26/16 20:59 11/30/16 08:46 Hydralazine HCl (Apresoline) 25 mg Q4H PRN ORAL SBP>160 11/26/16 16:00 12/26/16 15:59 12/01/16 17:31 Lorazepam (Ativan) 1 mg Q4H PRN ORAL For Anxiety 12/03/16 10:30 12/10/16 10:29 12/04/16 08:58 Ondansetron HCl (Zofran) 4 mg Q6H PRN IVP Nausea & Vomiting 11/26/16 16:00 12/26/16 15:59 Oxycodone/ Acetaminophen (Percocet 5-325) 1 tab Q6H PRN ORAL Severe Pain (Pain Scale 7-10) 12/01/16 12:27 12/08/16 12:26 12/04/16 17:33 Paroxetine HCl (Paxil) 40 mg DAILY ORAL 11/27/16 09:00 12/27/16 08:59 12/04/16 09:00 Polyethylene Glycol (Miralax) 17 gm DAILYPRN PRN ORAL Constipation 11/26/16 16:00 12/26/16 15:59 11/27/16 10:42 Zolpidem Tartrate (Ambien) 5 mg HSPRN PRN ORAL Insomnia 11/27/16 22:45 12/27/16 22:44 12/03/16 22:32 CONOR WYLIE Dec 04, 2016 18:47
[2016-12-04] MEDS: Depakote ER 500mg tab ORAL SCH (19:54)
[2016-12-04 20:07] LABS: EOSINOPHILS % (AUTO) 5.5 % (0.0-3.0); LYMPHOCYTES % (AUTO) 49.6 % (20.0-45.0); MEAN CORPUSCULAR HEMOGLOBIN 31.8 PG (27.0-31.0); MEAN CORPUSCULAR HGB CONC 32.5 G/DL (32.0-36.0); MEAN CORPUSCULAR VOLUME 98 FL (80-99); MEAN PLATELET VOLUME 7.3 FL (6.5-10.1); MONOCYTES % (AUTO) 8.9 % (1.0-10.0); PLATELET COUNT 197 K/UL (150-450); RED BLOOD COUNT 3.89 M/UL (4.20-5.40); RED CELL DISTRIBUTION WIDTH 13.2 % (11.6-14.8); WHITE BLOOD COUNT 4.3 K/UL (4.8-10.8)
[2016-12-04 21:00] VITALS: BP 118/84
--- NOTE | 2016-12-04 21:00 | Progress Note ---
DATE: 11/29/2016 SUBJECTIVE: She has congestive heart failure. PLAN: Plan is to continue treatment with Paxil 40 mg daily, Depakote 500 mg nightly, and Abilify 2.5 mg daily. Chart is reviewed and discussed with staff. She was seen and assessed at bedside. Forest Worthy M.D. DR: ADEOLA JOB#: [id number] CC:
[2016-12-04] MEDS: Zolpidem 5mg tab ORAL PRN (21:15)
--- NOTE | 2016-12-04 21:15 | Progress Note ---
DATE: 12/03/2016 SUBJECTIVE: The patient has congestive heart failure, confusion, and disorganized. Mood is labile. PLAN: I am going to continue treat her with psychotropic medications to stabilize her mood. Chart reviewed and discussed with staff. Continue her on Paxil, Depakote and Abilify to stabilize her mood. Chart reviewed and discussed with staff. Seen and assessed at bedside. Forest Worthy M.D. DR: DIONISIO JOB#: [id number] CC:
--- NOTE | 2016-12-04 21:30 | Progress Note ---
DATE: 11/28/2016 SUBJECTIVE: The patient is a female patient, who continues to be confused and disorganized. Poor cognition technique to the progress of the medical illness. PLAN: My plan for this patient is to treat her with medications to prevent any decline in her cognition and so, continue to be followed by Psychiatry throughout her hospital course. She does have some mood lability, agitation, and irritability. My plan for this patient in order to treat her with medication regimen consisting of Paxil 40 mg daily, Depakote 500 mg nightly, and Abilify 2.5 mg p.o. daily. Continue treatment with psychotropic medications to stabilize her mood. Chart is reviewed and discussed with staff. Forest Worthy M.D. DR: ADEOLA JOB#: [id number] CC:
--- NOTE | 2016-12-04 23:31 | Progress Note ---
DATE: 12/02/2016 PLAN: Plan is to treat with Paxil 40 mg daily, Depakote 500 mg nightly, and Abilify 2.5 mg daily. Chart is reviewed and discussed with staff. She was seen and assessed at bedside. Forest Worthy M.D. DR: Matt JOB#: [id number] CC:
--- NOTE | 2016-12-04 23:31 | Progress Note ---
DATE: 11/30/2016 SUBJECTIVE: She has congestive heart failure and confusion. PLAN: I am going to continue to treat her with Paxil and Depakote to stabilize her mood. Seen and assessed at bedside. Chart reviewed and discussed with staff. Forest Worthy M.D. DR: DIONISIO JOB#: [id number] CC:
[2016-12-05] VITALS (8 sets, daily range): BP systolic 109–151; BP diastolic 43–98
--- NOTE | 2016-12-05 | Progress Note ---
DATE: 12/04/2016 SUBJECTIVE: I am going to continue treatment with medications to prevent any further decline in her cognition. She is confused and disorganized. Mood is labile. She does require acute psychiatric inpatient treatment and consistent psychiatric followup because of her mood lability which is secondary to stress of her medical illness, which is now congestive heart failure. PLAN: Continue on Paxil 40 mg daily, Depakote 500 mg nightly, and Abilify 2.5 mg daily. Chart is reviewed and discussed with staff. She was seen and assessed in her room. Forest Worthy M.D. DR: Matt JOB#: [id number] CC:
--- NOTE | 2016-12-05 | Progress Note ---
DATE: 12/01/2016 SUBJECTIVE: The patient has congestive heart failure, confusion, and altered mental status. PLAN: I am going to continue to treat her on Paxil 40 mg daily, Depakote 500 mg nightly, and Abilify 2.5 mg daily. Chart reviewed and discussed with staff. Seen and assessed in her room. Forest Worthy M.D. DR: DIONISIO JOB#: [id number] CC:
[2016-12-05] MEDS: Norco 10mg/325mg tab ORAL PRN ×4 (03:32→20:22)
[2016-12-05] MEDS: Oxycodone/Acetaminophen 5-325 ORAL PRN ×2 (06:48→13:31)
[2016-12-05] MEDS: Heparin 5000 units/ml inj SUBQ SCH ×2 (09:00→20:10)
[2016-12-05] MEDS: PARoxetine 20mg tab ORAL SCH (09:12)
[2016-12-05] MEDS: Furosemide 40mg tab ORAL SCH (09:12)
[2016-12-05] MEDS: LORazepam 1mg tab ORAL PRN ×2 (11:13→18:28)
--- NOTE | 2016-12-05 11:28 | Cardiology Report ---
APPROVED REPORT EXAM: Two-dimensional and M-mode echocardiogram with Doppler and color Doppler. INDICATION Congestive Heart Failure M-Mode DIMENSIONS IVSd1.5 (0.7-1.1cm)Left Atrium (MM)3.6 (1.6-4.0cm) LVDd3.8 (3.5-5.6cm)Aortic Root2.7 (2.0-3.7cm) PWd1.1 (0.7-1.1cm)Aortic Cusp Exc.1.7 (1.5-2.0cm) LVDs2.4 (2.5-4.0cm) PWs1.8 cm Technically difficult and limited study due to poor acoustic windows. Patient requested to end exam early. Study quality precludes accurate assessment of regional wall motion. Normal left ventricular chamber size, systolic function and wall motion. Left ventricular ejection fraction estimated to be 55 %. Mild left ventricular hypertrophy. Anterior Echo-free space, may be due to pericardial fat or effusion. All other cardiac chamber sizes are within normal limits. Mild focal aortic valve sclerosis with adequate cusp excursion. Mildly thickened mitral valve leaflets with normal excursion. Mild mitral annulus and aortic root calcification. Pulmonic valve not visualized. Normal tricuspid valve structure. IVC is normal in size with physiologic collapse. A color flow and spectral Doppler study was performed and revealed: No aortic regurgitation. Trace mitral regurgitation. Mitral inflow velocities indicates normal left ventricular diastolic function. Mild tricuspid regurgitation. Tricuspid systolic velocities suggests peak right ventricular systolic pressure of 29 mmHg.
--- NOTE | 2016-12-05 13:29 | General Progress Note ---
Assessment/Plan Problem List: (1) Leg pain, bilateral ICD Codes: M79.604 - Pain In Right Leg; M79.605 - Pain In Left Leg SNOMED: 30980098 (2) chronic pain (3) CHF (congestive heart failure), NYHA class I ICD Codes: I50.9 - CHF (congestive heart failure), NYHA class I SNOMED: 03297860 (4) Degenerative cervical disc ICD Codes: M50.90 - Degenerative cervical disc SNOMED: 86966415 (5) CHF (congestive heart failure) ICD Codes: I50.9 - Heart failure, unspecified SNOMED: 24179390 Status: stable, progressing, tolerating diet Assessment/Plan ot pt diet psyc transfer vs dc plan snf Subjective Constitutional: Reports: weakness Allergies: Coded Allergies: PENICILLINS (Unverified Allergy, Severe, 11/09/16) AMITRIPTYLINE (Verified Allergy, Unknown, 10/19/13) recorded from [facility]. pt does not remember the reation. CHLORPROMAZINE (Verified Allergy, Unknown, 10/19/13) recorded from [facility]. pt does not remember reaction. ERYTHROMYCIN BASE (Verified Allergy, Unknown, 10/19/13) recorded from [facility]. pt does not remember reaction. HALOPERIDOL (Verified Allergy, Unknown, 10/19/13) recorded from [facility]. pt does not remember reaction. QUETIAPINE (Verified Allergy, Unknown, 10/19/13) recorded from [facility]. pt does not remember reaction. All Systems: reviewed and negative except above Subjective o2 nc sleepy in bed Objective Last 24 Hour Vital Signs Date Time Temp Pulse Resp B/P Pulse Ox O2 Delivery O2 Flow Rate FiO2 12/05/16 13:12 97.9 82 20 145/81 95 Room Air 12/05/16 12:49 97.9 82 20 145/81 93 Room Air 12/05/16 09:12 79 141/82 12/05/16 08:50 79 18 100 Nasal Cannula 2.0 12/05/16 08:45 97.8 79 20 141/82 95 Room Air 12/05/16 08:41 79 20 Nasal Cannula 2.0 12/05/16 08:41 79 16 100 Nasal Cannula 2.0 12/05/16 08:41 28 12/05/16 04:31 97.0 12/05/16 04:28 98.1 83 20 109/43 95 Room Air 12/05/16 00:55 97.0 87 20 149/78 95 Room Air 12/05/16 00:16 96.8 12/04/16 21:00 96.8 107 20 118/84 95 Room Air 12/04/16 19:22 81 20 Room Air 21 12/04/16 16:13 96.7 87 18 148/88 95 Room Air Intake and Output 12/04/16 12/05/16 19:00 07:00 Intake Total 720 ml Balance 720 ml Intake Oral 720 ml # Voids 5 2 # Bowel Movements 1 Laboratory Tests 12/04/16 19:30: White Blood Count 4.3L, Red Blood Count 3.89L, Hemoglobin 12.4, Hematocrit 38.2 , Mean Corpuscular Volume 98, Mean Corpuscular Hemoglobin 31.8H, Mean Corpuscular Hemoglobin Concent 32.5, Red Cell Distribution Width 13.2, Platelet Count 197, Mean Platelet Volume 7.3, Neutrophils (%) (Auto) 34.0L, Lymphocytes ( %) (Auto) 49.6H, Monocytes (%) (Auto) 8.9, Eosinophils (%) (Auto) 5.5H, Basophils (%) (Auto) 2.0 Height (Feet): 4 Height (Inches): 10.00 Weight (Pounds): 210 General Appearance: lethargic EENT: normal ENT inspection Neck: normal alignment Cardiovascular: normal peripheral pulses, normal rate, regular rhythm Respiratory/Chest: chest wall non-tender, lungs clear, normal breath sounds Abdomen: normal bowel sounds, non tender, soft Extremities: normal inspection Edema: no edema noted Arm (L), no edema noted Arm (R), no edema noted Leg (L), no edema noted Leg (R), no edema noted Pedal (L), no edema noted Pedal (R), no edema noted Generalized Neurologic: motor weakness Skin: normal pigmentation, warm/dry PADMINI AMBROSIO Dec 05, 2016 13:29
--- NOTE | 2016-12-05 19:16 | General Progress Note ---
Assessment/Plan Assessment/Plan (1) Degenerative cervical disc (2) Lumbar radiculopathy (3) Lumbar degenerative disc disease (4) chronic pain (5) Osteoarthritis of multiple joints Pt will be continued on [place] and Percocet. Pt was d/w Dr. Caldwell and he concurred. Subjective Date patient seen: Dec 05, 2016 Time patient seen: 06:00 - pm Allergies: Coded Allergies: PENICILLINS (Unverified Allergy, Severe, 11/09/16) AMITRIPTYLINE (Verified Allergy, Unknown, 10/19/13) recorded from [facility]. pt does not remember the reation. CHLORPROMAZINE (Verified Allergy, Unknown, 10/19/13) recorded from [facility]. pt does not remember reaction. ERYTHROMYCIN BASE (Verified Allergy, Unknown, 10/19/13) recorded from [facility]. pt does not remember reaction. HALOPERIDOL (Verified Allergy, Unknown, 10/19/13) recorded from [facility]. pt does not remember reaction. QUETIAPINE (Verified Allergy, Unknown, 10/19/13) recorded from [facility]. pt does not remember reaction. Subjective Constitutional: Denies: no symptoms, chills, diaphoresis, fever, malaise, weakness, other HEENT: Denies: no symptoms, eye pain, blurred vision, tearing, double vision, ear pain, ear discharge, nose pain, nose congestion, throat pain, throat swelling, mouth pain, mouth swelling, other Cardiovascular: Denies: no symptoms, chest pain, edema, irregular heart rate, lightheadedness, palpitations, syncope, other Respiratory: Denies: no symptoms, cough, orthopnea, shortness of breath, SOB with excertion, SOB at rest, sputum, stridor, wheezing, other Gastrointestinal/Abdominal: Denies: no symptoms, abdomen distended, abdominal pain, black stools, tarry stools, blood in stool, constipated, diarrhea, difficulty swallowing, nausea, poor appetite, poor fluid intake, rectal bleeding , vomiting, other Genitourinary: Denies: no symptoms, burning, discharge, frequency, flank pain, hematuria, incontinence, pain, urgency, other Neurologic/Psychiatric: Reports: depressed, emotional problems Endocrine: Denies: no symptoms, excessive sweating, flushing, intolerance to cold, intolerance to heat, increased hunger, increased thirst, increased urine, unexplained weight gain, unexplained weight loss, other Hematologic/Lymphatic: Denies: no symptoms, anemia, easy bleeding, easy bruising, other Subjective No changes to patients pain which has been tolerated on the medication. Objective Last 24 Hour Vital Signs Date Time Temp Pulse Resp B/P Pulse Ox O2 Delivery O2 Flow Rate FiO2 12/05/16 16:23 97.5 79 20 141/91 98 Nasal Cannula 2.0 12/05/16 13:12 97.9 82 20 145/81 95 Room Air 12/05/16 12:49 97.9 82 20 145/81 93 Room Air 12/05/16 09:12 79 141/82 12/05/16 08:50 79 18 100 Nasal Cannula 2.0 28 12/05/16 08:45 97.8 79 20 141/82 95 Room Air 12/05/16 08:41 79 20 Nasal Cannula 2.0 28 12/05/16 08:41 79 16 100 Nasal Cannula 2.0 28 12/05/16 08:41 28 12/05/16 04:31 97.0 12/05/16 04:28 98.1 83 20 109/43 95 Room Air 12/05/16 00:55 97.0 87 20 149/78 95 Room Air 12/05/16 00:16 96.8 12/04/16 21:00 96.8 107 20 118/84 95 Room Air 12/04/16 19:22 81 20 Room Air 21 Intake and Output 12/04/16 12/05/16 19:00 07:00 Intake Total 720 ml Balance 720 ml Intake Oral 720 ml # Voids 5 2 # Bowel Movements 1 Laboratory Tests 12/04/16 19:30: White Blood Count 4.3L, Red Blood Count 3.89L, Hemoglobin 12.4, Hematocrit 38.2 , Mean Corpuscular Volume 98, Mean Corpuscular Hemoglobin 31.8H, Mean Corpuscular Hemoglobin Concent 32.5, Red Cell Distribution Width 13.2, Platelet Count 197, Mean Platelet Volume 7.3, Neutrophils (%) (Auto) 34.0L, Lymphocytes ( %) (Auto) 49.6H, Monocytes (%) (Auto) 8.9, Eosinophils (%) (Auto) 5.5H, Basophils (%) (Auto) 2.0 Height (Feet): 4 Height (Inches): 10.00 Weight (Pounds): 210 Objective General Appearance: WD/WN EENT: PERRL/EOMI Neck: supple Cardiovascular: normal rate, regular rhythm Respiratory/Chest: decreased breath sounds Abdomen: non tender, soft Extremities: non-tender Edema: edema noted in b/l LE 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
--- NOTE | 2016-12-05 19:23 | Pulmonology Progress Note ---
Assessment/Plan Problems: (1) CHF (congestive heart failure) (2) copd (3) Lumbar degenerative disc disease (4) Osteoarthritis of multiple joints Assessment/Plan no new complains pain management diuretics pt/ot dvt prophylaxis dc planning all notes reviewed labs reviewed. Subjective ROS Limited/Unobtainable: No Constitutional: Reports: no symptoms HEENT: Repors: no symptoms Respiratory: Reports: no symptoms Allergies: Coded Allergies: PENICILLINS (Unverified Allergy, Severe, 11/09/16) AMITRIPTYLINE (Verified Allergy, Unknown, 10/19/13) recorded from [facility]. pt does not remember the reation. CHLORPROMAZINE (Verified Allergy, Unknown, 10/19/13) recorded from [facility]. pt does not remember reaction. ERYTHROMYCIN BASE (Verified Allergy, Unknown, 10/19/13) recorded from [facility]. pt does not remember reaction. HALOPERIDOL (Verified Allergy, Unknown, 10/19/13) recorded from [facility]. pt does not remember reaction. QUETIAPINE (Verified Allergy, Unknown, 10/19/13) recorded from [facility]. pt does not remember reaction. Objective Last 24 Hour Vital Signs Date Time Temp Pulse Resp B/P Pulse Ox O2 Delivery O2 Flow Rate FiO2 12/05/16 16:23 97.5 79 20 141/91 98 Nasal Cannula 2.0 12/05/16 13:12 97.9 82 20 145/81 95 Room Air 12/05/16 12:49 97.9 82 20 145/81 93 Room Air 12/05/16 09:12 79 141/82 12/05/16 08:50 79 18 100 Nasal Cannula 2.0 12/05/16 08:45 97.8 79 20 141/82 95 Room Air 12/05/16 08:41 79 20 Nasal Cannula 2.0 28 12/05/16 08:41 79 16 100 Nasal Cannula 2.0 28 12/05/16 08:41 28 12/05/16 04:31 97.0 12/05/16 04:28 98.1 83 20 109/43 95 Room Air 12/05/16 00:55 97.0 87 20 149/78 95 Room Air 12/05/16 00:16 96.8 12/04/16 21:00 96.8 107 20 118/84 95 Room Air Intake and Output 12/04/16 12/05/16 19:00 07:00 Intake Total 720 ml Balance 720 ml Intake Oral 720 ml # Voids 5 2 # Bowel Movements 1 General Appearance: WD/WN HEENT: normocephalic, atraumatic Respiratory/Chest: chest wall non-tender, lungs clear Cardiovascular: normal peripheral pulses, normal rate Abdomen: normal bowel sounds, soft, non tender Genitourinary: normal external genitalia Extremities: no cyanosis Neurologic/Psychiatric: upper and bottom lacer hand II-XII grossly normal Laboratory Tests 12/04/16 19:30: White Blood Count 4.3L, Red Blood Count 3.89L, Hemoglobin 12.4, Hematocrit 38.2 , Mean Corpuscular Volume 98, Mean Corpuscular Hemoglobin 31.8H, Mean Corpuscular Hemoglobin Concent 32.5, Red Cell Distribution Width 13.2, Platelet Count 197, Mean Platelet Volume 7.3, Neutrophils (%) (Auto) 34.0L, Lymphocytes ( %) (Auto) 49.6H, Monocytes (%) (Auto) 8.9, Eosinophils (%) (Auto) 5.5H, Basophils (%) (Auto) 2.0 Current Medications Medications (Trade) Dose Ordered Sig/Kushal Route PRN Reason Start Time Stop Time Status Last Admin Dose Admin Acetaminophen (Tylenol) 650 mg Q4H PRN ORAL T>100.5 11/26/16 16:00 12/26/16 15:59 Acetaminophen/ Hydrocodone Bitart ([place] 10/325) 1 ea Q4H PRN ORAL Moderate Pain (Pain Scale 4-6) 12/01/16 12:38 12/08/16 12:37 12/05/16 16:21 Albuterol/ Ipratropium (DuoNeb 0.5-3(2.5)mg/3ml) 3 ml Q4H PRN HHN Shortness of Breath 12/01/16 11:30 12/06/16 11:29 12/05/16 08:41 Amlodipine Besylate (Norvasc) 2.5 mg DAILY ORAL 11/27/16 09:00 12/27/16 08:59 12/05/16 09:12 Aripiprazole (Abilify) 2.5 mg DAILY ORAL 11/27/16 09:00 12/27/16 08:59 11/30/16 08:44 Dextrose (Dextrose 50%) STAT PRN IV Hypoglycemia 11/26/16 17:00 12/26/16 16:59 Diphenhydramine HCl (Benadryl) 25 mg Q6H PRN ORAL Itching 11/27/16 22:45 12/27/16 22:44 12/05/16 18:28 Divalproex Sodium (Depakote ER) 500 mg BEDTIME ORAL 11/26/16 21:00 12/26/16 20:59 12/04/16 19:54 Furosemide (Lasix) 40 mg DAILY ORAL 11/28/16 09:00 12/28/16 08:59 12/05/16 09:12 Heparin Sodium (Porcine) (Heparin 5000 units/ml) 5,000 units EVERY 12 HOURS SUBQ 11/26/16 21:00 12/26/16 20:59 11/30/16 08:46 Hydralazine HCl (Apresoline) 25 mg Q4H PRN ORAL SBP>160 11/26/16 16:00 12/26/16 15:59 12/01/16 17:31 Lorazepam (Ativan) 1 mg Q4H PRN ORAL For Anxiety 12/03/16 10:30 12/10/16 10:29 12/05/16 18:28 Ondansetron HCl (Zofran) 4 mg Q6H PRN IVP Nausea & Vomiting 11/26/16 16:00 12/26/16 15:59 Oxycodone/ Acetaminophen (Percocet 5-325) 1 tab Q6H PRN ORAL Severe Pain (Pain Scale 7-10) 12/01/16 12:27 12/08/16 12:26 12/05/16 13:31 Paroxetine HCl (Paxil) 40 mg DAILY ORAL 11/27/16 09:00 12/27/16 08:59 12/05/16 09:12 Polyethylene Glycol (Miralax) 17 gm DAILYPRN PRN ORAL Constipation 11/26/16 16:00 12/26/16 15:59 11/27/16 10:42 Zolpidem Tartrate (Ambien) 5 mg HSPRN PRN ORAL Insomnia 11/27/16 22:45 12/27/16 22:44 12/04/16 21:15 CONOR WYLIE Dec 05, 2016 19:23
[2016-12-05] MEDS: Depakote ER 500mg tab ORAL SCH (20:22)
[2016-12-05] MEDS: Zolpidem 5mg tab ORAL PRN (21:40)
[2016-12-06 03:54] VITALS: BP 143/80
[2016-12-06] MEDS: Oxycodone/Acetaminophen 5-325 ORAL PRN ×3 (05:01→18:03)
[2016-12-06] MEDS: LORazepam 1mg tab ORAL PRN ×3 (06:44→21:30)
--- NOTE | 2016-12-06 07:54 | Diagnostic Imaging Report ---
APPROVED REPORT CPT Code: 53109 Present Symptoms Comments: Pain BILATERAL: Imaging reveals a patent deep venous system bilaterally. There is no evidence of thrombus within the femoral, popliteal or tibial segments. The greater saphenous veins are also within normal limits. Doppler indicates normal spontaneous flow within these segments.
--- NOTE | 2016-12-06 08:34 | General Progress Note ---
Assessment/Plan Assessment/Plan (1) Degenerative cervical disc (2) Lumbar radiculopathy (3) Lumbar degenerative disc disease (4) chronic pain (5) Osteoarthritis of multiple joints Pt will be continued on [place] and Percocet. Pt was d/w Dr. Caldwell and he concurred. Subjective Date patient seen: Dec 06, 2016 Time patient seen: 06:45 - am Allergies: Coded Allergies: PENICILLINS (Unverified Allergy, Severe, 11/09/16) AMITRIPTYLINE (Verified Allergy, Unknown, 10/19/13) [facility]. CHLORPROMAZINE (Verified Allergy, Unknown, 10/19/13) [facility] pt does not remember reaction. ERYTHROMYCIN BASE (Verified Allergy, Unknown, 10/19/13) [facility] pt does not remember reaction. HALOPERIDOL (Verified Allergy, Unknown, 10/19/13) [facility] pt does not remember reaction. QUETIAPINE (Verified Allergy, Unknown, 10/19/13) [facility] pt does not remember reaction. Subjective Constitutional: Denies: no symptoms, chills, diaphoresis, fever, malaise, weakness, other HEENT: Denies: no symptoms, eye pain, blurred vision, tearing, double vision, ear pain, ear discharge, nose pain, nose congestion, throat pain, throat swelling, mouth pain, mouth swelling, other Cardiovascular: Denies: no symptoms, chest pain, edema, irregular heart rate, lightheadedness, palpitations, syncope, other Respiratory: Denies: no symptoms, cough, orthopnea, shortness of breath, SOB with excertion, SOB at rest, sputum, stridor, wheezing, other Gastrointestinal/Abdominal: Denies: no symptoms, abdomen distended, abdominal pain, black stools, tarry stools, blood in stool, constipated, diarrhea, difficulty swallowing, nausea, poor appetite, poor fluid intake, rectal bleeding , vomiting, other Genitourinary: Denies: no symptoms, burning, discharge, frequency, flank pain, hematuria, incontinence, pain, urgency, other Neurologic/Psychiatric: Reports: depressed, emotional problems Endocrine: Denies: no symptoms, excessive sweating, flushing, intolerance to cold, intolerance to heat, increased hunger, increased thirst, increased urine, unexplained weight gain, unexplained weight loss, other Hematologic/Lymphatic: Denies: no symptoms, anemia, easy bleeding, easy bruising, other Subjective Continues to c/o severe pain which has been reduced on the [place] and Percocet. Objective Last 24 Hour Vital Signs Date Time Temp Pulse Resp B/P Pulse Ox O2 Delivery O2 Flow Rate FiO2 12/06/16 06:00 97.9 12/06/16 03:54 97.9 93 18 143/80 96 Room Air 12/05/16 23:42 97.7 86 18 139/81 94 Room Air 12/05/16 21:37 97.9 12/05/16 20:00 97.9 114 20 151/98 97 Room Air 12/05/16 19:22 85 20 Room Air 21 12/05/16 16:23 97.5 79 20 141/91 98 Nasal Cannula 2.0 12/05/16 13:12 97.9 82 20 145/81 95 Room Air 12/05/16 12:49 97.9 82 20 145/81 93 Room Air 12/05/16 09:12 79 141/82 12/05/16 08:50 79 18 100 Nasal Cannula 2.0 28 12/05/16 08:45 97.8 79 20 141/82 95 Room Air 12/05/16 08:41 79 20 Nasal Cannula 2.0 28 12/05/16 08:41 79 16 100 Nasal Cannula 2.0 28 12/05/16 08:41 28 Intake and Output 12/05/16 12/06/16 19:00 07:00 Intake Total 600 ml 460 ml Balance 600 ml 460 ml Intake Oral 600 ml 460 ml # Voids 2 2 Height (Feet): 4 Height (Inches): 10.00 Weight (Pounds): 210 Objective General Appearance: WD/WN EENT: PERRL/EOMI Neck: supple Cardiovascular: normal rate, regular rhythm Respiratory/Chest: decreased breath sounds Abdomen: non tender, soft Extremities: non-tender Edema: edema noted in b/l LE 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
[2016-12-06] MEDS: PARoxetine 20mg tab ORAL SCH (08:58)
[2016-12-06] MEDS: Furosemide 40mg tab ORAL SCH (08:58)
[2016-12-06] MEDS: Thiamine 100mg tab ORAL SCH (09:00)
[2016-12-06] MEDS: Heparin 5000 units/ml inj SUBQ SCH ×2 (09:05→21:00)
[2016-12-06] MEDS: Norco 10mg/325mg tab ORAL PRN ×3 (09:15→20:23)
--- NOTE | 2016-12-06 10:30 | Consultation ---
DATE OF CONSULTATION: 12/04/2016 PSYCHOTHERAPY CONSULTATION PROGRESS NOTE CONSULTING PHYSICIAN: Alida Mireles M.D. TREATING ATTENDING PHYSICIAN: Rene Julio D.O. HISTORY OF PRESENT ILLNESS: The patient is a 71-year-old female patient admitted to the hospital for congestive heart failure. The patient also has diagnosis of schizoaffective disorder bipolar type. The patient is from [facility]. The patient also complains of and exacerbation of her CHF. She is mostly confused, irritable mental status. For these reasons, she is referred for psychotherapeutic services. the patient. The patient remains in altered mental status. She is slightly confused . She has difficulty sleeping according to the nurse's report . The patient denies suicidal and homicidal thoughts of ideation. The patient ---denies auditory or visual hallucinations at this time. PAST MEDICAL HISTORY: History of congestive heart failure, and chronic pain. ALLERGIES: The patient is allergic to . PAST PSYCHIATRIC HISTORY: The patient has history of schizoaffective disorder, bipolar type. The patient has been treated with psychotropic medications in the past. SOCIAL HISTORY: The patient is a 71-year-old female patient from [facility]. The patient is currently . Financially sustained through Medicare and [employer]. MENTAL STATUS EXAMINATION: The patient is alert and oriented x2 to person and place. Mood is irritable. Affect is blunted. Thought process is fairly disorganized. The patient has poor attention and concentration. Poor insight, judgment, and impulse control. DIAGNOSES: AXIS I Schizoaffective disorder, bipolar type. AXIS II Deferred. AXIS III Per History and Physical. PLAN: This clinician assessed the patient and provided the patient with supportive psychotherapy and reality orientation. Encouraging the patient to participate in treatment and milieu. Continue with medication management and behavioral management. This clinician has reviewed the patient's chart and discussed the treatment with staff. Alida Mireles PsyD. DR: [place] JOB#: [id number] CC:
--- NOTE | 2016-12-06 14:34 | General Progress Note ---
Assessment/Plan Problem List: (1) Leg pain, bilateral ICD Codes: M79.604 - Pain In Right Leg; M79.605 - Pain In Left Leg SNOMED: 03232726 (2) chronic pain (3) CHF (congestive heart failure), NYHA class I ICD Codes: I50.9 - CHF (congestive heart failure), NYHA class I SNOMED: 67818124 (4) Degenerative cervical disc ICD Codes: M50.90 - Degenerative cervical disc SNOMED: 15598817 (5) CHF (congestive heart failure) ICD Codes: I50.9 - Heart failure, unspecified SNOMED: 08661621 Status: stable, progressing, tolerating diet Assessment/Plan ot pt diet cbc bmp am psyc transfer vs dc plan snf Subjective Constitutional: Reports: weakness Allergies: Coded Allergies: PENICILLINS (Unverified Allergy, Severe, 11/09/16) AMITRIPTYLINE (Verified Allergy, Unknown, 10/19/13) [facility] pt does not remember the reation. CHLORPROMAZINE (Verified Allergy, Unknown, 10/19/13) recorded from [facility]. pt does not remember reaction. ERYTHROMYCIN BASE (Verified Allergy, Unknown, 10/19/13) recorded from [facility]. pt does not remember reaction. HALOPERIDOL (Verified Allergy, Unknown, 10/19/13) recorded [facility]. pt does not remember reaction. QUETIAPINE (Verified Allergy, Unknown, 10/19/13) recorded from [facility]. pt does not remember reaction. All Systems: reviewed and negative except above Subjective calm in wc Objective Last 24 Hour Vital Signs Date Time Temp Pulse Resp B/P Pulse Ox O2 Delivery O2 Flow Rate FiO2 12/06/16 12:52 97.9 12/06/16 10:31 97.9 12/06/16 08:57 84 143/80 12/06/16 07:48 84 20 Room Air 21 12/06/16 03:54 97.9 93 18 143/80 96 Room Air 12/05/16 23:42 97.7 86 18 139/81 94 Room Air 12/05/16 20:00 97.9 114 20 151/98 97 Room Air 12/05/16 19:22 85 20 Room Air 21 12/05/16 16:23 97.5 79 20 141/91 98 Nasal Cannula 2.0 Intake and Output 12/05/16 12/06/16 19:00 07:00 Intake Total 600 ml 460 ml Balance 600 ml 460 ml Intake Oral 600 ml 460 ml # Voids 2 2 Height (Feet): 4 Height (Inches): 10.00 Weight (Pounds): 210 General Appearance: lethargic EENT: normal ENT inspection Neck: normal alignment Cardiovascular: normal peripheral pulses, normal rate, regular rhythm Respiratory/Chest: chest wall non-tender, lungs clear, normal breath sounds Abdomen: normal bowel sounds, non tender, soft Extremities: normal inspection Edema: no edema noted Arm (L), no edema noted Arm (R), no edema noted Leg (L), no edema noted Leg (R), no edema noted Pedal (L), no edema noted Pedal (R), no edema noted Generalized Neurologic: responsive, motor weakness Skin: normal pigmentation, warm/dry PADMINI AMBROSIO Dec 06, 2016 14:34
[2016-12-06 15:51] VITALS: BP 138/91
--- NOTE | 2016-12-06 17:44 | Cardiology Report ---
APPROVED REPORT EKG Measurement Heart [id number] Normal sinus rhythm Left axis deviation Septal infarct, age undetermined Abnormal ECG
[2016-12-06] MEDS: Zolpidem 5mg tab ORAL PRN (20:21)
[2016-12-06] MEDS: Depakote ER 500mg tab ORAL SCH (20:22)
[2016-12-06 20:54] VITALS: BP 150/93
[2016-12-07 00:34] VITALS: BP 128/71
[2016-12-07] MEDS: LORazepam 1mg tab ORAL PRN ×4 (03:36→20:24)
[2016-12-07] MEDS: Norco 10mg/325mg tab ORAL PRN ×3 (03:37→16:54)
[2016-12-07 04:44] VITALS: BP 111/66
[2016-12-07] MEDS: Oxycodone/Acetaminophen 5-325 ORAL PRN ×4 (06:01→20:24)
[2016-12-07 07:29] LABS: BASOPHILS % (AUTO) 1.1 % (0.0-2.0); EOSINOPHILS % (AUTO) 7.5 % (0.0-3.0); LYMPHOCYTES % (AUTO) 47.6 % (20.0-45.0); MEAN CORPUSCULAR HEMOGLOBIN 32.1 PG (27.0-31.0); MEAN CORPUSCULAR HGB CONC 31.9 G/DL (32.0-36.0); MEAN CORPUSCULAR VOLUME 101 FL (80-99); MEAN PLATELET VOLUME 7.6 FL (6.5-10.1); MONOCYTES % (AUTO) 7.6 % (1.0-10.0); NEUTROPHILS % (AUTO) 36.1 % (45.0-75.0); PLATELET COUNT 195 K/UL (150-450); RED BLOOD COUNT 3.62 M/UL (4.20-5.40); RED CELL DISTRIBUTION WIDTH 13.4 % (11.6-14.8); WHITE BLOOD COUNT 5.1 K/UL (4.8-10.8)
[2016-12-07 07:30] LABS: ANION GAP 13 (5-15); CARBON DIOXIDE 28 mEQ/L (20-30); CHLORIDE 101 mEQ/L (98-107); CREATININE 0.8 mg/dL (0.5-0.9); GLOMERULAR FILTRATION RATE > 60 mL/min (>60); HEMOLYSIS 3; POTASSIUM 3.9 mEQ/L (3.4-4.9); SODIUM 142 mEQ/L (135-145)
[2016-12-07 08:00] VITALS: BP 162/94
[2016-12-07] MEDS: PARoxetine 20mg tab ORAL SCH (08:13)
[2016-12-07] MEDS: Thiamine 100mg tab ORAL SCH (08:13)
[2016-12-07] MEDS: Furosemide 40mg tab ORAL SCH (08:14)
[2016-12-07] MEDS: Heparin 5000 units/ml inj SUBQ SCH ×2 (08:14→20:24)
--- NOTE | 2016-12-07 08:47 | General Progress Note ---
Assessment/Plan Assessment/Plan (1) Degenerative cervical disc (2) Lumbar radiculopathy (3) Lumbar degenerative disc disease (4) chronic pain (5) Osteoarthritis of multiple joints Pt will be continued on [place] and Percocet. Pt was d/w Dr. Caldwell and he concurred. Subjective Date patient seen: Dec 07, 2016 Time patient seen: 07:00 - am Allergies: Coded Allergies: PENICILLINS (Unverified Allergy, Severe, 11/09/16) AMITRIPTYLINE (Verified Allergy, Unknown, 10/19/13) recorded [facility] pt does not remember the reation. CHLORPROMAZINE (Verified Allergy, Unknown, 10/19/13) recorded from [facility]. pt does not remember reaction. ERYTHROMYCIN BASE (Verified Allergy, Unknown, 10/19/13) recorded from [facility]. pt does not remember reaction. HALOPERIDOL (Verified Allergy, Unknown, 10/19/13) recorded from [facility]. pt does not remember reaction. QUETIAPINE (Verified Allergy, Unknown, 10/19/13) recorded from [facility]. pt does not remember reaction. Subjective Constitutional: Denies: no symptoms, chills, diaphoresis, fever, malaise, weakness, other HEENT: Denies: no symptoms, eye pain, blurred vision, tearing, double vision, ear pain, ear discharge, nose pain, nose congestion, throat pain, throat swelling, mouth pain, mouth swelling, other Cardiovascular: Denies: no symptoms, chest pain, edema, irregular heart rate, lightheadedness, palpitations, syncope, other Respiratory: Denies: no symptoms, cough, orthopnea, shortness of breath, SOB with excertion, SOB at rest, sputum, stridor, wheezing, other Gastrointestinal/Abdominal: Denies: no symptoms, abdomen distended, abdominal pain, black stools, tarry stools, blood in stool, constipated, diarrhea, difficulty swallowing, nausea, poor appetite, poor fluid intake, rectal bleeding , vomiting, other Genitourinary: Denies: no symptoms, burning, discharge, frequency, flank pain, hematuria, incontinence, pain, urgency, other Neurologic/Psychiatric: Reports: depressed, emotional problems Endocrine: Denies: no symptoms, excessive sweating, flushing, intolerance to cold, intolerance to heat, increased hunger, increased thirst, increased urine, unexplained weight gain, unexplained weight loss, other Hematologic/Lymphatic: Denies: no symptoms, anemia, easy bleeding, easy bruising, other Subjective Patient is sitting up in wheel chair and continues to c/o pain through out her body which has been tolerated and reduced on the medication. Objective Last 24 Hour Vital Signs Date Time Temp Pulse Resp B/P Pulse Ox O2 Delivery O2 Flow Rate FiO2 12/07/16 08:13 87 162/94 12/07/16 08:00 97.0 87 19 162/94 97 Room Air 12/07/16 04:44 97.5 96 20 111/66 98 Room Air 12/07/16 00:34 98.4 81 20 128/71 99 Room Air 12/06/16 20:54 97.3 65 20 150/93 95 Room Air 12/06/16 19:48 81 20 Room Air 21 12/06/16 16:21 98.2 12/06/16 15:51 98.2 79 20 138/91 98 Room Air 12/06/16 12:52 97.9 12/06/16 08:57 84 143/80 Intake and Output 12/06/16 12/07/16 19:00 07:00 Intake Total 240 ml 120 ml Balance 240 ml 120 ml Intake Oral 240 ml 120 ml # Voids 3 Laboratory Tests 12/07/16 05:05: White Blood Count 5.1, Red Blood Count 3.62L, Hemoglobin 11.6L, Hematocrit 36.4L , Mean Corpuscular Volume 101H, Mean Corpuscular Hemoglobin 32.1H, Mean Corpuscular Hemoglobin Concent 31.9L, Red Cell Distribution Width 13.4, Platelet Count 195, Mean Platelet Volume 7.6, Neutrophils (%) (Auto) 36.1L, Lymphocytes (%) (Auto) 47.6H, Monocytes (%) (Auto) 7.6, Eosinophils (%) (Auto) 7.5H, Basophils (%) (Auto) 1.1, Sodium Level 142, Potassium Level 3.9, Chloride Level 101, Carbon Dioxide Level 28, Anion Gap 13, Blood Urea Nitrogen 18, Creatinine 0.8, Estimat Glomerular Filtration Rate > 60, Glucose Level 106, Calcium Level 9.0 Height (Feet): 4 Height (Inches): 10.00 Weight (Pounds): 210 Objective General Appearance: WD/WN EENT: PERRL/EOMI Neck: supple Cardiovascular: normal rate, regular rhythm Respiratory/Chest: decreased breath sounds Abdomen: non tender, soft Extremities: non-tender Edema: edema noted in b/l LE 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
--- NOTE | 2016-12-07 11:47 | General Progress Note ---
Assessment/Plan Problem List: (1) Leg pain, bilateral ICD Codes: M79.604 - Pain In Right Leg; M79.605 - Pain In Left Leg SNOMED: 62985367 (2) chronic pain (3) CHF (congestive heart failure), NYHA class I ICD Codes: I50.9 - CHF (congestive heart failure), NYHA class I SNOMED: 65359922 (4) Degenerative cervical disc ICD Codes: M50.90 - Degenerative cervical disc SNOMED: 66757105 (5) CHF (congestive heart failure) ICD Codes: I50.9 - Heart failure, unspecified SNOMED: 38170501 Status: stable, progressing, tolerating diet Assessment/Plan ot pt diet psyc transfer vs dc plan snf Subjective Allergies: Coded Allergies: PENICILLINS (Unverified Allergy, Severe, 11/09/16) AMITRIPTYLINE (Verified Allergy, Unknown, 10/19/13) recorded from group home. pt does not remember the reation. CHLORPROMAZINE (Verified Allergy, Unknown, 10/19/13) recorded from group home. pt does not remember reaction. ERYTHROMYCIN BASE (Verified Allergy, Unknown, 10/19/13) recorded from group home. pt does not remember reaction. HALOPERIDOL (Verified Allergy, Unknown, 10/19/13) recorded from group home. pt does not remember reaction. QUETIAPINE (Verified Allergy, Unknown, 10/19/13) recorded from group home. pt does not remember reaction. All Systems: reviewed and negative except above Subjective calm in wc Objective Last 24 Hour Vital Signs Date Time Temp Pulse Resp B/P Pulse Ox O2 Delivery O2 Flow Rate FiO2 12/07/16 10:18 97.0 12/07/16 08:13 87 162/94 12/07/16 08:00 97.0 87 19 162/94 97 Room Air 12/07/16 04:44 97.5 96 20 111/66 98 Room Air 12/07/16 00:34 98.4 81 20 128/71 99 Room Air 12/06/16 20:54 97.3 65 20 150/93 95 Room Air 12/06/16 19:48 81 20 Room Air 21 12/06/16 15:51 98.2 79 20 138/91 98 Room Air 12/06/16 12:52 97.9 Intake and Output 12/06/16 12/07/16 19:00 07:00 Intake Total 240 ml 120 ml Balance 240 ml 120 ml Intake Oral 240 ml 120 ml # Voids 3 Laboratory Tests 12/07/16 05:05: White Blood Count 5.1, Red Blood Count 3.62L, Hemoglobin 11.6L, Hematocrit 36.4L , Mean Corpuscular Volume 101H, Mean Corpuscular Hemoglobin 32.1H, Mean Corpuscular Hemoglobin Concent 31.9L, Red Cell Distribution Width 13.4, Platelet Count 195, Mean Platelet Volume 7.6, Neutrophils (%) (Auto) 36.1L, Lymphocytes (%) (Auto) 47.6H, Monocytes (%) (Auto) 7.6, Eosinophils (%) (Auto) 7.5H, Basophils (%) (Auto) 1.1, Sodium Level 142, Potassium Level 3.9, Chloride Level 101, Carbon Dioxide Level 28, Anion Gap 13, Blood Urea Nitrogen 18, Creatinine 0.8, Estimat Glomerular Filtration Rate > 60, Glucose Level 106, Calcium Level 9.0 Height (Feet): 4 Height (Inches): 10.00 Weight (Pounds): 210 General Appearance: lethargic EENT: normal ENT inspection Neck: normal alignment Cardiovascular: normal peripheral pulses, normal rate, regular rhythm Respiratory/Chest: chest wall non-tender, lungs clear, normal breath sounds Abdomen: normal bowel sounds, non tender, soft Extremities: normal inspection Edema: no edema noted Arm (L), no edema noted Arm (R), no edema noted Leg (L), no edema noted Leg (R), no edema noted Pedal (L), no edema noted Pedal (R), no edema noted Generalized Neurologic: responsive, motor weakness Skin: normal pigmentation, warm/dry PADMINI AMBROSIO Dec 07, 2016 11:47
[2016-12-07 12:00] VITALS: BP 144/70
[2016-12-07 16:00] VITALS: BP 136/68
[2016-12-07 19:59] VITALS: BP 144/89
[2016-12-07] MEDS: Zolpidem 5mg tab ORAL PRN (20:23)
[2016-12-07] MEDS: Depakote ER 500mg tab ORAL SCH (20:23)
--- NOTE | 2016-12-07 22:46 | Pulmonology Progress Note ---
Assessment/Plan Problems: (1) CHF (congestive heart failure) (2) copd (3) Lumbar degenerative disc disease (4) Osteoarthritis of multiple joints Assessment/Plan no new complains pain management diuretics pt/ot dvt prophylaxis dc planning all notes reviewed labs reviewed. Subjective Allergies: Coded Allergies: PENICILLINS (Unverified Allergy, Severe, 11/09/16) AMITRIPTYLINE (Verified Allergy, Unknown, 10/19/13) recorded from [facility]. pt does not remember the reation. CHLORPROMAZINE (Verified Allergy, Unknown, 10/19/13) recorded from [facility]. pt does not remember reaction. ERYTHROMYCIN BASE (Verified Allergy, Unknown, 10/19/13) recorded from [facility]. pt does not remember reaction. HALOPERIDOL (Verified Allergy, Unknown, 10/19/13) recorded from [facility]. pt does not remember reaction. QUETIAPINE (Verified Allergy, Unknown, 10/19/13) recorded from [facility]. pt does not remember reaction. Objective Last 24 Hour Vital Signs Date Time Temp Pulse Resp B/P Pulse Ox O2 Delivery O2 Flow Rate FiO2 12/07/16 21:23 97.2 12/07/16 20:25 91 20 Nasal Cannula 2.0 28 12/07/16 19:59 97.2 86 20 144/89 97 Room Air 12/07/16 17:53 97.0 12/07/16 16:00 97.0 84 18 136/68 97 Room Air 12/07/16 12:00 97.0 88 19 144/70 97 Room Air 12/07/16 08:13 87 162/94 12/07/16 08:00 97.0 87 19 162/94 97 Room Air 12/07/16 08:00 103 19 Nasal Cannula 2.0 28 12/07/16 04:44 97.5 96 20 111/66 98 Room Air 12/07/16 00:34 98.4 81 20 128/71 99 Room Air Intake and Output 12/06/16 12/07/16 19:00 07:00 Intake Total 240 ml 120 ml Balance 240 ml 120 ml Intake Oral 240 ml 120 ml # Voids 3 Laboratory Tests 12/07/16 05:05: White Blood Count 5.1, Red Blood Count 3.62L, Hemoglobin 11.6L, Hematocrit 36.4L , Mean Corpuscular Volume 101H, Mean Corpuscular Hemoglobin 32.1H, Mean Corpuscular Hemoglobin Concent 31.9L, Red Cell Distribution Width 13.4, Platelet Count 195, Mean Platelet Volume 7.6, Neutrophils (%) (Auto) 36.1L, Lymphocytes (%) (Auto) 47.6H, Monocytes (%) (Auto) 7.6, Eosinophils (%) (Auto) 7.5H, Basophils (%) (Auto) 1.1, Sodium Level 142, Potassium Level 3.9, Chloride Level 101, Carbon Dioxide Level 28, Anion Gap 13, Blood Urea Nitrogen 18, Creatinine 0.8, Estimat Glomerular Filtration Rate > 60, Glucose Level 106, Calcium Level 9.0 Current Medications Medications (Trade) Dose Ordered Sig/Kushal Route PRN Reason Start Time Stop Time Status Last Admin Dose Admin Acetaminophen (Tylenol) 650 mg Q4H PRN ORAL T>100.5 11/26/16 16:00 12/26/16 15:59 Acetaminophen/ Hydrocodone Bitart ([place] 10/325) 1 ea Q4H PRN ORAL Moderate Pain (Pain Scale 4-6) 12/01/16 12:38 12/08/16 12:37 12/07/16 16:54 Amlodipine Besylate (Norvasc) 2.5 mg DAILY ORAL 11/27/16 09:00 12/27/16 08:59 12/07/16 08:13 Aripiprazole (Abilify) 2.5 mg DAILY ORAL 11/27/16 09:00 12/27/16 08:59 11/30/16 08:44 Dextrose (Dextrose 50%) STAT PRN IV Hypoglycemia 11/26/16 17:00 12/26/16 16:59 Diphenhydramine HCl (Benadryl) 25 mg Q6H PRN ORAL Itching 11/27/16 22:45 12/27/16 22:44 12/06/16 23:58 Divalproex Sodium (Depakote ER) 500 mg BEDTIME ORAL 11/26/16 21:00 12/26/16 20:59 12/07/16 20:23 Furosemide (Lasix) 40 mg DAILY ORAL 11/28/16 09:00 12/28/16 08:59 12/07/16 08:14 Heparin Sodium (Porcine) (Heparin 5000 units/ml) 5,000 units EVERY 12 HOURS SUBQ 11/26/16 21:00 12/26/16 20:59 12/06/16 09:05 Hydralazine HCl (Apresoline) 25 mg Q4H PRN ORAL SBP>160 11/26/16 16:00 12/26/16 15:59 12/01/16 17:31 Lorazepam (Ativan) 1 mg Q4H PRN ORAL For Anxiety 12/03/16 10:30 12/10/16 10:29 12/07/16 20:24 Multivitamins (Multivitamins) 1 tab DAILY ORAL 12/06/16 09:00 01/05/17 08:59 12/07/16 08:13 Ondansetron HCl (Zofran) 4 mg Q6H PRN IVP Nausea & Vomiting 11/26/16 16:00 12/26/16 15:59 Oxycodone/ Acetaminophen (Percocet 5-325) 1 tab Q6H PRN ORAL Severe Pain (Pain Scale 7-10) 12/01/16 12:27 12/08/16 12:26 12/07/16 20:24 Paroxetine HCl (Paxil) 40 mg DAILY ORAL 11/27/16 09:00 12/27/16 08:59 12/07/16 08:13 Polyethylene Glycol (Miralax) 17 gm DAILYPRN PRN ORAL Constipation 11/26/16 16:00 12/26/16 15:59 11/27/16 10:42 Thiamine HCl (Vitamin B1) 100 mg DAILY ORAL 12/06/16 09:00 01/05/17 08:59 12/07/16 08:13 Zolpidem Tartrate (Ambien) 5 mg HSPRN PRN ORAL Insomnia 11/27/16 22:45 12/27/16 22:44 12/07/16 20:23 CONOR WYLIE Dec 07, 2016 22:46
[2016-12-08 00:14] VITALS: BP 131/84
[2016-12-08] MEDS: Norco 10mg/325mg tab ORAL PRN ×2 (00:37→18:20)
[2016-12-08] MEDS: Oxycodone/Acetaminophen 5-325 ORAL PRN ×4 (02:35→21:43)
--- NOTE | 2016-12-08 08:02 | Pulmonology Progress Note ---
Assessment/Plan Assessment/Plan ASSESSMENT peripheral leg edema CHF COPD HTN Degenerative arthropathy R knee R knee pain 2 to above lumbar DDD lumbar radiculopathy cervical DDD morbid obesity seizure disorder schizoaffective disorder, bipolar type major depression PLAN OF CARE MS floor O2 HHN prn CXR no acute cardiopulmonary disease no evidence of COPD exacerbation diuretics, monitor I/O renal parameters, lytes, edema improved significantly cardio follows ECHO with pEF 55% and RVSP of 29 BP management with CCB and optimize as needed DVT prophylaxis Venous Duplex BLE negative X ray R knee with evidecne of extensive chronic appearing abnormality of the right knee, findings likely represent combination of chronic posttraumatic changes and secondary degenerative arthropathy. PT/OT pain management seizure precautions, continue Depakote, continue Paxil psych follows dc planning per PMD: SNF vs transfer to psych faciltiy case discussed and evaluated by supervising physician Subjective Allergies: Coded Allergies: PENICILLINS (Unverified Allergy, Severe, 11/09/16) AMITRIPTYLINE (Verified Allergy, Unknown, 10/19/13) [facility] does not remember the reation. CHLORPROMAZINE (Verified Allergy, Unknown, 10/19/13) recorded from jail. pt does not remember reaction. ERYTHROMYCIN BASE (Verified Allergy, Unknown, 10/19/13) recorded from jail. pt does not remember reaction. HALOPERIDOL (Verified Allergy, Unknown, 10/19/13) recorded from jail. pt does not remember reaction. QUETIAPINE (Verified Allergy, Unknown, 10/19/13) recorded from jail. pt does not remember reaction. Subjective pulse oximetry stable on RA no signs of respiratory distress denies chest pain, SOB leg edema decreased awaiting for placement Objective Last 24 Hour Vital Signs Date Time Temp Pulse Resp B/P Pulse Ox O2 Delivery O2 Flow Rate FiO2 12/08/16 03:34 96.8 12/08/16 01:36 96.8 12/08/16 00:14 96.8 85 20 131/84 98 12/07/16 20:25 91 20 Nasal Cannula 2.0 28 12/07/16 19:59 97.2 86 20 144/89 97 Room Air 12/07/16 16:00 97.0 84 18 136/68 97 Room Air 12/07/16 12:00 97.0 88 19 144/70 97 Room Air 12/07/16 08:13 87 162/94 Intake and Output 12/07/16 12/08/16 19:00 07:00 Intake Total 540 ml 420 ml Balance 540 ml 420 ml Intake Oral 540 ml 420 ml # Voids 2 7 Objective General Appearance: no acute distress, A/A/O x 3 morbidly obese AA female in NAD HEENT: normocephalic, atraumatic, anicteric, mucous membranes moist, no JVD Respiratory/Chest: lungs clear, no respiratory distress, no accessory muscle use Cardiovascular: normal peripheral pulses, normal rate, regular rhythm - distant heart sounds Abdomen: normal bowel sounds, soft, non tender - pbese Genitourinary: normal external genitalia Extremities: other - trace pedal edema Neurologic/Psychiatric: alert, oriented x 3, responsive Musculoskeletal: normal muscle bulk, R knee edema, no tenderness, Current Medications Medications (Trade) Dose Ordered Sig/Kushal Route PRN Reason Start Time Stop Time Status Last Admin Dose Admin Acetaminophen (Tylenol) 650 mg Q4H PRN ORAL T>100.5 11/26/16 16:00 12/26/16 15:59 Acetaminophen/ Hydrocodone Bitart ([place] 10/325) 1 ea Q4H PRN ORAL Moderate Pain (Pain Scale 4-6) 12/01/16 12:38 12/08/16 12:37 12/08/16 00:37 Amlodipine Besylate (Norvasc) 2.5 mg DAILY ORAL 11/27/16 09:00 12/27/16 08:59 12/07/16 08:13 Aripiprazole (Abilify) 2.5 mg DAILY ORAL 11/27/16 09:00 12/27/16 08:59 11/30/16 08:44 Dextrose (Dextrose 50%) STAT PRN IV Hypoglycemia 11/26/16 17:00 12/26/16 16:59 Diphenhydramine HCl (Benadryl) 25 mg Q6H PRN ORAL Itching 11/27/16 22:45 12/27/16 22:44 12/08/16 00:36 Divalproex Sodium (Depakote ER) 500 mg BEDTIME ORAL 11/26/16 21:00 12/26/16 20:59 12/07/16 20:23 Furosemide (Lasix) 40 mg DAILY ORAL 11/28/16 09:00 12/28/16 08:59 12/07/16 08:14 Heparin Sodium (Porcine) (Heparin 5000 units/ml) 5,000 units EVERY 12 HOURS SUBQ 11/26/16 21:00 12/26/16 20:59 12/06/16 09:05 Hydralazine HCl (Apresoline) 25 mg Q4H PRN ORAL SBP>160 11/26/16 16:00 12/26/16 15:59 12/01/16 17:31 Lorazepam (Ativan) 1 mg Q4H PRN ORAL For Anxiety 12/03/16 10:30 12/10/16 10:29 12/07/16 20:24 Multivitamins (Multivitamins) 1 tab DAILY ORAL 12/06/16 09:00 01/05/17 08:59 12/07/16 08:13 Ondansetron HCl (Zofran) 4 mg Q6H PRN IVP Nausea & Vomiting 11/26/16 16:00 12/26/16 15:59 Oxycodone/ Acetaminophen (Percocet 5-325) 1 tab Q6H PRN ORAL Severe Pain (Pain Scale 7-10) 12/01/16 12:27 12/08/16 12:26 12/08/16 02:35 Paroxetine HCl (Paxil) 40 mg DAILY ORAL 11/27/16 09:00 12/27/16 08:59 12/07/16 08:13 Polyethylene Glycol (Miralax) 17 gm DAILYPRN PRN ORAL Constipation 11/26/16 16:00 12/26/16 15:59 11/27/16 10:42 Thiamine HCl (Vitamin B1) 100 mg DAILY ORAL 12/06/16 09:00 01/05/17 08:59 12/07/16 08:13 Zolpidem Tartrate (Ambien) 5 mg HSPRN PRN ORAL Insomnia 11/27/16 22:45 12/27/16 22:44 12/07/16 20:23 [facility]ley NP Dec 08, 2016 08:02
[2016-12-08] MEDS: Furosemide 40mg tab ORAL SCH (08:11)
[2016-12-08] MEDS: PARoxetine 20mg tab ORAL SCH (08:13)
[2016-12-08] MEDS: Thiamine 100mg tab ORAL SCH (08:14)
[2016-12-08] MEDS: Heparin 5000 units/ml inj SUBQ SCH ×2 (08:18→21:00)
[2016-12-08 08:24] VITALS: BP 151/100
[2016-12-08] MEDS: LORazepam 1mg tab ORAL PRN ×3 (10:03→20:43)
--- NOTE | 2016-12-08 13:58 | General Progress Note ---
Assessment/Plan Problem List: (1) Leg pain, bilateral ICD Codes: M79.604 - Pain In Right Leg; M79.605 - Pain In Left Leg SNOMED: 98986981 (2) chronic pain (3) CHF (congestive heart failure), NYHA class I ICD Codes: I50.9 - CHF (congestive heart failure), NYHA class I SNOMED: 13007105 (4) Degenerative cervical disc ICD Codes: M50.90 - Degenerative cervical disc SNOMED: 94809337 (5) CHF (congestive heart failure) ICD Codes: I50.9 - Heart failure, unspecified SNOMED: 77528893 Status: stable, progressing, tolerating diet Assessment/Plan ot pt diet cbc bmp am psyc transfer vs dc plan snf Subjective Constitutional: Reports: weakness Allergies: Coded Allergies: PENICILLINS (Unverified Allergy, Severe, 11/09/16) AMITRIPTYLINE (Verified Allergy, Unknown, 10/19/13) [facility]. CHLORPROMAZINE (Verified Allergy, Unknown, 10/19/13) [facility]. pt does not remember reaction. ERYTHROMYCIN BASE (Verified Allergy, Unknown, 10/19/13) [facility]. pt does not remember reaction. HALOPERIDOL (Verified Allergy, Unknown, 10/19/13) [facility]. pt does not remember reaction. QUETIAPINE (Verified Allergy, Unknown, 10/19/13) [facility]. pt does not remember reaction. All Systems: reviewed and negative except above Subjective calm in wc Objective Last 24 Hour Vital Signs Date Time Temp Pulse Resp B/P Pulse Ox O2 Delivery O2 Flow Rate FiO2 12/08/16 08:24 97.7 84 20 151/100 97 Room Air 12/08/16 08:12 84 151/100 12/08/16 07:36 88 18 Room Air 12/08/16 03:34 96.8 12/08/16 01:36 96.8 12/08/16 00:14 96.8 85 20 131/84 98 12/07/16 20:25 91 20 Nasal Cannula 2.0 28 12/07/16 19:59 97.2 86 20 144/89 97 Room Air 12/07/16 16:00 97.0 84 18 136/68 97 Room Air Intake and Output 12/07/16 12/08/16 19:00 07:00 Intake Total 540 ml 420 ml Balance 540 ml 420 ml Intake Oral 540 ml 420 ml # Voids 2 7 Height (Feet): 4 Height (Inches): 10.00 Weight (Pounds): 210 General Appearance: lethargic EENT: normal ENT inspection Neck: normal alignment Cardiovascular: normal peripheral pulses, normal rate, regular rhythm Respiratory/Chest: chest wall non-tender, lungs clear, normal breath sounds Abdomen: normal bowel sounds, non tender, soft Extremities: normal inspection Edema: no edema noted Arm (L), no edema noted Arm (R), no edema noted Leg (L), no edema noted Leg (R), no edema noted Pedal (L), no edema noted Pedal (R), no edema noted Generalized Neurologic: responsive, motor weakness Skin: normal pigmentation, warm/dry PADMINI AMBROSIO Dec 08, 2016 13:58
--- NOTE | 2016-12-08 15:18 | General Progress Note ---
Assessment/Plan Assessment/Plan (1) Degenerative cervical disc (2) Lumbar radiculopathy (3) Lumbar degenerative disc disease (4) chronic pain (5) Osteoarthritis of multiple joints Pt will be continued on [place] and Percocet. Pt was d/w Dr. Caldwell and he concurred. Subjective Date patient seen: Dec 08, 2016 Time patient seen: 02:30 - pm Allergies: Coded Allergies: PENICILLINS (Unverified Allergy, Severe, 11/09/16) AMITRIPTYLINE (Verified Allergy, Unknown, 10/19/13) recorded from group home. pt does not remember the reation. CHLORPROMAZINE (Verified Allergy, Unknown, 10/19/13) recorded from group home. pt does not remember reaction. ERYTHROMYCIN BASE (Verified Allergy, Unknown, 10/19/13) recorded from group home. pt does not remember reaction. HALOPERIDOL (Verified Allergy, Unknown, 10/19/13) recorded from group home. pt does not remember reaction. QUETIAPINE (Verified Allergy, Unknown, 10/19/13) recorded from group home. pt does not remember reaction. Subjective Constitutional: Denies: no symptoms, chills, diaphoresis, fever, malaise, weakness, other HEENT: Denies: no symptoms, eye pain, blurred vision, tearing, double vision, ear pain, ear discharge, nose pain, nose congestion, throat pain, throat swelling, mouth pain, mouth swelling, other Cardiovascular: Denies: no symptoms, chest pain, edema, irregular heart rate, lightheadedness, palpitations, syncope, other Respiratory: Denies: no symptoms, cough, orthopnea, shortness of breath, SOB with excertion, SOB at rest, sputum, stridor, wheezing, other Gastrointestinal/Abdominal: Denies: no symptoms, abdomen distended, abdominal pain, black stools, tarry stools, blood in stool, constipated, diarrhea, difficulty swallowing, nausea, poor appetite, poor fluid intake, rectal bleeding , vomiting, other Genitourinary: Denies: no symptoms, burning, discharge, frequency, flank pain, hematuria, incontinence, pain, urgency, other Neurologic/Psychiatric: Reports: depressed, emotional problems Endocrine: Denies: no symptoms, excessive sweating, flushing, intolerance to cold, intolerance to heat, increased hunger, increased thirst, increased urine, unexplained weight gain, unexplained weight loss, other Hematologic/Lymphatic: Denies: no symptoms, anemia, easy bleeding, easy bruising, other Subjective Her pain has been unchanged and is worse with activities which has been tolerated on the medication. Objective Last 24 Hour Vital Signs Date Time Temp Pulse Resp B/P Pulse Ox O2 Delivery O2 Flow Rate FiO2 12/08/16 08:24 97.7 84 20 151/100 97 Room Air 12/08/16 08:12 84 151/100 12/08/16 07:36 88 18 Room Air 12/08/16 03:34 96.8 12/08/16 01:36 96.8 12/08/16 00:14 96.8 85 20 131/84 98 12/07/16 20:25 91 20 Nasal Cannula 2.0 28 12/07/16 19:59 97.2 86 20 144/89 97 Room Air 12/07/16 16:00 97.0 84 18 136/68 97 Room Air Intake and Output 12/07/16 12/08/16 19:00 07:00 Intake Total 540 ml 420 ml Balance 540 ml 420 ml Intake Oral 540 ml 420 ml # Voids 2 7 Height (Feet): 4 Height (Inches): 10.00 Weight (Pounds): 210 Objective General Appearance: WD/WN EENT: PERRL/EOMI Neck: supple Cardiovascular: normal rate, regular rhythm Respiratory/Chest: decreased breath sounds Abdomen: non tender, soft Extremities: non-tender Edema: edema noted in b/l LE Neurologic: thermostat machine tender II-XII grossly normal, alert, oriented x 3 SARAY MARS Dec 08, 2016 15:18
[2016-12-08 16:16] VITALS: BP 146/100
[2016-12-08 20:00] VITALS: BP 147/74
[2016-12-08] MEDS: Zolpidem 5mg tab ORAL PRN (20:43)
[2016-12-08] MEDS: Depakote ER 500mg tab ORAL SCH (20:47)
[2016-12-09] VITALS: BP 145/83
[2016-12-09] MEDS: LORazepam 1mg tab ORAL PRN ×4 (01:52→18:18)
[2016-12-09] MEDS: Norco 10mg/325mg tab ORAL PRN ×4 (01:53→20:35)
[2016-12-09 04:00] VITALS: BP 142/79
[2016-12-09] MEDS: Oxycodone/Acetaminophen 5-325 ORAL PRN ×3 (05:55→18:19)
[2016-12-09 08:19] VITALS: BP 133/83
[2016-12-09] MEDS: PARoxetine 20mg tab ORAL SCH (08:24)
[2016-12-09] MEDS: Furosemide 40mg tab ORAL SCH (08:26)
[2016-12-09] MEDS: Thiamine 100mg tab ORAL SCH (08:26)
[2016-12-09] MEDS: Heparin 5000 units/ml inj SUBQ SCH ×2 (08:26→20:56)
--- NOTE | 2016-12-09 09:08 | General Progress Note ---
Assessment/Plan Problem List: (1) Leg pain, bilateral ICD Codes: M79.604 - Pain In Right Leg; M79.605 - Pain In Left Leg SNOMED: 80628760 (2) chronic pain (3) CHF (congestive heart failure), NYHA class I ICD Codes: I50.9 - CHF (congestive heart failure), NYHA class I SNOMED: 00611444 (4) Degenerative cervical disc ICD Codes: M50.90 - Degenerative cervical disc SNOMED: 81267776 (5) CHF (congestive heart failure) ICD Codes: I50.9 - Heart failure, unspecified SNOMED: 03255181 Status: stable, progressing, tolerating diet Assessment/Plan ot pt diet cbc bmp am psyc transfer vs dc plan snf Subjective Constitutional: Reports: weakness Allergies: Coded Allergies: PENICILLINS (Unverified Allergy, Severe, 11/09/16) AMITRIPTYLINE (Verified Allergy, Unknown, 10/19/13) recorded from group home. pt does not remember the reation. CHLORPROMAZINE (Verified Allergy, Unknown, 10/19/13) recorded from group home. pt does not remember reaction. ERYTHROMYCIN BASE (Verified Allergy, Unknown, 10/19/13) recorded from group home. pt does not remember reaction. HALOPERIDOL (Verified Allergy, Unknown, 10/19/13) recorded from group home. pt does not remember reaction. QUETIAPINE (Verified Allergy, Unknown, 10/19/13) recorded from group home. pt does not remember reaction. All Systems: reviewed and negative except above Subjective calm in wc Objective Last 24 Hour Vital Signs Date Time Temp Pulse Resp B/P Pulse Ox O2 Delivery O2 Flow Rate FiO2 12/09/16 08:25 82 133/83 12/09/16 08:19 97.8 82 20 133/83 95 Room Air 12/09/16 08:11 95 18 Room Air 21 12/09/16 06:54 98.2 12/09/16 04:00 98.2 76 18 142/79 96 Room Air 12/09/16 02:52 97.7 12/09/16 00:00 97.7 81 20 145/83 95 Room Air 12/08/16 20:00 98.1 75 20 147/74 95 Room Air 12/08/16 19:58 105 18 Room Air 12/08/16 16:16 98.4 79 20 146/100 97 Room Air Intake and Output 12/08/16 12/09/16 19:00 07:00 Intake Total 720 ml Balance 720 ml Intake Oral 720 ml # Voids 3 4 Height (Feet): 4 Height (Inches): 10.00 Weight (Pounds): 210 General Appearance: lethargic EENT: normal ENT inspection Neck: normal alignment Cardiovascular: normal peripheral pulses, normal rate, regular rhythm Respiratory/Chest: chest wall non-tender, lungs clear, normal breath sounds Abdomen: normal bowel sounds, non tender, soft Extremities: normal inspection Edema: no edema noted Arm (L), no edema noted Arm (R), no edema noted Leg (L), no edema noted Leg (R), no edema noted Pedal (L), no edema noted Pedal (R), no edema noted Generalized Neurologic: responsive, motor weakness Skin: normal pigmentation, warm/dry PADMINI AMBROSIO Dec 09, 2016 09:08
--- NOTE | 2016-12-09 09:57 | Pulmonology Progress Note ---
Assessment/Plan Assessment/Plan ASSESSMENT peripheral leg edema -decreased CHF COPD HTN Degenerative arthropathy R knee R knee pain 2 to above lumbar DDD lumbar radiculopathy cervical DDD morbid obesity seizure disorder schizoaffective disorder, bipolar type major depression PLAN OF CARE MS floor O2 HHN prn CXR no acute cardiopulmonary disease no evidence of COPD exacerbation diuretics, monitor I/O renal parameters, lytes, edema improved significantly cardio follows ECHO with pEF 55% and RVSP of 29 BP management with CCB and optimize as needed DVT prophylaxis Venous Duplex BLE negative X ray R knee with evidence of extensive chronic appearing abnormality of the right knee, findings likely represent combination of chronic posttraumatic changes and secondary degenerative arthropathy. PT/OT pain management seizure precautions, continue Depakote, continue Paxil psych follows dc planning per PMD: SNF vs transfer to psych facility awaiting for placement, challenging case discussed and evaluated by supervising physician Subjective Allergies: Coded Allergies: PENICILLINS (Unverified Allergy, Severe, 11/09/16) AMITRIPTYLINE (Verified Allergy, Unknown, 10/19/13) recorded from group home. pt does not remember the reation. CHLORPROMAZINE (Verified Allergy, Unknown, 10/19/13) recorded from group home. pt does not remember reaction. ERYTHROMYCIN BASE (Verified Allergy, Unknown, 10/19/13) recorded from group home. pt does not remember reaction. HALOPERIDOL (Verified Allergy, Unknown, 10/19/13) recorded from group home. pt does not remember reaction. QUETIAPINE (Verified Allergy, Unknown, 10/19/13) recorded from group home. pt does not remember reaction. Subjective pulse oximetry stable on RA no signs of respiratory distress denies chest pain, SOB leg edema decreased awaiting for placement/challenging Objective Last 24 Hour Vital Signs Date Time Temp Pulse Resp B/P Pulse Ox O2 Delivery O2 Flow Rate FiO2 12/09/16 08:25 82 133/83 12/09/16 08:19 97.8 82 20 133/83 95 Room Air 12/09/16 08:11 95 18 Room Air 21 12/09/16 06:54 98.2 12/09/16 04:00 98.2 76 18 142/79 96 Room Air 12/09/16 02:52 97.7 12/09/16 00:00 97.7 81 20 145/83 95 Room Air 12/08/16 20:00 98.1 75 20 147/74 95 Room Air 12/08/16 19:58 105 18 Room Air 12/08/16 16:16 98.4 79 20 146/100 97 Room Air Intake and Output 12/08/16 12/09/16 19:00 07:00 Intake Total 720 ml Balance 720 ml Intake Oral 720 ml # Voids 3 4 Objective General Appearance: no acute distress, A/A/O x 3 morbidly obese AA female in NAD HEENT: normocephalic, atraumatic, anicteric, mucous membranes moist, no JVD Respiratory/Chest: lungs clear, no respiratory distress, no accessory muscle use Cardiovascular: normal peripheral pulses, normal rate, regular rhythm with distant heart sounds Abdomen: normal bowel sounds, soft, non tender - pbese Genitourinary: normal external genitalia Extremities: other - trace pedal edema Neurologic/Psychiatric: alert, oriented x 3, responsive Musculoskeletal: normal muscle bulk, R knee mild edema, no tenderness, Current Medications Medications (Trade) Dose Ordered Sig/Kushal Route PRN Reason Start Time Stop Time Status Last Admin Dose Admin Acetaminophen (Tylenol) 650 mg Q4H PRN ORAL T>100.5 11/26/16 16:00 12/26/16 15:59 Acetaminophen/ Hydrocodone Bitart ([place] 10/325) 1 ea Q4H PRN ORAL Pain Scale (4-6) 12/08/16 14:00 12/15/16 13:59 12/09/16 08:26 Amlodipine Besylate (Norvasc) 2.5 mg DAILY ORAL 11/27/16 09:00 12/27/16 08:59 12/09/16 08:25 Aripiprazole (Abilify) 2.5 mg DAILY ORAL 11/27/16 09:00 12/27/16 08:59 11/30/16 08:44 Dextrose (Dextrose 50%) STAT PRN IV Hypoglycemia 11/26/16 17:00 12/26/16 16:59 Diphenhydramine HCl (Benadryl) 25 mg Q6H PRN ORAL Itching 11/27/16 22:45 12/27/16 22:44 12/08/16 22:11 Divalproex Sodium (Depakote ER) 500 mg BEDTIME ORAL 11/26/16 21:00 12/26/16 20:59 12/08/16 20:47 Furosemide (Lasix) 40 mg DAILY ORAL 11/28/16 09:00 12/28/16 08:59 12/08/16 08:11 Heparin Sodium (Porcine) (Heparin 5000 units/ml) 5,000 units EVERY 12 HOURS SUBQ 11/26/16 21:00 12/26/16 20:59 12/06/16 09:05 Hydralazine HCl (Apresoline) 25 mg Q4H PRN ORAL SBP>160 11/26/16 16:00 12/26/16 15:59 12/01/16 17:31 Lorazepam (Ativan) 1 mg Q4H PRN ORAL For Anxiety 12/03/16 10:30 12/10/16 10:29 12/09/16 08:25 Multivitamins (Multivitamins) 1 tab DAILY ORAL 12/06/16 09:00 01/05/17 08:59 12/09/16 08:26 Ondansetron HCl (Zofran) 4 mg Q6H PRN IVP Nausea & Vomiting 11/26/16 16:00 12/26/16 15:59 Oxycodone/ Acetaminophen (Percocet 5-325) 1 tab Q6H PRN ORAL Severe Pain (Pain Scale 7-10) 12/08/16 14:00 12/15/16 13:59 12/09/16 05:55 Paroxetine HCl (Paxil) 40 mg DAILY ORAL 11/27/16 09:00 12/27/16 08:59 12/09/16 08:24 Polyethylene Glycol (Miralax) 17 gm DAILYPRN PRN ORAL Constipation 11/26/16 16:00 12/26/16 15:59 11/27/16 10:42 Thiamine HCl (Vitamin B1) 100 mg DAILY ORAL 12/06/16 09:00 01/05/17 08:59 12/09/16 08:26 Zolpidem Tartrate (Ambien) 5 mg HSPRN PRN ORAL Insomnia 11/27/16 22:45 12/27/16 22:44 12/08/16 20:43 Sarah Newton NP ([facility]) Dec 09, 2016 09:57
[2016-12-09] MEDS ORDERED: DuoNeb 0.5-3(2.5)mg/3ml neb HHN PRN (10:00)
[2016-12-09 16:19] VITALS: BP 120/81
--- NOTE | 2016-12-09 18:45 | Geriatric Progress Note ---
Assessment/Plan Assessment/Plan stable dc abilfy change paxil to hs increase ambien to 10 Subjective Constitutional: Reports: malaise, weakness Subjective the pt requested to see me she stated that since the beginning of her admission she has not seen a psychiatrist. the pt c/o insomnia and tongue numbness. the pt stated that she is allergic to abilify however she keeps getting abilify Geriatric Geriatric Last 24 Hour Vital Signs Date Time Temp Pulse Resp B/P Pulse Ox O2 Delivery O2 Flow Rate FiO2 12/09/16 16:19 98.0 83 20 120/81 96 Room Air 12/09/16 15:43 97.8 12/09/16 13:45 97.8 12/09/16 08:25 82 133/83 12/09/16 08:19 97.8 82 20 133/83 95 Room Air 12/09/16 08:11 95 18 Room Air 21 12/09/16 04:00 98.2 76 18 142/79 96 Room Air 12/09/16 00:00 97.7 81 20 145/83 95 Room Air 12/08/16 20:00 98.1 75 20 147/74 95 Room Air 12/08/16 19:58 105 18 Room Air Intake and Output 12/08/16 12/09/16 19:00 07:00 Intake Total 720 ml Balance 720 ml Intake Oral 720 ml # Voids 3 4 Current Medications Medications (Trade) Dose Ordered Sig/Kushal Route PRN Reason Start Time Stop Time Status Last Admin Dose Admin Acetaminophen (Tylenol) 650 mg Q4H PRN ORAL T>100.5 11/26/16 16:00 12/26/16 15:59 Acetaminophen/ Hydrocodone Bitart ([place] 10/325) 1 ea Q4H PRN ORAL Pain Scale (4-6) 12/08/16 14:00 12/15/16 13:59 12/09/16 14:44 Albuterol/ Ipratropium (DuoNeb 0.5-3(2.5)mg/3ml) 3 ml Q4H PRN HHN Shortness of Breath 12/09/16 10:00 12/14/16 09:59 Amlodipine Besylate (Norvasc) 2.5 mg DAILY ORAL 11/27/16 09:00 12/27/16 08:59 12/09/16 08:25 Aripiprazole (Abilify) 2.5 mg DAILY ORAL 11/27/16 09:00 12/27/16 08:59 11/30/16 08:44 Dextrose (Dextrose 50%) STAT PRN IV Hypoglycemia 11/26/16 17:00 12/26/16 16:59 Diphenhydramine HCl (Benadryl) 25 mg Q6H PRN ORAL Itching 11/27/16 22:45 12/27/16 22:44 12/09/16 10:31 Divalproex Sodium (Depakote ER) 500 mg BEDTIME ORAL 11/26/16 21:00 12/26/16 20:59 12/08/16 20:47 Furosemide (Lasix) 40 mg DAILY ORAL 11/28/16 09:00 12/28/16 08:59 12/08/16 08:11 Heparin Sodium (Porcine) (Heparin 5000 units/ml) 5,000 units EVERY 12 HOURS SUBQ 11/26/16 21:00 12/26/16 20:59 12/06/16 09:05 Hydralazine HCl (Apresoline) 25 mg Q4H PRN ORAL SBP>160 11/26/16 16:00 12/26/16 15:59 12/01/16 17:31 Lorazepam (Ativan) 1 mg Q4H PRN ORAL For Anxiety 12/09/16 10:30 12/16/16 23:59 12/09/16 18:18 Multivitamins (Multivitamins) 1 tab DAILY ORAL 12/06/16 09:00 01/05/17 08:59 12/09/16 08:26 Ondansetron HCl (Zofran) 4 mg Q6H PRN IVP Nausea & Vomiting 11/26/16 16:00 12/26/16 15:59 Oxycodone/ Acetaminophen (Percocet 5-325) 1 tab Q6H PRN ORAL Severe Pain (Pain Scale 7-10) 12/08/16 14:00 12/15/16 13:59 12/09/16 18:19 Paroxetine HCl (Paxil) 40 mg DAILY ORAL 11/27/16 09:00 12/27/16 08:59 12/09/16 08:24 Polyethylene Glycol (Miralax) 17 gm DAILYPRN PRN ORAL Constipation 11/26/16 16:00 12/26/16 15:59 11/27/16 10:42 Thiamine HCl (Vitamin B1) 100 mg DAILY ORAL 12/06/16 09:00 01/05/17 08:59 12/09/16 08:26 Zolpidem Tartrate (Ambien) 5 mg HSPRN PRN ORAL Insomnia 11/27/16 22:45 12/27/16 22:44 12/08/16 20:43 Height (Feet): 4 Height (Inches): 10.00 Weight (Pounds): 210 General Appearance: well appearing, well dressed, well groomed, no apparent distress, alert, good eye contact, appears stated age, obese Neurologic: alert, oriented x3, responsive Psychiatric Behavior: cooperative Language/Speech: intact, fluent, normal tone Orientation: person, place, time, situation Affect: appropriate Insight: Jacobo Castillo M.D. Dec 09, 2016 18:45
[2016-12-09 20:00] VITALS: BP 132/88
[2016-12-09] MEDS: Depakote ER 500mg tab ORAL SCH (20:35)
[2016-12-09] MEDS: Zolpidem 5mg tab ORAL PRN (20:35)
[2016-12-09] MEDS: Miralax 17gm pkt ORAL PRN (22:03)
[2016-12-10] MEDS: LORazepam 1mg tab ORAL PRN ×5 (01:42→20:04)
[2016-12-10] MEDS: Oxycodone/Acetaminophen 5-325 ORAL PRN ×4 (01:43→20:05)
[2016-12-10 04:00] VITALS: BP 145/90
[2016-12-10] MEDS: Norco 10mg/325mg tab ORAL PRN ×4 (05:54→22:37)
--- NOTE | 2016-12-10 07:46 | General Progress Note ---
Assessment/Plan Problem List: (1) Leg pain, bilateral ICD Codes: M79.604 - Pain In Right Leg; M79.605 - Pain In Left Leg SNOMED: 93718766 (2) chronic pain (3) CHF (congestive heart failure), NYHA class I ICD Codes: I50.9 - CHF (congestive heart failure), NYHA class I SNOMED: 64258439 (4) Degenerative cervical disc ICD Codes: M50.90 - Degenerative cervical disc SNOMED: 45966337 (5) CHF (congestive heart failure) ICD Codes: I50.9 - Heart failure, unspecified SNOMED: 46293098 Status: stable, progressing, tolerating diet Assessment/Plan ot pt diet cbc bmp am psyc transfer vs dc plan snf Subjective Constitutional: Reports: weakness Allergies: Coded Allergies: PENICILLINS (Unverified Allergy, Severe, 11/09/16) AMITRIPTYLINE (Verified Allergy, Unknown, 10/19/13) recorded from care home. pt does not remember the reation. CHLORPROMAZINE (Verified Allergy, Unknown, 10/19/13) recorded from care home. pt does not remember reaction. ERYTHROMYCIN BASE (Verified Allergy, Unknown, 10/19/13) recorded from care home. pt does not remember reaction. HALOPERIDOL (Verified Allergy, Unknown, 10/19/13) recorded from care home. pt does not remember reaction. QUETIAPINE (Verified Allergy, Unknown, 10/19/13) recorded from care home. pt does not remember reaction. All Systems: reviewed and negative except above Subjective calm in wc Objective Last 24 Hour Vital Signs Date Time Temp Pulse Resp B/P Pulse Ox O2 Delivery O2 Flow Rate FiO2 12/10/16 04:00 97.8 82 20 145/90 96 Room Air 12/09/16 20:35 93 20 Room Air 21 12/09/16 20:00 98.3 77 20 132/88 95 Room Air 12/09/16 16:19 98.0 83 20 120/81 96 Room Air 12/09/16 15:43 97.8 12/09/16 13:45 97.8 12/09/16 08:25 82 133/83 12/09/16 08:19 97.8 82 20 133/83 95 Room Air 12/09/16 08:11 95 18 Room Air 21 Intake and Output 12/09/16 12/10/16 19:00 07:00 Intake Total 720 ml 400 ml Balance 720 ml 400 ml Intake Oral 720 ml 400 ml # Voids 3 # Bowel Movements 1 Height (Feet): 4 Height (Inches): 10.00 Weight (Pounds): 210 General Appearance: lethargic EENT: normal ENT inspection Neck: normal alignment Cardiovascular: normal peripheral pulses, normal rate, regular rhythm Respiratory/Chest: chest wall non-tender, lungs clear, normal breath sounds Abdomen: normal bowel sounds, non tender, soft Extremities: normal inspection Edema: no edema noted Arm (L), no edema noted Arm (R), no edema noted Leg (L), no edema noted Leg (R), no edema noted Pedal (L), no edema noted Pedal (R), no edema noted Generalized Neurologic: responsive, motor weakness Skin: normal pigmentation, warm/dry PADMINI AMBROSIO Dec 10, 2016 07:46
[2016-12-10 07:53] VITALS: BP 137/77
[2016-12-10] MEDS: Thiamine 100mg tab ORAL SCH (07:59)
[2016-12-10] MEDS: Heparin 5000 units/ml inj SUBQ SCH ×2 (08:01→21:00)
[2016-12-10] MEDS: Furosemide 40mg tab ORAL SCH (08:01)
--- NOTE | 2016-12-10 08:52 | Pulmonology Progress Note ---
Assessment/Plan Assessment/Plan ASSESSMENT peripheral leg edema -decreased CHF COPD HTN Degenerative arthropathy R knee R knee pain 2 to above lumbar DDD lumbar radiculopathy cervical DDD morbid obesity seizure disorder schizoaffective disorder, bipolar type major depression PLAN OF CARE MS floor O2 HHN prn CXR no acute cardiopulmonary disease no evidence of COPD exacerbation diuretics, monitor I/O renal parameters, lytes, edema improved significantly cardio follows ECHO with pEF 55% and RVSP of 29 BP management with CCB and optimize as needed DVT prophylaxis Venous Duplex BLE negative X ray R knee with evidence of extensive chronic appearing abnormality of the right knee, findings likely represent combination of chronic posttraumatic changes and secondary degenerative arthropathy. PT/OT pain management seizure precautions, continue Depakote, continue Paxil psych follows dc planning per PMD: SNF vs transfer to psych facility awaiting for placement, challenging labs in am case discussed and evaluated by supervising physician Subjective Allergies: Coded Allergies: PENICILLINS (Unverified Allergy, Severe, 11/09/16) AMITRIPTYLINE (Verified Allergy, Unknown, 10/19/13) recorded from retirement. pt does not remember the reation. CHLORPROMAZINE (Verified Allergy, Unknown, 10/19/13) recorded from retirement. pt does not remember reaction. ERYTHROMYCIN BASE (Verified Allergy, Unknown, 10/19/13) recorded from retirement. pt does not remember reaction. HALOPERIDOL (Verified Allergy, Unknown, 10/19/13) recorded from retirement. pt does not remember reaction. QUETIAPINE (Verified Allergy, Unknown, 10/19/13) recorded from retirement. pt does not remember reaction. Subjective pulse oximetry stable on RA no signs of respiratory distress denies chest pain, SOB leg edema decreased awaiting for placement, which is challenging Objective Last 24 Hour Vital Signs Date Time Temp Pulse Resp B/P Pulse Ox O2 Delivery O2 Flow Rate FiO2 12/10/16 08:00 75 137/77 12/10/16 07:53 96.8 75 18 137/77 95 Room Air 12/10/16 04:00 97.8 82 20 145/90 96 Room Air 12/09/16 20:35 93 20 Room Air 21 12/09/16 20:00 98.3 77 20 132/88 95 Room Air 12/09/16 16:19 98.0 83 20 120/81 96 Room Air 12/09/16 15:43 97.8 7/22/17 13:45 97.8 Intake and Output 12/09/16 12/10/16 19:00 07:00 Intake Total 720 ml 400 ml Balance 720 ml 400 ml Intake Oral 720 ml 400 ml # Voids 3 # Bowel Movements 1 Objective General Appearance: no acute distress, A/A/O x 3 morbidly obese AA female in NAD HEENT: normocephalic, atraumatic, anicteric, mucous membranes moist, no JVD Respiratory/Chest: lungs clear, no respiratory distress, no accessory muscle use Cardiovascular: normal peripheral pulses, normal rate, regular rhythm with distant heart sounds Abdomen: normal bowel sounds, soft, non tender - pbese Genitourinary: normal external genitalia Extremities: other - trace pedal edema Neurologic/Psychiatric: alert, oriented x 3, responsive Musculoskeletal: normal muscle bulk, R knee mild edema, no tenderness, Current Medications Medications (Trade) Dose Ordered Sig/Kushal Route PRN Reason Start Time Stop Time Status Last Admin Dose Admin Acetaminophen (Tylenol) 650 mg Q4H PRN ORAL T>100.5 11/26/16 16:00 12/26/16 15:59 Acetaminophen/ Hydrocodone Bitart ([place] 10/325) 1 ea Q4H PRN ORAL Pain Scale (4-6) 12/08/16 14:00 12/15/16 13:59 12/10/16 05:54 Albuterol/ Ipratropium (DuoNeb 0.5-3(2.5)mg/3ml) 3 ml Q4H PRN HHN Shortness of Breath 12/09/16 10:00 12/14/16 09:59 Amlodipine Besylate (Norvasc) 2.5 mg DAILY ORAL 11/27/16 09:00 12/27/16 08:59 12/10/16 08:00 Dextrose (Dextrose 50%) STAT PRN IV Hypoglycemia 11/26/16 17:00 12/26/16 16:59 Diphenhydramine HCl (Benadryl) 25 mg Q6H PRN ORAL Itching 11/27/16 22:45 12/27/16 22:44 12/09/16 22:03 Divalproex Sodium (Depakote ER) 500 mg BEDTIME ORAL 11/26/16 21:00 12/26/16 20:59 12/09/16 20:35 Furosemide (Lasix) 40 mg DAILY ORAL 11/28/16 09:00 12/28/16 08:59 12/08/16 08:11 Heparin Sodium (Porcine) (Heparin 5000 units/ml) 5,000 units EVERY 12 HOURS SUBQ 11/26/16 21:00 12/26/16 20:59 12/06/16 09:05 Hydralazine HCl (Apresoline) 25 mg Q4H PRN ORAL SBP>160 11/26/16 16:00 12/26/16 15:59 12/01/16 17:31 Lorazepam (Ativan) 1 mg Q4H PRN ORAL For Anxiety 12/09/16 10:30 12/16/16 23:59 12/10/16 05:53 Multivitamins (Multivitamins) 1 tab DAILY ORAL 12/06/16 09:00 01/05/17 08:59 12/10/16 07:59 Ondansetron HCl (Zofran) 4 mg Q6H PRN IVP Nausea & Vomiting 11/26/16 16:00 12/26/16 15:59 Oxycodone/ Acetaminophen (Percocet 5-325) 1 tab Q6H PRN ORAL Severe Pain (Pain Scale 7-10) 12/08/16 14:00 12/15/16 13:59 12/10/16 08:00 Paroxetine HCl (Paxil) 40 mg BEDTIME ORAL 12/10/16 21:00 01/09/17 20:59 Polyethylene Glycol (Miralax) 17 gm DAILYPRN PRN ORAL Constipation 11/26/16 16:00 12/26/16 15:59 12/09/16 22:03 Thiamine HCl (Vitamin B1) 100 mg DAILY ORAL 12/06/16 09:00 01/05/17 08:59 12/10/16 07:59 Zolpidem Tartrate (Ambien) 10 mg HSPRN PRN ORAL Insomnia 12/09/16 18:45 01/08/17 18:44 12/09/16 20:35 [facility] CenterSarah Manley NP Dec 10, 2016 08:52
--- NOTE | 2016-12-10 09:47 | General Progress Note ---
Assessment/Plan Assessment/Plan (1) Degenerative cervical disc (2) Lumbar radiculopathy (3) Lumbar degenerative disc disease (4) chronic pain (5) Osteoarthritis of multiple joints Pt will be continued on [place] and Percocet. Pt was d/w Dr. Caldwell and he concurred. Subjective Date patient seen: Dec 10, 2016 Time patient seen: 07:15 - am Allergies: Coded Allergies: PENICILLINS (Unverified Allergy, Severe, 11/09/16) AMITRIPTYLINE (Verified Allergy, Unknown, 10/19/13) recorded from [facility]-way. pt does not remember the reation. CHLORPROMAZINE (Verified Allergy, Unknown, 10/19/13) recorded from half-way. pt does not remember reaction. ERYTHROMYCIN BASE (Verified Allergy, Unknown, 10/19/13) recorded from half-way. pt does not remember reaction. HALOPERIDOL (Verified Allergy, Unknown, 10/19/13) recorded from half-way. pt does not remember reaction. QUETIAPINE (Verified Allergy, Unknown, 10/19/13) recorded from half-way. pt does not remember reaction. Subjective Constitutional: Denies: no symptoms, chills, diaphoresis, fever, malaise, weakness, other HEENT: Denies: no symptoms, eye pain, blurred vision, tearing, double vision, ear pain, ear discharge, nose pain, nose congestion, throat pain, throat swelling, mouth pain, mouth swelling, other Cardiovascular: Denies: no symptoms, chest pain, edema, irregular heart rate, lightheadedness, palpitations, syncope, other Respiratory: Denies: no symptoms, cough, orthopnea, shortness of breath, SOB with excertion, SOB at rest, sputum, stridor, wheezing, other Gastrointestinal/Abdominal: Denies: no symptoms, abdomen distended, abdominal pain, black stools, tarry stools, blood in stool, constipated, diarrhea, difficulty swallowing, nausea, poor appetite, poor fluid intake, rectal bleeding , vomiting, other Genitourinary: Denies: no symptoms, burning, discharge, frequency, flank pain, hematuria, incontinence, pain, urgency, other Neurologic/Psychiatric: Reports: depressed, emotional problems Endocrine: Denies: no symptoms, excessive sweating, flushing, intolerance to cold, intolerance to heat, increased hunger, increased thirst, increased urine, unexplained weight gain, unexplained weight loss, other Hematologic/Lymphatic: Denies: no symptoms, anemia, easy bleeding, easy bruising, other Subjective She is laying in bed in no signs of distress. Pain is tolerated on the [place] and Percocet as needed. Objective Last 24 Hour Vital Signs Date Time Temp Pulse Resp B/P Pulse Ox O2 Delivery O2 Flow Rate FiO2 12/10/16 08:59 96.8 12/10/16 08:10 94 20 Room Air 21 12/10/16 08:00 75 137/77 12/10/16 07:53 96.8 75 18 137/77 95 Room Air 12/10/16 04:00 97.8 82 20 145/90 96 Room Air 12/09/16 20:35 93 20 Room Air 21 12/09/16 20:00 98.3 77 20 132/88 95 Room Air 12/09/16 16:19 98.0 83 20 120/81 96 Room Air 12/09/16 15:43 97.8 Intake and Output 12/09/16 12/10/16 19:00 07:00 Intake Total 720 ml 400 ml Balance 720 ml 400 ml Intake Oral 720 ml 400 ml # Voids 3 # Bowel Movements 1 Height (Feet): 4 Height (Inches): 10.00 Weight (Pounds): 210 Objective General Appearance: WD/WN EENT: PERRL/EOMI Neck: supple Cardiovascular: normal rate, regular rhythm Respiratory/Chest: decreased breath sounds Abdomen: non tender, soft Extremities: non-tender Edema: edema noted in b/l LE Neurologic: counseling specialist II-XII grossly normal, alert, oriented x 3 SARAY MARS PAlannah Dec 10, 2016 09:47
[2016-12-10 12:05] VITALS: BP 152/106
[2016-12-10 15:55] VITALS: BP 136/96
[2016-12-10 20:00] VITALS: BP 147/93
[2016-12-10] MEDS: Depakote ER 500mg tab ORAL SCH (20:04)
[2016-12-10] MEDS: Zolpidem 5mg tab ORAL PRN (20:04)
[2016-12-10] MEDS: PARoxetine 20mg tab ORAL SCH (21:00)
[2016-12-11] MEDS: LORazepam 1mg tab ORAL PRN ×4 (02:07→22:35)
[2016-12-11] MEDS: Oxycodone/Acetaminophen 5-325 ORAL PRN ×3 (02:08→16:23)
[2016-12-11 04:00] VITALS: BP 133/82
[2016-12-11] MEDS: Norco 10mg/325mg tab ORAL PRN ×3 (06:07→20:23)
[2016-12-11 07:33] LABS: BASOPHILS % (AUTO) 0.9 % (0.0-2.0); EOSINOPHILS % (AUTO) 7.2 % (0.0-3.0); LYMPHOCYTES % (AUTO) 45.7 % (20.0-45.0); MEAN CORPUSCULAR HEMOGLOBIN 31.7 PG (27.0-31.0); MEAN CORPUSCULAR VOLUME 99 FL (80-99); MEAN PLATELET VOLUME 7.4 FL (6.5-10.1); MONOCYTES % (AUTO) 9.8 % (1.0-10.0); NEUTROPHILS % (AUTO) 36.5 % (45.0-75.0); PLATELET COUNT 211 K/UL (150-450); RED BLOOD COUNT 3.84 M/UL (4.20-5.40); RED CELL DISTRIBUTION WIDTH 12.8 % (11.6-14.8)
[2016-12-11 08:07] VITALS: BP 139/80
[2016-12-11 08:13] LABS: ANION GAP 10 (5-15); CALCIUM 8.7 mg/dL (8.6-10.2); CARBON DIOXIDE 29 mEQ/L (20-30); CHLORIDE 104 mEQ/L (98-107); CREATININE 0.7 mg/dL (0.5-0.9); GLOMERULAR FILTRATION RATE > 60 mL/min (>60); HEMOLYSIS 13; POTASSIUM 3.9 mEQ/L (3.4-4.9); SODIUM 143 mEQ/L (135-145)
--- NOTE | 2016-12-11 08:33 | General Progress Note ---
Assessment/Plan Assessment/Plan (1) Degenerative cervical disc (2) Lumbar radiculopathy (3) Lumbar degenerative disc disease (4) chronic pain (5) Osteoarthritis of multiple joints Pt will be continued on [place] and Percocet. Pt was d/w Dr. Caldwell and he concurred. Subjective Date patient seen: Dec 11, 2016 Time patient seen: 07:15 - am Allergies: Coded Allergies: PENICILLINS (Unverified Allergy, Severe, 11/09/16) AMITRIPTYLINE (Verified Allergy, Unknown, 10/19/13) recorded from skilled nursing. pt does not remember the reation. CHLORPROMAZINE (Verified Allergy, Unknown, 10/19/13) recorded from skilled nursing. pt does not remember reaction. ERYTHROMYCIN BASE (Verified Allergy, Unknown, 10/19/13) recorded from skilled nursing. pt does not remember reaction. HALOPERIDOL (Verified Allergy, Unknown, 10/19/13) recorded from skilled nursing. pt does not remember reaction. QUETIAPINE (Verified Allergy, Unknown, 10/19/13) recorded from skilled nursing. pt does not remember reaction. Subjective Constitutional: Denies: no symptoms, chills, diaphoresis, fever, malaise, weakness, other HEENT: Denies: no symptoms, eye pain, blurred vision, tearing, double vision, ear pain, ear discharge, nose pain, nose congestion, throat pain, throat swelling, mouth pain, mouth swelling, other Cardiovascular: Denies: no symptoms, chest pain, edema, irregular heart rate, lightheadedness, palpitations, syncope, other Respiratory: Denies: no symptoms, cough, orthopnea, shortness of breath, SOB with excertion, SOB at rest, sputum, stridor, wheezing, other Gastrointestinal/Abdominal: Denies: no symptoms, abdomen distended, abdominal pain, black stools, tarry stools, blood in stool, constipated, diarrhea, difficulty swallowing, nausea, poor appetite, poor fluid intake, rectal bleeding , vomiting, other Genitourinary: Denies: no symptoms, burning, discharge, frequency, flank pain, hematuria, incontinence, pain, urgency, other Neurologic/Psychiatric: Reports: depressed, emotional problems Endocrine: Denies: no symptoms, excessive sweating, flushing, intolerance to cold, intolerance to heat, increased hunger, increased thirst, increased urine, unexplained weight gain, unexplained weight loss, other Hematologic/Lymphatic: Denies: no symptoms, anemia, easy bleeding, easy bruising, other Subjective The pain has been stable and tolerated on the norco and Percocet. She has no new complaints at this time. Objective Last 24 Hour Vital Signs Date Time Temp Pulse Resp B/P Pulse Ox O2 Delivery O2 Flow Rate FiO2 12/11/16 08:07 97.5 95 19 139/80 95 Room Air 12/11/16 04:00 98.0 88 20 133/82 98 Room Air 12/10/16 23:46 76 16 Nasal Cannula 2.0 28 12/10/16 20:00 97.9 78 18 147/93 95 Room Air 12/10/16 17:02 97.3 12/10/16 15:55 97.3 83 22 136/96 100 Room Air 12/10/16 15:01 97.7 12/10/16 12:05 97.7 103 22 152/106 96 Room Air Intake and Output 12/10/16 12/11/16 19:00 07:00 Intake Total 600 ml 300 ml Balance 600 ml 300 ml Intake Oral 600 ml 300 ml # Voids 3 4 # Bowel Movements 1 Laboratory Tests 12/11/16 05:45: White Blood Count 5.0, Red Blood Count 3.84L, Hemoglobin 12.2, Hematocrit 38.1, Mean Corpuscular Volume 99, Mean Corpuscular Hemoglobin 31.7H, Mean Corpuscular Hemoglobin Concent 32.0, Red Cell Distribution Width 12.8, Platelet Count 211, Mean Platelet Volume 7.4, Neutrophils (%) (Auto) 36.5L, Lymphocytes (%) (Auto) 45.7H, Monocytes (%) (Auto) 9.8, Eosinophils (%) (Auto) 7.2H, Basophils (%) ( Auto) 0.9, Sodium Level 143, Potassium Level 3.9, Chloride Level 104, Carbon Dioxide Level 29, Anion Gap 10, Blood Urea Nitrogen 16, Creatinine 0.7, Estimat Glomerular Filtration Rate > 60, Glucose Level 81, Calcium Level 8.7 Height (Feet): 4 Height (Inches): 10.00 Weight (Pounds): 210 Objective General Appearance: WD/WN EENT: PERRL/EOMI Neck: supple Cardiovascular: normal rate, regular rhythm Respiratory/Chest: decreased breath sounds Abdomen: non tender, soft Extremities: non-tender Edema: edema noted in b/l LE 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
[2016-12-11] MEDS: Heparin 5000 units/ml inj SUBQ SCH ×2 (09:00→20:27)
[2016-12-11] MEDS: Furosemide 40mg tab ORAL SCH (09:00)
[2016-12-11] MEDS: Thiamine 100mg tab ORAL SCH (10:16)
[2016-12-11 12:00] VITALS: BP 117/68
--- NOTE | 2016-12-11 13:23 | General Progress Note ---
Assessment/Plan Problem List: (1) Leg pain, bilateral ICD Codes: M79.604 - Pain In Right Leg; M79.605 - Pain In Left Leg SNOMED: 21965510 (2) chronic pain (3) CHF (congestive heart failure), NYHA class I ICD Codes: I50.9 - CHF (congestive heart failure), NYHA class I SNOMED: 10498736 (4) Degenerative cervical disc ICD Codes: M50.90 - Degenerative cervical disc SNOMED: 07140487 (5) CHF (congestive heart failure) ICD Codes: I50.9 - Heart failure, unspecified SNOMED: 06719517 Status: stable, progressing, tolerating diet Assessment/Plan ot pt diet dc plan snf Subjective Constitutional: Reports: weakness Allergies: Coded Allergies: PENICILLINS (Unverified Allergy, Severe, 11/09/16) AMITRIPTYLINE (Verified Allergy, Unknown, 10/19/13) recorded from residential. pt does not remember the reation. CHLORPROMAZINE (Verified Allergy, Unknown, 10/19/13) recorded from residential. pt does not remember reaction. ERYTHROMYCIN BASE (Verified Allergy, Unknown, 10/19/13) recorded from residential. pt does not remember reaction. HALOPERIDOL (Verified Allergy, Unknown, 10/19/13) recorded from residential. pt does not remember reaction. QUETIAPINE (Verified Allergy, Unknown, 10/19/13) recorded from residential. pt does not remember reaction. All Systems: reviewed and negative except above Subjective calm in wc Objective Last 24 Hour Vital Signs Date Time Temp Pulse Resp B/P Pulse Ox O2 Delivery O2 Flow Rate FiO2 12/11/16 12:00 97.5 62 20 117/68 99 Room Air 12/11/16 10:16 91 138/101 12/11/16 08:43 82 16 Nasal Cannula 2.0 12/11/16 08:07 97.5 95 19 139/80 95 Room Air 12/11/16 04:00 98.0 88 20 133/82 98 Room Air 12/10/16 23:46 76 16 Nasal Cannula 2.0 28 12/10/16 20:00 97.9 78 18 147/93 95 Room Air 12/10/16 17:02 97.3 12/10/16 15:55 97.3 83 22 136/96 100 Room Air 12/10/16 15:01 97.7 Intake and Output 12/10/16 12/11/16 19:00 07:00 Intake Total 600 ml 300 ml Balance 600 ml 300 ml Intake Oral 600 ml 300 ml # Voids 3 4 # Bowel Movements 1 Laboratory Tests 12/11/16 05:45: White Blood Count 5.0, Red Blood Count 3.84L, Hemoglobin 12.2, Hematocrit 38.1, Mean Corpuscular Volume 99, Mean Corpuscular Hemoglobin 31.7H, Mean Corpuscular Hemoglobin Concent 32.0, Red Cell Distribution Width 12.8, Platelet Count 211, Mean Platelet Volume 7.4, Neutrophils (%) (Auto) 36.5L, Lymphocytes (%) (Auto) 45.7H, Monocytes (%) (Auto) 9.8, Eosinophils (%) (Auto) 7.2H, Basophils (%) ( Auto) 0.9, Sodium Level 143, Potassium Level 3.9, Chloride Level 104, Carbon Dioxide Level 29, Anion Gap 10, Blood Urea Nitrogen 16, Creatinine 0.7, Estimat Glomerular Filtration Rate > 60, Glucose Level 81, Calcium Level 8.7 Height (Feet): 4 Height (Inches): 10.00 Weight (Pounds): 210 General Appearance: alert EENT: normal ENT inspection Neck: normal alignment Cardiovascular: normal peripheral pulses, normal rate, regular rhythm Respiratory/Chest: chest wall non-tender, lungs clear, normal breath sounds Abdomen: normal bowel sounds, non tender, soft Extremities: normal inspection Edema: no edema noted Arm (L), no edema noted Arm (R), no edema noted Leg (L), no edema noted Leg (R), no edema noted Pedal (L), no edema noted Pedal (R), no edema noted Generalized Neurologic: responsive, motor weakness Skin: normal pigmentation, warm/dry PADMINI AMBROSIO Dec 11, 2016 13:23
--- NOTE | 2016-12-11 15:53 | GI Initial Consult Note ---
Hinkle,Ayah Ambrosio N.P. 12/11/16 1553: History of Present Illness General Date patient seen: Dec 11, 2016 Time patient seen: 15:39 Reason for Hospitalization: Edema Referring physician: Dr. Julio Reason for Consultation: ABDOMINAL PAIN Present Illness HPI Patient is 71-year-old female who presented from intermediate after increased difficulty with lower extremity swelling. Patient recently been hospitalized for congestive heart failure. The patient had previous workup which included lower extremity ultrasound. Patient stated that she had been having increased work of breathing. Patient prior history of psychiatric disease. She had been taking diuretics as well as other medications. She denied any fever. GI consult. HPI as noted above. GI consulted for abdominal pain. Pt seen on floor, awake A&Ox3 NAD with no active s/sx of N/V/D. C/o of epigastric and LUQ abdominal pain with radiation to the left flank. Patient denies any diarrhea, states her last BM was this morning to be regular. Has history of multiple abdominal surgeries. The patient denies any history of endoscopic procedures, but states she has a history of gastric ulcers. CBC CMP unremarkable. Home Meds Reported Medications Ipratropium/Albuterol Sulfate (DuoNeb 0.5-3(2.5)mg/3ml) 3 Ml Ampul.neb, 3 ML HHN EVERY 4 HOURS Y for Shortness of Breath, EA 12/13/16 Oxycodone/Acetaminophen 5-325* (PERCOCET 5-325 MG TABLET*) 1 Each Tablet, 1 TAB ORAL Q6H Y for For Pain, #30 TAB 0 Refills 12/13/16 Divalproex Sodium (DIVALPROEX SODIUM) 500 Mg Tablet.dr, 500 MG PO BEDTIME, TAB 11/26/16 Levofloxacin* (LEVAQUIN*) 500 Mg Tablet, 500 MG ORAL DAILY for 6 Days, TAB 11/16/16 Zolpidem Tartrate* (AMBIEN*) 5 Mg Tablet, 10 MG ORAL BEDTIME Y for Insomnia, TAB 11/16/16 Thiamine Hcl (VITAMIN B1*) 100 Mg Tablet, 100 MG ORAL DAILY, TAB 11/16/16 Sennosides (SENNA-GEN) 8.6 Mg Tablet, 8.6 MG PO BEDTIME, TAB 11/16/16 Polyethylene Glycol 3350* (MIRALAX*) 17 Gm Powd.pack, 17 GM ORAL BEDTIME, PACKET 11/16/16 Oxycodone Hcl/Acetaminophen 10-325* (OXYCODONE-ACETAMINOPHEN 10-325*) 1 Each Tablet, 1 TAB ORAL Q6H Y for Severe Pain (Pain Scale 7-10), #30 TAB 0 Refills 11/16/16 Hydrocodone Bit/Acetaminophen 10-325* (NORCO 10-325*) 1 Each Tablet, 1 TAB ORAL Q6H Y for For Pain, #10 TAB 0 Refills PRN PAIN 11/16/16 Hydralazine Hcl* (HYDRALAZINE HCL*) 25 Mg Tablet, 25 MG ORAL EVERY 4 HOURS Y for SBP>160, TAB 0 Refills 11/16/16 Divalproex Sodium (DIVALPROEX SODIUM ER) 500 Mg Tab.er.24h, 500 MG PO BEDTIME, TAB 11/16/16 Cyclobenzaprine Hcl* (FLEXERIL*) 10 Mg Tablet, 10 MG ORAL BEDTIME, TAB 11/16/16 Aspirin* (ASPIRIN*) 325 Mg Tablet, 325 MG ORAL Q6HR Y for ID prophylaxis, TAB 11/16/16 Amlodipine Besylate (Norvasc) 2.5 Mg Tablet, 2.5 MG ORAL DAILY, TAB 11/16/16 Albuterol Sulfate* (ALBUTEROL SULFATE MDI*) 8.5 Gm Hfa.aer.ad, 2 PUFF INH Q4H Y for Shortness of Breath, #1 INH 0 Refills 11/16/16 Albuterol Sulfate* (ALBUTEROL SULFATE HHN*) 2.5 Mg/3 Ml Vial.neb, 3 ML INH Q4H, EA 11/16/16 Phenazopyridine Hcl* (PYRIDIUM*) 200 Mg Tablet, 200 MG ORAL THREE TIMES A DAY, # 14 TAB 0 Refills 11/09/16 Ipratropium Dalton 0.5MG/2.5ML (IPRATROPIUM BROMIDE 0.5MG/2.5ML) 0.2 Mg/1 Ml Solution, 0.5 MG HHN Q4HR, #28 EA 11/09/16 Ascorbic Acid* (VITAMIN C*) 500 Mg Tablet, 500 MG ORAL BID, #30 TAB 0 Refills 11/08/16 Albuterol Sulfate (VENTOLIN HFA) 18 Gm Hfa.aer.ad, 2 PUFF INH Q4HR, #18 GM 0 Refills 11/08/16 Guaifenesin/Codeine Phos* (ROBITUSSIN AC*) 118 Ml Liquid, 10 ML ORAL Q4H Y for For Cough, #118 ML 0 Refills 11/08/16 Paroxetine Hcl* (PAROXETINE HCL*) 12.5 Mg Tab.er.24h, 40 MG ORAL DAILY, TAB 11/08/16 Magnesium Hydroxide* (MILK OF MAGNESIA*) 400 Mg/5 Ml Oral.susp, 30 ML ORAL DAILY Y for Constipation, ML 11/08/16 Lorazepam* (LORAZEPAM*) 1 Mg Tablet, 1 MG ORAL Q4HR Y for For Anxiety, TAB 11/08/16 Famotidine (FAMOTIDINE) 20 Mg Tablet, 20 MG ORAL TWICE A DAY, #60 TAB 0 Refills 11/08/16 Ipratropium Dalton 0.5MG/2.5ML (IPRATROPIUM BROMIDE 0.5MG/2.5ML) 0.2 Mg/1 Ml Solution, 0.5 MG HHN Q4HR Y for Shortness of Breath, #28 EA 11/08/16 Aripiprazole* (ABILIFY*) 2 Mg Tablet, 2.5 MG ORAL DAILY, TAB 11/08/16 Furosemide* (LASIX*) 20 Mg Tablet, 20 MG ORAL BID, TAB 04/14/14 Multivitamins* (MULTIVITAMINS*) 1 Each Tablet, 1 TAB ORAL DAILY, TAB 0 Refills 04/14/14 Guaifenesin/Dextromethorphan (Guaifenesin Dm Syrup) 5 Ml Syr, 5 ML ORAL EVERY 6 HOURS Y for For Cough, SYR 10/31/13 Diphenhydramine HCl (Diphenhydramine HCl) 50 Mg Cap, 50 MG ORAL DAILY Y for Itching, CAP 10/31/13 Acetaminophen (Acetaminophen) 650 Mg/20.3 Ml Soln, 650 MG ORAL Q4HR Y for Mild Pain/Temp > 100.5, ML 0 Refills 10/31/13 Med list reviewed/reconciled: Yes Allergies: Coded Allergies: PENICILLINS (Unverified Allergy, Severe, 11/09/16) AMITRIPTYLINE (Verified Allergy, Unknown, 10/19/13) recorded from intermediate. pt does not remember the reation. CHLORPROMAZINE (Verified Allergy, Unknown, 10/19/13) recorded from intermediate. pt does not remember reaction. ERYTHROMYCIN BASE (Verified Allergy, Unknown, 10/19/13) recorded from intermediate. pt does not remember reaction. HALOPERIDOL (Verified Allergy, Unknown, 10/19/13) recorded from intermediate. pt does not remember reaction. QUETIAPINE (Verified Allergy, Unknown, 10/19/13) recorded from intermediate. pt does not remember reaction. Patient History History Provided By: Patient, Medical Record [facility] Narrative Past Medical History: No History, Except For Hx Cardiac Problems: Yes Hx Hypertension: Yes Hx Pacemaker: No Hx Asthma: Yes Hx COPD: Yes Hx Diabetes: No Hx Cancer: No Hx Gastrointestinal Problems: Yes - GASTRIC BYPASS 2006 Hx Neurological Problems: Yes - Dorsalgia Hx Cerebrovascular Accident: No Hx Encephalitis: Yes - encephalopathy Hx Seizures: Yes Review of Systems All Other Systems: negative except mentioned in HPI Physical Exam Vital Signs Date Time Temp Pulse Resp B/P Pulse Ox O2 Delivery O2 Flow Rate FiO2 12/06/16 15:51 98.2 79 20 138/91 98 Room Air 12/06/16 19:48 21 12/07/16 08:00 2.0 Sp02 EP Interpretation: reviewed Labs Laboratory Tests Test 12/11/16 05:45 White Blood Count 5.0 K/UL (4.8-10.8) Red Blood Count 3.84 M/UL (4.20-5.40) L Hemoglobin 12.2 G/DL (12.0-16.0) Hematocrit 38.1 % (37.0-47.0) Mean Corpuscular Volume 99 FL (80-99) Mean Corpuscular Hemoglobin 31.7 PG (27.0-31.0) H Mean Corpuscular Hemoglobin Concent 32.0 G/DL (32.0-36.0) Red Cell Distribution Width 12.8 % (11.6-14.8) Platelet Count 211 K/UL (150-450) Mean Platelet Volume 7.4 FL (6.5-10.1) Neutrophils (%) (Auto) 36.5 % (45.0-75.0) L Lymphocytes (%) (Auto) 45.7 % (20.0-45.0) H Monocytes (%) (Auto) 9.8 % (1.0-10.0) Eosinophils (%) (Auto) 7.2 % (0.0-3.0) H Basophils (%) (Auto) 0.9 % (0.0-2.0) Sodium Level 143 mEQ/L (135-145) Potassium Level 3.9 mEQ/L (3.4-4.9) Chloride Level 104 mEQ/L (98-107) Carbon Dioxide Level 29 mEQ/L (20-30) Anion Gap 10 (5-15) Blood Urea Nitrogen 16 mg/dL (7-23) Creatinine 0.7 mg/dL (0.5-0.9) Estimat Glomerular Filtration Rate > 60 mL/min (>60) Glucose Level 81 mg/dL (74-106) Calcium Level 8.7 mg/dL (8.6-10.2) General Appearance: well appearing, no apparent distress, alert Head: normocephalic EENT: PERRL/EOMI, normal ENT inspection Neck: full range of motion, supple Respiratory: normal breath sounds, no respiratory distress Cardiovascular: normal rate Gastrointestinal: normal inspection, non tender, soft Rectal: normal exam, normal rectal tone Genitourinary: normal inspection, no CVA tenderness Musculoskeletal: back normal Neurologic: normal inspection, alert, oriented x3, responsive Psychiatric: normal inspection, judgement/insight normal, memory normal Skin: normal inspection, normal color, no rash, warm/dry Lymphatic: normal inspection, no adenopathy Current Medications Current Medications Medications (Trade) Dose Ordered Sig/Kushal Route PRN Reason Start Time Stop Time Status Last Admin Dose Admin Acetaminophen (Tylenol) 650 mg Q4H PRN ORAL T>100.5 11/26/16 16:00 12/26/16 15:59 Acetaminophen/ Hydrocodone Bitart ([place] 10/325) 1 ea Q4H PRN ORAL Pain Scale (4-6) 12/08/16 14:00 12/15/16 13:59 12/11/16 13:09 Albuterol/ Ipratropium (DuoNeb 0.5-3(2.5)mg/3ml) 3 ml Q4H PRN HHN Shortness of Breath 12/09/16 10:00 12/14/16 09:59 Amlodipine Besylate (Norvasc) 2.5 mg DAILY ORAL 11/27/16 09:00 12/27/16 08:59 12/11/16 10:16 Dextrose (Dextrose 50%) STAT PRN IV Hypoglycemia 11/26/16 17:00 12/26/16 16:59 Diphenhydramine HCl (Benadryl) 25 mg Q6H PRN ORAL Itching 11/27/16 22:45 12/27/16 22:44 12/10/16 11:50 Divalproex Sodium (Depakote ER) 500 mg BEDTIME ORAL 11/26/16 21:00 12/26/16 20:59 12/10/16 20:04 Furosemide (Lasix) 40 mg DAILY ORAL 11/28/16 09:00 12/28/16 08:59 12/08/16 08:11 Heparin Sodium (Porcine) (Heparin 5000 units/ml) 5,000 units EVERY 12 HOURS SUBQ 11/26/16 21:00 12/26/16 20:59 12/06/16 09:05 Hydralazine HCl (Apresoline) 25 mg Q4H PRN ORAL SBP>160 11/26/16 16:00 12/26/16 15:59 12/01/16 17:31 Lorazepam (Ativan) 1 mg Q4H PRN ORAL For Anxiety 12/09/16 10:30 12/16/16 23:59 12/11/16 06:07 Multivitamins (Multivitamins) 1 tab DAILY ORAL 12/06/16 09:00 01/05/17 08:59 12/11/16 10:16 Ondansetron HCl (Zofran) 4 mg Q6H PRN IVP Nausea & Vomiting 11/26/16 16:00 12/26/16 15:59 Oxycodone/ Acetaminophen (Percocet 5-325) 1 tab Q6H PRN ORAL Severe Pain (Pain Scale 7-10) 12/08/16 14:00 12/15/16 13:59 12/11/16 10:18 Paroxetine HCl (Paxil) 40 mg BEDTIME ORAL 12/10/16 21:00 01/09/17 20:59 Polyethylene Glycol (Miralax) 17 gm DAILYPRN PRN ORAL Constipation 11/26/16 16:00 12/26/16 15:59 12/09/16 22:03 Thiamine HCl (Vitamin B1) 100 mg DAILY ORAL 12/06/16 09:00 01/05/17 08:59 12/11/16 10:16 Zolpidem Tartrate (Ambien) 10 mg HSPRN PRN ORAL Insomnia 12/09/16 18:45 01/08/17 18:44 12/10/16 20:04 GI: Plan Problems: (1) Abdominal pain (2) Hypothyroidism (3) chronic pain Plan patient is clear for DC per GI standpoint >> EGD/colonoscopy sunday if still IP - tentatively prep patient tomorrow, CLD for breakfast. symptomatic treatment at this time pain mgmt bowel regime cardiac diet, tolerating ppi fu labs Discussed with Dr. Gray. Thank you for referring this patient, we will follow. SHERRY GRAY 12/15/16 1000: History of Present Illness General Reason for Hospitalization: Edema Present Illness Home Meds Reported Medications Ipratropium/Albuterol Sulfate (DuoNeb 0.5-3(2.5)mg/3ml) 3 Ml Ampul.neb, 3 ML HHN EVERY 4 HOURS Y for Shortness of Breath, EA 12/13/16 Oxycodone/Acetaminophen 5-325* (PERCOCET 5-325 MG TABLET*) 1 Each Tablet, 1 TAB ORAL Q6H Y for For Pain, #30 TAB 0 Refills 12/13/16 Divalproex Sodium (DIVALPROEX SODIUM) 500 Mg Tablet.dr, 500 MG PO BEDTIME, TAB 11/26/16 Levofloxacin* (LEVAQUIN*) 500 Mg Tablet, 500 MG ORAL DAILY for 6 Days, TAB 11/16/16 Zolpidem Tartrate* (AMBIEN*) 5 Mg Tablet, 10 MG ORAL BEDTIME Y for Insomnia, TAB 11/16/16 Thiamine Hcl (VITAMIN B1*) 100 Mg Tablet, 100 MG ORAL DAILY, TAB 11/16/16 Sennosides (SENNA-GEN) 8.6 Mg Tablet, 8.6 MG PO BEDTIME, TAB 11/16/16 Polyethylene Glycol 3350* (MIRALAX*) 17 Gm Powd.pack, 17 GM ORAL BEDTIME, PACKET 11/16/16 Oxycodone Hcl/Acetaminophen 10-325* (OXYCODONE-ACETAMINOPHEN 10-325*) 1 Each Tablet, 1 TAB ORAL Q6H Y for Severe Pain (Pain Scale 7-10), #30 TAB 0 Refills 11/16/16 Hydrocodone Bit/Acetaminophen 10-325* (NORCO 10-325*) 1 Each Tablet, 1 TAB ORAL Q6H Y for For Pain, #10 TAB 0 Refills PRN PAIN 11/16/16 Hydralazine Hcl* (HYDRALAZINE HCL*) 25 Mg Tablet, 25 MG ORAL EVERY 4 HOURS Y for SBP>160, TAB 0 Refills 11/16/16 Divalproex Sodium (DIVALPROEX SODIUM ER) 500 Mg Tab.er.24h, 500 MG PO BEDTIME, TAB 11/16/16 Cyclobenzaprine Hcl* (FLEXERIL*) 10 Mg Tablet, 10 MG ORAL BEDTIME, TAB 11/16/16 Aspirin* (ASPIRIN*) 325 Mg Tablet, 325 MG ORAL Q6HR Y for ID prophylaxis, TAB 11/16/16 Amlodipine Besylate (Norvasc) 2.5 Mg Tablet, 2.5 MG ORAL DAILY, TAB 11/16/16 Albuterol Sulfate* (ALBUTEROL SULFATE MDI*) 8.5 Gm Hfa.aer.ad, 2 PUFF INH Q4H Y for Shortness of Breath, #1 INH 0 Refills 11/16/16 Albuterol Sulfate* (ALBUTEROL SULFATE HHN*) 2.5 Mg/3 Ml Vial.neb, 3 ML INH Q4H, EA 11/16/16 Phenazopyridine Hcl* (PYRIDIUM*) 200 Mg Tablet, 200 MG ORAL THREE TIMES A DAY, # 14 TAB 0 Refills 11/09/16 Ipratropium Dalton 0.5MG/2.5ML (IPRATROPIUM BROMIDE 0.5MG/2.5ML) 0.2 Mg/1 Ml Solution, 0.5 MG HHN Q4HR, #28 EA 11/09/16 Ascorbic Acid* (VITAMIN C*) 500 Mg Tablet, 500 MG ORAL BID, #30 TAB 0 Refills 11/08/16 Albuterol Sulfate (VENTOLIN HFA) 18 Gm Hfa.aer.ad, 2 PUFF INH Q4HR, #18 GM 0 Refills 11/08/16 Guaifenesin/Codeine Phos* (ROBITUSSIN AC*) 118 Ml Liquid, 10 ML ORAL Q4H Y for For Cough, #118 ML 0 Refills 11/08/16 Paroxetine Hcl* (PAROXETINE HCL*) 12.5 Mg Tab.er.24h, 40 MG ORAL DAILY, TAB 11/08/16 Magnesium Hydroxide* (MILK OF MAGNESIA*) 400 Mg/5 Ml Oral.susp, 30 ML ORAL DAILY Y for Constipation, ML 11/08/16 Lorazepam* (LORAZEPAM*) 1 Mg Tablet, 1 MG ORAL Q4HR Y for For Anxiety, TAB 11/08/16 Famotidine (FAMOTIDINE) 20 Mg Tablet, 20 MG ORAL TWICE A DAY, #60 TAB 0 Refills 11/08/16 Ipratropium Dalton 0.5MG/2.5ML (IPRATROPIUM BROMIDE 0.5MG/2.5ML) 0.2 Mg/1 Ml Solution, 0.5 MG HHN Q4HR Y for Shortness of Breath, #28 EA 11/08/16 Aripiprazole* (ABILIFY*) 2 Mg Tablet, 2.5 MG ORAL DAILY, TAB 11/08/16 Furosemide* (LASIX*) 20 Mg Tablet, 20 MG ORAL BID, TAB 04/14/14 Multivitamins* (MULTIVITAMINS*) 1 Each Tablet, 1 TAB ORAL DAILY, TAB 0 Refills 04/14/14 Guaifenesin/Dextromethorphan (Guaifenesin Dm Syrup) 5 Ml Syr, 5 ML ORAL EVERY 6 HOURS Y for For Cough, SYR 10/31/13 Diphenhydramine HCl (Diphenhydramine HCl) 50 Mg Cap, 50 MG ORAL DAILY Y for Itching, CAP 10/31/13 Acetaminophen (Acetaminophen) 650 Mg/20.3 Ml Soln, 650 MG ORAL Q4HR Y for Mild Pain/Temp > 100.5, ML 0 Refills 10/31/13 Allergies: Coded Allergies: PENICILLINS (Unverified Allergy, Severe, 11/09/16) AMITRIPTYLINE (Verified Allergy, Unknown, 10/19/13) recorded from intermediate. pt does not remember the reation. CHLORPROMAZINE (Verified Allergy, Unknown, 10/19/13) recorded from intermediate. pt does not remember reaction. ERYTHROMYCIN BASE (Verified Allergy, Unknown, 10/19/13) recorded from intermediate. pt does not remember reaction. HALOPERIDOL (Verified Allergy, Unknown, 10/19/13) recorded from intermediate. pt does not remember reaction. QUETIAPINE (Verified Allergy, Unknown, 10/19/13) recorded from intermediate. pt does not remember reaction. GI: Plan Plan The patient was seen and examined at bedside and all new and available data was reviewed in the patients chart. I agree with the above findings, impression and plan. (Patient seen earlier today. Signature stamp does not reflect patient encounter time.). -Peggy Hooker MDh Ambrosio N.PKristofer Dec 11, 2016 15:53 SHERRY GRAY Dec 15, 2016 10:00
[2016-12-11 16:00] VITALS: BP 151/95
--- NOTE | 2016-12-11 19:42 | Pulmonology Progress Note ---
Assessment/Plan Problems: (1) CHF (congestive heart failure) (2) copd (3) Lumbar degenerative disc disease (4) Osteoarthritis of multiple joints Assessment/Plan no new complains pain management diuretics pt/ot dvt prophylaxis all notes reviewed labs reviewed. Subjective ROS Limited/Unobtainable: No Constitutional: Reports: no symptoms HEENT: Repors: no symptoms Allergies: Coded Allergies: PENICILLINS (Unverified Allergy, Severe, 11/09/16) AMITRIPTYLINE (Verified Allergy, Unknown, 10/19/13) recorded from group home. pt does not remember the reation. CHLORPROMAZINE (Verified Allergy, Unknown, 10/19/13) recorded from group home. pt does not remember reaction. ERYTHROMYCIN BASE (Verified Allergy, Unknown, 10/19/13) recorded from group home. pt does not remember reaction. HALOPERIDOL (Verified Allergy, Unknown, 10/19/13) recorded from group home. pt does not remember reaction. QUETIAPINE (Verified Allergy, Unknown, 10/19/13) recorded from group home. pt does not remember reaction. Objective Last 24 Hour Vital Signs Date Time Temp Pulse Resp B/P Pulse Ox O2 Delivery O2 Flow Rate FiO2 12/11/16 16:00 97.7 73 20 151/95 97 Room Air 12/11/16 12:00 97.5 62 20 117/68 99 Room Air 12/11/16 10:16 91 138/101 12/11/16 08:43 82 16 Nasal Cannula 2.0 12/11/16 08:07 97.5 95 19 139/80 95 Room Air 12/11/16 04:00 98.0 88 20 133/82 98 Room Air 12/10/16 23:46 76 16 Nasal Cannula 2.0 28 12/10/16 20:00 97.9 78 18 147/93 95 Room Air Intake and Output 12/10/16 12/11/16 19:00 07:00 Intake Total 600 ml 300 ml Balance 600 ml 300 ml Intake Oral 600 ml 300 ml # Voids 3 4 # Bowel Movements 1 General Appearance: WD/WN HEENT: normocephalic, atraumatic Respiratory/Chest: chest wall non-tender, lungs clear Breasts: no masses Cardiovascular: normal peripheral pulses Abdomen: normal bowel sounds, soft, non tender Genitourinary: normal external genitalia Laboratory Tests 12/11/16 05:45: White Blood Count 5.0, Red Blood Count 3.84L, Hemoglobin 12.2, Hematocrit 38.1, Mean Corpuscular Volume 99, Mean Corpuscular Hemoglobin 31.7H, Mean Corpuscular Hemoglobin Concent 32.0, Red Cell Distribution Width 12.8, Platelet Count 211, Mean Platelet Volume 7.4, Neutrophils (%) (Auto) 36.5L, Lymphocytes (%) (Auto) 45.7H, Monocytes (%) (Auto) 9.8, Eosinophils (%) (Auto) 7.2H, Basophils (%) ( Auto) 0.9, Sodium Level 143, Potassium Level 3.9, Chloride Level 104, Carbon Dioxide Level 29, Anion Gap 10, Blood Urea Nitrogen 16, Creatinine 0.7, Estimat Glomerular Filtration Rate > 60, Glucose Level 81, Calcium Level 8.7 Current Medications Medications (Trade) Dose Ordered Sig/Kushal Route PRN Reason Start Time Stop Time Status Last Admin Dose Admin Acetaminophen (Tylenol) 650 mg Q4H PRN ORAL T>100.5 11/26/16 16:00 12/26/16 15:59 Acetaminophen/ Hydrocodone Bitart ([place] 10/325) 1 ea Q4H PRN ORAL Pain Scale (4-6) 12/08/16 14:00 12/15/16 13:59 12/11/16 13:09 Albuterol/ Ipratropium (DuoNeb 0.5-3(2.5)mg/3ml) 3 ml Q4H PRN HHN Shortness of Breath 12/09/16 10:00 12/14/16 09:59 Amlodipine Besylate (Norvasc) 2.5 mg DAILY ORAL 11/27/16 09:00 12/27/16 08:59 12/11/16 10:16 Dextrose (Dextrose 50%) STAT PRN IV Hypoglycemia 11/26/16 17:00 12/26/16 16:59 Diphenhydramine HCl (Benadryl) 25 mg Q6H PRN ORAL Itching 11/27/16 22:45 12/27/16 22:44 12/10/16 11:50 Divalproex Sodium (Depakote ER) 500 mg BEDTIME ORAL 11/26/16 21:00 12/26/16 20:59 12/10/16 20:04 Furosemide (Lasix) 40 mg DAILY ORAL 11/28/16 09:00 12/28/16 08:59 12/08/16 08:11 Heparin Sodium (Porcine) (Heparin 5000 units/ml) 5,000 units EVERY 12 HOURS SUBQ 11/26/16 21:00 12/26/16 20:59 12/06/16 09:05 Hydralazine HCl (Apresoline) 25 mg Q4H PRN ORAL SBP>160 11/26/16 16:00 12/26/16 15:59 12/01/16 17:31 Lorazepam (Ativan) 1 mg Q4H PRN ORAL For Anxiety 12/09/16 10:30 12/16/16 23:59 12/11/16 18:04 Multivitamins (Multivitamins) 1 tab DAILY ORAL 12/06/16 09:00 01/05/17 08:59 12/11/16 10:16 Ondansetron HCl (Zofran) 4 mg Q6H PRN IVP Nausea & Vomiting 11/26/16 16:00 12/26/16 15:59 Oxycodone/ Acetaminophen (Percocet 5-325) 1 tab Q6H PRN ORAL Severe Pain (Pain Scale 7-10) 12/08/16 14:00 12/15/16 13:59 12/11/16 16:23 Paroxetine HCl (Paxil) 40 mg BEDTIME ORAL 12/10/16 21:00 01/09/17 20:59 Polyethylene Glycol (Miralax) 17 gm DAILYPRN PRN ORAL Constipation 11/26/16 16:00 12/26/16 15:59 12/09/16 22:03 Thiamine HCl (Vitamin B1) 100 mg DAILY ORAL 12/06/16 09:00 01/05/17 08:59 12/11/16 10:16 Zolpidem Tartrate (Ambien) 10 mg HSPRN PRN ORAL Insomnia 12/09/16 18:45 01/08/17 18:44 12/10/16 20:04 CONOR WYLIE Dec 11, 2016 19:42
[2016-12-11 20:00] VITALS: BP 152/98
[2016-12-11] MEDS: PARoxetine 20mg tab ORAL SCH (20:23)
[2016-12-11] MEDS: Depakote ER 500mg tab ORAL SCH (20:24)
[2016-12-11] MEDS: Zolpidem 5mg tab ORAL PRN (21:33)
--- NOTE | 2016-12-11 23:06 | Geriatric Progress Note ---
Assessment/Plan Assessment/Plan stable dc abilfy change paxil to hs increase ambien to 10 Discussed with: patient Subjective Constitutional: Reports: malaise, weakness Sleep: Reports: sleeps well Subjective the pt requested to see me she stated that since the beginning of her admission she has not seen a psychiatrist. the pt c/o insomnia and tongue numbness. the pt stated that she is allergic to abilify however she keeps getting abilify Geriatric Geriatric Last 24 Hour Vital Signs Date Time Temp Pulse Resp B/P Pulse Ox O2 Delivery O2 Flow Rate FiO2 12/11/16 21:44 97.7 12/11/16 20:54 78 16 Room Air 12/11/16 20:00 97.7 75 18 152/98 92 Room Air 12/11/16 16:00 97.7 73 20 151/95 97 Room Air 12/11/16 12:00 97.5 62 20 117/68 99 Room Air 12/11/16 10:16 91 138/101 12/11/16 08:43 82 16 Nasal Cannula 2.0 12/11/16 08:07 97.5 95 19 139/80 95 Room Air 12/11/16 04:00 98.0 88 20 133/82 98 Room Air 12/10/16 23:46 76 16 Nasal Cannula 2.0 28 Intake and Output 12/10/16 12/11/16 19:00 07:00 Intake Total 600 ml 300 ml Balance 600 ml 300 ml Intake Oral 600 ml 300 ml # Voids 3 4 # Bowel Movements 1 Laboratory Tests Test 12/11/16 05:45 White Blood Count 5.0 K/UL (4.8-10.8) Red Blood Count 3.84 M/UL (4.20-5.40) L Hemoglobin 12.2 G/DL (12.0-16.0) Hematocrit 38.1 % (37.0-47.0) Mean Corpuscular Volume 99 FL (80-99) Mean Corpuscular Hemoglobin 31.7 PG (27.0-31.0) H Mean Corpuscular Hemoglobin Concent 32.0 G/DL (32.0-36.0) Red Cell Distribution Width 12.8 % (11.6-14.8) Platelet Count 211 K/UL (150-450) Mean Platelet Volume 7.4 FL (6.5-10.1) Neutrophils (%) (Auto) 36.5 % (45.0-75.0) L Lymphocytes (%) (Auto) 45.7 % (20.0-45.0) H Monocytes (%) (Auto) 9.8 % (1.0-10.0) Eosinophils (%) (Auto) 7.2 % (0.0-3.0) H Basophils (%) (Auto) 0.9 % (0.0-2.0) Sodium Level 143 mEQ/L (135-145) Potassium Level 3.9 mEQ/L (3.4-4.9) Chloride Level 104 mEQ/L (98-107) Carbon Dioxide Level 29 mEQ/L (20-30) Anion Gap 10 (5-15) Blood Urea Nitrogen 16 mg/dL (7-23) Creatinine 0.7 mg/dL (0.5-0.9) Estimat Glomerular Filtration Rate > 60 mL/min (>60) Glucose Level 81 mg/dL (74-106) Calcium Level 8.7 mg/dL (8.6-10.2) Current Medications Medications (Trade) Dose Ordered Sig/Kushal Route PRN Reason Start Time Stop Time Status Last Admin Dose Admin Acetaminophen (Tylenol) 650 mg Q4H PRN ORAL T>100.5 11/26/16 16:00 12/26/16 15:59 Acetaminophen/ Hydrocodone Bitart ([place] 10/325) 1 ea Q4H PRN ORAL Pain Scale (4-6) 12/08/16 14:00 12/15/16 13:59 12/11/16 20:23 Albuterol/ Ipratropium (DuoNeb 0.5-3(2.5)mg/3ml) 3 ml Q4H PRN HHN Shortness of Breath 12/09/16 10:00 12/14/16 09:59 Amlodipine Besylate (Norvasc) 2.5 mg DAILY ORAL 11/27/16 09:00 12/27/16 08:59 12/11/16 10:16 Dextrose (Dextrose 50%) STAT PRN IV Hypoglycemia 11/26/16 17:00 12/26/16 16:59 Diphenhydramine HCl (Benadryl) 25 mg Q6H PRN ORAL Itching 11/27/16 22:45 12/27/16 22:44 12/10/16 11:50 Divalproex Sodium (Depakote ER) 500 mg BEDTIME ORAL 11/26/16 21:00 12/26/16 20:59 12/11/16 20:24 Furosemide (Lasix) 40 mg DAILY ORAL 11/28/16 09:00 12/28/16 08:59 12/08/16 08:11 Heparin Sodium (Porcine) (Heparin 5000 units/ml) 5,000 units EVERY 12 HOURS SUBQ 11/26/16 21:00 12/26/16 20:59 12/06/16 09:05 Hydralazine HCl (Apresoline) 25 mg Q4H PRN ORAL SBP>160 11/26/16 16:00 12/26/16 15:59 12/01/16 17:31 Lorazepam (Ativan) 1 mg Q4H PRN ORAL For Anxiety 12/09/16 10:30 12/16/16 23:59 12/11/16 22:35 Multivitamins (Multivitamins) 1 tab DAILY ORAL 12/06/16 09:00 01/05/17 08:59 12/11/16 10:16 Ondansetron HCl (Zofran) 4 mg Q6H PRN IVP Nausea & Vomiting 11/26/16 16:00 12/26/16 15:59 Oxycodone/ Acetaminophen (Percocet 5-325) 1 tab Q6H PRN ORAL Severe Pain (Pain Scale 7-10) 12/08/16 14:00 12/15/16 13:59 12/11/16 16:23 Paroxetine HCl (Paxil) 40 mg BEDTIME ORAL 12/10/16 21:00 01/09/17 20:59 12/11/16 20:23 Polyethylene Glycol (Miralax) 17 gm DAILYPRN PRN ORAL Constipation 11/26/16 16:00 12/26/16 15:59 12/09/16 22:03 Thiamine HCl (Vitamin B1) 100 mg DAILY ORAL 12/06/16 09:00 01/05/17 08:59 12/11/16 10:16 Zolpidem Tartrate (Ambien) 10 mg HSPRN PRN ORAL Insomnia 12/09/16 18:45 01/08/17 18:44 12/11/16 21:33 Height (Feet): 4 Height (Inches): 10.00 Weight (Pounds): 210 General Appearance: well appearing, well dressed, well groomed, well nourished , no apparent distress, alert, good eye contact, obese Neurologic: alert, oriented x3, responsive Psychiatric Behavior: cooperative Language/Speech: intact, fluent Orientation: person, place, time, situation Affect: appropriate Insight: good Jacobo Rolon M.D. Dec 11, 2016 23:06
[2016-12-11 23:49] VITALS: BP 146/88
[2016-12-12] MEDS: Oxycodone/Acetaminophen 5-325 ORAL PRN ×4 (03:54→22:08)
--- NOTE | 2016-12-12 08:53 | General Progress Note ---
Assessment/Plan Assessment/Plan (1) Degenerative cervical disc (2) Lumbar radiculopathy (3) Lumbar degenerative disc disease (4) chronic pain (5) Osteoarthritis of multiple joints Pt will be continued on [place] and Percocet. Pt was d/w Dr. Caldwell and he concurred. Subjective Date patient seen: Dec 12, 2016 Time patient seen: 07:15 - am Allergies: Coded Allergies: PENICILLINS (Unverified Allergy, Severe, 11/09/16) AMITRIPTYLINE (Verified Allergy, Unknown, 10/19/13) recorded from alf. pt does not remember the reation. CHLORPROMAZINE (Verified Allergy, Unknown, 10/19/13) recorded from alf. pt does not remember reaction. ERYTHROMYCIN BASE (Verified Allergy, Unknown, 10/19/13) recorded from alf. pt does not remember reaction. HALOPERIDOL (Verified Allergy, Unknown, 10/19/13) recorded from alf. pt does not remember reaction. QUETIAPINE (Verified Allergy, Unknown, 10/19/13) recorded from alf. pt does not remember reaction. Subjective Constitutional: Denies: no symptoms, chills, diaphoresis, fever, malaise, weakness, other HEENT: Denies: no symptoms, eye pain, blurred vision, tearing, double vision, ear pain, ear discharge, nose pain, nose congestion, throat pain, throat swelling, mouth pain, mouth swelling, other Cardiovascular: Denies: no symptoms, chest pain, edema, irregular heart rate, lightheadedness, palpitations, syncope, other Respiratory: Denies: no symptoms, cough, orthopnea, shortness of breath, SOB with excertion, SOB at rest, sputum, stridor, wheezing, other Gastrointestinal/Abdominal: Denies: no symptoms, abdomen distended, abdominal pain, black stools, tarry stools, blood in stool, constipated, diarrhea, difficulty swallowing, nausea, poor appetite, poor fluid intake, rectal bleeding , vomiting, other Genitourinary: Denies: no symptoms, burning, discharge, frequency, flank pain, hematuria, incontinence, pain, urgency, other Neurologic/Psychiatric: Reports: depressed, emotional problems Endocrine: Denies: no symptoms, excessive sweating, flushing, intolerance to cold, intolerance to heat, increased hunger, increased thirst, increased urine, unexplained weight gain, unexplained weight loss, other Hematologic/Lymphatic: Denies: no symptoms, anemia, easy bleeding, easy bruising, other Subjective Patient is reporting the pain has been stable on the medication and she has no new complaints. Objective Last 24 Hour Vital Signs Date Time Temp Pulse Resp B/P Pulse Ox O2 Delivery O2 Flow Rate FiO2 12/12/16 07:56 75 16 Room Air 12/12/16 04:55 97.8 12/11/16 23:49 97.8 75 18 146/88 93 Room Air 12/11/16 21:44 97.7 12/11/16 20:54 78 16 Room Air 12/11/16 20:00 97.7 75 18 152/98 92 Room Air 12/11/16 16:00 97.7 73 20 151/95 97 Room Air 12/11/16 12:00 97.5 62 20 117/68 99 Room Air 12/11/16 10:16 91 138/101 Intake and Output 12/11/16 12/12/16 19:00 07:00 Intake Total 480 ml 280 ml Balance 480 ml 280 ml Intake Oral 480 ml 280 ml # Voids 2 Height (Feet): 4 Height (Inches): 10.00 Weight (Pounds): 210 Objective General Appearance: WD/WN EENT: PERRL/EOMI Neck: supple Cardiovascular: normal rate, regular rhythm Respiratory/Chest: decreased breath sounds Abdomen: non tender, soft Extremities: non-tender Edema: edema noted in b/l LE 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
[2016-12-12] MEDS: Heparin 5000 units/ml inj SUBQ SCH ×2 (09:00→20:41)
[2016-12-12 09:45] VITALS: BP 155/88
[2016-12-12] MEDS: Furosemide 40mg tab ORAL SCH (09:59)
[2016-12-12] MEDS: Thiamine 100mg tab ORAL SCH (10:00)
--- NOTE | 2016-12-12 12:00 | General Progress Note ---
Assessment/Plan Problem List: (1) Leg pain, bilateral ICD Codes: M79.604 - Pain In Right Leg; M79.605 - Pain In Left Leg SNOMED: 12269316 (2) chronic pain (3) CHF (congestive heart failure), NYHA class I ICD Codes: I50.9 - CHF (congestive heart failure), NYHA class I SNOMED: 72846335 (4) Degenerative cervical disc ICD Codes: M50.90 - Degenerative cervical disc SNOMED: 49772929 (5) CHF (congestive heart failure) ICD Codes: I50.9 - Heart failure, unspecified SNOMED: 10744484 Status: stable, progressing, tolerating diet Assessment/Plan ot pt diet cbc bmp am dc plan snf Subjective Constitutional: Reports: weakness Allergies: Coded Allergies: PENICILLINS (Unverified Allergy, Severe, 11/09/16) AMITRIPTYLINE (Verified Allergy, Unknown, 10/19/13) recorded from [facility]. pt does not remember the reation. CHLORPROMAZINE (Verified Allergy, Unknown, 10/19/13) recorded from senior care. pt does not remember reaction. ERYTHROMYCIN BASE (Verified Allergy, Unknown, 10/19/13) recorded from senior care. pt does not remember reaction. HALOPERIDOL (Verified Allergy, Unknown, 10/19/13) recorded from senior care. pt does not remember reaction. QUETIAPINE (Verified Allergy, Unknown, 10/19/13) recorded from senior care. pt does not remember reaction. All Systems: reviewed and negative except above Subjective calm in wc Objective Last 24 Hour Vital Signs Date Time Temp Pulse Resp B/P Pulse Ox O2 Delivery O2 Flow Rate FiO2 12/12/16 10:00 75 155/88 12/12/16 07:56 75 16 Room Air 12/12/16 04:55 97.8 12/11/16 23:49 97.8 75 18 146/88 93 Room Air 12/11/16 21:44 97.7 12/11/16 20:54 78 16 Room Air 12/11/16 20:00 97.7 75 18 152/98 92 Room Air 12/11/16 16:00 97.7 73 20 151/95 97 Room Air 12/11/16 12:00 97.5 62 20 117/68 99 Room Air Intake and Output 12/11/16 12/12/16 19:00 07:00 Intake Total 480 ml 280 ml Balance 480 ml 280 ml Intake Oral 480 ml 280 ml # Voids 2 Height (Feet): 4 Height (Inches): 10.00 Weight (Pounds): 210 General Appearance: lethargic EENT: normal ENT inspection Neck: normal alignment Cardiovascular: normal peripheral pulses, normal rate, regular rhythm Respiratory/Chest: chest wall non-tender, lungs clear, normal breath sounds Abdomen: normal bowel sounds, non tender, soft Extremities: normal inspection Edema: no edema noted Arm (L), no edema noted Arm (R), no edema noted Leg (L), no edema noted Leg (R), no edema noted Pedal (L), no edema noted Pedal (R), no edema noted Generalized Neurologic: responsive, motor weakness Skin: normal pigmentation, warm/dry PADMINI AMBROSIO Dec 12, 2016 12:00
[2016-12-12] MEDS: LORazepam 1mg tab ORAL PRN ×2 (12:26→20:40)
[2016-12-12 13:14] VITALS: BP 146/66
[2016-12-12] MEDS: Norco 10mg/325mg tab ORAL PRN ×2 (13:27→19:06)
--- NOTE | 2016-12-12 15:31 | GI Progress Note ---
Assessment/Plan Problems: (1) Abdominal pain ICD Codes: R10.9 - Unspecified abdominal pain SNOMED: 21289593 (2) Nausea, vomiting, and diarrhea ICD Codes: R11.2 - Nausea with vomiting, unspecified; R19.7 - Diarrhea, unspecified SNOMED: 3866025 Status: stable Status Narrative Discussed with Dr. Yang. Assessment/Plan patient is clear for DC per GI standpoint >> outpatient EGD/colonoscopy symptomatic treatment at this time pain mgmt bowel regime cardiac diet, tolerating ppi fu labs The patient was seen and examined at bedside and all new and available data was reviewed in the patients chart. I agree with the above findings, impression and plan. (Patient seen earlier today. Signature stamp does not reflect patient encounter time.). -Brian Yang MD Subjective Gastrointestinal/Abdominal: Reports: abdominal pain - is beetter Objective Last 24 Hour Vital Signs Date Time Temp Pulse Resp B/P Pulse Ox O2 Delivery O2 Flow Rate FiO2 12/12/16 13:14 97.2 85 18 146/66 98 Room Air 12/12/16 12:00 85 12/12/16 11:00 97.8 12/12/16 10:00 75 155/88 12/12/16 09:45 88 155/88 98 Nasal Cannula 2.0 12/12/16 07:56 75 16 Room Air 12/11/16 23:49 97.8 75 18 146/88 93 Room Air 12/11/16 21:44 97.7 12/11/16 20:54 78 16 Room Air 12/11/16 20:00 97.7 75 18 152/98 92 Room Air 12/11/16 16:00 97.7 73 20 151/95 97 Room Air Intake and Output 12/11/16 12/12/16 19:00 07:00 Intake Total 480 ml 280 ml Balance 480 ml 280 ml Intake Oral 480 ml 280 ml # Voids 2 Height (Feet): 4 Height (Inches): 10.00 Weight (Pounds): 210 General Appearance: no apparent distress, alert Cardiovascular: normal rate Respiratory/Chest: normal breath sounds, no respiratory distress Abdominal Exam: normal bowel sounds, non tender, soft Ayah Hinkle NChristiano Dec 12, 2016 15:31 BRIAN YANG Dec 15, 2016 10:02
[2016-12-12] MEDS: PARoxetine 20mg tab ORAL SCH (18:12)
[2016-12-12 19:13] VITALS: BP 146/96
[2016-12-12] MEDS: Zolpidem 5mg tab ORAL PRN (20:39)
[2016-12-12] MEDS: Depakote ER 500mg tab ORAL SCH (20:40)
--- NOTE | 2016-12-12 23:26 | Pulmonology Progress Note ---
Assessment/Plan Problems: (1) CHF (congestive heart failure) (2) copd (3) Lumbar degenerative disc disease (4) Osteoarthritis of multiple joints Assessment/Plan no changes, no new complains pain management diuretics pt/ot dvt prophylaxis all notes reviewed labs reviewed. Subjective ROS Limited/Unobtainable: No Constitutional: Reports: no symptoms HEENT: Repors: no symptoms Respiratory: Reports: no symptoms Allergies: Coded Allergies: PENICILLINS (Unverified Allergy, Severe, 11/09/16) AMITRIPTYLINE (Verified Allergy, Unknown, 10/19/13) recorded from [facility]. pt does not remember the reation. CHLORPROMAZINE (Verified Allergy, Unknown, 10/19/13) recorded from [facility]. pt does not remember reaction. ERYTHROMYCIN BASE (Verified Allergy, Unknown, 10/19/13) recorded from [facility]. pt does not remember reaction. HALOPERIDOL (Verified Allergy, Unknown, 10/19/13) recorded from [facility]. pt does not remember reaction. QUETIAPINE (Verified Allergy, Unknown, 10/19/13) recorded from [facility]. pt does not remember reaction. Objective Last 24 Hour Vital Signs Date Time Temp Pulse Resp B/P Pulse Ox O2 Delivery O2 Flow Rate FiO2 12/12/16 20:05 97.9 12/12/16 20:04 80 20 Room Air 21 12/12/16 19:13 97.9 76 20 146/96 97 Room Air 12/12/16 13:14 97.2 85 18 146/66 98 Room Air 12/12/16 12:00 85 12/12/16 11:00 97.8 12/12/16 10:00 75 155/88 12/12/16 09:45 88 155/88 98 Nasal Cannula 2.0 12/12/16 07:56 75 16 Room Air 12/11/16 23:49 97.8 75 18 146/88 93 Room Air Intake and Output 12/11/16 12/12/16 19:00 07:00 Intake Total 480 ml 280 ml Balance 480 ml 280 ml Intake Oral 480 ml 280 ml # Voids 2 General Appearance: WD/WN HEENT: normocephalic, atraumatic Respiratory/Chest: chest wall non-tender, lungs clear Abdomen: normal bowel sounds Genitourinary: normal external genitalia Extremities: no cyanosis Current Medications Medications (Trade) Dose Ordered Sig/Kushal Route PRN Reason Start Time Stop Time Status Last Admin Dose Admin Acetaminophen (Tylenol) 650 mg Q4H PRN ORAL T>100.5 11/26/16 16:00 12/26/16 15:59 Acetaminophen/ Hydrocodone Bitart ([place] 10/325) 1 ea Q4H PRN ORAL Pain Scale (4-6) 12/08/16 14:00 12/15/16 13:59 12/12/16 19:06 Albuterol/ Ipratropium (DuoNeb 0.5-3(2.5)mg/3ml) 3 ml Q4H PRN HHN Shortness of Breath 12/09/16 10:00 12/14/16 09:59 Amlodipine Besylate (Norvasc) 2.5 mg DAILY ORAL 11/27/16 09:00 12/27/16 08:59 12/12/16 10:00 Dextrose (Dextrose 50%) STAT PRN IV Hypoglycemia 11/26/16 17:00 12/26/16 16:59 Diphenhydramine HCl (Benadryl) 25 mg Q6H PRN ORAL Itching 11/27/16 22:45 12/27/16 22:44 12/12/16 17:42 Divalproex Sodium (Depakote ER) 500 mg BEDTIME ORAL 11/26/16 21:00 12/26/16 20:59 12/12/16 20:40 Furosemide (Lasix) 40 mg DAILY ORAL 11/28/16 09:00 12/28/16 08:59 12/12/16 09:59 Heparin Sodium (Porcine) (Heparin 5000 units/ml) 5,000 units EVERY 12 HOURS SUBQ 11/26/16 21:00 12/26/16 20:59 12/06/16 09:05 Hydralazine HCl (Apresoline) 25 mg Q4H PRN ORAL SBP>160 11/26/16 16:00 12/26/16 15:59 12/01/16 17:31 Lorazepam (Ativan) 1 mg Q4H PRN ORAL For Anxiety 12/09/16 10:30 12/16/16 23:59 12/12/16 20:40 Multivitamins (Multivitamins) 1 tab DAILY ORAL 12/06/16 09:00 8/18/17 08:59 12/12/16 09:59 Ondansetron HCl (Zofran) 4 mg Q6H PRN IVP Nausea & Vomiting 11/26/16 16:00 12/26/16 15:59 Oxycodone/ Acetaminophen (Percocet 5-325) 1 tab Q6H PRN ORAL Severe Pain (Pain Scale 7-10) 12/08/16 14:00 12/15/16 13:59 12/12/16 22:08 Paroxetine HCl (Paxil) 20 mg BID ORAL 12/12/16 18:00 01/11/17 17:59 12/12/16 18:12 Polyethylene Glycol (Miralax) 17 gm DAILYPRN PRN ORAL Constipation 11/26/16 16:00 12/26/16 15:59 12/09/16 22:03 Thiamine HCl (Vitamin B1) 100 mg DAILY ORAL 12/06/16 09:00 01/05/17 08:59 12/12/16 10:00 Zolpidem Tartrate (Ambien) 10 mg HSPRN PRN ORAL Insomnia 12/09/16 18:45 01/08/17 18:44 12/12/16 20:39 CONOR WYLIE Dec 12, 2016 23:26
[2016-12-13 00:27] VITALS: BP 140/70
[2016-12-13] MEDS: Norco 10mg/325mg tab ORAL PRN ×3 (00:44→13:13)
[2016-12-13 04:32] VITALS: BP 140/70
[2016-12-13] MEDS: Oxycodone/Acetaminophen 5-325 ORAL PRN ×3 (05:13→16:45)
[2016-12-13] MEDS: LORazepam 1mg tab ORAL PRN ×3 (06:28→16:44)
[2016-12-13 08:05] VITALS: BP 143/71
--- NOTE | 2016-12-13 08:30 | General Progress Note ---
Assessment/Plan Assessment/Plan (1) Degenerative cervical disc (2) Lumbar radiculopathy (3) Lumbar degenerative disc disease (4) chronic pain (5) Osteoarthritis of multiple joints Pt will be continued on [place] and Percocet. Pt was d/w Dr. Caldwell and he concurred. Subjective Date patient seen: Dec 13, 2016 Time patient seen: 07:00 - am Allergies: Coded Allergies: PENICILLINS (Unverified Allergy, Severe, 11/09/16) AMITRIPTYLINE (Verified Allergy, Unknown, 10/19/13) recorded from [facility]. pt does not remember the reation. CHLORPROMAZINE (Verified Allergy, Unknown, 10/19/13) recorded from [facility]-term. pt does not remember reaction. ERYTHROMYCIN BASE (Verified Allergy, Unknown, 10/19/13) recorded from long-term. pt does not remember reaction. HALOPERIDOL (Verified Allergy, Unknown, 10/19/13) recorded from long-term. pt does not remember reaction. QUETIAPINE (Verified Allergy, Unknown, 10/19/13) recorded from long-term. pt does not remember reaction. Subjective Constitutional: Denies: no symptoms, chills, diaphoresis, fever, malaise, weakness, other HEENT: Denies: no symptoms, eye pain, blurred vision, tearing, double vision, ear pain, ear discharge, nose pain, nose congestion, throat pain, throat swelling, mouth pain, mouth swelling, other Cardiovascular: Denies: no symptoms, chest pain, edema, irregular heart rate, lightheadedness, palpitations, syncope, other Respiratory: Denies: no symptoms, cough, orthopnea, shortness of breath, SOB with excertion, SOB at rest, sputum, stridor, wheezing, other Gastrointestinal/Abdominal: Denies: no symptoms, abdomen distended, abdominal pain, black stools, tarry stools, blood in stool, constipated, diarrhea, difficulty swallowing, nausea, poor appetite, poor fluid intake, rectal bleeding , vomiting, other Genitourinary: Denies: no symptoms, burning, discharge, frequency, flank pain, hematuria, incontinence, pain, urgency, other Neurologic/Psychiatric: Reports: depressed, emotional problems Endocrine: Denies: no symptoms, excessive sweating, flushing, intolerance to cold, intolerance to heat, increased hunger, increased thirst, increased urine, unexplained weight gain, unexplained weight loss, other Hematologic/Lymphatic: Denies: no symptoms, anemia, easy bleeding, easy bruising, other Subjective The patient is in bed and reports that the pain has been tolerated on the medications. Objective Last 24 Hour Vital Signs Date Time Temp Pulse Resp B/P Pulse Ox O2 Delivery O2 Flow Rate FiO2 12/13/16 08:05 97.7 80 18 143/71 99 Room Air 12/13/16 06:12 97.8 12/13/16 04:32 97.8 81 20 140/70 95 Room Air 12/13/16 01:43 97.9 12/13/16 00:27 97.9 80 21 140/70 98 Room Air 12/12/16 20:04 80 20 Room Air 21 12/12/16 19:13 97.9 76 20 146/96 97 Room Air 12/12/16 13:14 97.2 85 18 146/66 98 Room Air 12/12/16 12:00 85 12/12/16 10:00 75 155/88 12/12/16 09:45 88 155/88 98 Nasal Cannula 2.0 Intake and Output 12/12/16 12/13/16 19:00 07:00 Intake Total 624 ml Balance 624 ml Intake Oral 624 ml # Voids 2 2 Height (Feet): 4 Height (Inches): 10.00 Weight (Pounds): 210 Objective General Appearance: WD/WN EENT: PERRL/EOMI Neck: supple Cardiovascular: normal rate, regular rhythm Respiratory/Chest: decreased breath sounds Abdomen: non tender, soft Extremities: non-tender Edema: edema noted in b/l LE 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
[2016-12-13] MEDS: Heparin 5000 units/ml inj SUBQ SCH (09:35)
[2016-12-13 09:39] VITALS: BP 143/71
[2016-12-13] MEDS: Thiamine 100mg tab ORAL SCH (09:39)
[2016-12-13] MEDS: PARoxetine 20mg tab ORAL SCH (09:39)
[2016-12-13] MEDS: Furosemide 40mg tab ORAL SCH (09:39)
--- NOTE | 2016-12-13 12:50 | GI Progress Note ---
Assessment/Plan Problems: (1) Abdominal pain ICD Codes: R10.9 - Unspecified abdominal pain SNOMED: 64010010 (2) Nausea, vomiting, and diarrhea ICD Codes: R11.2 - Nausea with vomiting, unspecified; R19.7 - Diarrhea, unspecified SNOMED: 6623990 Status: stable, unchanged Status Narrative Discussed with Dr. Yang. Assessment/Plan patient is clear for DC per GI standpoint >> outpatient EGD/colonoscopy symptomatic treatment at this time pain mgmt bowel regime cardiac diet, tolerating ppi fu labs Subjective Gastrointestinal/Abdominal: Reports: no symptoms Objective Last 24 Hour Vital Signs Date Time Temp Pulse Resp B/P Pulse Ox O2 Delivery O2 Flow Rate FiO2 12/13/16 12:03 81 18 98 Room Air 21 12/13/16 12:01 81 16 97 Room Air 21 12/13/16 09:39 80 143/71 12/13/16 08:05 97.7 80 18 143/71 99 Room Air 12/13/16 07:55 80 18 Room Air 21 12/13/16 06:12 97.8 12/13/16 04:32 97.8 81 20 140/70 95 Room Air 12/13/16 01:43 97.9 12/13/16 00:27 97.9 80 21 140/70 98 Room Air 12/12/16 20:04 80 20 Room Air 21 12/12/16 19:13 97.9 76 20 146/96 97 Room Air 12/12/16 13:14 97.2 85 18 146/66 98 Room Air Intake and Output 12/12/16 12/13/16 19:00 07:00 Intake Total 624 ml Balance 624 ml Intake Oral 624 ml # Voids 2 2 Height (Feet): 4 Height (Inches): 10.00 Weight (Pounds): 210 General Appearance: no apparent distress, alert Cardiovascular: normal rate, regular rhythm Respiratory/Chest: chest wall non-tender, lungs clear, normal breath sounds, no respiratory distress Abdominal Exam: normal bowel sounds, non tender, soft Ayah Hinkle N.P. Dec 13, 2016 12:50
--- NOTE | 2016-12-13 13:40 | General Progress Note ---
Assessment/Plan Problem List: (1) Leg pain, bilateral ICD Codes: M79.604 - Pain In Right Leg; M79.605 - Pain In Left Leg SNOMED: 12584683 (2) chronic pain (3) CHF (congestive heart failure), NYHA class I ICD Codes: I50.9 - CHF (congestive heart failure), NYHA class I SNOMED: 38336166 (4) Degenerative cervical disc ICD Codes: M50.90 - Degenerative cervical disc SNOMED: 11608298 (5) CHF (congestive heart failure) ICD Codes: I50.9 - Heart failure, unspecified SNOMED: 87873517 Status: stable, progressing, tolerating diet Assessment/Plan ot pt diet cbc bmp am dc plan snf Subjective Constitutional: Reports: weakness Allergies: Coded Allergies: PENICILLINS (Unverified Allergy, Severe, 11/09/16) AMITRIPTYLINE (Verified Allergy, Unknown, 10/19/13) [facility]. CHLORPROMAZINE (Verified Allergy, Unknown, 10/19/13) [facility] pt does not remember reaction. ERYTHROMYCIN BASE (Verified Allergy, Unknown, 10/19/13) [facility] pt does not remember reaction. HALOPERIDOL (Verified Allergy, Unknown, 10/19/13) [facility] pt does not remember reaction. QUETIAPINE (Verified Allergy, Unknown, 10/19/13) [facility] pt does not remember reaction. All Systems: reviewed and negative except above Subjective calm in wc Objective Last 24 Hour Vital Signs Date Time Temp Pulse Resp B/P Pulse Ox O2 Delivery O2 Flow Rate FiO2 12/13/16 12:03 81 18 98 Room Air 21 12/13/16 12:01 81 16 97 Room Air 12/13/16 09:39 80 143/71 12/13/16 08:05 97.7 80 18 143/71 99 Room Air 12/13/16 07:55 80 18 Room Air 12/13/16 06:12 97.8 12/13/16 04:32 97.8 81 20 140/70 95 Room Air 12/13/16 01:43 97.9 12/13/16 00:27 97.9 80 21 140/70 98 Room Air 12/12/16 20:04 80 20 Room Air 21 12/12/16 19:13 97.9 76 20 146/96 97 Room Air Intake and Output 12/12/16 12/13/16 19:00 07:00 Intake Total 624 ml Balance 624 ml Intake Oral 624 ml # Voids 2 2 Height (Feet): 4 Height (Inches): 10.00 Weight (Pounds): 210 General Appearance: alert EENT: normal ENT inspection Neck: normal alignment Cardiovascular: normal peripheral pulses, normal rate, regular rhythm Respiratory/Chest: chest wall non-tender, lungs clear, normal breath sounds Abdomen: normal bowel sounds, non tender, soft Extremities: normal inspection Edema: no edema noted Arm (L), no edema noted Arm (R), no edema noted Leg (L), no edema noted Leg (R), no edema noted Pedal (L), no edema noted Pedal (R), no edema noted Generalized Neurologic: responsive, motor weakness Skin: normal pigmentation, warm/dry PADMINI AMBROSIO Dec 13, 2016 13:40
[2016-12-13] MEDS ORDERED: PERCOCET 5-3251 EACH ORAL (14:16)
[2016-12-13] MEDS ORDERED: DUONEB 0.5-3(2.53 ML HHN (14:17)
[2016-12-13] MEDS ORDERED: Zolpidem 5mg tab ORAL PRN ×2 (21:00)
--- NOTE | 2016-12-13 22:31 | Pulmonology Progress Note ---
Assessment/Plan Problems: (1) CHF (congestive heart failure) (2) copd (3) Lumbar degenerative disc disease (4) Osteoarthritis of multiple joints Assessment/Plan no changes, no new complains pain management diuretics pt/ot dvt prophylaxis all notes reviewed labs reviewed. Subjective ROS Limited/Unobtainable: No Constitutional: Reports: no symptoms HEENT: Repors: no symptoms Respiratory: Reports: no symptoms Allergies: Coded Allergies: PENICILLINS (Unverified Allergy, Severe, 11/09/16) AMITRIPTYLINE (Verified Allergy, Unknown, 10/19/13) recorded from [facility]. pt does not remember the reation. CHLORPROMAZINE (Verified Allergy, Unknown, 10/19/13) recorded from halfway. pt does not remember reaction. ERYTHROMYCIN BASE (Verified Allergy, Unknown, 10/19/13) recorded from [facility]. pt does not remember reaction. HALOPERIDOL (Verified Allergy, Unknown, 10/19/13) recorded from halfway. pt does not remember reaction. QUETIAPINE (Verified Allergy, Unknown, 10/19/13) recorded from halfway. pt does not remember reaction. Objective Last 24 Hour Vital Signs Date Time Temp Pulse Resp B/P Pulse Ox O2 Delivery O2 Flow Rate FiO2 12/13/16 12:03 81 18 98 Room Air 21 12/13/16 12:01 81 16 97 Room Air 21 12/13/16 09:39 80 143/71 12/13/16 08:05 97.7 80 18 143/71 99 Room Air 12/13/16 07:55 80 18 Room Air 21 12/13/16 06:12 97.8 12/13/16 04:32 97.8 81 20 140/70 95 Room Air 12/13/16 01:43 97.9 12/13/16 00:27 97.9 80 21 140/70 98 Room Air Intake and Output 12/12/16 12/13/16 19:00 07:00 Intake Total 624 ml Balance 624 ml Intake Oral 624 ml # Voids 2 2 General Appearance: WD/WN, no acute distress HEENT: normocephalic, atraumatic Respiratory/Chest: chest wall non-tender, lungs clear Breasts: no masses Cardiovascular: normal peripheral pulses, normal rate Abdomen: normal bowel sounds, soft, non tender Genitourinary: normal external genitalia Extremities: no cyanosis Skin: no lesions Neurologic/Psychiatric: index editor II-XII grossly normal Lymphatic: no neck adenopathy CONOR WYLIE Dec 13, 2016 22:30
--- NOTE | 2016-12-13 23:45 | Geriatric Progress Note ---
Assessment/Plan Assessment/Plan stable dc abilfy change paxil to hs increase ambien to 10 Subjective Constitutional: Reports: malaise, weakness Psychiatric: Reports: see HPI Sleep: Reports: sleeps well Subjective the pt requested to see me she stated that since the beginning of her admission she has not seen a psychiatrist. the pt c/o insomnia and tongue numbness. the pt stated that she is allergic to abilify however she keeps getting abilify Geriatric Geriatric Last 24 Hour Vital Signs Date Time Temp Pulse Resp B/P Pulse Ox O2 Delivery O2 Flow Rate FiO2 12/13/16 12:03 81 18 98 Room Air 21 12/13/16 12:01 81 16 97 Room Air 21 12/13/16 09:39 80 143/71 12/13/16 08:05 97.7 80 18 143/71 99 Room Air 12/13/16 07:55 80 18 Room Air 21 12/13/16 06:12 97.8 12/13/16 04:32 97.8 81 20 140/70 95 Room Air 12/13/16 01:43 97.9 12/13/16 00:27 97.9 80 21 140/70 98 Room Air Intake and Output 12/12/16 12/13/16 19:00 07:00 Intake Total 624 ml Balance 624 ml Intake Oral 624 ml # Voids 2 2 Height (Feet): 4 Height (Inches): 10.00 Weight (Pounds): 210 General Appearance: well appearing, well dressed, well groomed, well nourished , no apparent distress, alert, good eye contact, obese Psychiatric Behavior: cooperative Language/Speech: intact, fluent Orientation: person, place, time, situation Affect: appropriate Insight: Jacobo Castillo M.D. Dec 13, 2016 23:45
--- NOTE | 2016-12-16 07:35 | Discharge Summary ---
Discharge Summary Hospital Course Date of Admission Nov 26, 2016 at 01:00 Date of Discharge Dec 13, 2016 at 17:00 Admitting Diagnosis congestive heart failure exacerbation HPI Susy Munguia is a 71 year old female who was admitted on Nov 26, 2016 at 01 :00 for Conjestive Heart Failure Exacerbation Hospital Course [id number] Discharge Discharge Disposition Patient was discharged to SNF/Subacute Facility(03) Discharge Diagnoses: Magy Mcdaniel NP Dec 16, 2016 07:35
--- NOTE | 2016-12-16 08:31 | Discharge Summary 2 SIG ---
DATE OF ADMISSION: 11/26/2016 DATE OF DISCHARGE: 12/13/2016 CONSULTANTS: 1. John Mercado M.D. 2. Damian Caldwell M.D. 3. Brian Yang M.D. 4. Jacobo Rolon M.D. 5. Forest Worthy M.D. 6. Alida Mireles M.D. 7. Christoph Barron M.D. BRIEF HOSPITAL COURSE: The patient is a 71-year-old female from [facility] presented to ED for evaluation of leg swelling and shortness of breath. On evaluation at ED, labs showed BNP was 135. She was given IV diuretics. The patient stated that she did not feel safe to return to her facility and the patient was then admitted to telemetry for evaluation of congestive heart failure. She was given IV Lasix and echocardiogram done showed ejection fraction of 55%. Venous duplex of the lower extremity was negative for DVT. She has history of congestive heart failure and chronic obstructive pulmonary disease. Chest x-ray done showed no acute cardiopulmonary disease. She was given O2 treatment. She also complained of pain on the right knee. X-ray showed chronic appearing abnormalities with chronic posttraumatic changes secondary to degenerative arthropathy. She was given pain management consisting of Keller and Percocet. She complained of abdominal pain. Bowel movement seemed to be regular. She was given symptomatic treatments and bowel regimen. She had been tolerating diet well. She was seen by a psychiatrist and was diagnosed to have schizoaffective bipolar type and was given Paxil and Abilify. She claimed to be allergic to Abilify and medication was discontinued. Paxil was changed to nightly and Ambien was increased to 10 mg. She was referred to multiple long-term and the patient had difficult placement in a new long-term. Eventually on 12/13/2016, the patient was accepted to the [facility], and the patient was then discharged to SNF. FINAL DIAGNOSES: 1. Acute diastolic congestive heart failure. 2. Chronic obstructive pulmonary disease. 3. Lumbar degenerative disk disease. 4. Osteoarthritis of multiple joints. 5. Chronic pain. 6. Schizoaffective bipolar type. 7. Anemia. Rene Julio D.O. I have been assigned to dictate discharge summary on this account and I was not involved in the patient's management. Magy Mcdaniel N.P. DR: RACHAEL JOB#: [id number] CC:
== END 2016-12-13 17:00 | DRG 194 ==
LOC: EDBD 20:28 → EMR 21:00 → 2E 11-26 01:00 → EDBEDREQ 11-26 01:41 → 4W 11-26 15:10
DX: I50.33 Acute on chronic diastolic (congestive) heart failure (principal); G93.40 Encephalopathy, unspecified; J44.9 Chronic obstructive pulmonary disease, unspecified; Z68.41 Body mass index [BMI] 40.0-44.9, adult; E66.01 Morbid (severe) obesity due to excess calories; M15.9 Polyosteoarthritis, unspecified; Z88.1 Allergy status to other antibiotic agents; Z88.0 Allergy status to penicillin; Z88.8 Allergy status to other drugs, medicaments and biological substances; G89.29 Other chronic pain; D64.9 Anemia, unspecified; E03.9 Hypothyroidism, unspecified; M51.16 Intervertebral disc disorders with radiculopathy, lumbar region; I25.10 Atherosclerotic heart disease of native coronary artery without angina pectoris; Z95.5 Presence of coronary angioplasty implant and graft; F17.200 Nicotine dependence, unspecified, uncomplicated; F25.0 Schizoaffective disorder, bipolar type; H26.9 Unspecified cataract; Z98.84 Bariatric surgery status; F32.9 Major depressive disorder, single episode, unspecified; G40.909 Epilepsy, unspecified, not intractable, without status epilepticus
CPT/HCPCS: 36415; 71010; 80048; 80053; 83880; 84443; 84484; 85025; 85379; 93005; 93306; 93970; 94640; 94664; 96374; 96376; 97803; J2405; J7620

== ENCOUNTER 2017-01-15 16:24 | Emergency (ER) | payer MEDICARE, OTHER ==
[~2017-01-15] VITALS: Ht 147.3 cm; Wt 95.3 kg
[~2017-01-15 16:24] MED LIST changes: +DIVALPROEX SOD500 MG PO; +DUONEB 0.5-3(2.53 ML HHN; +PERCOCET 5-3251 EACH ORAL
[2017-01-15 16:26] VITALS: BP 154/100
[2017-01-15 16:40] VITALS: BP 152/97
--- NOTE | 2017-01-15 16:40 | Emergency Room Report ---
History of Present Illness General Chief Complaint: General Complaint Source: Medical Record Present Illness HPI 71-year-old female presents to the emergency department from [facility] complaining of erythema and swelling to the anterior right leg x2 days. Patient states she had a bug bite initially which she scratched and now there is progressive erythema. Patient denies fevers or chills. Patient reports history of edema and recently had to take Levaquin. Denies posterior calf pain. Denies trauma or fall .Denies CP, Palpitations, LOC, AMS, dizziness, Changes in Vision, Sensation, paresthesias, or a sudden severe headache. Allergies: Coded Allergies: PENICILLINS (Unverified Allergy, Severe, 11/09/16) AMITRIPTYLINE (Verified Allergy, Unknown, 10/19/13) recorded from shelter. pt does not remember the reation. CHLORPROMAZINE (Verified Allergy, Unknown, 10/19/13) recorded from shelter. pt does not remember reaction. ERYTHROMYCIN BASE (Verified Allergy, Unknown, 10/19/13) recorded from shelter. pt does not remember reaction. HALOPERIDOL (Verified Allergy, Unknown, 10/19/13) recorded from shelter. pt does not remember reaction. QUETIAPINE (Verified Allergy, Unknown, 10/19/13) recorded from shelter. pt does not remember reaction. Patient History Past Medical History: see triage record Past Surgical History: none Pertinent Family History: none Now: No Immunizations: UTD Reviewed Nursing Documentation: PMH: Agreed, PSxH: Agreed Nursing Documentation-PMH Hx Cardiac Problems: Yes - "Heart failure" Hx Hypertension: Yes Hx Pacemaker: No Hx Asthma: Yes Hx COPD: Yes Hx Diabetes: No - Hypothyroid Hx Cancer: No Hx Gastrointestinal Problems: Yes - GASTRIC BYPASS 2006 History Of Psychiatric Problem: Yes - Schizoaffective; Bipolar; Paranoid Hx Neurological Problems: Yes - Dorsalgia Hx Cerebrovascular Accident: No Hx Encephalitis: Yes - encephalopathy Hx Seizures: Yes Review of Systems All Other Systems: negative except mentioned in HPI Physical Exam Vital Signs Date Time Temp Pulse Resp B/P (MAP) Pulse Ox O2 Delivery O2 Flow Rate FiO2 01/15/17 16:19 97.7 82 20 154/100 96 Room Air Sp02 EP Interpretation: reviewed, normal General Appearance: no apparent distress, alert, GCS 15, non-toxic, obese Head: normocephalic, atraumatic Eyes: bilateral eye normal inspection, bilateral eye PERRL ENT: hearing grossly normal, normal voice Neck: full range of motion Respiratory: lungs clear, normal breath sounds, speaking full sentences Cardiovascular #1: regular rate, rhythm Cardiovascular #2: 2+ dorsalis pedis (R), 2+ dorsalis pedis (L) Musculoskeletal: normal range of motion, non-tender, no calf tenderness, inflammation - erythematous lesion to the anterior right price, no appreciable ttp. Neurologic: alert, oriented x3, responsive, motor strength/tone normal, sensory intact, speech normal Psychiatric: judgement/insight normal, memory normal, mood/affect normal Skin: normal color, warm/dry, well hydrated, other - small discrete 0.3 cm lesion to the anteiror right price with scab, surrounding erythema extending 2 inches in diameter, non circumfrential, mild increased temperature to palpation. Lymphatic: no adenopathy Medical Decision Making PA Attestation Dr. Souza is my supervising Physician whom patient management has been discussed with. Diagnostic Impression: Primary Impression: Cellulitis Qualified Codes: L03.115 - Cellulitis of right lower limb ER Course 71-year-old female presents to the emergency department from [facility] complaining of erythema and swelling to the anterior right leg x2 days. Patient states she had a bug bite initially which she scratched and now there is progressive erythema. Patient denies fevers or chills. Patient reports history of edema and recently had to take Levaquin. Denies posterior calf pain. Denies trauma or fall .Denies CP, Palpitations, LOC, AMS, dizziness, Changes in Vision, Sensation, paresthesias, or a sudden severe headache. Ddx considered but are not limited to cellulitis, DVT, Sepsis, gout Vital signs: are WNL, pt. is afebrile H&PE are most consistent with Cellulitis of the right leg. localized to anterior, I do not suspect DVT or sepsis at this time. pt. is candidate for oral abx therapy and close follow up. ORDERS: none required at this time, the diagnosis is clinical ED INTERVENTIONS: None required at this time. -[place] PO -Bactrim DS PO Pt. will be d/c back to [facility]. I do not suspect an emergent condition at this time. with current presentation pt. is stable for close outpatient follow up. D/w pt. to return to ED with worsening or new symptoms. DISCHARGE: At this time pt. is stable for d/c to home. Will provide printed patient care instructions, and any necessary prescriptions. Care plan and follow up instructions have been discussed with the patient prior to discharge. Last Vital Signs Date Time Temp Pulse Resp B/P (MAP) Pulse Ox O2 Delivery O2 Flow Rate FiO2 01/15/17 16:26 97.7 82 20 154/100 96 Room Air Disposition: ASSISTED LIVING Condition: Stable Scripts Hydrocodone Bit/Acetaminophen 5-325* (NORCO 5-325*) 1 Each Tablet 1 TAB ORAL Q6H Y for For Pain, #6 TAB 0 Refills Prov: Anita Charles 01/15/17 Trimethoprim/Sulfamethoxazole 160/800* (BACTRIM DS TABLET*) 1 Each Tablet 1 TAB ORAL TWICE A DAY for 7 Days, #14 TAB Prov: Anita Charles 01/15/17 Patient Instructions: Cellulitis Additional Instructions: Take medications as directed. Follow up with a Primary Care Provider in 3-5 days, even if your symptoms have resolved. --Please review list of primary care clinics, if you do not already have a primary care provider Return sooner to ED if new symptoms occur, or current symptoms become worse. - Please note that this Emergency Department Report was dictated using [employer] manager technology software, occasionally this can lead to erroneous entry secondary to interpretation by the dictation equipment. Anita Charles Jan 15, 2017 16:40
[2017-01-15] MEDS ORDERED: Norco 5mg/325mg tab ORAL ONE (17:15)
[2017-01-15] MEDS ORDERED: BACTRIM DS TAB1 EAC1 ORAL (18:11)
[2017-01-15] MEDS ORDERED: NORCO 5-325 TA1 EACH ORAL (18:11)
[2017-01-15] MEDS ORDERED: Bactrim DS (160mg/800mg) tab ORAL ONE (18:15)
[2017-01-15 18:45] VITALS: BP 147/84
[2017-01-15 18:47] VITALS: BP 147/84
== END 2017-01-15 18:47 | disposition home or self-care (01) ==
LOC: EDBD 16:24 → EMR 16:58
DX: L03.115 Cellulitis of right lower limb (principal); Z88.0 Allergy status to penicillin; Z88.8 Allergy status to other drugs, medicaments and biological substances; I10 Essential (primary) hypertension; J44.9 Chronic obstructive pulmonary disease, unspecified; Z98.84 Bariatric surgery status; E66.9 Obesity, unspecified; Z68.41 Body mass index [BMI] 40.0-44.9, adult
CPT/HCPCS: 99284